=== PATIENT | male | born 1940 | race African-American/Black ===

== ENCOUNTER 2019-02-04 12:29 | Inpatient (IN) | payer MEDICARE, BC ==
[~2019-02-04] VITALS: Ht 175.3 cm; Wt 62.2 kg
[~2019-02-04 12:29] MED LIST: ACET500T68 PO; ATORVASTATIN CA80 MG PO; GABA300C18 PO; METF500T16 PO; OMEP20TA8 PO; SENN-80 PO; TAMS0.4C2 PO
[2019-02-04] MEDS ORDERED: ONDANSETRON PF 4 MG/2 ML VIAL. IV ONE (12:45)
[2019-02-04] MEDS ORDERED: MORPHINE SULFATE 4 MG/ML VIAL. IV ONE (12:45)
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
[2019-02-04 13:47] LABS: BILIRUBIN,URINE NEGATIVE (NEG); CLARITY,URINE CLEAR; COLOR,URINE YELLOW; NITRITE,URINE NEGATIVE (NEG); PH,URINE 6.5; PROTEIN,URINE 100 mg/dL (NEG-TRACE)
[2019-02-04 13:57] LABS: BACTERIA,URINE 0 /HPF (0-FEW); RBC,URINE TNTC /HPF (0-2); WBC,URINE 0 /HPF (0-4)
[2019-02-04 13:57] LABS: BASO % 1 % (0-3); EOS % 0 % (0-3); HEMOGLOBIN 13.9 g/dL (13.0-17.5); LYMPH # 0.3 x10^3/uL (1.0-4.8); LYMPH % 3 % (24-48); MEAN CORPUSCULAR HEMOGLOBIN 32 pg (25-35); MEAN CORPUSCULAR HGB CONC 34 g/dL (31-37); MEAN CORPUSCULAR VOLUME 93 fL (79-100); MONO # 0.8 x10^3/uL (0.0-1.1); MONO % 9 % (0-9); NEUT # 8.1 x10^3/uL (1.8-7.7); NEUT % 88 % (31-73); PLATELET COUNT 214 x10^3/uL (140-400); RED BLOOD COUNT 4.39 x10^6/uL (4.30-5.70); RED CELL DISTRIBUTION WIDTH 14.1 % (11.5-14.5); WHITE BLOOD COUNT 9.2 x10^3/uL (4.0-11.0)
[2019-02-04 14:06] LABS: CALCIUM 9.3 mg/dL (8.5-10.1); CREATININE 1.1 mg/dL (0.7-1.3); GFR 78.5; POTASSIUM 4.7 mmol/L (3.5-5.1)
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
[2019-02-04 14:14] LABS: ALBUMIN 3.5 g/dL (3.4-5.0); ALBUMIN/GLOBULIN RATIO 1.1 (1.0-1.7); TOTAL BILIRUBIN 0.8 mg/dL (0.2-1.0); TOTAL PROTEIN 6.7 g/dL (6.4-8.2)
[2019-02-04] MEDS ORDERED: ONDANSETRON PF 4 MG/2 ML VIAL. IV PRN (14:15)
[2019-02-04] MEDS ORDERED: MORPHINE SULFATE 4 MG/ML VIAL. IV PRN ×2 (14:15→15:45)
[2019-02-04] MEDS ORDERED: MULT-690 PO (14:54)
[2019-02-04 14:57] LABS: % BANDS 3 % (0-9); % BASOS 1 % (0-3); % LYMPHS 3 % (24-48); % MONOS 6 % (0-10); % SEGS 87 % (35-66); PLT ESTIMATE ADEQUATE (ADEQUATE)
[2019-02-04 14:58] LABS: ACANTHOCYTES FEW; SCHISTOCYTES OCC
[2019-02-04 15:00] VITALS: BP 139/59
[2019-02-04 16:17] LABS: PROTHROMBIN TIME PATIENT 13.1 SEC (11.7-14.0)
--- NOTE | 2019-02-04 16:19 | EKG ---
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
--- NOTE | 2019-02-04 17:02 | PDOC ---
Provider Note Provider Note history and physical dictated # [id number] RAVINDER BUSTAMANTE MD Feb 04, 2019 17:02
[2019-02-04 19:00] VITALS: BP 128/61
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
--- NOTE | 2019-02-04 19:50 | HP ---
ADMIT DATE: 02/04/2019 LOCATION: He is in room #406. HISTORY OF PRESENT ILLNESS: The patient is a 78-year-old -Romanian male with history of diabetes mellitus and hyperlipidemia, who apparently got up this morning around 3:00 in the morning, his right leg gave way and he fell to the floor. He hurt his right hip and was eventually transported to the [facility] Emergency Room today 02/04 where x-rays revealed a right subcapital femoral neck fracture. The patient was seen by the orthopedist and it is anticipated that he would need surgery tomorrow. He denied any chest pain, shortness of breath or syncope. He had some urine retention and a Causey catheter had to be placed in the Emergency Room. He is alert now and comfortable. Denies any recent chest pain or shortness of breath. ALLERGIES AND INTOLERANCES: PENICILLIN. MEDICATIONS: Include gabapentin 300 mg t.i.d., omeprazole 20 mg 2 tablets every day, atorvastatin 80 mg every day, tamsulosin 0.4 mg every day, metformin 500 mg every day, but apparently has been taking 1 b.i.d. at home, but I will be decreasing that to once a day in the hospital. PAST MEDICAL HISTORY: Significant for diabetes mellitus type 2, hyperlipidemia, and erectile dysfunction, gastroesophageal reflux disease, idiopathic peripheral neuropathy. He has a history of benign prostatic hypertrophy. His last colonoscopy was in 2013, I believe, and he had internal hemorrhoids at that time. I believe he had a lumbar laminectomy in 2006. He has had multinodular goiter, a 3.1 cm abdominal aortic aneurysm noted in 10/2017. He has a history of diabetic peripheral neuropathy, also diverticulosis. He had a gastric ulcer and gastritis in the past. SOCIAL HISTORY: He does not drink alcohol nor does he smoke cigarettes. I believe he does use a cane to get around. FAMILY HISTORY: Brother had asthma. Father had diabetes mellitus. Mother and sister had asthma. REVIEW OF SYSTEMS: GENERAL: He denies any fever, chills or sweats in the last 3 days. CARDIOVASCULAR: No chest pain. PULMONARY: No cough or shortness of breath. GASTROINTESTINAL: No constipation. GENITOURINARY: He had some urine retention in the Emergency Room. MUSCULOSKELETAL: Right hip pain. The rest of systems reviewed are negative except as stated in history of present illness. PHYSICAL EXAMINATION: VITAL SIGNS: Temperature is 98.1 degrees, apical pulse regular 71, respiratory rate 21, blood pressure 139/59, and oxygen saturation 98% on room air. HEENT: Eyes: Gaze is conjugate. Mouth: Tongue is midline. NECK: There is no cervical lymphadenopathy or thyroid enlargement. HEART: Reveals an S1, S2. There is no S3 or murmur. LUNGS: Clear. ABDOMEN: Soft, nontender. GENITOURINARY: He has got a Causey catheter. EXTREMITIES: Lower extremities, no edema. Both feet are warm. The right leg is shorter than the left. He is lying slightly tilted to the right side. NEUROLOGIC: He is able to move his feet up and down. 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 No facial asymmetry. He is coherent. LABORATORY DATA: White count 9.2, hemoglobin 13.9 with a platelet count of 214,000 with 88 polys and 3 lymphocytes. His INR was 1.0. Sodium 142, potassium 4.7, chloride 105, total CO2 of 26, BUN 22, creatinine 1.1, blood sugar is 155. Liver function tests were normal except for an SGOT of 42 and he had an INR as mentioned of 1.0. Urinalysis showed too numerous to count red cells and 0 white blood cells. He had an x-ray of his right hip, which showed a subcapital right femoral neck fracture. He had an electrocardiogram done, which was reviewed, and in sinus rhythm. I do not see a chest x-ray done. ASSESSMENT: 1. Subcapital right femoral neck fracture. 2. Diabetes mellitus type 2. 3. Hyperlipidemia. 4. Urinary retention requiring a Causey catheter. 5. Benign prostatic hypertrophy. PLAN: At this time is to consult Dr. Sims. We will repeat the CBC and BMP tomorrow. Analgesics have been ordered. He has IV morphine ordered p.r.n. as well as hydrocodone ordered p.r.n. Continue the tamsulosin and the Causey catheter. Continue with his home medications, metformin 500 mg once a day. Ordered some Senokot-S for him. We will also check a 25-hydroxy vitamin D level tomorrow. Obtain a Cardiology consult for cardiology clearance. I did order an echocardiogram. We will get a chest x-ray on him also. RAVINDER BUSTAMANTE MD DR: Jarret JOB#: [id number] / [id number]
[2019-02-04] MEDS: ATORVASTATIN CALCIUM 40 MG TABLET. PO SCH (20:40)
[2019-02-04] MEDS: GABAPENTIN 300 MG CAPSULE. PO SCH (20:41)
--- NOTE | 2019-02-04 21:31 | RAD ---
Single view chest dated 02/04/2019. Comparison made to 11/10/2017. CLINICAL INDICATION: Preop for hip operation. FINDINGS: Single upright portable exam performed. Heart and mediastinal contours are stable. Lungs are hyperinflated but otherwise clear. No consolidation or pleural effusion. No pneumothorax. IMPRESSION: No acute radiographic abnormality. Electronically signed by: Allan Zendejas MD (02/04/2019 9:29 PM) [facility]
[2019-02-04 23:08] VITALS: BP 121/49
[2019-02-05] VITALS (13 sets, daily range): BP systolic 91–118; BP diastolic 43–60
[2019-02-05] MEDS: MORPHINE SULFATE 2 MG/ML VIAL. IV PRN ×3 (06:35→20:30)
[2019-02-05 06:47] LABS: BASO # 0.1 x10^3/uL (0.0-0.2); BASO % 1 % (0-3); EOS # 0.3 x10^3/uL (0.0-0.7); EOS % 4 % (0-3); HEMATOCRIT 34.9 % (39.0-53.0); HEMOGLOBIN 11.9 g/dL (13.0-17.5); LYMPH # 0.9 x10^3/uL (1.0-4.8); LYMPH % 13 % (24-48); MEAN CORPUSCULAR HEMOGLOBIN 32 pg (25-35); MEAN CORPUSCULAR HGB CONC 34 g/dL (31-37); MEAN CORPUSCULAR VOLUME 93 fL (79-100); MONO # 0.8 x10^3/uL (0.0-1.1); MONO % 11 % (0-9); NEUT # 4.9 x10^3/uL (1.8-7.7); NEUT % 72 % (31-73); PLATELET COUNT 207 x10^3/uL (140-400); RED BLOOD COUNT 3.76 x10^6/uL (4.30-5.70); RED CELL DISTRIBUTION WIDTH 14.2 % (11.5-14.5); WHITE BLOOD COUNT 6.8 x10^3/uL (4.0-11.0)
[2019-02-05] MEDS: PANTOPRAZOLE 40 MG TABLET.DR. PO SCH (06:49)
[2019-02-05] MEDS: TAMSULOSIN 0.4 MG CAP.ER.24H. PO SCH ×2 (06:50→12:18)
[2019-02-05] MEDS: metFORMIN 500 MG TABLET PO SCH ×2 (06:50→12:18)
[2019-02-05] MEDS: SENNOSIDES/DOCUSATE 8.6/50MG TABLET. PO SCH (06:50)
[2019-02-05] MEDS: GABAPENTIN 300 MG CAPSULE. PO SCH ×3 (06:50→20:27)
[2019-02-05] MEDS: MULTIVITAMIN with MINERAL TABLET. PO SCH (06:50)
[2019-02-05 07:00] LABS: CALCIUM 8.7 mg/dL (8.5-10.1); CREATININE 1.1 mg/dL (0.7-1.3); GFR 78.5; POTASSIUM 3.9 mmol/L (3.5-5.1)
[2019-02-05] MEDS ORDERED: fentaNYL PF VIAL 100 MCG/2 ML VIAL IV PRN ×2 (07:00)
[2019-02-05] MEDS ORDERED: HYDROmorphone 2 MG/ML VIAL IV PRN (07:00)
[2019-02-05] MEDS ORDERED: ONDANSETRON PF 4 MG/2 ML VIAL. IV PRN (07:00)
[2019-02-05] MEDS ORDERED: PROCHLORPERAZINE 10 MG/2 ML VIAL. IV PRN (07:00)
[2019-02-05] MEDS ORDERED: LIDOCAINE 1% PF 2 ML VIAL. ID PRN (07:00)
[2019-02-05] MEDS ORDERED: MORPHINE SULFATE 2 MG/ML VIAL. IV PRN (07:00)
[2019-02-05] MEDS ORDERED: IV RINGERS,LACTATED 1000ML 1,000 ML IV SCH (07:00)
[2019-02-05] MEDS ORDERED: MORPHINE SULFATE 5 MG, KETOROLAC 30MG VIAL 30 MG, ROPIVacaine 0.5% PF 60 ML, EPINEPHrin... INT ART ONE ×5 (08:00)
--- NOTE | 2019-02-05 08:34 | CARD ---
MR#: [id number] Date of Study: 02/04/2019 Ordering Physician: RAVINDER BUSTAMANTE, Referring Physician: RAVINDER BUSTAMANTE, Tech: Flora Zamora RDCS APPROVED REPORT EXAM: Two-dimensional and M-mode echocardiogram with Doppler and color Doppler. Other Information Quality : Technically LimitedHR: 65bpm Rhythm : NSRTechnically limited study due to body habitus and smoking. INDICATION Pre op 2D DIMENSIONS RVDd2.4 (2.9-3.5cm)Left Atrium(2D)4.5 (1.6-4.0cm) IVSd1.3 (0.7-1.1cm)Aortic Root(2D)3.2 (2.0-3.7cm) LVDd4.4 (3.9-5.9cm)LVOT Diameter2.3 (1.8-2.4cm) PWd1.0 (0.7-1.1cm)LVDs3.1 (2.5-4.0cm) FS (%) 30.1 %SV49.6 ml LVEF(%)57.6 (>50%) Aortic Valve AoV Peak Alexander.83.2cm/sAoV VTI15.4cm AO Peak GR.2.8mmHgLVOT VTI 11.28cm AO Mean GR.1mmHgAVA (VTI)2.60cm2 Mitral Valve MV E Dzovdcee46.5cm/sMV DECEL [id number] MV A Umxqdirf69.5cm/sE/A Ratio0.9 MV A [id number] LEFT VENTRICLE The left ventricle is normal size. There is borderline to mild concentric left ventricular hypertroph y. The left ventricular systolic function is normal and the ejection fraction is within normal range. The Ejection Fraction is 55-60%. There is normal LV segmental wall motion. Transmitral Doppler flow pattern is abnormal. RIGHT VENTRICLE The right ventricle is normal size. There is normal right ventricular wall thickness. The right ventr icular systolic function is normal. ATRIA The left atrium is mildly dilated. The right atrium size is normal. The interatrial septum is intact with no evidence for an atrial septal defect or patent foramen ovale as noted on 2-D or Doppler imagi ng. AORTIC VALVE The aortic valve is calcified but opens well. The aortic valve is trileaflet. Doppler and Color Flow revealed no significant aortic regurgitation. There is no significant aortic valvular stenosis. MITRAL VALVE The mitral valve is normal in structure and function. There is no evidence of mitral valve prolapse. There is no mitral valve stenosis. Doppler and Color-flow revealed trace mitral regurgitation. TRICUSPID VALVE The tricuspid valve is normal in structure and function. Doppler and Color Flow revealed trace tricus pid regurgitation. There is no tricuspid valve prolapse or vegetation. There is no tricuspid valve st enosis. PULMONIC VALVE The pulmonic valve is not well visualized. GREAT VESSELS The aortic root is normal in size. The ascending aorta is normal in size. The IVC is normal in size a nd collapses >50% with inspiration. PERICARDIAL EFFUSION There is no evidence of significant pericardial effusion. Critical Notification Critical Value: No <Conclusion> The left ventricle is normal size. The left ventricular systolic function is normal and the ejection fraction is within normal range. The Ejection Fraction is 55-60%. There is borderline to mild concentric left ventricular hypertrophy. There is no significant aortic valvular stenosis. Doppler and Color Flow revealed no significant aortic regurgitation. Doppler and Color-flow revealed trace mitral regurgitation. Doppler and Color Flow revealed trace tricuspid regurgitation. Signed by : Rahul Min MD Electronically Approved : 02/05/2019 08:33:56
[2019-02-05] MEDS ORDERED: SENNOSIDES 8.6 MG TABLET PO SCH (09:00)
[2019-02-05] MEDS ORDERED: fentaNYL PF VIAL 100 MCG/2 ML VIAL ONE ×2 (09:28→11:22)
[2019-02-05] MEDS ORDERED: NEOSTIGMINE METHYLSULFATE 5 MG/5 ML SYRINGE. ONE (09:28)
[2019-02-05] MEDS ORDERED: SEVOFLURANE 61 TO 120 MINUTES. IH ONE (09:28)
[2019-02-05] MEDS ORDERED: ROCURONIUM 50 MG/5 ML VIAL. ONE (09:28)
[2019-02-05] MEDS ORDERED: GLYCOPYRROLATE 1 MG/5 ML VIAL. ONE (09:28)
[2019-02-05] MEDS ORDERED: ONDANSETRON PF 4 MG/2 ML VIAL. ONE (09:29)
[2019-02-05] MEDS ORDERED: DEXAMETHASONE SOD PHOS 4 MG/ML VIAL ONE (09:29)
[2019-02-05] MEDS ORDERED: PHENYLEPHRINE in 0.9% NACL PF 1 MG/10 ML SYRINGE. IV ONE (09:29)
[2019-02-05] MEDS ORDERED: LIDOCAINE 2% PF 5 ML VIAL. ONE (09:29)
[2019-02-05] MEDS ORDERED: PROPOFOL 20 ML IV ONE (09:29)
[2019-02-05] MEDS ORDERED: ePHEDrine PF IN SALINE 50 MG/10 ML SYRINGE. IV ONE (11:01)
--- NOTE | 2019-02-05 11:45 | PDOC4 ---
Operative Note Operative Note Date of surgery: 02/05/2019 Preoperative diagnosis: Displaced right femoral neck fracture Postoperative diagnosis: Same Operative procedure: Right hip hemiarthroplasty Surgeon: Bethany Payton Anesthesia: Gen. Estimated blood loss: 100 mL Complications: None Drains: None Operative indications please see my orthopedic consultation for detailed operative indications and note that had discussed with the patient and his son possible operative complications of infection nerve or blood vessel damage instability premature wear or loosening medical or other anesthetic competitions among others. All her questions were answered and patient wishes to proceed with surgical evaluation and treatment having given informed consent Operative text: Patient was identified procedure verified patient placed in the supine position. On the operating table. After adequate amounts of general anesthesia were administered he was placed in the decubitus position right side up using the Stulberg hip positioner and the right hip was prepped and draped in standard sterile fashion. After timeout was performed patient procedure identified and verified a curvilinear incision was made centered over the greater trochanter iliotibial band and gluteal fascia were divided in line with their fibers Charnley retractor was placed external rotators were divided from their insertion and hip capsule was split in a T fashion. A femoral neck cut was made using the cutting guide the femoral head was retrieved and sized at a size 52 acetabulum was well preserved femur was reamed and broached and trial fit wi th a 15 mm standard offset broach and a 52 mm outer diameter trial which restored leg length offset and good range of motion with stability. Trial components were removed and a Synergy porous-coated 15 size standard offset stem was impacted in place and bipolar implant with a +0 52 mm outer diameter head was assembled on the table and impacted into place to engage the Kumar taper. Thorough irrigation was carried out normal saline solution and the hip was reduced hip capsule was repaired with #5 Ethibond suture external rotators were reattached transosseously with #5 Ethibond. The local anesthetic mixture was injected throughout the joint capsule no drain or pain catheter was placed fascial closure accomplished with #5 Ethibond and #1 PDS strata fix suture aguiar bcutaneous closure with 2-0 Vicryl skin closure with 3-0 strata fix Monocryl nilsa dressing was applied and patient was returned recovery room in stable condition having tolerated procedure well. Catie cole was present for the procedure assisted in the positioning prepping draping retraction and skin closure ABHI DOMINIQUE MD Feb 05, 2019 11:45
--- NOTE | 2019-02-05 12:07 | PDOC ---
PROGRESS NOTES Subjective Subjective seen in surgical holding area. alert and comfortable. vitals are stable. lab and echo report reviewed. Objective Objective Vital Signs Date Time Temp Pulse Resp B/P (MAP) Pulse Ox O2 Delivery O2 Flow Rate FiO2 02/05/19 11:31 20 97 Room Air 02/05/19 11:30 97.4 75 143/59 97.4 02/05/19 11:15 8 Intake and Output 02/05/19 06:59 Intake Total 240 ml Output Total 1850 ml Balance -1610 ml Intake Oral 240 ml Output Urine Total 1850 ml Physical Exam Abdomen: Soft Heart: Regular rate, Normal S1, Normal S2 Extremities: No edema, Other (dry dressing right hip) General: Alert HEENT: Atraumatic Lungs: Clear to auscultation Neuro: Normal speech Psych/Mental Status: Mental status NL Skin: No rashes Assessment Assessment Problems1. Subcapital right femoral neck fracture.treated with a right hip hemiarthroplasty 2. Diabetes mellitus type 2. 3. Hyperlipidemia. 4. Urinary retention requiring a Causey catheter. 5. Benign prostatic hypertrophy. Medical Problems: (1) Acute urinary retention Status: Acute (2) Fall from standing Status: Acute (3) Fracture of right hip Status: Acute Plan Plan of Care continue analgesics PT and OT DVT prophylaxis per dr. Sims continue metformin and atorvastatin and tamsulosin Comment Review of Relevant I have reviewed the following items dimitrios (where applicable) has been applied. Labs Laboratory Tests Test 02/04/19 13:00 02/04/19 13:42 02/04/19 16:34 02/04/19 20:29 Urine Collection Type Unknown Urine Color Yellow Urine Clarity Clear Urine pH 6.5 Urine Specific [place] 1.015 Urine Protein 100 mg/dL (NEG-TRACE) Urine Glucose (UA) 100 mg/dL (NEG) Urine Ketones (Stick) Trace mg/dL (NEG) Urine Blood Large (NEG) Urine Nitrite Negative (NEG) Urine Bilirubin Negative (NEG) Urine Urobilinogen Dipstick 1.0 mg/dL (0.2 mg/dL) Urine Leukocyte Esterase Negative (NEG) Urine RBC Tntc /HPF (0-2) Urine WBC 0 /HPF (0-4) Urine Bacteria 0 /HPF (0-FEW) Urine Mucus Slight /LPF White Blood Count 9.2 x10^3/uL (4.0-11.0) Red Blood Count 4.39 x10^6/uL (4.30-5.70) Hemoglobin 13.9 g/dL (13.0-17.5) Hematocrit 41.0 % (39.0-53.0) Mean Corpuscular Volume 93 fL (79-100) Mean Corpuscular Hemoglobin 32 pg (25-35) Mean Corpuscular Hemoglobin Concent 34 g/dL (31-37) Red Cell Distribution Width 14.1 % (11.5-14.5) Platelet Count 214 x10^3/uL (140-400) Neutrophils (%) (Auto) 88 % (31-73) Lymphocytes (%) (Auto) 3 % (24-48) Monocytes (%) (Auto) 9 % (0-9) Eosinophils (%) (Auto) 0 % (0-3) Basophils (%) (Auto) 1 % (0-3) Neutrophils # (Auto) 8.1 x10^3/uL (1.8-7.7) Lymphocytes # (Auto) 0.3 x10^3/uL (1.0-4.8) Monocytes # (Auto) 0.8 x10^3/uL (0.0-1.1) Eosinophils # (Auto) 0.0 x10^3/uL (0.0-0.7) Basophils # (Auto) 0.0 x10^3/uL (0.0-0.2) Segmented Neutrophils % 87 % (35-66) Band Neutrophils % 3 % (0-9) Lymphocytes % 3 % (24-48) Monocytes % 6 % (0-10) Basophils % 1 % (0-3) Platelet Estimate Adequate (ADEQUATE) Acanthocytes Few Schistocytes Occ Prothrombin Time 13.1 SEC (11.7-14.0) Prothromb Time International Ratio 1.0 (0.8-1.1) Sodium Level 142 mmol/L (136-145) Potassium Level 4.7 mmol/L (3.5-5.1) Chloride Level 105 mmol/L (98-107) Carbon Dioxide Level 26 mmol/L (21-32) Anion Gap 11 (6-14) Blood Urea Nitrogen 22 mg/dL (8-26) Creatinine 1.1 mg/dL (0.7-1.3) Estimated GFR (Cockcroft-Gault) 78.5 BUN/Creatinine Ratio 20 (6-20) Glucose Level 155 mg/dL (70-99) Calcium Level 9.3 mg/dL (8.5-10.1) Total Bilirubin 0.8 mg/dL (0.2-1.0) Aspartate Amino Transf (AST/SGOT) 42 U/L (15-37) Alanine Aminotransferase (ALT/SGPT) 45 U/L (16-63) Alkaline Phosphatase 83 U/L (46-116) Total Protein 6.7 g/dL (6.4-8.2) Albumin 3.5 g/dL (3.4-5.0) Albumin/Globulin Ratio 1.1 (1.0-1.7) Glucose (Fingerstick) 119 mg/dL (70-99) 103 mg/dL (70-99) Test 02/05/19 04:55 02/05/19 07:09 White Blood Count 6.8 x10^3/uL (4.0-11.0) Red Blood Count 3.76 x10^6/uL (4.30-5.70) Hemoglobin 11.9 g/dL (13.0-17.5) Hematocrit 34.9 % (39.0-53.0) Mean Corpuscular Volume 93 fL (79-100) Mean Corpuscular Hemoglobin 32 pg (25-35) Mean Corpuscular Hemoglobin Concent 34 g/dL (31-37) Red Cell Distribution Width 14.2 % (11.5-14.5) Platelet Count 207 x10^3/uL (140-400) Neutrophils (%) (Auto) 72 % (31-73) Lymphocytes (%) (Auto) 13 % (24-48) Monocytes (%) (Auto) 11 % (0-9) Eosinophils (%) (Auto) 4 % (0-3) Basophils (%) (Auto) 1 % (0-3) Neutrophils # (Auto) 4.9 x10^3/uL (1.8-7.7) Lymphocytes # (Auto) 0.9 x10^3/uL (1.0-4.8) Monocytes # (Auto) 0.8 x10^3/uL (0.0-1.1) Eosinophils # (Auto) 0.3 x10^3/uL (0.0-0.7) Basophils # (Auto) 0.1 x10^3/uL (0.0-0.2) Sodium Level 142 mmol/L (136-145) Potassium Level 3.9 mmol/L (3.5-5.1) Chloride Level 105 mmol/L (98-107) Carbon Dioxide Level 28 mmol/L (21-32) Anion Gap 9 (6-14) Blood Urea Nitrogen 23 mg/dL (8-26) Creatinine 1.1 mg/dL (0.7-1.3) Estimated GFR (Cockcroft-Gault) 78.5 Glucose Level 88 mg/dL (70-99) Calcium Level 8.7 mg/dL (8.5-10.1) Glucose (Fingerstick) 92 mg/dL (70-99) Laboratory Tests Test 02/04/19 13:00 02/04/19 13:42 02/04/19 16:34 02/04/19 20:29 Urine Collection Type Unknown Urine Color Yellow Urine Clarity Clear Urine pH 6.5 Urine Specific [place] 1.015 Urine Protein 100 mg/dL (NEG-TRACE) Urine Glucose (UA) 100 mg/dL (NEG) Urine Ketones (Stick) Trace mg/dL (NEG) Urine Blood Large (NEG) Urine Nitrite Negative (NEG) Urine Bilirubin Negative (NEG) Urine Urobilinogen Dipstick 1.0 mg/dL (0.2 mg/dL) Urine Leukocyte Esterase Negative (NEG) Urine RBC Tntc /HPF (0-2) Urine WBC 0 /HPF (0-4) Urine Bacteria 0 /HPF (0-FEW) Urine Mucus Slight /LPF White Blood Count 9.2 x10^3/uL (4.0-11.0) Red Blood Count 4.39 x10^6/uL (4.30-5.70) Hemoglobin 13.9 g/dL (13.0-17.5) Hematocrit 41.0 % (39.0-53.0) Mean Corpuscular Volume 93 fL (79-100) Mean Corpuscular Hemoglobin 32 pg (25-35) Mean Corpuscular Hemoglobin Concent 34 g/dL (31-37) Red Cell Distribution Width 14.1 % (11.5-14.5) Platelet Count 214 x10^3/uL (140-400) Neutrophils (%) (Auto) 88 % (31-73) Lymphocytes (%) (Auto) 3 % (24-48) Monocytes (%) (Auto) 9 % (0-9) Eosinophils (%) (Auto) 0 % (0-3) Basophils (%) (Auto) 1 % (0-3) Neutrophils # (Auto) 8.1 x10^3/uL (1.8-7.7) Lymphocytes # (Auto) 0.3 x10^3/uL (1.0-4.8) Monocytes # (Auto) 0.8 x10^3/uL (0.0-1.1) Eosinophils # (Auto) 0.0 x10^3/uL (0.0-0.7) Basophils # (Auto) 0.0 x10^3/uL (0.0-0.2) Segmented Neutrophils % 87 % (35-66) Band Neutrophils % 3 % (0-9) Lymphocytes % 3 % (24-48) Monocytes % 6 % (0-10) Basophils % 1 % (0-3) Platelet Estimate Adequate (ADEQUATE) Acanthocytes Few Schistocytes Occ Prothrombin Time 13.1 SEC (11.7-14.0) Prothromb Time International Ratio 1.0 (0.8-1.1) Sodium Level 142 mmol/L (136-145) Potassium Level 4.7 mmol/L (3.5-5.1) Chloride Level 105 mmol/L (98-107) Carbon Dioxide Level 26 mmol/L (21-32) Anion Gap 11 (6-14) Blood Urea Nitrogen 22 mg/dL (8-26) Creatinine 1.1 mg/dL (0.7-1.3) Estimated GFR (Cockcroft-Gault) 78.5 BUN/Creatinine Ratio 20 (6-20) Glucose Level 155 mg/dL (70-99) Calcium Level 9.3 mg/dL (8.5-10.1) Total Bilirubin 0.8 mg/dL (0.2-1.0) Aspartate Amino Transf (AST/SGOT) 42 U/L (15-37) Alanine Aminotransferase (ALT/SGPT) 45 U/L (16-63) Alkaline Phosphatase 83 U/L (46-116) Total Protein 6.7 g/dL (6.4-8.2) Albumin 3.5 g/dL (3.4-5.0) Albumin/Globulin Ratio 1.1 (1.0-1.7) Glucose (Fingerstick) 119 mg/dL (70-99) 103 mg/dL (70-99) Test 02/05/19 04:55 02/05/19 07:09 White Blood Count 6.8 x10^3/uL (4.0-11.0) Red Blood Count 3.76 x10^6/uL (4.30-5.70) Hemoglobin 11.9 g/dL (13.0-17.5) Hematocrit 34.9 % (39.0-53.0) Mean Corpuscular Volume 93 fL (79-100) Mean Corpuscular Hemoglobin 32 pg (25-35) Mean Corpuscular Hemoglobin Concent 34 g/dL (31-37) Red Cell Distribution Width 14.2 % (11.5-14.5) Platelet Count 207 x10^3/uL (140-400) Neutrophils (%) (Auto) 72 % (31-73) Lymphocytes (%) (Auto) 13 % (24-48) Monocytes (%) (Auto) 11 % (0-9) Eosinophils (%) (Auto) 4 % (0-3) Basophils (%) (Auto) 1 % (0-3) Neutrophils # (Auto) 4.9 x10^3/uL (1.8-7.7) Lymphocytes # (Auto) 0.9 x10^3/uL (1.0-4.8) Monocytes # (Auto) 0.8 x10^3/uL (0.0-1.1) Eosinophils # (Auto) 0.3 x10^3/uL (0.0-0.7) Basophils # (Auto) 0.1 x10^3/uL (0.0-0.2) Sodium Level 142 mmol/L (136-145) Potassium Level 3.9 mmol/L (3.5-5.1) Chloride Level 105 mmol/L (98-107) Carbon Dioxide Level 28 mmol/L (21-32) Anion Gap 9 (6-14) Blood Urea Nitrogen 23 mg/dL (8-26) Creatinine 1.1 mg/dL (0.7-1.3) Estimated GFR (Cockcroft-Gault) 78.5 Glucose Level 88 mg/dL (70-99) Calcium Level 8.7 mg/dL (8.5-10.1) Glucose (Fingerstick) 92 mg/dL (70-99) Medications Current Medications Ondansetron HCl (Zofran) 4 mg 1X ONCE IV Last administered on 02/04/19at 13:32; Start 02/04/19 at 12:45; Stop 02/04/19 at 12:51; Status DC Morphine Sulfate (Morphine Sulfate) 4 mg 1X ONCE IV Last administered on 02/04/19at 13:34; Start 02/04/19 at 12:45; Stop 02/04/19 at 12:51; Status DC Ondansetron HCl (Zofran) 4 mg PRN Q8HRS PRN IV NAUSEA/VOMITING; Start 02/04/19 at 14:15; Stop 02/05/19 at 14:14 Morphine Sulfate (Morphine Sulfate) 4 mg PRN Q2HR PRN IV PAIN; Start 02/04/19 at 14:15; Stop 02/04/19 at 15:50; Status DC Morphine Sulfate (Morphine Sulfate) 4 mg PRN Q4HRS PRN IV PAIN Last administered on 02/04/19at 16:21; Start 02/04/19 at 15:45 Gabapentin (Neurontin) 300 mg TID PO Last administered on 02/04/19at 20:41; Start 02/04/19 at 21:00 Metformin HCl (Glucophage) 500 mg DAILY PO ; Start 02/05/19 at 09:00 Tamsulosin HCl (Flomax) 0.4 mg DAILY PO ; Start 02/05/19 at 09:00 Atorvastatin Calcium (Lipitor) 80 mg QHS PO Last administered on 02/04/19at 20:40; Start 02/04/19 at 21:00 Multivitamins (Thera M Plus) 1 tab DAILY PO ; Start 02/05/19 at 09:00 Pantoprazole Sodium (Protonix) 40 mg DAILYAC PO ; Start 02/05/19 at 07:30 Sennosides (Senna) 8.6 mg DAILY PO ; Start 02/05/19 at 09:00; Stop 02/04/19 at 16:55; Status DC Acetaminophen (Tylenol) 650 mg PRN Q6HRS PRN PO PAIN; Start 02/04/19 at 15:45 Acetaminophen/ Hydrocodone Bitart (Lortab 5/325) 1 tab PRN Q4HRS PRN PO PAIN; Start 02/04/19 at 15:45 Morphine Sulfate (Morphine Sulfate) 2 mg PRN Q4HRS PRN IV PAIN Last administered on 02/05/19at 06:35; Start 02/04/19 at 15:45 Ondansetron HCl (Zofran) 4 mg PRN Q6HRS PRN IV NAUSEA/VOMITING; Start 02/05/19 at 07:00; Stop 02/06/19 at 06:59 Fentanyl Citrate (Fentanyl 2ml Vial) 25 mcg PRN Q5MIN PRN IV MILD PAIN 1-3 Last administered on 02/05/19at 11:31; Start 02/05/19 at 07:00; Stop 02/06/19 at 06:59 Fentanyl Citrate (Fentanyl 2ml Vial) 50 mcg PRN Q5MIN PRN IV MODERATE TO SEVERE PAIN; Start 02/05/19 at 07:00; Stop 02/06/19 at 06:59 Morphine Sulfate (Morphine Sulfate) 1 mg PRN Q10MIN PRN IV SEVERE PAIN 7-10; Start 02/05/19 at 07:00; Stop 02/06/19 at 06:59 Ringer's Solution 1,000 ml @ 30 mls/hr Q24H IV Last administered on 02/05/19at 09:23; Start 02/05/19 at 07:00; Stop 02/05/19 at 18:59 Lidocaine HCl (Xylocaine-Mpf 1% 2ml Vial) 2 ml PRN 1X PRN ID PRIOR TO IV START; Start 02/05/19 at 07:00; Stop 02/06/19 at 06:59 Hydromorphone HCl (Dilaudid) 0.5 mg PRN Q10MIN PRN IV SEV PAIN, Second choice; Start 02/05/19 at 07:00; Stop 02/06/19 at 06:59 Prochlorperazine Edisylate (Compazine) 5 mg PACU PRN PRN IV NAUSEA, MRX1; Start 02/05/19 at 07:00; Stop 02/06/19 at 06:59 Senna/Docusate Sodium (Senna Plus) 2 tab DAILY PO ; Start 02/05/19 at 09:00 Morphine Sulfate 5 mg/Ketorolac Tromethamine 30 mg/Ropivacaine 60 ml/Epinephrine HCl 0.5 mg/Sodium Chloride 100 ml @ 100 mls/hr 1X ONCE INT ART Last administered on 02/05/19at 10:16; Start 02/05/19 at 08:00; Stop 02/05/19 at 08:59; Status DC Glycopyrrolate (Robinul) 1 mg STK-MED ONCE .ROUTE ; Start 02/05/19 at 09:28; Stop 02/05/19 at 09:28; Status DC Sevoflurane (Ultane) 60 ml STK-MED ONCE IH ; Start 02/05/19 at 09:28; Stop 02/05/19 at 09:28; Status DC Rocuronium [place] (Zemuron) 50 mg STK-MED ONCE .ROUTE ; Start 02/05/19 at 09:28; Stop 02/05/19 at 09:28; Status DC Fentanyl Citrate (Fentanyl 2ml Vial) 100 mcg STK-MED ONCE .ROUTE ; Start 02/05/19 at 09:28; Stop 02/05/19 at 09:28; Status DC Neostigmine Methylsulfate (Neostigmine Methylsulfate) 5 mg STK-MED ONCE .ROUTE ; Start 02/05/19 at 09:28; Stop 02/05/19 at 09:29; Status DC Propofol 20 ml @ As Directed STK-MED ONCE IV ; Start 02/05/19 at 09:29; Stop 02/05/19 at 09:29; Status DC Phenylephrine HCl (PHENYLEPHRINE in 0.9% NACL PF) 1 mg STK-MED ONCE IV ; Start 02/05/19 at 09:29; Stop 02/05/19 at 09:29; Status DC Lidocaine HCl (Lidocaine Pf 2% Vial) 5 ml STK-MED ONCE .ROUTE ; Start 02/05/19 at 09:29; Stop 02/05/19 at 09:29; Status DC Dexamethasone Sodium Phosphate (Decadron) 4 mg STK-MED ONCE .ROUTE ; Start 02/05/19 at 09:29; Stop 02/05/19 at 09:29; Status DC Ondansetron HCl (Zofran) 4 mg STK-MED ONCE .ROUTE ; Start 02/05/19 at 09:29; Stop 02/05/19 at 09:29; Status DC Cefazolin Sodium 50 ml @ As Directed STK-MED ONCE IV ; Start 02/05/19 at 09:35; Stop 02/05/19 at 09:35; Status DC Ephedrine Sulfate (ePHEDrine PF IN SALINE SYRINGE) 50 mg STK-MED ONCE IV ; Start 02/05/19 at 11:01; Stop 02/05/19 at 11:01; Status DC Fentanyl Citrate (Fentanyl 2ml Vial) 100 mcg STK-MED ONCE .ROUTE ; Start 02/05/19 at 11:22; Stop 02/05/19 at 11:23; Status DC Active Scripts Active Reported Centrum Silver Men Tablet (Multivit-Min/FA/Lycopen/Lutein) 1 Each Tablet 1 Each PO DAILY Omeprazole 20 Mg Tablet.dr 20 Mg PO DAILY Atorvastatin Calcium 80 Mg Tablet 80 Mg PO HS Metformin Hcl 500 Mg Tablet 500 Mg PO DAILY Gabapentin (Gabapentin) 300 Mg Capsule 300 Mg PO TID Tamsulosin Hcl 0.4 Mg Cap.er.24h 1 Cap PO DAILY Vitals/I & O Vital Sign - Last 24 Hours 02/04/19 02/04/19 02/04/19 02/04/19 12:36 13:34 13:36 14:35 Temp 98.9 98.9 Pulse 74 80 61 Resp 20 18 18 18 B/P (MAP) 199/82 (121) 140/53 (82) 143/61 (88) Pulse Ox 100 99 96 96 O2 Delivery Room Air Room Air Room Air Room Air 02/04/19 02/04/19 02/04/19 02/04/19 15:00 15:18 16:21 16:51 Temp 98.1 98.1 Pulse 71 Resp 21 B/P (MAP) 139/59 (85) Pulse Ox 98 98 98 O2 Delivery Room Air Room Air Room Air Room Air 02/04/19 02/04/19 02/04/19 02/05/19 19:00 19:47 23:08 02:47 Temp 98.5 98.1 98.4 98.5 98.1 98.4 Pulse 72 73 77 Resp 16 16 16 B/P (MAP) 128/61 (83) 121/49 (73) 109/52 (71) Pulse Ox 97 97 96 O2 Delivery Room Air Room Air Room Air Room Air 02/05/19 02/05/19 02/05/19 02/05/19 06:35 07:00 07:26 08:53 Temp 98.7 98.7 Pulse 77 Resp 16 B/P (MAP) 113/60 (77) Pulse Ox 98 98 O2 Delivery Room Air Room Air Room Air Room Air 02/05/19 02/05/19 02/05/19 02/05/19 09:05 11:15 11:30 11:30 Temp 97.4 97.4 97.4 97.4 97.4 97.4 Pulse 92 83 75 Resp 16 16 18 B/P (MAP) 147/76 147/54 143/59 Pulse Ox 98 100 97 O2 Delivery Room Air Simple Mask Room Air Room Air O2 Flow Rate 8 02/05/19 11:31 Resp 20 Pulse Ox 97 O2 Delivery Room Air Intake and Output 02/04/19 02/04/19 02/05/19 14:59 22:59 06:59 Intake Total 240 ml Output Total 850 ml 400 ml 600 ml Balance -850 ml -400 ml -360 ml RAVINDER BUSTAMANTE MD Feb 05, 2019 12:07
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
[2019-02-05] MEDS: HYDROcodone/APAP 5/325MG 1 TAB TABLET PO PRN (18:26)
[2019-02-05] MEDS: ATORVASTATIN CALCIUM 40 MG TABLET. PO SCH (20:27)
[2019-02-06 03:01] VITALS: BP 119/50
[2019-02-06] MEDS: HYDROcodone/APAP 5/325MG 1 TAB TABLET PO PRN ×4 (03:02→23:32)
[2019-02-06] MEDS: MORPHINE SULFATE 2 MG/ML VIAL. IV PRN (03:03)
[2019-02-06 07:00] VITALS: BP 123/58
[2019-02-06 07:32] LABS: BASO % 0 % (0-3); EOS # 0.1 x10^3/uL (0.0-0.7); EOS % 1 % (0-3); HEMATOCRIT 28.8 % (39.0-53.0); HEMOGLOBIN 9.9 g/dL (13.0-17.5); LYMPH # 0.9 x10^3/uL (1.0-4.8); LYMPH % 16 % (24-48); MEAN CORPUSCULAR HEMOGLOBIN 32 pg (25-35); MEAN CORPUSCULAR HGB CONC 34 g/dL (31-37); MEAN CORPUSCULAR VOLUME 93 fL (79-100); MONO # 0.8 x10^3/uL (0.0-1.1); MONO % 13 % (0-9); NEUT # 4.1 x10^3/uL (1.8-7.7); NEUT % 70 % (31-73); PLATELET COUNT 158 x10^3/uL (140-400); RED CELL DISTRIBUTION WIDTH 13.9 % (11.5-14.5); WHITE BLOOD COUNT 5.8 x10^3/uL (4.0-11.0)
[2019-02-06 07:35] LABS: CALCIUM 8.5 mg/dL (8.5-10.1); CREATININE 1.1 mg/dL (0.7-1.3); GFR 78.5
[2019-02-06] MEDS: GABAPENTIN 300 MG CAPSULE. PO SCH ×3 (08:15→21:08)
[2019-02-06] MEDS: TAMSULOSIN 0.4 MG CAP.ER.24H. PO SCH (08:15)
[2019-02-06] MEDS: PANTOPRAZOLE 40 MG TABLET.DR. PO SCH (08:15)
[2019-02-06] MEDS: metFORMIN 500 MG TABLET PO SCH (08:15)
[2019-02-06] MEDS: SENNOSIDES/DOCUSATE 8.6/50MG TABLET. PO SCH (08:16)
[2019-02-06] MEDS: MULTIVITAMIN with MINERAL TABLET. PO SCH (08:16)
--- NOTE | 2019-02-06 08:26 | PDOC ---
PROGRESS NOTES Subjective Subjective Problems overnight: Right hip feels much better after surgery, some thigh pain and certainly weakness and trying to lift the leg Objective Vital Signs Vital Signs Date Time Temp Pulse Resp B/P (MAP) Pulse Ox O2 Delivery O2 Flow Rate FiO2 02/06/19 08:15 96 Room Air 02/06/19 07:00 98.8 65 16 123/58 (79) 98.8 02/05/19 11:15 8 Physical Exam Leg lengths equal good range of motion stability distal neurovascular status intact nilsa dressing intact Labs Laboratory Tests Test 02/04/19 13:00 02/04/19 13:42 02/04/19 16:34 02/04/19 20:29 Urine Collection Type Unknown Urine Color Yellow Urine Clarity Clear Urine pH 6.5 Urine Specific [place] 1.015 Urine Protein 100 mg/dL (NEG-TRACE) Urine Glucose (UA) 100 mg/dL (NEG) Urine Ketones (Stick) Trace mg/dL (NEG) Urine Blood Large (NEG) Urine Nitrite Negative (NEG) Urine Bilirubin Negative (NEG) Urine Urobilinogen Dipstick 1.0 mg/dL (0.2 mg/dL) Urine Leukocyte Esterase Negative (NEG) Urine RBC Tntc /HPF (0-2) Urine WBC 0 /HPF (0-4) Urine Bacteria 0 /HPF (0-FEW) Urine Mucus Slight /LPF White Blood Count 9.2 x10^3/uL (4.0-11.0) Red Blood Count 4.39 x10^6/uL (4.30-5.70) Hemoglobin 13.9 g/dL (13.0-17.5) Hematocrit 41.0 % (39.0-53.0) Mean Corpuscular Volume 93 fL (79-100) Mean Corpuscular Hemoglobin 32 pg (25-35) Mean Corpuscular Hemoglobin Concent 34 g/dL (31-37) Red Cell Distribution Width 14.1 % (11.5-14.5) Platelet Count 214 x10^3/uL (140-400) Neutrophils (%) (Auto) 88 % (31-73) Lymphocytes (%) (Auto) 3 % (24-48) Monocytes (%) (Auto) 9 % (0-9) Eosinophils (%) (Auto) 0 % (0-3) Basophils (%) (Auto) 1 % (0-3) Neutrophils # (Auto) 8.1 x10^3/uL (1.8-7.7) Lymphocytes # (Auto) 0.3 x10^3/uL (1.0-4.8) Monocytes # (Auto) 0.8 x10^3/uL (0.0-1.1) Eosinophils # (Auto) 0.0 x10^3/uL (0.0-0.7) Basophils # (Auto) 0.0 x10^3/uL (0.0-0.2) Segmented Neutrophils % 87 % (35-66) Band Neutrophils % 3 % (0-9) Lymphocytes % 3 % (24-48) Monocytes % 6 % (0-10) Basophils % 1 % (0-3) Platelet Estimate Adequate (ADEQUATE) Acanthocytes Few Schistocytes Occ Prothrombin Time 13.1 SEC (11.7-14.0) Prothromb Time International Ratio 1.0 (0.8-1.1) Sodium Level 142 mmol/L (136-145) Potassium Level 4.7 mmol/L (3.5-5.1) Chloride Level 105 mmol/L (98-107) Carbon Dioxide Level 26 mmol/L (21-32) Anion Gap 11 (6-14) Blood Urea Nitrogen 22 mg/dL (8-26) Creatinine 1.1 mg/dL (0.7-1.3) Estimated GFR (Cockcroft-Gault) 78.5 BUN/Creatinine Ratio 20 (6-20) Glucose Level 155 mg/dL (70-99) Calcium Level 9.3 mg/dL (8.5-10.1) Total Bilirubin 0.8 mg/dL (0.2-1.0) Aspartate Amino Transf (AST/SGOT) 42 U/L (15-37) Alanine Aminotransferase (ALT/SGPT) 45 U/L (16-63) Alkaline Phosphatase 83 U/L (46-116) Total Protein 6.7 g/dL (6.4-8.2) Albumin 3.5 g/dL (3.4-5.0) Albumin/Globulin Ratio 1.1 (1.0-1.7) Glucose (Fingerstick) 119 mg/dL (70-99) 103 mg/dL (70-99) Test 02/05/19 04:55 02/05/19 07:09 02/05/19 12:26 02/05/19 16:46 White Blood Count 6.8 x10^3/uL (4.0-11.0) Red Blood Count 3.76 x10^6/uL (4.30-5.70) Hemoglobin 11.9 g/dL (13.0-17.5) Hematocrit 34.9 % (39.0-53.0) Mean Corpuscular Volume 93 fL (79-100) Mean Corpuscular Hemoglobin 32 pg (25-35) Mean Corpuscular Hemoglobin Concent 34 g/dL (31-37) Red Cell Distribution Width 14.2 % (11.5-14.5) Platelet Count 207 x10^3/uL (140-400) Neutrophils (%) (Auto) 72 % (31-73) Lymphocytes (%) (Auto) 13 % (24-48) Monocytes (%) (Auto) 11 % (0-9) Eosinophils (%) (Auto) 4 % (0-3) Basophils (%) (Auto) 1 % (0-3) Neutrophils # (Auto) 4.9 x10^3/uL (1.8-7.7) Lymphocytes # (Auto) 0.9 x10^3/uL (1.0-4.8) Monocytes # (Auto) 0.8 x10^3/uL (0.0-1.1) Eosinophils # (Auto) 0.3 x10^3/uL (0.0-0.7) Basophils # (Auto) 0.1 x10^3/uL (0.0-0.2) Sodium Level 142 mmol/L (136-145) Potassium Level 3.9 mmol/L (3.5-5.1) Chloride Level 105 mmol/L (98-107) Carbon Dioxide Level 28 mmol/L (21-32) Anion Gap 9 (6-14) Blood Urea Nitrogen 23 mg/dL (8-26) Creatinine 1.1 mg/dL (0.7-1.3) Estimated GFR (Cockcroft-Gault) 78.5 Glucose Level 88 mg/dL (70-99) Calcium Level 8.7 mg/dL (8.5-10.1) Glucose (Fingerstick) 92 mg/dL (70-99) 153 mg/dL (70-99) 169 mg/dL (70-99) Test 02/05/19 20:36 02/06/19 06:00 02/06/19 07:11 Glucose (Fingerstick) 162 mg/dL (70-99) 117 mg/dL (70-99) White Blood Count 5.8 x10^3/uL (4.0-11.0) Red Blood Count 3.10 x10^6/uL (4.30-5.70) Hemoglobin 9.9 g/dL (13.0-17.5) Hematocrit 28.8 % (39.0-53.0) Mean Corpuscular Volume 93 fL (79-100) Mean Corpuscular Hemoglobin 32 pg (25-35) Mean Corpuscular Hemoglobin Concent 34 g/dL (31-37) Red Cell Distribution Width 13.9 % (11.5-14.5) Platelet Count 158 x10^3/uL (140-400) Neutrophils (%) (Auto) 70 % (31-73) Lymphocytes (%) (Auto) 16 % (24-48) Monocytes (%) (Auto) 13 % (0-9) Eosinophils (%) (Auto) 1 % (0-3) Basophils (%) (Auto) 0 % (0-3) Neutrophils # (Auto) 4.1 x10^3/uL (1.8-7.7) Lymphocytes # (Auto) 0.9 x10^3/uL (1.0-4.8) Monocytes # (Auto) 0.8 x10^3/uL (0.0-1.1) Eosinophils # (Auto) 0.1 x10^3/uL (0.0-0.7) Basophils # (Auto) 0.0 x10^3/uL (0.0-0.2) Sodium Level 137 mmol/L (136-145) Potassium Level 4.0 mmol/L (3.5-5.1) Chloride Level 102 mmol/L (98-107) Carbon Dioxide Level 28 mmol/L (21-32) Anion Gap 7 (6-14) Blood Urea Nitrogen 34 mg/dL (8-26) Creatinine 1.1 mg/dL (0.7-1.3) Estimated GFR (Cockcroft-Gault) 78.5 Glucose Level 120 mg/dL (70-99) Calcium Level 8.5 mg/dL (8.5-10.1) Laboratory Tests Test 02/05/19 12:26 02/05/19 16:46 02/05/19 20:36 02/06/19 06:00 Glucose (Fingerstick) 153 mg/dL (70-99) 169 mg/dL (70-99) 162 mg/dL (70-99) White Blood Count 5.8 x10^3/uL (4.0-11.0) Red Blood Count 3.10 x10^6/uL (4.30-5.70) Hemoglobin 9.9 g/dL (13.0-17.5) Hematocrit 28.8 % (39.0-53.0) Mean Corpuscular Volume 93 fL (79-100) Mean Corpuscular Hemoglobin 32 pg (25-35) Mean Corpuscular Hemoglobin Concent 34 g/dL (31-37) Red Cell Distribution Width 13.9 % (11.5-14.5) Platelet Count 158 x10^3/uL (140-400) Neutrophils (%) (Auto) 70 % (31-73) Lymphocytes (%) (Auto) 16 % (24-48) Monocytes (%) (Auto) 13 % (0-9) Eosinophils (%) (Auto) 1 % (0-3) Basophils (%) (Auto) 0 % (0-3) Neutrophils # (Auto) 4.1 x10^3/uL (1.8-7.7) Lymphocytes # (Auto) 0.9 x10^3/uL (1.0-4.8) Monocytes # (Auto) 0.8 x10^3/uL (0.0-1.1) Eosinophils # (Auto) 0.1 x10^3/uL (0.0-0.7) Basophils # (Auto) 0.0 x10^3/uL (0.0-0.2) Sodium Level 137 mmol/L (136-145) Potassium Level 4.0 mmol/L (3.5-5.1) Chloride Level 102 mmol/L (98-107) Carbon Dioxide Level 28 mmol/L (21-32) Anion Gap 7 (6-14) Blood Urea Nitrogen 34 mg/dL (8-26) Creatinine 1.1 mg/dL (0.7-1.3) Estimated GFR (Cockcroft-Gault) 78.5 Glucose Level 120 mg/dL (70-99) Calcium Level 8.5 mg/dL (8.5-10.1) Test 02/06/19 07:11 Glucose (Fingerstick) 117 mg/dL (70-99) Assessment Assessment POD# 1 right hip hemiarthroplasty Plan Plan of Care Weightbearing as tolerated standard total hip precautions on right Coumadin anticoagulation, discontinue [place] Medical management and placement when stable ABHI DOMINIQUE MD Feb 06, 2019 08:26
--- NOTE | 2019-02-06 09:53 | PDOC ---
PROGRESS NOTES Subjective Subjective lab reviewed. bun higher 34 and will start iv normal saline. hgb 9.9 and will start oral iron feels better. pain controlled. has not had a BM. bp and blood sugars are okay. Objective Objective Vital Signs Date Time Temp Pulse Resp B/P (MAP) Pulse Ox O2 Delivery O2 Flow Rate FiO2 02/06/19 09:09 96 Room Air 02/06/19 07:00 98.8 65 16 123/58 (79) 98.8 02/05/19 11:15 8 Intake and Output 02/06/19 07:00 Intake Total 1500 ml Output Total 900 ml Balance 600 ml Intake Oral 300 ml IV Total 1200 ml Output Urine Total 800 ml Estimated Blood Loss 100 ml Physical Exam Abdomen: Soft Heart: Regular rate, Normal S1, Normal S2 Extremities: No edema, Other (dry dressing right thigh) General: Alert HEENT: Atraumatic Lungs: Clear to auscultation Neuro: Normal speech Psych/Mental Status: Mental status NL Skin: No rashes Assessment Assessment Problems1. Subcapital right femoral neck fracture.treated with a right hip hemiarthroplasty 2. Diabetes mellitus type 2. 3. Hyperlipidemia. 4. Urinary retention requiring a Miller catheter. 5. Benign prostatic hypertrophy. azotemia from decreased oral fluid intake acute blood loss anemia Medical Problems: (1) Acute urinary retention Status: Acute (2) Fall from standing Status: Acute (3) Fracture of right hip Status: Acute Plan Plan of Care start IV normal saline start oral iron PT continue prn analgesics d/c miller per dr. Sims lab tomorrow screen for MARH. both patient and PT concur Comment Review of Relevant I have reviewed the following items dimitrios (where applicable) has been applied. Labs Laboratory Tests Test 02/04/19 13:00 02/04/19 13:42 02/04/19 16:34 02/04/19 20:29 Urine Collection Type Unknown Urine Color Yellow Urine Clarity Clear Urine pH 6.5 Urine Specific [place] 1.015 Urine Protein 100 mg/dL (NEG-TRACE) Urine Glucose (UA) 100 mg/dL (NEG) Urine Ketones (Stick) Trace mg/dL (NEG) Urine Blood Large (NEG) Urine Nitrite Negative (NEG) Urine Bilirubin Negative (NEG) Urine Urobilinogen Dipstick 1.0 mg/dL (0.2 mg/dL) Urine Leukocyte Esterase Negative (NEG) Urine RBC Tntc /HPF (0-2) Urine WBC 0 /HPF (0-4) Urine Bacteria 0 /HPF (0-FEW) Urine Mucus Slight /LPF White Blood Count 9.2 x10^3/uL (4.0-11.0) Red Blood Count 4.39 x10^6/uL (4.30-5.70) Hemoglobin 13.9 g/dL (13.0-17.5) Hematocrit 41.0 % (39.0-53.0) Mean Corpuscular Volume 93 fL (79-100) Mean Corpuscular Hemoglobin 32 pg (25-35) Mean Corpuscular Hemoglobin Concent 34 g/dL (31-37) Red Cell Distribution Width 14.1 % (11.5-14.5) Platelet Count 214 x10^3/uL (140-400) Neutrophils (%) (Auto) 88 % (31-73) Lymphocytes (%) (Auto) 3 % (24-48) Monocytes (%) (Auto) 9 % (0-9) Eosinophils (%) (Auto) 0 % (0-3) Basophils (%) (Auto) 1 % (0-3) Neutrophils # (Auto) 8.1 x10^3/uL (1.8-7.7) Lymphocytes # (Auto) 0.3 x10^3/uL (1.0-4.8) Monocytes # (Auto) 0.8 x10^3/uL (0.0-1.1) Eosinophils # (Auto) 0.0 x10^3/uL (0.0-0.7) Basophils # (Auto) 0.0 x10^3/uL (0.0-0.2) Segmented Neutrophils % 87 % (35-66) Band Neutrophils % 3 % (0-9) Lymphocytes % 3 % (24-48) Monocytes % 6 % (0-10) Basophils % 1 % (0-3) Platelet Estimate Adequate (ADEQUATE) Acanthocytes Few Schistocytes Occ Prothrombin Time 13.1 SEC (11.7-14.0) Prothromb Time International Ratio 1.0 (0.8-1.1) Sodium Level 142 mmol/L (136-145) Potassium Level 4.7 mmol/L (3.5-5.1) Chloride Level 105 mmol/L (98-107) Carbon Dioxide Level 26 mmol/L (21-32) Anion Gap 11 (6-14) Blood Urea Nitrogen 22 mg/dL (8-26) Creatinine 1.1 mg/dL (0.7-1.3) Estimated GFR (Cockcroft-Gault) 78.5 BUN/Creatinine Ratio 20 (6-20) Glucose Level 155 mg/dL (70-99) Calcium Level 9.3 mg/dL (8.5-10.1) Total Bilirubin 0.8 mg/dL (0.2-1.0) Aspartate Amino Transf (AST/SGOT) 42 U/L (15-37) Alanine Aminotransferase (ALT/SGPT) 45 U/L (16-63) Alkaline Phosphatase 83 U/L (46-116) Total Protein 6.7 g/dL (6.4-8.2) Albumin 3.5 g/dL (3.4-5.0) Albumin/Globulin Ratio 1.1 (1.0-1.7) Glucose (Fingerstick) 119 mg/dL (70-99) 103 mg/dL (70-99) Test 02/05/19 04:55 02/05/19 07:09 02/05/19 12:26 02/05/19 16:46 White Blood Count 6.8 x10^3/uL (4.0-11.0) Red Blood Count 3.76 x10^6/uL (4.30-5.70) Hemoglobin 11.9 g/dL (13.0-17.5) Hematocrit 34.9 % (39.0-53.0) Mean Corpuscular Volume 93 fL (79-100) Mean Corpuscular Hemoglobin 32 pg (25-35) Mean Corpuscular Hemoglobin Concent 34 g/dL (31-37) Red Cell Distribution Width 14.2 % (11.5-14.5) Platelet Count 207 x10^3/uL (140-400) Neutrophils (%) (Auto) 72 % (31-73) Lymphocytes (%) (Auto) 13 % (24-48) Monocytes (%) (Auto) 11 % (0-9) Eosinophils (%) (Auto) 4 % (0-3) Basophils (%) (Auto) 1 % (0-3) Neutrophils # (Auto) 4.9 x10^3/uL (1.8-7.7) Lymphocytes # (Auto) 0.9 x10^3/uL (1.0-4.8) Monocytes # (Auto) 0.8 x10^3/uL (0.0-1.1) Eosinophils # (Auto) 0.3 x10^3/uL (0.0-0.7) Basophils # (Auto) 0.1 x10^3/uL (0.0-0.2) Sodium Level 142 mmol/L (136-145) Potassium Level 3.9 mmol/L (3.5-5.1) Chloride Level 105 mmol/L (98-107) Carbon Dioxide Level 28 mmol/L (21-32) Anion Gap 9 (6-14) Blood Urea Nitrogen 23 mg/dL (8-26) Creatinine 1.1 mg/dL (0.7-1.3) Estimated GFR (Cockcroft-Gault) 78.5 Glucose Level 88 mg/dL (70-99) Calcium Level 8.7 mg/dL (8.5-10.1) Glucose (Fingerstick) 92 mg/dL (70-99) 153 mg/dL (70-99) 169 mg/dL (70-99) Test 02/05/19 20:36 02/06/19 06:00 02/06/19 07:11 Glucose (Fingerstick) 162 mg/dL (70-99) 117 mg/dL (70-99) White Blood Count 5.8 x10^3/uL (4.0-11.0) Red Blood Count 3.10 x10^6/uL (4.30-5.70) Hemoglobin 9.9 g/dL (13.0-17.5) Hematocrit 28.8 % (39.0-53.0) Mean Corpuscular Volume 93 fL (79-100) Mean Corpuscular Hemoglobin 32 pg (25-35) Mean Corpuscular Hemoglobin Concent 34 g/dL (31-37) Red Cell Distribution Width 13.9 % (11.5-14.5) Platelet Count 158 x10^3/uL (140-400) Neutrophils (%) (Auto) 70 % (31-73) Lymphocytes (%) (Auto) 16 % (24-48) Monocytes (%) (Auto) 13 % (0-9) Eosinophils (%) (Auto) 1 % (0-3) Basophils (%) (Auto) 0 % (0-3) Neutrophils # (Auto) 4.1 x10^3/uL (1.8-7.7) Lymphocytes # (Auto) 0.9 x10^3/uL (1.0-4.8) Monocytes # (Auto) 0.8 x10^3/uL (0.0-1.1) Eosinophils # (Auto) 0.1 x10^3/uL (0.0-0.7) Basophils # (Auto) 0.0 x10^3/uL (0.0-0.2) Sodium Level 137 mmol/L (136-145) Potassium Level 4.0 mmol/L (3.5-5.1) Chloride Level 102 mmol/L (98-107) Carbon Dioxide Level 28 mmol/L (21-32) Anion Gap 7 (6-14) Blood Urea Nitrogen 34 mg/dL (8-26) Creatinine 1.1 mg/dL (0.7-1.3) Estimated GFR (Cockcroft-Gault) 78.5 Glucose Level 120 mg/dL (70-99) Calcium Level 8.5 mg/dL (8.5-10.1) Laboratory Tests Test 02/05/19 12:26 02/05/19 16:46 02/05/19 20:36 02/06/19 06:00 Glucose (Fingerstick) 153 mg/dL (70-99) 169 mg/dL (70-99) 162 mg/dL (70-99) White Blood Count 5.8 x10^3/uL (4.0-11.0) Red Blood Count 3.10 x10^6/uL (4.30-5.70) Hemoglobin 9.9 g/dL (13.0-17.5) Hematocrit 28.8 % (39.0-53.0) Mean Corpuscular Volume 93 fL (79-100) Mean Corpuscular Hemoglobin 32 pg (25-35) Mean Corpuscular Hemoglobin Concent 34 g/dL (31-37) Red Cell Distribution Width 13.9 % (11.5-14.5) Platelet Count 158 x10^3/uL (140-400) Neutrophils (%) (Auto) 70 % (31-73) Lymphocytes (%) (Auto) 16 % (24-48) Monocytes (%) (Auto) 13 % (0-9) Eosinophils (%) (Auto) 1 % (0-3) Basophils (%) (Auto) 0 % (0-3) Neutrophils # (Auto) 4.1 x10^3/uL (1.8-7.7) Lymphocytes # (Auto) 0.9 x10^3/uL (1.0-4.8) Monocytes # (Auto) 0.8 x10^3/uL (0.0-1.1) Eosinophils # (Auto) 0.1 x10^3/uL (0.0-0.7) Basophils # (Auto) 0.0 x10^3/uL (0.0-0.2) Sodium Level 137 mmol/L (136-145) Potassium Level 4.0 mmol/L (3.5-5.1) Chloride Level 102 mmol/L (98-107) Carbon Dioxide Level 28 mmol/L (21-32) Anion Gap 7 (6-14) Blood Urea Nitrogen 34 mg/dL (8-26) Creatinine 1.1 mg/dL (0.7-1.3) Estimated GFR (Cockcroft-Gault) 78.5 Glucose Level 120 mg/dL (70-99) Calcium Level 8.5 mg/dL (8.5-10.1) Test 02/06/19 07:11 Glucose (Fingerstick) 117 mg/dL (70-99) Medications Current Medications Ondansetron HCl (Zofran) 4 mg 1X ONCE IV Last administered on 02/04/19at 13:32; Start 02/04/19 at 12:45; Stop 02/04/19 at 12:51; Status DC Morphine Sulfate (Morphine Sulfate) 4 mg 1X ONCE IV Last administered on 02/04/19at 13:34; Start 02/04/19 at 12:45; Stop 02/04/19 at 12:51; Status DC Ondansetron HCl (Zofran) 4 mg PRN Q8HRS PRN IV NAUSEA/VOMITING; Start 02/04/19 at 14:15; Stop 02/05/19 at 14:14; Status DC Morphine Sulfate (Morphine Sulfate) 4 mg PRN Q2HR PRN IV PAIN; Start 02/04/19 at 14:15; Stop 02/04/19 at 15:50; Status DC Morphine Sulfate (Morphine Sulfate) 4 mg PRN Q4HRS PRN IV SEVERE PAIN Last administered on 02/04/19 16:21; Start 02/04/19 at 15:45 Gabapentin (Neurontin) 300 mg TID PO Last administered on 02/06/19 08:15; Start 02/04/19 at 21:00 Metformin HCl (Glucophage) 500 mg DAILY PO Last administered on 02/06/19 08:15; Start 02/05/19 at 09:00 Tamsulosin HCl (Flomax) 0.4 mg DAILY PO Last administered on 02/06/19 08:15; Start 02/05/19 at 09:00 Atorvastatin Calcium (Lipitor) 80 mg QHS PO Last administered on 02/05/19 20:27; Start 02/04/19 at 21:00 Multivitamins (Thera M Plus) 1 tab DAILY PO Last administered on 02/06/19 08:16; Start 02/05/19 at 09:00 Pantoprazole Sodium (Protonix) 40 mg DAILYAC PO Last administered on 02/06/19 08:15; Start 02/05/19 at 07:30 Sennosides (Senna) 8.6 mg DAILY PO ; Start 02/05/19 at 09:00; Stop 02/04/19 at 16:55; Status DC Acetaminophen (Tylenol) 650 mg PRN Q6HRS PRN PO MILD PAIN 1-3; Start 02/04/19 at 15:45 Acetaminophen/ Hydrocodone Bitart (Lortab 5/325) 1 tab PRN Q4HRS PRN PO MODERATE PAIN Last administered on 02/06/19 08:15; Start 02/04/19 at 15:45 Morphine Sulfate (Morphine Sulfate) 2 mg PRN Q4HRS PRN IV SEVERE PAIN Last administered on 02/06/19 03:03; Start 02/04/19 at 15:45 Ondansetron HCl (Zofran) 4 mg PRN Q6HRS PRN IV NAUSEA/VOMITING; Start 02/05/19 at 07:00; Stop 02/05/19 at 16:07; Status DC Fentanyl Citrate (Fentanyl 2ml Vial) 25 mcg PRN Q5MIN PRN IV MILD PAIN 1-3 Last administered on 02/05/19at 11:31; Start 02/05/19 at 07:00; Stop 02/05/19 at 16:07; Status DC Fentanyl Citrate (Fentanyl 2ml Vial) 50 mcg PRN Q5MIN PRN IV MODERATE TO SEVERE PAIN; Start 02/05/19 at 07:00; Stop 02/05/19 at 16:07; Status DC Morphine Sulfate (Morphine Sulfate) 1 mg PRN Q10MIN PRN IV SEVERE PAIN 7-10; Start 02/05/19 at 07:00; Stop 02/05/19 at 16:07; Status DC Ringer's Solution 1,000 ml @ 30 mls/hr Q24H IV Last administered on 02/05/19at 09:23; Start 02/05/19 at 07:00; Stop 02/05/19 at 16:07; Status DC Lidocaine HCl (Xylocaine-Mpf 1% 2ml Vial) 2 ml PRN 1X PRN ID PRIOR TO IV START; Start 02/05/19 at 07:00; Stop 02/05/19 at 16:07; Status DC Hydromorphone HCl (Dilaudid) 0.5 mg PRN Q10MIN PRN IV SEV PAIN, Second choice; Start 02/05/19 at 07:00; Stop 02/05/19 at 16:07; Status DC Prochlorperazine Edisylate (Compazine) 5 mg PACU PRN PRN IV NAUSEA, MRX1; Start 02/05/19 at 07:00; Stop 02/05/19 at 16:08; Status DC Senna/Docusate Sodium (Senna Plus) 2 tab DAILY PO Last administered on 02/06/19at 08:16; Start 02/05/19 at 09:00 Morphine Sulfate 5 mg/Ketorolac Tromethamine 30 mg/Ropivacaine 60 ml/Epinephrine HCl 0.5 mg/Sodium Chloride 100 ml @ 100 mls/hr 1X ONCE INT ART Last administered on 02/05/19at 10:16; Start 02/05/19 at 08:00; Stop 02/05/19 at 08:59; Status DC Glycopyrrolate (Robinul) 1 mg STK-MED ONCE .ROUTE ; Start 02/05/19 at 09:28; Stop 02/05/19 at 09:28; Status DC Sevoflurane (Ultane) 60 ml STK-MED ONCE IH ; Start 02/05/19 at 09:28; Stop 02/05/19 at 09:28; Status DC Rocuronium [place] (Zemuron) 50 mg STK-MED ONCE .ROUTE ; Start 02/05/19 at 09:28; Stop 02/05/19 at 09:28; Status DC Fentanyl Citrate (Fentanyl 2ml Vial) 100 mcg STK-MED ONCE .ROUTE ; Start 02/05/19 at 09:28; Stop 02/05/19 at 09:28; Status DC Neostigmine Methylsulfate (Neostigmine Methylsulfate) 5 mg STK-MED ONCE .ROUTE ; Start 02/05/19 at 09:28; Stop 02/05/19 at 09:29; Status DC Propofol 20 ml @ As Directed STK-MED ONCE IV ; Start 02/05/19 at 09:29; Stop 02/05/19 at 09:29; Status DC Phenylephrine HCl (PHENYLEPHRINE in 0.9% NACL PF) 1 mg STK-MED ONCE IV ; Start 02/05/19 at 09:29; Stop 02/05/19 at 09:29; Status DC Lidocaine HCl (Lidocaine Pf 2% Vial) 5 ml STK-MED ONCE .ROUTE ; Start 02/05/19 at 09:29; Stop 02/05/19 at 09:29; Status DC Dexamethasone Sodium Phosphate (Decadron) 4 mg STK-MED ONCE .ROUTE ; Start 02/05/19 at 09:29; Stop 02/05/19 at 09:29; Status DC Ondansetron HCl (Zofran) 4 mg STK-MED ONCE .ROUTE ; Start 02/05/19 at 09:29; Stop 02/05/19 at 09:29; Status DC Cefazolin Sodium 50 ml @ As Directed STK-MED ONCE IV ; Start 02/05/19 at 09:35; Stop 02/05/19 at 09:35; Status DC Ephedrine Sulfate (ePHEDrine PF IN SALINE SYRINGE) 50 mg STK-MED ONCE IV ; Start 02/05/19 at 11:01; Stop 02/05/19 at 11:01; Status DC Fentanyl Citrate (Fentanyl 2ml Vial) 100 mcg STK-MED ONCE .ROUTE ; Start 02/05/19 at 11:22; Stop 02/05/19 at 11:23; Status DC Active Scripts Active Reported Centrum Silver Men Tablet (Multivit-Min/FA/Lycopen/Lutein) 1 Each Tablet 1 Each PO DAILY Omeprazole 20 Mg Tablet.dr 20 Mg PO DAILY Atorvastatin Calcium 80 Mg Tablet 80 Mg PO HS Metformin Hcl 500 Mg Tablet 500 Mg PO DAILY Gabapentin (Gabapentin) 300 Mg Capsule 300 Mg PO TID Tamsulosin Hcl 0.4 Mg Cap.er.24h 1 Cap PO DAILY Vitals/I & O Vital Sign - Last 24 Hours 02/05/19 02/05/19 02/05/19 02/05/19 11:15 11:30 11:30 11:31 Temp 97.4 97.4 97.4 97.4 Pulse 83 75 Resp 16 18 20 B/P (MAP) 147/54 143/59 Pulse Ox 100 97 97 O2 Delivery Simple Mask Room Air Room Air Room Air O2 Flow Rate 8 02/05/19 02/05/19 02/05/19 02/05/19 11:45 12:00 12:19 12:19 Temp 97.4 98.1 97.9 97.4 98.1 97.9 Pulse 64 72 68 Resp 20 20 16 B/P (MAP) 118/54 127/55 118/51 (73) Pulse Ox 99 100 97 98 O2 Delivery Room Air Room Air Room Air Room Air 02/05/19 02/05/19 02/05/19 02/05/19 12:34 12:49 13:04 13:19 Pulse 56 54 54 63 B/P (MAP) 109/43 (65) 104/43 (63) 100/43 (62) 108/47 (67) Pulse Ox 96 96 96 97 O2 Delivery Room Air Room Air Room Air Room Air 02/05/19 02/05/19 02/05/19 02/05/19 13:49 14:19 14:20 14:43 Pulse 55 81 B/P (MAP) 112/47 (68) 99/60 (73) Pulse Ox 97 98 97 97 O2 Delivery Room Air Room Air Room Air Room Air 02/05/19 02/05/19 02/05/19 02/05/19 15:19 16:19 18:26 19:00 Temp 98.5 98.5 Pulse 86 77 67 Resp 20 B/P (MAP) 91/43 (59) 98/59 (72) 100/45 (63) Pulse Ox 96 97 97 95 O2 Delivery Room Air Room Air Room Air Room Air 02/05/19 02/05/19 02/05/19 02/05/19 19:26 20:00 20:30 21:00 O2 Delivery Room Air Room Air Room Air Room Air 02/05/19 02/06/19 02/06/19 02/06/19 23:01 03:01 03:02 03:03 Temp 99.0 98.5 99.0 98.5 Pulse 83 85 Resp 20 20 B/P (MAP) 109/52 (71) 119/50 (73) Pulse Ox 98 100 O2 Delivery Room Air Room Air Room Air Room Air 02/06/19 02/06/19 02/06/19 02/06/19 03:33 04:02 07:00 07:19 Temp 98.8 98.8 Pulse 65 Resp 16 B/P (MAP) 123/58 (79) Pulse Ox 96 O2 Delivery Room Air Room Air Room Air Room Air 02/06/19 02/06/19 08:15 09:09 Pulse Ox 96 96 O2 Delivery Room Air Room Air Intake and Output 02/05/19 02/05/19 02/06/19 15:00 23:00 07:00 Intake Total 1320 ml 180 ml Output Total 100 ml 550 ml 250 ml Balance 1220 ml -370 ml -250 ml RAVINDER BUSTAMANTE MD Feb 06, 2019 09:53
[2019-02-06] MEDS: IV NORMAL SALINE 1000ML BAG 1,000 ML IV SCH (10:32)
[2019-02-06] MEDS: FERROUS SULFATE 325 MG TABLET. PO SCH ×2 (10:33→21:08)
[2019-02-06 11:00] VITALS: BP 126/51
--- NOTE | 2019-02-06 12:13 | NUR ---
Spoke to Bethany regarding coumadin therapy. Per Dr. Sims, patient is to start coumadin 5 mg today, then continue coumadin for 6 weeks and pharmacy to manage. Notified Luci in pharmacy.
[2019-02-06 15:00] VITALS: BP 92/45
[2019-02-06] MEDS ORDERED: WARFARIN 5 MG TABLET. PO ONE (16:00)
[2019-02-06 19:00] VITALS: BP 105/49
[2019-02-06] MEDS: ATORVASTATIN CALCIUM 40 MG TABLET. PO SCH (21:08)
[2019-02-06 23:03] VITALS: BP 139/55
[2019-02-06] MEDS: ACETAMINOPHEN 325 MG TABLET. PO PRN (23:32)
[2019-02-07] MEDS: IV NORMAL SALINE 1000ML BAG 1,000 ML IV SCH ×2 (00:44→15:38)
[2019-02-07 03:08] VITALS: BP 132/52
[2019-02-07 04:28] LABS: BASO % 1 % (0-3); EOS # 0.2 x10^3/uL (0.0-0.7); EOS % 4 % (0-3); HEMATOCRIT 26.7 % (39.0-53.0); HEMOGLOBIN 9.1 g/dL (13.0-17.5); LYMPH # 1.1 x10^3/uL (1.0-4.8); LYMPH % 20 % (24-48); MEAN CORPUSCULAR HEMOGLOBIN 32 pg (25-35); MEAN CORPUSCULAR HGB CONC 34 g/dL (31-37); MEAN CORPUSCULAR VOLUME 93 fL (79-100); MONO # 0.7 x10^3/uL (0.0-1.1); MONO % 12 % (0-9); NEUT # 3.6 x10^3/uL (1.8-7.7); NEUT % 64 % (31-73); PLATELET COUNT 149 x10^3/uL (140-400); RED BLOOD COUNT 2.86 x10^6/uL (4.30-5.70); RED CELL DISTRIBUTION WIDTH 13.6 % (11.5-14.5); WHITE BLOOD COUNT 5.6 x10^3/uL (4.0-11.0)
[2019-02-07 04:51] LABS: PROTHROMBIN TIME PATIENT 13.8 SEC (11.7-14.0)
[2019-02-07 05:00] LABS: CALCIUM 8.2 mg/dL (8.5-10.1); CREATININE 0.9 mg/dL (0.7-1.3)
[2019-02-07 07:00] VITALS: BP 141/62
[2019-02-07] MEDS: HYDROcodone/APAP 5/325MG 1 TAB TABLET PO PRN (09:15)
[2019-02-07] MEDS: PANTOPRAZOLE 40 MG TABLET.DR. PO SCH (09:15)
[2019-02-07] MEDS: MULTIVITAMIN with MINERAL TABLET. PO SCH (09:15)
[2019-02-07] MEDS: FERROUS SULFATE 325 MG TABLET. PO SCH ×2 (09:16→21:10)
[2019-02-07] MEDS: TAMSULOSIN 0.4 MG CAP.ER.24H. PO SCH (09:16)
[2019-02-07] MEDS: metFORMIN 500 MG TABLET PO SCH (09:16)
[2019-02-07] MEDS: GABAPENTIN 300 MG CAPSULE. PO SCH ×3 (09:16→21:10)
[2019-02-07] MEDS: SENNOSIDES/DOCUSATE 8.6/50MG TABLET. PO SCH (09:16)
--- NOTE | 2019-02-07 09:50 | NUR ---
Wound care: Patient seen per wound care consult. See wound assessment. Patient has abrasions to right lateral leg and right medial leg. Patient states these are from a recent fall. The wounds are cleansed and assessed. Recommendations for Xeroform gauze and foam dressings. The left lower leg is closed. Dressings applied. No other wounds noted at this time. Patient turned to left side. Bed lowered and call light in reach. Dressing change instructions left in room. Will follow patient regarding wound care.
--- NOTE | 2019-02-07 09:52 | PDOC ---
PROGRESS NOTES Subjective Subjective miller replaced last night due to urine retention. temp 101 last night and I was not notified. denies cough. good urine output and urine is dark and clear. denies cough . no BM . has right hip pain. right hip wound is clean and dry. Objective Objective Vital Signs Date Time Temp Pulse Resp B/P (MAP) Pulse Ox O2 Delivery O2 Flow Rate FiO2 02/07/19 09:15 99 Room Air 8.0 02/07/19 07:00 99.2 74 18 141/62 (88) 99.2 Intake and Output 02/07/19 07:00 Intake Total 1400 ml Output Total 1800 ml Balance -400 ml Intake Oral 400 ml IV Total 1000 ml Output Urine Total 1800 ml Physical Exam Abdomen: Soft Heart: Regular rate, Normal S1, Normal S2 Extremities: No edema General: Alert HEENT: Atraumatic Lungs: Clear to auscultation Neuro: Normal speech Psych/Mental Status: Mental status NL Skin: No rashes Assessment Assessment Problems. Subcapital right femoral neck fracture.treated with a right hip hemiarthroplasty 2. Diabetes mellitus type 2. 3. Hyperlipidemia. 4. Urinary retention requiring a Miller catheter. 5. Benign prostatic hypertrophy. azotemia from decreased oral fluid intake acute blood loss anemia fever mobility and self care deficits due to hip fracture Medical Problems: (1) Acute urinary retention Status: Acute (2) Fall from standing Status: Acute (3) Fracture of right hip Status: Acute Plan Plan of Care cxr urinalysis and urine culture lab tomorrow monitor temperature continue miller PT [facility] screen and anticipate transfer tomorrow if no fever spikes Comment Review of Relevant I have reviewed the following items dimitrios (where applicable) has been applied. Labs Laboratory Tests Test 02/05/19 12:26 02/05/19 16:46 02/05/19 20:36 02/06/19 06:00 Glucose (Fingerstick) 153 mg/dL (70-99) 169 mg/dL (70-99) 162 mg/dL (70-99) White Blood Count 5.8 x10^3/uL (4.0-11.0) Red Blood Count 3.10 x10^6/uL (4.30-5.70) Hemoglobin 9.9 g/dL (13.0-17.5) Hematocrit 28.8 % (39.0-53.0) Mean Corpuscular Volume 93 fL (79-100) Mean Corpuscular Hemoglobin 32 pg (25-35) Mean Corpuscular Hemoglobin Concent 34 g/dL (31-37) Red Cell Distribution Width 13.9 % (11.5-14.5) Platelet Count 158 x10^3/uL (140-400) Neutrophils (%) (Auto) 70 % (31-73) Lymphocytes (%) (Auto) 16 % (24-48) Monocytes (%) (Auto) 13 % (0-9) Eosinophils (%) (Auto) 1 % (0-3) Basophils (%) (Auto) 0 % (0-3) Neutrophils # (Auto) 4.1 x10^3/uL (1.8-7.7) Lymphocytes # (Auto) 0.9 x10^3/uL (1.0-4.8) Monocytes # (Auto) 0.8 x10^3/uL (0.0-1.1) Eosinophils # (Auto) 0.1 x10^3/uL (0.0-0.7) Basophils # (Auto) 0.0 x10^3/uL (0.0-0.2) Sodium Level 137 mmol/L (136-145) Potassium Level 4.0 mmol/L (3.5-5.1) Chloride Level 102 mmol/L (98-107) Carbon Dioxide Level 28 mmol/L (21-32) Anion Gap 7 (6-14) Blood Urea Nitrogen 34 mg/dL (8-26) Creatinine 1.1 mg/dL (0.7-1.3) Estimated GFR (Cockcroft-Gault) 78.5 Glucose Level 120 mg/dL (70-99) Calcium Level 8.5 mg/dL (8.5-10.1) Test 02/06/19 07:11 02/06/19 11:30 02/06/19 16:44 02/06/19 20:43 Glucose (Fingerstick) 117 mg/dL (70-99) 151 mg/dL (70-99) 150 mg/dL (70-99) 237 mg/dL (70-99) Test 02/07/19 03:25 02/07/19 07:31 White Blood Count 5.6 x10^3/uL (4.0-11.0) Red Blood Count 2.86 x10^6/uL (4.30-5.70) Hemoglobin 9.1 g/dL (13.0-17.5) Hematocrit 26.7 % (39.0-53.0) Mean Corpuscular Volume 93 fL (79-100) Mean Corpuscular Hemoglobin 32 pg (25-35) Mean Corpuscular Hemoglobin Concent 34 g/dL (31-37) Red Cell Distribution Width 13.6 % (11.5-14.5) Platelet Count 149 x10^3/uL (140-400) Neutrophils (%) (Auto) 64 % (31-73) Lymphocytes (%) (Auto) 20 % (24-48) Monocytes (%) (Auto) 12 % (0-9) Eosinophils (%) (Auto) 4 % (0-3) Basophils (%) (Auto) 1 % (0-3) Neutrophils # (Auto) 3.6 x10^3/uL (1.8-7.7) Lymphocytes # (Auto) 1.1 x10^3/uL (1.0-4.8) Monocytes # (Auto) 0.7 x10^3/uL (0.0-1.1) Eosinophils # (Auto) 0.2 x10^3/uL (0.0-0.7) Basophils # (Auto) 0.0 x10^3/uL (0.0-0.2) Prothrombin Time 13.8 SEC (11.7-14.0) Prothromb Time International Ratio 1.1 (0.8-1.1) Sodium Level 138 mmol/L (136-145) Potassium Level 4.0 mmol/L (3.5-5.1) Chloride Level 104 mmol/L (98-107) Carbon Dioxide Level 28 mmol/L (21-32) Anion Gap 6 (6-14) Blood Urea Nitrogen 24 mg/dL (8-26) Creatinine 0.9 mg/dL (0.7-1.3) Estimated GFR (Cockcroft-Gault) 99.0 Glucose Level 144 mg/dL (70-99) Calcium Level 8.2 mg/dL (8.5-10.1) Glucose (Fingerstick) 131 mg/dL (70-99) Laboratory Tests Test 02/06/19 11:30 02/06/19 16:44 02/06/19 20:43 02/07/19 03:25 Glucose (Fingerstick) 151 mg/dL (70-99) 150 mg/dL (70-99) 237 mg/dL (70-99) White Blood Count 5.6 x10^3/uL (4.0-11.0) Red Blood Count 2.86 x10^6/uL (4.30-5.70) Hemoglobin 9.1 g/dL (13.0-17.5) Hematocrit 26.7 % (39.0-53.0) Mean Corpuscular Volume 93 fL (79-100) Mean Corpuscular Hemoglobin 32 pg (25-35) Mean Corpuscular Hemoglobin Concent 34 g/dL (31-37) Red Cell Distribution Width 13.6 % (11.5-14.5) Platelet Count 149 x10^3/uL (140-400) Neutrophils (%) (Auto) 64 % (31-73) Lymphocytes (%) (Auto) 20 % (24-48) Monocytes (%) (Auto) 12 % (0-9) Eosinophils (%) (Auto) 4 % (0-3) Basophils (%) (Auto) 1 % (0-3) Neutrophils # (Auto) 3.6 x10^3/uL (1.8-7.7) Lymphocytes # (Auto) 1.1 x10^3/uL (1.0-4.8) Monocytes # (Auto) 0.7 x10^3/uL (0.0-1.1) Eosinophils # (Auto) 0.2 x10^3/uL (0.0-0.7) Basophils # (Auto) 0.0 x10^3/uL (0.0-0.2) Prothrombin Time 13.8 SEC (11.7-14.0) Prothromb Time International Ratio 1.1 (0.8-1.1) Sodium Level 138 mmol/L (136-145) Potassium Level 4.0 mmol/L (3.5-5.1) Chloride Level 104 mmol/L (98-107) Carbon Dioxide Level 28 mmol/L (21-32) Anion Gap 6 (6-14) Blood Urea Nitrogen 24 mg/dL (8-26) Creatinine 0.9 mg/dL (0.7-1.3) Estimated GFR (Cockcroft-Gault) 99.0 Glucose Level 144 mg/dL (70-99) Calcium Level 8.2 mg/dL (8.5-10.1) Test 02/07/19 07:31 Glucose (Fingerstick) 131 mg/dL (70-99) Medications Current Medications Ondansetron HCl (Zofran) 4 mg 1X ONCE IV Last administered on 02/04/19 13:32; Start 02/04/19 at 12:45; Stop 02/04/19 at 12:51; Status DC Morphine Sulfate (Morphine Sulfate) 4 mg 1X ONCE IV Last administered on 02/04/19 13:34; Start 02/04/19 at 12:45; Stop 02/04/19 at 12:51; Status DC Ondansetron HCl (Zofran) 4 mg PRN Q8HRS PRN IV NAUSEA/VOMITING; Start 02/04/19 at 14:15; Stop 02/05/19 at 14:14; Status DC Morphine Sulfate (Morphine Sulfate) 4 mg PRN Q2HR PRN IV PAIN; Start 02/04/19 at 14:15; Stop 02/04/19 at 15:50; Status DC Morphine Sulfate (Morphine Sulfate) 4 mg PRN Q4HRS PRN IV SEVERE PAIN Last administered on 02/04/19 16:21; Start 02/04/19 at 15:45 Gabapentin (Neurontin) 300 mg TID PO Last administered on 02/07/19 09:16; Start 02/04/19 at 21:00 Metformin HCl (Glucophage) 500 mg DAILY PO Last administered on 02/07/19 09:16; Start 02/05/19 at 09:00 Tamsulosin HCl (Flomax) 0.4 mg DAILY PO Last administered on 02/07/19 09:16; Start 02/05/19 at 09:00 Atorvastatin Calcium (Lipitor) 80 mg QHS PO Last administered on 02/06/19 21:08; Start 02/04/19 at 21:00 Multivitamins (Thera M Plus) 1 tab DAILY PO Last administered on 02/07/19 09:15; Start 02/05/19 at 09:00 Pantoprazole Sodium (Protonix) 40 mg DAILYAC PO Last administered on 11/11/19at 09:15; Start 02/05/19 at 07:30 Sennosides (Senna) 8.6 mg DAILY PO ; Start 02/05/19 at 09:00; Stop 02/04/19 at 16:55; Status DC Acetaminophen (Tylenol) 650 mg PRN Q6HRS PRN PO MILD PAIN 1-3 Last administered on 02/06/19at 23:32; Start 02/04/19 at 15:45 Acetaminophen/ Hydrocodone Bitart (Lortab 5/325) 1 tab PRN Q4HRS PRN PO MODERATE PAIN Last administered on 02/07/19at 09:15; Start 02/04/19 at 15:45 Morphine Sulfate (Morphine Sulfate) 2 mg PRN Q4HRS PRN IV SEVERE PAIN Last administered on 02/06/19at 03:03; Start 02/04/19 at 15:45 Ondansetron HCl (Zofran) 4 mg PRN Q6HRS PRN IV NAUSEA/VOMITING; Start 02/05/19 at 07:00; Stop 02/05/19 at 16:07; Status DC Fentanyl Citrate (Fentanyl 2ml Vial) 25 mcg PRN Q5MIN PRN IV MILD PAIN 1-3 Last administered on 02/05/19at 11:31; Start 02/05/19 at 07:00; Stop 02/05/19 at 16:07; Status DC Fentanyl Citrate (Fentanyl 2ml Vial) 50 mcg PRN Q5MIN PRN IV MODERATE TO SEVERE PAIN; Start 02/05/19 at 07:00; Stop 02/05/19 at 16:07; Status DC Morphine Sulfate (Morphine Sulfate) 1 mg PRN Q10MIN PRN IV SEVERE PAIN 7-10; Start 02/05/19 at 07:00; Stop 02/05/19 at 16:07; Status DC Ringer's Solution 1,000 ml @ 30 mls/hr Q24H IV Last administered on 02/05/19at 09:23; Start 02/05/19 at 07:00; Stop 02/05/19 at 16:07; Status DC Lidocaine HCl (Xylocaine-Mpf 1% 2ml Vial) 2 ml PRN 1X PRN ID PRIOR TO IV START; Start 02/05/19 at 07:00; Stop 02/05/19 at 16:07; Status DC Hydromorphone HCl (Dilaudid) 0.5 mg PRN Q10MIN PRN IV SEV PAIN, Second choice; Start 02/05/19 at 07:00; Stop 02/05/19 at 16:07; Status DC Prochlorperazine Edisylate (Compazine) 5 mg PACU PRN PRN IV NAUSEA, MRX1; Start 02/05/19 at 07:00; Stop 02/05/19 at 16:08; Status DC Senna/Docusate Sodium (Senna Plus) 2 tab DAILY PO Last administered on 02/07/19at 09:16; Start 02/05/19 at 09:00 Morphine Sulfate 5 mg/Ketorolac Tromethamine 30 mg/Ropivacaine 60 ml/Epinephrine HCl 0.5 mg/Sodium Chloride 100 ml @ 100 mls/hr 1X ONCE INT ART Last administered on 02/05/19at 10:16; Start 02/05/19 at 08:00; Stop 02/05/19 at 08:59; Status DC Glycopyrrolate (Robinul) 1 mg STK-MED ONCE .ROUTE ; Start 02/05/19 at 09:28; Stop 02/05/19 at 09:28; Status DC Sevoflurane (Ultane) 60 ml STK-MED ONCE IH ; Start 02/05/19 at 09:28; Stop 02/05/19 at 09:28; Status DC Rocuronium [place] (Zemuron) 50 mg STK-MED ONCE .ROUTE ; Start 02/05/19 at 09:28; Stop 02/05/19 at 09:28; Status DC Fentanyl Citrate (Fentanyl 2ml Vial) 100 mcg STK-MED ONCE .ROUTE ; Start 02/05/19 at 09:28; Stop 02/05/19 at 09:28; Status DC Neostigmine Methylsulfate (Neostigmine Methylsulfate) 5 mg STK-MED ONCE .ROUTE ; Start 02/05/19 at 09:28; Stop 02/05/19 at 09:29; Status DC Propofol 20 ml @ As Directed STK-MED ONCE IV ; Start 02/05/19 at 09:29; Stop 02/05/19 at 09:29; Status DC Phenylephrine HCl (PHENYLEPHRINE in 0.9% NACL PF) 1 mg STK-MED ONCE IV ; Start 02/05/19 at 09:29; Stop 02/05/19 at 09:29; Status DC Lidocaine HCl (Lidocaine Pf 2% Vial) 5 ml STK-MED ONCE .ROUTE ; Start 02/05/19 at 09:29; Stop 02/05/19 at 09:29; Status DC Dexamethasone Sodium Phosphate (Decadron) 4 mg STK-MED ONCE .ROUTE ; Start 02/05/19 at 09:29; Stop 02/05/19 at 09:29; Status DC Ondansetron HCl (Zofran) 4 mg STK-MED ONCE .ROUTE ; Start 02/05/19 at 09:29; Stop 02/05/19 at 09:29; Status DC Cefazolin Sodium 50 ml @ As Directed STK-MED ONCE IV ; Start 02/05/19 at 09:35; Stop 02/05/19 at 09:35; Status DC Ephedrine Sulfate (ePHEDrine PF IN SALINE SYRINGE) 50 mg STK-MED ONCE IV ; Start 02/05/19 at 11:01; Stop 02/05/19 at 11:01; Status DC Fentanyl Citrate (Fentanyl 2ml Vial) 100 mcg STK-MED ONCE .ROUTE ; Start 02/05/19 at 11:22; Stop 02/05/19 at 11:23; Status DC Sodium Chloride 1,000 ml @ 60 mls/hr [id number] IV Last administered on 02/07/19at 00:44; Start 02/06/19 at 10:30 Ferrous Sulfate (Feosol) 325 mg BID PO Last administered on 02/07/19at 09:16; Start 02/06/19 at 10:30 Warfarin Sodium (Coumadin) 5 mg 1X WARF ONCE PO Last administered on 02/06/19at 16:41; Start 02/06/19 at 16:00; Stop 02/06/19 at 16:01; Status DC Warfarin Sodium (Coumadin Per Pharmacy) 1 each PRN DAILY PRN MC SEE COMMENTS Last administered on 02/06/19at 15:09; Start 02/06/19 at 15:15 Active Scripts Active Reported Centrum Silver Men Tablet (Multivit-Min/FA/Lycopen/Lutein) 1 Each Tablet 1 Each PO DAILY Omeprazole 20 Mg Tablet.dr 20 Mg PO DAILY Atorvastatin Calcium 80 Mg Tablet 80 Mg PO HS Metformin Hcl 500 Mg Tablet 500 Mg PO DAILY Gabapentin (Gabapentin) 300 Mg Capsule 300 Mg PO TID Tamsulosin Hcl 0.4 Mg Cap.er.24h 1 Cap PO DAILY Vitals/I & O Vital Sign - Last 24 Hours 02/06/19 02/06/19 02/06/19 02/06/19 11:00 15:00 17:45 18:37 Temp 98.8 97.9 98.8 97.9 Pulse 63 67 Resp 16 16 B/P (MAP) 126/51 (76) 92/45 (61) Pulse Ox 99 98 98 98 O2 Delivery Room Air Room Air Room Air Room Air 02/06/19 02/06/19 02/06/19 02/06/19 19:00 19:42 23:03 23:32 Temp 98.5 101.0 98.5 101.0 Pulse 79 88 Resp 20 20 B/P (MAP) 105/49 (67) 139/55 (83) Pulse Ox 97 100 O2 Delivery Room Air Room Air Room Air Room Air 02/07/19 02/07/19 02/07/19 02/07/19 00:32 03:08 07:00 09:15 Temp 98.5 99.2 98.5 99.2 Pulse 85 74 Resp 20 18 B/P (MAP) 132/52 (78) 141/62 (88) Pulse Ox 98 99 99 O2 Delivery Room Air Room Air Room Air Room Air O2 Flow Rate 8.0 Intake and Output 02/06/19 02/06/19 02/07/19 15:00 23:00 07:00 Intake Total 280 ml 120 ml 1000 ml Output Total 1100 ml 700 ml Balance 280 ml -980 ml 300 ml RAVINDER BUSTAMANTE MD Feb 07, 2019 09:52
--- NOTE | 2019-02-07 10:32 | NUR ---
Pharmacy Warfarin Dosing Note S:Pharmacy consulted to assist with anticoagulation therapy started 02/06/19 with target INR: 1.6 - 2.5 O:SILVIA CONNER is a 78 year old M with [facility]: Last INR: 1.1 Last HGB: 9.1 Last HCT: 26.7 Last PLT: 149 Last dose of 5 mg given on 02/06/19 at 1641 Previous Regimen: Vitamin K given: N Drug Interaction Changes: Ongoing Drug Interactions: A:INR of 1.1 is below desired range. Target range for this patient is: 1.6 - 2.5 P: Warfarin dose: 5 mg Today at 1600. Bridge Therapy: None Next INR due tomorrow. Pharmacy anticoagulation service will continue to follow. Henri Rose [facility], 02/07/19 [id number]
[2019-02-07 11:00] VITALS: BP 149/62
--- NOTE | 2019-02-07 11:45 | NUR ---
KYUNG following for discharge planning. Chart reviewed, discussed with RN. KYUNG met with pt, pt is from home alone, does not use a walker at home, had to crawl on the floor to get to his phone when he fell. Pt normally can cook and clean fine, has a basement/ garage. Pt agreeable to [facility] per Dr. Benz's KYUNG referral. KYUNG faxed referral to [facility] (ph: [phone], fax: [phone]). Awaiting acceptance decision, possible discharge tomorrow. RN notified. [facility]UNG will continue to follow.
[2019-02-07 13:20] LABS: BILIRUBIN,URINE NEGATIVE (NEG); CLARITY,URINE CLEAR; COLOR,URINE YELLOW; NITRITE,URINE NEGATIVE (NEG); PROTEIN,URINE NEGATIVE (NEG-TRACE)
--- NOTE | 2019-02-07 13:22 | RAD ---
CHEST AP ONLY Clinical Indication: Fever Comparison: 02/04/2018 AP view of the chest. Findings: Portable upright frontal view of the spine was obtained. Spinal rods are partially seen. Postoperative cervical spine fusion partially seen. The cardiomediastinal silhouette is normal. Lungs are clear. There is no pneumothorax. No pleural effusion is appreciated. No acute bone abnormality. IMPRESSION: No acute cardiopulmonary process. Electronically signed by: Jalen Hutchinson MD (02/07/2019 1:20 PM) [facility]
[2019-02-07 13:28] LABS: BACTERIA,URINE FEW /HPF (0-FEW); SQUAMOUS EPITHELIAL CELL,UR FEW /LPF
[2019-02-07 15:00] VITALS: BP 124/52
[2019-02-07] MEDS ORDERED: WARFARIN 5 MG TABLET. PO ONE (16:00)
[2019-02-07 19:00] VITALS: BP 133/67
[2019-02-07] MEDS: ACETAMINOPHEN 325 MG TABLET. PO PRN (21:10)
[2019-02-07] MEDS: ATORVASTATIN CALCIUM 40 MG TABLET. PO SCH (21:10)
[2019-02-07 23:00] VITALS: BP 143/55
[2019-02-08 03:00] VITALS: BP 155/61
[2019-02-08 05:01] LABS: BASO % 1 % (0-3); EOS # 0.3 x10^3/uL (0.0-0.7); EOS % 4 % (0-3); HEMATOCRIT 27.6 % (39.0-53.0); HEMOGLOBIN 9.5 g/dL (13.0-17.5); LYMPH # 1.2 x10^3/uL (1.0-4.8); LYMPH % 20 % (24-48); MEAN CORPUSCULAR HEMOGLOBIN 32 pg (25-35); MEAN CORPUSCULAR HGB CONC 34 g/dL (31-37); MEAN CORPUSCULAR VOLUME 92 fL (79-100); MONO # 0.8 x10^3/uL (0.0-1.1); MONO % 13 % (0-9); NEUT # 3.8 x10^3/uL (1.8-7.7); NEUT % 62 % (31-73); PLATELET COUNT 179 x10^3/uL (140-400); RED BLOOD COUNT 2.99 x10^6/uL (4.30-5.70); RED CELL DISTRIBUTION WIDTH 13.7 % (11.5-14.5); WHITE BLOOD COUNT 6.1 x10^3/uL (4.0-11.0)
[2019-02-08 05:06] LABS: PROTHROMBIN TIME PATIENT 14.2 SEC (11.7-14.0)
[2019-02-08 05:31] LABS: CALCIUM 8.2 mg/dL (8.5-10.1); CREATININE 0.8 mg/dL (0.7-1.3); GFR 113.4; POTASSIUM 4.1 mmol/L (3.5-5.1)
[2019-02-08 07:00] VITALS: BP 156/64
--- NOTE | 2019-02-08 08:40 | NUR ---
KYUNG following. Discussed with RN, pt accepted at [facility], KYUNG to fax 02/07 PT/OT notes. SW awaiting confirmation of discharge date. Addendum: 02/08/19 at 1204 by DOMINIK TRACEY KYUNG following. Pt will be discharging to [facility] today at 1430. Discharge paperwork faxed. Pt signed choice and rights letter, placed on chart. RN notified.
[2019-02-08] MEDS: metFORMIN 500 MG TABLET PO SCH (09:20)
[2019-02-08] MEDS: MULTIVITAMIN with MINERAL TABLET. PO SCH (09:21)
[2019-02-08] MEDS: TAMSULOSIN 0.4 MG CAP.ER.24H. PO SCH (09:21)
[2019-02-08] MEDS: PANTOPRAZOLE 40 MG TABLET.DR. PO SCH (09:21)
[2019-02-08] MEDS: HYDROcodone/APAP 5/325MG 1 TAB TABLET PO PRN (09:21)
[2019-02-08] MEDS: GABAPENTIN 300 MG CAPSULE. PO SCH ×2 (09:21→14:00)
[2019-02-08] MEDS: FERROUS SULFATE 325 MG TABLET. PO SCH (09:21)
[2019-02-08] MEDS: SENNOSIDES/DOCUSATE 8.6/50MG TABLET. PO SCH (09:21)
--- NOTE | 2019-02-08 09:31 | PDOC ---
PROGRESS NOTES Subjective Subjective pain controlled. has not had a BM. temp 100.4 last night and afebrile today. WBC normal. lab reviewed. cxr negative. urinalysis 5-10 WBC and started levaquin. Objective Objective Vital Signs Date Time Temp Pulse Resp B/P (MAP) Pulse Ox O2 Delivery O2 Flow Rate FiO2 02/08/19 09:21 100 Room Air 8.0 02/08/19 07:00 98.6 79 16 156/64 (94) 98.6 Intake and Output 02/08/19 07:00 Intake Total 1040 ml Output Total 2550 ml Balance -1510 ml Intake Oral 1040 ml Output Urine Total 2550 ml Physical Exam Abdomen: Soft Heart: Regular rate, Normal S1, Normal S2 General: Alert HEENT: Atraumatic Lungs: Clear to auscultation Neuro: Normal speech Psych/Mental Status: Mental status NL Skin: No rashes, Other (dry dressing right hip) Assessment Assessment Problems Subcapital right femoral neck fracture.treated with a right hip hemiarthroplasty 2. Diabetes mellitus type 2. 3. Hyperlipidemia. 4. Urinary retention requiring a Causey catheter. 5. Benign prostatic hypertrophy. azotemia from decreased oral fluid intake acute blood loss anemia fever low grade last night mobility and self care deficits due to hip fracture pyuria constipation Medical Problems: (1) Acute urinary retention Status: Acute (2) Fall from standing Status: Acute (3) Fracture of right hip Status: Acute Plan Plan of Care levaquin started PT and OT laxatives dismiss today to [facility] Comment Review of Relevant I have reviewed the following items dimitrios (where applicable) has been applied. Labs Laboratory Tests Test 02/06/19 11:30 02/06/19 16:44 02/06/19 20:43 02/07/19 03:25 Glucose (Fingerstick) 151 mg/dL (70-99) 150 mg/dL (70-99) 237 mg/dL (70-99) White Blood Count 5.6 x10^3/uL (4.0-11.0) Red Blood Count 2.86 x10^6/uL (4.30-5.70) Hemoglobin 9.1 g/dL (13.0-17.5) Hematocrit 26.7 % (39.0-53.0) Mean Corpuscular Volume 93 fL (79-100) Mean Corpuscular Hemoglobin 32 pg (25-35) Mean Corpuscular Hemoglobin Concent 34 g/dL (31-37) Red Cell Distribution Width 13.6 % (11.5-14.5) Platelet Count 149 x10^3/uL (140-400) Neutrophils (%) (Auto) 64 % (31-73) Lymphocytes (%) (Auto) 20 % (24-48) Monocytes (%) (Auto) 12 % (0-9) Eosinophils (%) (Auto) 4 % (0-3) Basophils (%) (Auto) 1 % (0-3) Neutrophils # (Auto) 3.6 x10^3/uL (1.8-7.7) Lymphocytes # (Auto) 1.1 x10^3/uL (1.0-4.8) Monocytes # (Auto) 0.7 x10^3/uL (0.0-1.1) Eosinophils # (Auto) 0.2 x10^3/uL (0.0-0.7) Basophils # (Auto) 0.0 x10^3/uL (0.0-0.2) Prothrombin Time 13.8 SEC (11.7-14.0) Prothromb Time International Ratio 1.1 (0.8-1.1) Sodium Level 138 mmol/L (136-145) Potassium Level 4.0 mmol/L (3.5-5.1) Chloride Level 104 mmol/L (98-107) Carbon Dioxide Level 28 mmol/L (21-32) Anion Gap 6 (6-14) Blood Urea Nitrogen 24 mg/dL (8-26) Creatinine 0.9 mg/dL (0.7-1.3) Estimated GFR (Cockcroft-Gault) 99.0 Glucose Level 144 mg/dL (70-99) Calcium Level 8.2 mg/dL (8.5-10.1) Test 02/07/19 07:31 02/07/19 11:36 02/07/19 13:10 02/07/19 17:05 Glucose (Fingerstick) 131 mg/dL (70-99) 148 mg/dL (70-99) 167 mg/dL (70-99) Urine Collection Type Clean catch Urine Color Yellow Urine Clarity Clear Urine pH 7.0 Urine Specific Rogers 1.015 Urine Protein Negative mg/dL (NEG-TRACE) Urine Glucose (UA) Negative mg/dL (NEG) Urine Ketones (Stick) Negative mg/dL (NEG) Urine Blood Negative (NEG) Urine Nitrite Negative (NEG) Urine Bilirubin Negative (NEG) Urine Urobilinogen Dipstick 2.0 mg/dL (0.2 mg/dL) Urine Leukocyte Esterase Negative (NEG) Urine RBC 1-2 /HPF (0-2) Urine WBC 5-10 /HPF (0-4) Urine Squamous Epithelial Cells Few /LPF Urine Bacteria Few /HPF (0-FEW) Urine Mucus Slight /LPF Test 02/07/19 20:15 02/08/19 04:05 02/08/19 07:19 Glucose (Fingerstick) 164 mg/dL (70-99) 120 mg/dL (70-99) White Blood Count 6.1 x10^3/uL (4.0-11.0) Red Blood Count 2.99 x10^6/uL (4.30-5.70) Hemoglobin 9.5 g/dL (13.0-17.5) Hematocrit 27.6 % (39.0-53.0) Mean Corpuscular Volume 92 fL (79-100) Mean Corpuscular Hemoglobin 32 pg (25-35) Mean Corpuscular Hemoglobin Concent 34 g/dL (31-37) Red Cell Distribution Width 13.7 % (11.5-14.5) Platelet Count 179 x10^3/uL (140-400) Neutrophils (%) (Auto) 62 % (31-73) Lymphocytes (%) (Auto) 20 % (24-48) Monocytes (%) (Auto) 13 % (0-9) Eosinophils (%) (Auto) 4 % (0-3) Basophils (%) (Auto) 1 % (0-3) Neutrophils # (Auto) 3.8 x10^3/uL (1.8-7.7) Lymphocytes # (Auto) 1.2 x10^3/uL (1.0-4.8) Monocytes # (Auto) 0.8 x10^3/uL (0.0-1.1) Eosinophils # (Auto) 0.3 x10^3/uL (0.0-0.7) Basophils # (Auto) 0.0 x10^3/uL (0.0-0.2) Prothrombin Time 14.2 SEC (11.7-14.0) Prothromb Time International Ratio 1.1 (0.8-1.1) Sodium Level 139 mmol/L (136-145) Potassium Level 4.1 mmol/L (3.5-5.1) Chloride Level 106 mmol/L (98-107) Carbon Dioxide Level 28 mmol/L (21-32) Anion Gap 5 (6-14) Blood Urea Nitrogen 16 mg/dL (8-26) Creatinine 0.8 mg/dL (0.7-1.3) Estimated GFR (Cockcroft-Gault) 113.4 Glucose Level 129 mg/dL (70-99) Calcium Level 8.2 mg/dL (8.5-10.1) Laboratory Tests Test 02/07/19 11:36 02/07/19 13:10 02/07/19 17:05 02/07/19 20:15 Glucose (Fingerstick) 148 mg/dL (70-99) 167 mg/dL (70-99) 164 mg/dL (70-99) Urine Collection Type Clean catch Urine Color Yellow Urine Clarity Clear Urine pH 7.0 Urine Specific Rogers 1.015 Urine Protein Negative mg/dL (NEG-TRACE) Urine Glucose (UA) Negative mg/dL (NEG) Urine Ketones (Stick) Negative mg/dL (NEG) Urine Blood Negative (NEG) Urine Nitrite Negative (NEG) Urine Bilirubin Negative (NEG) Urine Urobilinogen Dipstick 2.0 mg/dL (0.2 mg/dL) Urine Leukocyte Esterase Negative (NEG) Urine RBC 1-2 /HPF (0-2) Urine WBC 5-10 /HPF (0-4) Urine Squamous Epithelial Cells Few /LPF Urine Bacteria Few /HPF (0-FEW) Urine Mucus Slight /LPF Test 02/08/19 04:05 02/08/19 07:19 White Blood Count 6.1 x10^3/uL (4.0-11.0) Red Blood Count 2.99 x10^6/uL (4.30-5.70) Hemoglobin 9.5 g/dL (13.0-17.5) Hematocrit 27.6 % (39.0-53.0) Mean Corpuscular Volume 92 fL (79-100) Mean Corpuscular Hemoglobin 32 pg (25-35) Mean Corpuscular Hemoglobin Concent 34 g/dL (31-37) Red Cell Distribution Width 13.7 % (11.5-14.5) Platelet Count 179 x10^3/uL (140-400) Neutrophils (%) (Auto) 62 % (31-73) Lymphocytes (%) (Auto) 20 % (24-48) Monocytes (%) (Auto) 13 % (0-9) Eosinophils (%) (Auto) 4 % (0-3) Basophils (%) (Auto) 1 % (0-3) Neutrophils # (Auto) 3.8 x10^3/uL (1.8-7.7) Lymphocytes # (Auto) 1.2 x10^3/uL (1.0-4.8) Monocytes # (Auto) 0.8 x10^3/uL (0.0-1.1) Eosinophils # (Auto) 0.3 x10^3/uL (0.0-0.7) Basophils # (Auto) 0.0 x10^3/uL (0.0-0.2) Prothrombin Time 14.2 SEC (11.7-14.0) Prothromb Time International Ratio 1.1 (0.8-1.1) Sodium Level 139 mmol/L (136-145) Potassium Level 4.1 mmol/L (3.5-5.1) Chloride Level 106 mmol/L (98-107) Carbon Dioxide Level 28 mmol/L (21-32) Anion Gap 5 (6-14) Blood Urea Nitrogen 16 mg/dL (8-26) Creatinine 0.8 mg/dL (0.7-1.3) Estimated GFR (Cockcroft-Gault) 113.4 Glucose Level 129 mg/dL (70-99) Calcium Level 8.2 mg/dL (8.5-10.1) Glucose (Fingerstick) 120 mg/dL (70-99) Medications Current Medications Ondansetron HCl (Zofran) 4 mg 1X ONCE IV Last administered on 02/04/19at 13:32; Start 02/04/19 at 12:45; Stop 02/04/19 at 12:51; Status DC Morphine Sulfate (Morphine Sulfate) 4 mg 1X ONCE IV Last administered on 02/04/19at 13:34; Start 02/04/19 at 12:45; Stop 02/04/19 at 12:51; Status DC Ondansetron HCl (Zofran) 4 mg PRN Q8HRS PRN IV NAUSEA/VOMITING; Start 02/04/19 at 14:15; Stop 02/05/19 at 14:14; Status DC Morphine Sulfate (Morphine Sulfate) 4 mg PRN Q2HR PRN IV PAIN; Start 02/04/19 at 14:15; Stop 02/04/19 at 15:50; Status DC Morphine Sulfate (Morphine Sulfate) 4 mg PRN Q4HRS PRN IV SEVERE PAIN Last administered on 02/04/19 16:21; Start 02/04/19 at 15:45 Gabapentin (Neurontin) 300 mg TID PO Last administered on 02/08/19 09:21; Start 02/04/19 at 21:00 Metformin HCl (Glucophage) 500 mg DAILY PO Last administered on 02/08/19 09:20; Start 02/05/19 at 09:00 Tamsulosin HCl (Flomax) 0.4 mg DAILY PO Last administered on 02/08/19 09:21; Start 02/05/19 at 09:00 Atorvastatin Calcium (Lipitor) 80 mg QHS PO Last administered on 02/07/19 21:10; Start 02/04/19 at 21:00 Multivitamins (Thera M Plus) 1 tab DAILY PO Last administered on 02/08/19 09:21; Start 02/05/19 at 09:00 Pantoprazole Sodium (Protonix) 40 mg DAILYAC PO Last administered on 02/08/19 09:21; Start 02/05/19 at 07:30 Sennosides (Senna) 8.6 mg DAILY PO ; Start 02/05/19 at 09:00; Stop 02/04/19 at 16:55; Status DC Acetaminophen (Tylenol) 650 mg PRN Q6HRS PRN PO MILD PAIN 1-3 Last administered on 02/07/19 21:10; Start 02/04/19 at 15:45 Acetaminophen/ Hydrocodone Bitart (Lortab 5/325) 1 tab PRN Q4HRS PRN PO MODERATE PAIN Last administered on 02/08/19 09:21; Start 02/04/19 at 15:45 Morphine Sulfate (Morphine Sulfate) 2 mg PRN Q4HRS PRN IV MODERATE PAIN Last administered on 02/06/19at 03:03; Start 02/04/19 at 15:45 Ondansetron HCl (Zofran) 4 mg PRN Q6HRS PRN IV NAUSEA/VOMITING; Start 02/05/19 at 07:00; Stop 02/05/19 at 16:07; Status DC Fentanyl Citrate (Fentanyl 2ml Vial) 25 mcg PRN Q5MIN PRN IV MILD PAIN 1-3 Last administered on 02/05/19at 11:31; Start 02/05/19 at 07:00; Stop 02/05/19 at 16:07; Status DC Fentanyl Citrate (Fentanyl 2ml Vial) 50 mcg PRN Q5MIN PRN IV MODERATE TO SEVERE PAIN; Start 02/05/19 at 07:00; Stop 02/05/19 at 16:07; Status DC Morphine Sulfate (Morphine Sulfate) 1 mg PRN Q10MIN PRN IV SEVERE PAIN 7-10; Start 02/05/19 at 07:00; Stop 02/05/19 at 16:07; Status DC Ringer's Solution 1,000 ml @ 30 mls/hr Q24H IV Last administered on 02/05/19at 09:23; Start 02/05/19 at 07:00; Stop 02/05/19 at 16:07; Status DC Lidocaine HCl (Xylocaine-Mpf 1% 2ml Vial) 2 ml PRN 1X PRN ID PRIOR TO IV START; Start 02/05/19 at 07:00; Stop 02/05/19 at 16:07; Status DC Hydromorphone HCl (Dilaudid) 0.5 mg PRN Q10MIN PRN IV SEV PAIN, Second choice; Start 02/05/19 at 07:00; Stop 02/05/19 at 16:07; Status DC Prochlorperazine Edisylate (Compazine) 5 mg PACU PRN PRN IV NAUSEA, MRX1; St art 02/05/19 at 07:00; Stop 02/05/19 at 16:08; Status DC Senna/Docusate Sodium (Senna Plus) 2 tab DAILY PO Last administered on 02/08/19at 09:21; Start 02/05/19 at 09:00 Morphine Sulfate 5 mg/Ketorolac Tromethamine 30 mg/Ropivacaine 60 ml/Epinephrine HCl 0.5 mg/Sodium Chloride 100 ml @ 100 mls/hr 1X ONCE INT ART Last administered on 02/05/19at 10:16; Start 02/05/19 at 08:00; Stop 02/05/19 at 08:59; Status DC Glycopyrrolate (Robinul) 1 mg STK-MED ONCE .ROUTE ; Start 02/05/19 at 09:28; Stop 02/05/19 at 09:28; Status DC Sevoflurane (Ultane) 60 ml STK-MED ONCE IH ; Start 02/05/19 at 09:28; Stop 02/05/19 at 09:28; Status DC Rocuronium [place] (Zemuron) 50 mg STK-MED ONCE .ROUTE ; Start 02/05/19 at 09:28; Stop 02/05/19 at 09:28; Status DC Fentanyl Citrate (Fentanyl 2ml Vial) 100 mcg STK-MED ONCE .ROUTE ; Start 02/05/19 at 09:28; Stop 02/05/19 at 09:28; Status DC Neostigmine Methylsulfate (Neostigmine Methylsulfate) 5 mg STK-MED ONCE .ROUTE ; Start 02/05/19 at 09:28; Stop 02/05/19 at 09:29; Status DC Propofol 20 ml @ As Directed STK-MED ONCE IV ; Start 02/05/19 at 09:29; Stop 02/05/19 at 09:29; Status DC Phenylephrine HCl (PHENYLEPHRINE in 0.9% NACL PF) 1 mg STK-MED ONCE IV ; Start 02/05/19 at 09:29; Stop 02/05/19 at 09:29; Status DC Lidocaine HCl (Lidocaine Pf 2% Vial) 5 ml STK-MED ONCE .ROUTE ; Start 02/05/19 at 09:29; Stop 02/05/19 at 09:29; Status DC Dexamethasone Sodium Phosphate (Decadron) 4 mg STK-MED ONCE .ROUTE ; Start 02/05/19 at 09:29; Stop 02/05/19 at 09:29; Status DC Ondansetron HCl (Zofran) 4 mg STK-MED ONCE .ROUTE ; Start 02/05/19 at 09:29; Stop 02/05/19 at 09:29; Status DC Cefazolin Sodium 50 ml @ As Directed STK-MED ONCE IV ; Start 02/05/19 at 09:35; Stop 02/05/19 at 09:35; Status DC Ephedrine Sulfate (ePHEDrine PF IN SALINE SYRINGE) 50 mg STK-MED ONCE IV ; Start 02/05/19 at 11:01; Stop 02/05/19 at 11:01; Status DC Fentanyl Citrate (Fentanyl 2ml Vial) 100 mcg STK-MED ONCE .ROUTE ; Start 02/05/19 at 11:22; Stop 02/05/19 at 11:23; Status DC Sodium Chloride 1,000 ml @ 60 mls/hr [id number] IV Last administered on 02/07/19at 15:38; Start 02/06/19 at 10:30 Ferrous Sulfate (Feosol) 325 mg BID PO Last administered on 02/08/19at 09:21; Start 02/06/19 at 10:30 Warfarin Sodium (Coumadin) 5 mg 1X WARF ONCE PO Last administered on 02/06/19at 16:41; Start 02/06/19 at 16:00; Stop 02/06/19 at 16:01; Status DC Warfarin Sodium (Coumadin Per Pharmacy) 1 each PRN DAILY PRN MC SEE COMMENTS Last administered on 02/07/19at 10:27; Start 02/06/19 at 15:15 Warfarin Sodium (Coumadin) 5 mg 1X WARF ONCE PO Last administered on 02/07/19at 15:37; Start 02/07/19 at 16:00; Stop 02/07/19 at 16:01; Status DC Levofloxacin (Levaquin) 500 mg DAILY06 PO Last administered on 02/08/19at 06:33; Start 02/08/19 at 06:00 Active Scripts Active Reported Centrum Silver Men Tablet (Multivit-Min/FA/Lycopen/Lutein) 1 Each Tablet 1 Each PO DAILY Omeprazole 20 Mg Tablet.dr 20 Mg PO DAILY Atorvastatin Calcium 80 Mg Tablet 80 Mg PO HS Metformin Hcl 500 Mg Tablet 500 Mg PO DAILY Gabapentin (Gabapentin) 300 Mg Capsule 300 Mg PO TID Tamsulosin Hcl 0.4 Mg Cap.er.24h 1 Cap PO DAILY Vitals/I & O Vital Sign - Last 24 Hours 02/07/19 02/07/19 02/07/19 02/07/19 11:00 11:38 15:00 19:00 Temp 99.1 99.2 99.8 99.1 99.2 99.8 Pulse 76 71 78 Resp 18 18 16 B/P (MAP) 149/62 (91) 124/52 (76) 133/67 (89) Pulse Ox 99 99 99 O2 Delivery Room Air Room Air Room Air Room Air O2 Flow Rate 8.0 02/07/19 02/07/19 02/08/19 02/08/19 20:00 23:00 03:00 07:00 Temp 100.4 98.6 98.6 100.4 98.6 98.6 Pulse 84 71 79 Resp 16 16 16 B/P (MAP) 143/55 (84) 155/61 (92) 156/64 (94) Pulse Ox 100 O2 Delivery Room Air Room Air Room Air Room Air 02/08/19 09:21 Pulse Ox 100 O2 Delivery Room Air O2 Flow Rate 8.0 Intake and Output 02/07/19 02/07/19 02/08/19 15:00 23:00 07:00 Intake Total 200 ml 840 ml Output Total 1000 ml 350 ml 1200 ml Balance -1000 ml -150 ml -360 ml RAVINDER BUSTAMANTE MD Feb 08, 2019 09:31
[2019-02-08] MEDS ORDERED: FERR325T72 PO (09:40)
[2019-02-08] MEDS ORDERED: SENN-22 PO (09:40)
[2019-02-08] MEDS ORDERED: PANT40TA77 PO (09:40)
[2019-02-08] MEDS ORDERED: HYDR-2761 PO (09:40)
[2019-02-08] MEDS ORDERED: WARF-78 PO (09:40)
[2019-02-08] MEDS ORDERED: ACET325T9 PO (09:40)
[2019-02-08] MEDS ORDERED: LEVO500T59 PO (09:40)
[2019-02-08] MEDS ORDERED: POLY17PO29 PO (09:40)
--- NOTE | 2019-02-08 09:42 | SNU/HH DC ---
DISCHARGE ORDERS DISCHARGE INFORMATION: DISCHARGE DATE: Feb 08, 2019 FINAL DIAGNOSIS Problems Medical Problems: (1) Acute urinary retention Status: Acute (2) Fall from standing Status: Acute (3) Fracture of right hip Status: Acute CONDITION ON DISCHARGE: Stable CODE STATUS: Code Status: Full POST DISCHARGE ORDERS: ACTIVITY ORDERS: Activity as tolerated WEIGHT BEARING STATUS: As tolerated DIET AFTER DISCHARGE: ADA FOLLOW-UP: PHYSICIAN FOLLOW-UP: dr. bustamante LAB ORDERS FOR FOLLOW-UP: cbc bmp PT/INR albumin 02/09 Additional Instructions: target inr 1.6 to 2.5 TREATMENT/EQUIPMENT ORDERS: ADAPTIVE EQUIPMENT NEEDED: Walker Physical Therapy For: Evalulation/Treatment Occupational Therapy For: Evaluation/Treatment DISCHARGE MEDICATIONS: Home Meds Active Scripts Polyethylene Glycol 3350 (MIRALAX) 17 Gm Powd.pack, 1 PACKET PO DAILY for constipation, #30 PACKET 0 Refills dissolve in water Prov:RAVINDER BUSTAMANTE MD 02/08/19 Warfarin Sodium (COUMADIN) 5 Mg Tablet, 5 MG PO DAILY for dvt prophylaxis, #30 TAB Prov:RAVINDER BUSTAMANTE MD 02/08/19 Pantoprazole Sodium (PANTOPRAZOLE SODIUM ) 40 Mg Tablet.dr, 40 MG PO DAILYAC for gerd, #30 TAB.SR Prov:RAVINDER BUSTAMANTE MD 02/08/19 Sennosides/Docusate Sodium (SENNA-TIME S TABLET) 1 Each Tablet, 2 TAB PO DAILY for constipation, #60 TAB Prov:RAVINDER BUSTAMANTE MD 02/08/19 Acetaminophen (TYLENOL) 325 Mg Tablet, 650 MG PO PRN Q6HRS PRN for MILD PAIN 1- 3, #30 TAB Prov:RAVINDER BUSTAMANTE MD 02/08/19 Hydrocodone Bit/Acetaminophen (HYDROCODONE-APAP 5-325 ) 1 Tab Tablet, 1 TAB PO PRN Q4HRS PRN for MODERATE PAIN, #30 TAB Prov:RAVINDER BUSTAMANTE MD 02/08/19 Ferrous Sulfate (FEOSOL) 325 Mg Tablet, 325 MG PO BID for acute blood loss anemia, #60 TAB Prov:RAVINDER BUSTAMANTE MD 02/08/19 Levofloxacin (LEVAQUIN) 500 Mg Tablet, 500 MG PO DAILY06 for pyuria for 9 Days, #9 TAB Prov:RAVINDER BUSTAMANTE MD 02/08/19 Reported Medications Multivit-Min/FA/Lycopen/Lutein (Centrum Silver Men Tablet) 1 Each Tablet, 1 EACH PO DAILY for supplement, TAB 02/04/19 Atorvastatin Calcium (ATORVASTATIN CALCIUM) 80 Mg Tablet, 80 MG PO HS for FOR CHOLESTEROL, #30 TAB 0 Refills 11/09/17 Metformin Hcl (METFORMIN HCL) 500 Mg Tablet, 500 MG PO DAILY for ANTI-DIABETIC, TAB 0 Refills 11/09/17 Gabapentin (GABAPENTIN ) 300 Mg Capsule, 300 MG PO TID, CAP 11/09/17 Tamsulosin Hcl (TAMSULOSIN HCL) 0.4 Mg Cap.er.24h, 1 CAP PO DAILY, #30 CAP 5 Refills 11/09/17 Discontinued Reported Medications Omeprazole (OMEPRAZOLE) 20 Mg Tablet.dr, 20 MG PO DAILY, TAB 11/09/17 Acetaminophen (ACETAMINOPHEN) 500 Mg Tablet, 325 MG PO Q4HRS, TAB 11/09/17 RAVINDER BUSTAMANTE MD Feb 08, 2019 09:42
--- NOTE | 2019-02-08 09:46 | PDOC ---
Provider Note Provider Note discharge summary dictated # [id number] RAVINDER BUSTAMANTE MD Feb 08, 2019 09:46
--- NOTE | 2019-02-08 10:03 | DS ---
DATE OF DISCHARGE: 02/08/2019 CONSULTANTS: Brannon Sims MD, and Rahul Snachez MD PROCEDURE: Right hip hemiarthroplasty. FINAL DIAGNOSES: 1. Displaced right femoral neck fracture secondary to a mechanical fall. 2. Acute blood loss anemia. 3. Diabetes mellitus type 2. 4. Hyperlipidemia. 5. Urine retention requiring a Causey catheter. 6. Benign prostatic hypertrophy. 7. Fever, possibly secondary to urinary tract infection. 8. Pyuria. 9. Mobility and self-care deficits secondary to hip fracture. 10. Constipation. HOSPITAL COURSE: The patient is a 78-year-old -[place] male with a history of diabetes mellitus type 2 and hyperlipidemia, apparently got up around 3:00 in the morning and his right leg gave way and he fell to the floor. He had right hip pain and was transported to the [facility] Emergency Room where x-rays revealed a right subcapital femoral neck fracture with some displacement, seen by Dr. Sims and after cardiac clearance by Dr. Sanchez as he has had an echocardiogram, which showed a normal left ventricular ejection fraction and he underwent a right hip hemiarthroplasty. Postoperatively, his Causey was removed. He had urine retention. A Causey catheter had to be replaced and he is still on tamsulosin. He also had acute blood loss anemia and was started on ferrous sulfate, received hydrocodone p.r.n. for pain. He did have some constipation and was started on MiraLax and Senokot-S. He also participated in physical and occupational therapy. His blood sugars were under good control with metformin. It is anticipated he will be dismissed to [facility] today and he will be dismissed on atorvastatin 80 mg at bedtime, gabapentin 300 mg t.i.d., metformin 500 mg every day, multiple vitamin once a day, tamsulosin 0.4 mg every day, Tylenol 650 mg every 6 hours p.r.n., ferrous sulfate 325 mg b.i.d., [place] 5/325 one every 4 hours p.r.n., Levaquin 500 mg every day for another 9 days, Protonix 40 mg every day, MiraLax 17 grams 8-ounce fluid every day, Senokot-S 2 tablets daily, and Coumadin 5 mg every day with a target INR of 1.6-2.5 for deep vein thrombosis prophylaxis. It should be noted that he had a low-grade fever last night and the night before. Chest x-ray was clear and his urinalysis showed 5-10 white cells and he was started on Levaquin yesterday 500 mg p.o. daily. He is afebrile today. His white count on his CBC was also normal. RAVINDER BUSTAMANTE MD DR: JOANIE/vicente JOB#: [id number] / [id number]
[2019-02-08 11:00] VITALS: BP 156/76
[2019-02-08] MEDS: IV NORMAL SALINE 1000ML BAG 1,000 ML IV SCH (12:30)
--- NOTE | 2019-02-08 14:40 | NUR ---
Discharge Note: SIL[facility] CONNER [address] [place] [address] Discharge instructions and discharge home medications reviewed with Other facility and a copy given. All questions have been answered and understanding verbalized. The following instructions and handouts were given: Diet, activity, medication list and follow up instructions provided to [facility]. Report called to LAURO Brown. Discontinued lines and drains: Peripheral IV discontinued and catheter intact. Patient discharged to Rehab Facility with Self via Wheelchair
[2019-02-08] MEDS ORDERED: WARFARIN 3 MG TABLET. PO ONE (16:00)
--- NOTE | 2019-02-09 15:07 | PATHOLOGY ---
[facility] Accession Number: [id number] . 01 Material submitted: . hip - RIGHT HIP BONES. Modifiers: right . 01 Clinical history: . Rt femoral neck fx . 02 Diagnosis: Femoral head and separate segments of bone, right hip hemiarthroplasty: - Focal fragmentation of bony trabeculae with recent intertrabecular hemorrhage consistent with fracture. (JPM:yinka; 02/09/2019) QMS 02/09/2019 0822 Local . 02 Comment: There is no evidence of malignancy. . 02 Electronically signed: . Bennett Wren MD, Pathologist NPI- [id number] . 01 Gross description: . Received in formalin labeled "Bennett Zhang, right hip bones," is a femoral head measuring 5.2 x 5.1 x 4.7 cm in greatest dimensions admixed with multiple femoral neck fragments measuring 4.0 x 3.9 x 2.4 cm in aggregate dimensions. The femoral head articular surface is smooth to granular and pale mandel to light brown in appearance, displaying no gross evidence of eburnation. The femoral head bone margin is jagged and hemorrhagic in appearance, grossly consistent with a fracture site. Serial sectioning reveals pale yellow-mandel to pink-mandel and slightly hemorrhagic cut surfaces, with extensive dark brown hemorrhage noted at the bone margin. No cysts or nodules are noted grossly. Sectioning through the femoral neck fragments reveals pale mandel to extensively hemorrhagic cut surfaces. Side Piece Coverer sections of the femoral head bone margin are submitted in cassette A1, following decalcification. Side Piece Coverer sections of the femoral neck fragments are submitted in cassette A2, following decalcification. (DAC; 02/08/2019) XDC/XDC 02/08/2019 0753 Local . 02 Pathologist provided ICD-10: S72.092A . 02 CPT . 716674, [id number] Specimen Comment: A courtesy copy of this report has been sent to [phone], [phone] Specimen Comment: [id number] Specimen Comment: Report sent to / DR BUSTAMANTE Performed at: 01 [facility] [address] [facility] [address], [place] [id number] MD Tonio Teague MD Phone: [phone] Performed at: 02 [facility] [address] [place], [place] [id number] MD Bennett Wren MD Phone: [phone]
== END 2019-02-08 14:50 | DRG 470 ==
LOC: ER 12:29 → 4 NORTH 13:45
PROVIDERS: ADMIT Internal Medicine; ATTEND Internal Medicine
PROC: 0SRR0JZ Replacement of Right Hip Joint, Femoral Surface with Synthetic Substitute, Open Approach (ICD-10-PCS; principal; 2019-02-05 08:00)
DX: S72.011A Unspecified intracapsular fracture of right femur, initial encounter for closed fracture (principal); D62 Acute posthemorrhagic anemia; N39.0 Urinary tract infection, site not specified; E11.42 Type 2 diabetes mellitus with diabetic polyneuropathy; E78.5 Hyperlipidemia, unspecified; K59.00 Constipation, unspecified; N40.1 Benign prostatic hyperplasia with lower urinary tract symptoms; R33.8 Other retention of urine; I08.1 Rheumatic disorders of both mitral and tricuspid valves; K57.90 Diverticulosis of intestine, part unspecified, without perforation or abscess without bleeding; K21.9 Gastro-esophageal reflux disease without esophagitis; W18.39XA Other fall on same level, initial encounter; Y93.89 Activity, other specified; Y92.89 Other specified places as the place of occurrence of the external cause; Y99.8 Other external cause status; Z88.0 Allergy status to penicillin; Z79.899 Other long term (current) drug therapy; Z82.5 Family history of asthma and other chronic lower respiratory diseases; Z83.3 Family history of diabetes mellitus; Z87.11 Personal history of peptic ulcer disease; Z87.891 Personal history of nicotine dependence
CPT/HCPCS: 36415; 51702; 71045; 73502; 80048; 80053; 81001; 82962; 85007; 85025; 85610; 87086; 88305; 88311; 93005; 93306; 96374; 96375; A7015; C1713; J0171; J0690; J1100; J2001; J2270; J2370; J2405; J2704; J2710; J3010; J3490; J7030; J7120; 97110; 97116; 97530; 99285-25; G0378

== ENCOUNTER 2019-04-01 22:23 | Inpatient (IN) | payer MEDICARE, BC ==
[~2019-04-01] VITALS: Ht 177.8 cm; Wt 54.4 kg
[~2019-04-01 22:23] MED LIST changes: +ACET325T9 PO; +FERR325T72 PO; +HYDR-2761 PO; +LEVO500T59 PO; +MULT-690 PO; +PANT40TA77 PO; +POLY17PO29 PO; +SENN-22 PO; +WARF-78 PO
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
[2019-04-02] VITALS (7 sets, daily range): BP systolic 106–148; BP diastolic 49–79
[2019-04-02] MEDS ORDERED: HYDROcodone/APAP 5/325MG 1 TAB TABLET PO ONE
[2019-04-02] MEDS ORDERED: VANCOMYCIN 1.5 GM in IV NORMAL SALINE 500ML BAG 500 ML IV ONE (00:30)
[2019-04-02 00:49] LABS: BASO # 0.1 x10^3/uL (0.0-0.2); BASO % 0 % (0-3); EOS # 0.2 x10^3/uL (0.0-0.7); EOS % 2 % (0-3); HEMATOCRIT 33.6 % (39.0-53.0); HEMOGLOBIN 11.1 g/dL (13.0-17.5); LYMPH # 1.1 x10^3/uL (1.0-4.8); LYMPH % 8 % (24-48); MEAN CORPUSCULAR HEMOGLOBIN 29 pg (25-35); MEAN CORPUSCULAR HGB CONC 33 g/dL (31-37); MEAN CORPUSCULAR VOLUME 87 fL (79-100); MONO # 1.1 x10^3/uL (0.0-1.1); MONO % 8 % (0-9); NEUT # 11.5 x10^3/uL (1.8-7.7); NEUT % 82 % (31-73); PLATELET COUNT 376 x10^3/uL (140-400); RED BLOOD COUNT 3.86 x10^6/uL (4.30-5.70); RED CELL DISTRIBUTION WIDTH 14.8 % (11.5-14.5)
[2019-04-02 01:06] LABS: CALCIUM 9.2 mg/dL (8.5-10.1); CREATININE 0.8 mg/dL (0.7-1.3); GFR 113.1
[2019-04-02 01:11] LABS: ALBUMIN 2.2 g/dL (3.4-5.0); ALBUMIN/GLOBULIN RATIO 0.6 (1.0-1.7); TOTAL BILIRUBIN 0.3 mg/dL (0.2-1.0)
[2019-04-02] MEDS ORDERED: IV NORMAL SALINE 1000ML BAG 1,000 ML IV ONE ×2 (01:30)
[2019-04-02] MEDS: MEROPENEM 1 GM in IV NORMAL SALINE 100ML 100 ML IV SCH ×3 (01:41→23:48)
[2019-04-02] MEDS ORDERED: fentaNYL PF VIAL 100 MCG/2 ML VIAL IV PRN (01:45)
[2019-04-02] MEDS ORDERED: ONDANSETRON PF 4 MG/2 ML VIAL. IV PRN (01:45)
[2019-04-02] MEDS ORDERED: ACETAMINOPHEN 325 MG TABLET. PO PRN ×2 (01:45→13:45)
[2019-04-02] MEDS: VANCOMYCIN PER PHARMACY MC PRN (02:49)
--- NOTE | 2019-04-02 02:50 | NUR ---
Pharmacy Vancomycin Dosing Note S:Consulted to monitor and dose vancomycin started 04/02/19. O:SILVIA CONNER is a 79 year old M with Sepsis DECUBITIS ULCER . Height: 5 feet, 8 inches Weight: 61.091980 kg [place] Body Weight: 68.40 Adjusted Body Weight: 65.44 Dosing Weight: Actual Other Antibiotics: MERREM 1 GM Q8H LABS: Last BUN: 18 Last Creatinine: 0.8 Creatinine Clearance: 53 mL/min Last WBC: 14 Last Procalcitonin: Tmax (past 24 hours): Microbiology: I/O: Drug Levels: Last level: on at Last dose given 04/02/19 at 0100 Vancomycin Dosing: Loading Dose: 1500 mg x1 Dosing Weight: Actual Target Trough: 15-20 A: Based on: WT AND CRCL P: 1. Begin Vancomycin 1000 mg IV q18h 2. Follow up Trough level on 04/03/19 at 1230 3. Pharmacy will continue to monitor, follow and adjust therapy as needed. CHRIS LIANG RPH, 04/02/19250 Signed: 04/02/19 at 0251 by CHRIS LIANG RPH PHA
[2019-04-02] MEDS ORDERED: OMEP20CA16 PO (04:08)
[2019-04-02] MEDS ORDERED: CYCL5TAB PO (04:08)
--- NOTE | 2019-04-02 07:24 | NUR ---
0330 pt arrived to unit ,admission care done, sacral wound oicture taken, pt denies discomfort. will continue to monitor.
[2019-04-02] MEDS ORDERED: SENNOSIDES/DOCUSATE 8.6/50MG TABLET. PO PRN (13:45)
[2019-04-02] MEDS ORDERED: VANCOMYCIN PER PHARMACY MC PRN (14:00)
--- NOTE | 2019-04-02 14:01 | PDOC ---
Provider Note Provider Note history and physical dictated # [id number] RAVINDER BUSTAMANTE MD Apr 02, 2019 14:01
[2019-04-02] MEDS: DICLOFENAC SODIUM 1% TOPICAL GEL 100GM TUBE. TP SCH ×2 (14:59→21:36)
[2019-04-02] MEDS: GABAPENTIN 300 MG CAPSULE. PO SCH ×2 (14:59→20:07)
--- NOTE | 2019-04-02 15:01 | RAD ---
EXAM: Bilateral knees, 2 views. HISTORY: Pain. COMPARISON: None. FINDINGS: 2 views of both knees are obtained. There is no fracture, dislocation or subluxation. There is left medial compartment spurring. There are small bilateral knee effusions. There are vascular calcifications. There is a suspected small osteochondroma along the proximal medial right tibial metaphysis. IMPRESSION: 1. Mild medial compartment osteoarthritis of the left knee. 2. Small bilateral knee effusions. 3. Suspected small osteochondroma along the proximal medial right tibial metaphysis. Electronically signed by: Eliane Dominguez MD (04/02/2019 2:58 PM) [facility] [place]
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
--- NOTE | 2019-04-02 15:04 | PDOC ---
Infectious Disease Note Vital Sign Vital Signs Vital Signs Date Time Temp Pulse Resp B/P (MAP) Pulse Ox O2 Delivery O2 Flow Rate FiO2 04/02/19 11:00 97.8 97 18 148/79 (102) 99 Room Air 97.8 Labs Lab Laboratory Tests Test 04/02/19 00:30 04/02/19 03:23 04/02/19 07:45 04/02/19 11:04 White Blood Count 14.0 x10^3/uL (4.0-11.0) Red Blood Count 3.86 x10^6/uL (4.30-5.70) Hemoglobin 11.1 g/dL (13.0-17.5) Hematocrit 33.6 % (39.0-53.0) Mean Corpuscular Volume 87 fL (79-100) Mean Corpuscular Hemoglobin 29 pg (25-35) Mean Corpuscular Hemoglobin Concent 33 g/dL (31-37) Red Cell Distribution Width 14.8 % (11.5-14.5) Platelet Count 376 x10^3/uL (140-400) Neutrophils (%) (Auto) 82 % (31-73) Lymphocytes (%) (Auto) 8 % (24-48) Monocytes (%) (Auto) 8 % (0-9) Eosinophils (%) (Auto) 2 % (0-3) Basophils (%) (Auto) 0 % (0-3) Neutrophils # (Auto) 11.5 x10^3/uL (1.8-7.7) Lymphocytes # (Auto) 1.1 x10^3/uL (1.0-4.8) Monocytes # (Auto) 1.1 x10^3/uL (0.0-1.1) Eosinophils # (Auto) 0.2 x10^3/uL (0.0-0.7) Basophils # (Auto) 0.1 x10^3/uL (0.0-0.2) Sodium Level 138 mmol/L (136-145) Potassium Level 4.0 mmol/L (3.5-5.1) Chloride Level 102 mmol/L (98-107) Carbon Dioxide Level 29 mmol/L (21-32) Anion Gap 7 (6-14) Blood Urea Nitrogen 18 mg/dL (8-26) Creatinine 0.8 mg/dL (0.7-1.3) Estimated GFR (Cockcroft-Gault) 113.1 BUN/Creatinine Ratio 23 (6-20) Glucose Level 268 mg/dL (70-99) Lactic Acid Level 2.2 mmol/L (0.4-2.0) 1.5 mmol/L (0.4-2.0) Calcium Level 9.2 mg/dL (8.5-10.1) Total Bilirubin 0.3 mg/dL (0.2-1.0) Aspartate Amino Transf (AST/SGOT) 48 U/L (15-37) Alanine Aminotransferase (ALT/SGPT) 72 U/L (16-63) Alkaline Phosphatase 89 U/L (46-116) Total Protein 6.0 g/dL (6.4-8.2) Albumin 2.2 g/dL (3.4-5.0) Albumin/Globulin Ratio 0.6 (1.0-1.7) Procalcitonin < 0.10 ng/mL (0.00-0.10) Glucose (Fingerstick) 162 mg/dL (70-99) 152 mg/dL (70-99) Objective Assessment Sacrococcygeal pressure ulcer, deep Leukocytosis PCN allergy - reaction unknown Right heel ulcer, eshar Transaminitis Urinary retention s/p Causey s/p right hip arthroplasty, 02/05/19 Diabetes PVD Plan Plan of Care vanc and Merrem Monitor renal function closely Labs incl sed rate in am f/u cultures D/w nursing Thank you [id number] Attending Co-Sign The patient was seen and interviewed as well as examined at the bedside. The chart was reviewed. The case was discussed. Agree with the plan of care. BLAYNE ALBERTO APRN Apr 02, 2019 15:03 ZEINA LARA MD Apr 02, 2019 15:17
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
[2019-04-02] MEDS: INSULIN LISPRO 300 UNITS/3 ML VIAL. SQ SCH (17:00)
--- NOTE | 2019-04-02 18:25 | EKG ---
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
[2019-04-02] MEDS: TAMSULOSIN 0.4 MG CAP.ER.24H. PO SCH (20:07)
[2019-04-02] MEDS: LACTOBACILLUS RHAMNOSUS GG 1 CAPSULE. PO SCH (20:07)
[2019-04-02] MEDS: ATORVASTATIN CALCIUM 40 MG TABLET. PO SCH (20:07)
[2019-04-02] MEDS: CYCLOBENZAPRINE 10 MG TABLET. PO PRN (20:07)
[2019-04-02] MEDS: VANCOMYCIN 1 GM in IV NORMAL SALINE 250ML 250 ML IV SCH (21:35)
[2019-04-03 03:38] VITALS: BP 140/71
[2019-04-03 05:47] LABS: BASO # 0.1 x10^3/uL (0.0-0.2); BASO % 1 % (0-3); EOS # 0.4 x10^3/uL (0.0-0.7); EOS % 4 % (0-3); HEMATOCRIT 30.1 % (39.0-53.0); HEMOGLOBIN 10.3 g/dL (13.0-17.5); LYMPH # 1.6 x10^3/uL (1.0-4.8); LYMPH % 15 % (24-48); MEAN CORPUSCULAR HEMOGLOBIN 30 pg (25-35); MEAN CORPUSCULAR HGB CONC 34 g/dL (31-37); MEAN CORPUSCULAR VOLUME 86 fL (79-100); MONO # 0.9 x10^3/uL (0.0-1.1); MONO % 8 % (0-9); NEUT # 7.9 x10^3/uL (1.8-7.7); NEUT % 73 % (31-73); PLATELET COUNT 355 x10^3/uL (140-400); RED BLOOD COUNT 3.49 x10^6/uL (4.30-5.70); RED CELL DISTRIBUTION WIDTH 14.6 % (11.5-14.5); WHITE BLOOD COUNT 10.8 x10^3/uL (4.0-11.0)
[2019-04-03 06:00] LABS: C-REACTIVE PROTEIN 65.6 mg/L (0-3.3); CALCIUM 8.4 mg/dL (8.5-10.1); CREATININE 0.7 mg/dL (0.7-1.3); POTASSIUM 3.9 mmol/L (3.5-5.1)
[2019-04-03] MEDS: MEROPENEM 1 GM in IV NORMAL SALINE 100ML 100 ML IV SCH ×3 (06:00→20:32)
[2019-04-03 07:00] VITALS: BP 164/76
[2019-04-03] MEDS: INSULIN LISPRO 300 UNITS/3 ML VIAL. SQ SCH ×3 (08:00→16:52)
[2019-04-03] MEDS: GABAPENTIN 300 MG CAPSULE. PO SCH ×3 (08:53→20:31)
[2019-04-03] MEDS: LACTOBACILLUS RHAMNOSUS GG 1 CAPSULE. PO SCH ×2 (08:54→20:31)
[2019-04-03] MEDS: metFORMIN 500 MG TABLET PO SCH (08:54)
[2019-04-03] MEDS: MULTIVITAMIN with MINERAL TABLET. PO SCH (08:54)
[2019-04-03] MEDS: PANTOPRAZOLE 40 MG TABLET.DR. PO SCH (08:54)
[2019-04-03] MEDS: POLYETHYLENE GLYCOL 3350 17 GM PACKET. PO SCH (08:55)
[2019-04-03] MEDS: DICLOFENAC SODIUM 1% TOPICAL GEL 100GM TUBE. TP SCH ×3 (09:00→20:31)
[2019-04-03 11:00] VITALS: BP 126/59
--- NOTE | 2019-04-03 12:53 | PDOC ---
PROGRESS NOTES Subjective Subjective feels okay. discussed deep sacral wound comfortable. lab reviewed. CRP 65. x ray of sacrum and coccyx okay Objective Objective Vital Signs Date Time Temp Pulse Resp B/P (MAP) Pulse Ox O2 Delivery O2 Flow Rate FiO2 04/03/19 11:00 98.3 102 16 126/59 (81) 100 Room Air 98.3 Intake and Output 04/03/19 07:00 Intake Total 400 ml Output Total 1450 ml Balance -1050 ml Intake Oral 400 ml Output Urine Total 1450 ml # Bowel Movements 1 Physical Exam Abdomen: Soft Heart: Regular rate, Normal S1, Normal S2 Extremities: No edema General: Alert HEENT: Atraumatic Lungs: Clear to auscultation Neuro: Normal speech Psych/Mental Status: Mental status NL Skin: No rashes Assessment Assessment Problems1. Infected pressure sacral decubitus, concerned for underlying osteomyelitis. 2. Leukocytosis. 3. Anemia of chronic disease. 4. Osteoarthritis of the knees. 5. Debility. 6. Diabetes mellitus type 2. 7. Hyperlipidemia. 8. Chronic urinary retention with benign prostatic hypertrophy with Causey Medical Problems: (1) Decubital ulcer Status: Acute (2) SIRS (systemic inflammatory response syndrome) Status: Acute Plan Plan of Care continue iv zyvox and meropenem await wound culture consult wound care. needs would debridement off load wound PT and OT MRI of sacrum and coccyx Comment Review of Relevant I have reviewed the following items dimitrios (where applicable) has been applied. Labs Laboratory Tests Test 04/02/19 00:30 04/02/19 03:23 04/02/19 07:45 04/02/19 11:04 White Blood Count 14.0 x10^3/uL (4.0-11.0) Red Blood Count 3.86 x10^6/uL (4.30-5.70) Hemoglobin 11.1 g/dL (13.0-17.5) Hematocrit 33.6 % (39.0-53.0) Mean Corpuscular Volume 87 fL (79-100) Mean Corpuscular Hemoglobin 29 pg (25-35) Mean Corpuscular Hemoglobin Concent 33 g/dL (31-37) Red Cell Distribution Width 14.8 % (11.5-14.5) Platelet Count 376 x10^3/uL (140-400) Neutrophils (%) (Auto) 82 % (31-73) Lymphocytes (%) (Auto) 8 % (24-48) Monocytes (%) (Auto) 8 % (0-9) Eosinophils (%) (Auto) 2 % (0-3) Basophils (%) (Auto) 0 % (0-3) Neutrophils # (Auto) 11.5 x10^3/uL (1.8-7.7) Lymphocytes # (Auto) 1.1 x10^3/uL (1.0-4.8) Monocytes # (Auto) 1.1 x10^3/uL (0.0-1.1) Eosinophils # (Auto) 0.2 x10^3/uL (0.0-0.7) Basophils # (Auto) 0.1 x10^3/uL (0.0-0.2) Sodium Level 138 mmol/L (136-145) Potassium Level 4.0 mmol/L (3.5-5.1) Chloride Level 102 mmol/L (98-107) Carbon Dioxide Level 29 mmol/L (21-32) Anion Gap 7 (6-14) Blood Urea Nitrogen 18 mg/dL (8-26) Creatinine 0.8 mg/dL (0.7-1.3) Estimated GFR (Cockcroft-Gault) 113.1 BUN/Creatinine Ratio 23 (6-20) Glucose Level 268 mg/dL (70-99) Lactic Acid Level 2.2 mmol/L (0.4-2.0) 1.5 mmol/L (0.4-2.0) Calcium Level 9.2 mg/dL (8.5-10.1) Total Bilirubin 0.3 mg/dL (0.2-1.0) Aspartate Amino Transf (AST/SGOT) 48 U/L (15-37) Alanine Aminotransferase (ALT/SGPT) 72 U/L (16-63) Alkaline Phosphatase 89 U/L (46-116) Total Protein 6.0 g/dL (6.4-8.2) Albumin 2.2 g/dL (3.4-5.0) Albumin/Globulin Ratio 0.6 (1.0-1.7) Procalcitonin < 0.10 ng/mL (0.00-0.10) Glucose (Fingerstick) 162 mg/dL (70-99) 152 mg/dL (70-99) Test 04/02/19 17:01 04/02/19 17:26 04/02/19 21:22 04/03/19 05:05 Glucose (Fingerstick) 211 mg/dL (70-99) 185 mg/dL (70-99) 140 mg/dL (70-99) White Blood Count 10.8 x10^3/uL (4.0-11.0) Red Blood Count 3.49 x10^6/uL (4.30-5.70) Hemoglobin 10.3 g/dL (13.0-17.5) Hematocrit 30.1 % (39.0-53.0) Mean Corpuscular Volume 86 fL (79-100) Mean Corpuscular Hemoglobin 30 pg (25-35) Mean Corpuscular Hemoglobin Concent 34 g/dL (31-37) Red Cell Distribution Width 14.6 % (11.5-14.5) Platelet Count 355 x10^3/uL (140-400) Neutrophils (%) (Auto) 73 % (31-73) Lymphocytes (%) (Auto) 15 % (24-48) Monocytes (%) (Auto) 8 % (0-9) Eosinophils (%) (Auto) 4 % (0-3) Basophils (%) (Auto) 1 % (0-3) Neutrophils # (Auto) 7.9 x10^3/uL (1.8-7.7) Lymphocytes # (Auto) 1.6 x10^3/uL (1.0-4.8) Monocytes # (Auto) 0.9 x10^3/uL (0.0-1.1) Eosinophils # (Auto) 0.4 x10^3/uL (0.0-0.7) Basophils # (Auto) 0.1 x10^3/uL (0.0-0.2) Erythrocyte Sedimentation Rate 36 (0-15) Sodium Level 136 mmol/L (136-145) Potassium Level 3.9 mmol/L (3.5-5.1) Chloride Level 100 mmol/L (98-107) Carbon Dioxide Level 30 mmol/L (21-32) Anion Gap 6 (6-14) Blood Urea Nitrogen 13 mg/dL (8-26) Creatinine 0.7 mg/dL (0.7-1.3) Estimated GFR (Cockcroft-Gault) 132.0 Glucose Level 136 mg/dL (70-99) Calcium Level 8.4 mg/dL (8.5-10.1) C-Reactive Protein, Quantitative 65.6 mg/L (0-3.3) Test 04/03/19 07:25 04/03/19 11:27 Glucose (Fingerstick) 133 mg/dL (70-99) 257 mg/dL (70-99) Laboratory Tests Test 04/02/19 17:01 04/02/19 17:26 04/02/19 21:22 04/03/19 05:05 Glucose (Fingerstick) 211 mg/dL (70-99) 185 mg/dL (70-99) 140 mg/dL (70-99) White Blood Count 10.8 x10^3/uL (4.0-11.0) Red Blood Count 3.49 x10^6/uL (4.30-5.70) Hemoglobin 10.3 g/dL (13.0-17.5) Hematocrit 30.1 % (39.0-53.0) Mean Corpuscular Volume 86 fL (79-100) Mean Corpuscular Hemoglobin 30 pg (25-35) Mean Corpuscular Hemoglobin Concent 34 g/dL (31-37) Red Cell Distribution Width 14.6 % (11.5-14.5) Platelet Count 355 x10^3/uL (140-400) Neutrophils (%) (Auto) 73 % (31-73) Lymphocytes (%) (Auto) 15 % (24-48) Monocytes (%) (Auto) 8 % (0-9) Eosinophils (%) (Auto) 4 % (0-3) Basophils (%) (Auto) 1 % (0-3) Neutrophils # (Auto) 7.9 x10^3/uL (1.8-7.7) Lymphocytes # (Auto) 1.6 x10^3/uL (1.0-4.8) Monocytes # (Auto) 0.9 x10^3/uL (0.0-1.1) Eosinophils # (Auto) 0.4 x10^3/uL (0.0-0.7) Basophils # (Auto) 0.1 x10^3/uL (0.0-0.2) Erythrocyte Sedimentation Rate 36 (0-15) Sodium Level 136 mmol/L (136-145) Potassium Level 3.9 mmol/L (3.5-5.1) Chloride Level 100 mmol/L (98-107) Carbon Dioxide Level 30 mmol/L (21-32) Anion Gap 6 (6-14) Blood Urea Nitrogen 13 mg/dL (8-26) Creatinine 0.7 mg/dL (0.7-1.3) Estimated GFR (Cockcroft-Gault) 132.0 Glucose Level 136 mg/dL (70-99) Calcium Level 8.4 mg/dL (8.5-10.1) C-Reactive Protein, Quantitative 65.6 mg/L (0-3.3) Test 04/03/19 07:25 04/03/19 11:27 Glucose (Fingerstick) 133 mg/dL (70-99) 257 mg/dL (70-99) Microbiology 04/02/19 Blood Culture - Preliminary, Resulted NO GROWTH AFTER 1 DAY Medications Current Medications Acetaminophen/ Hydrocodone Bitart (Lortab 5/325) 1 tab 1X ONCE PO Last administered on 04/02/19at 00:23; Start 04/02/19 at 00:00; Stop 04/02/19 at 00:01; Status DC Vancomycin HCl (Vanco Per Pharmacy) 1 each PRN DAILY PRN MC SEE COMMENTS Last administered on 04/02/19at 02:49; Start 04/01/19 at 23:45 Vancomycin HCl 1.5 gm/Sodium Chloride 500 ml @ 250 mls/hr 1X ONCE IV Last administered on 04/02/19at 00:42; Start 04/02/19 at 00:30; Stop 04/02/19 at 02:29; Status DC Sodium Chloride 1,000 ml @ 1,000 mls/hr 1X ONCE IV Last administered on 04/02/19at 01:42; Start 04/02/19 at 01:30; Stop 04/02/19 at 02:29; Status DC Sodium Chloride 1,000 ml @ 1,000 mls/hr 1X ONCE IV Last administered on at 01:42; Start 04/02/19 at 01:30; Stop 04/02/19 at 02:29; Status DC Meropenem 1 gm/ Sodium Chloride 100 ml @ 200 mls/hr Q8HRS IV Last administered on 04/03/19at 06:00; Start 04/02/19 at 02:00 Ondansetron HCl (Zofran) 4 mg PRN Q8HRS PRN IV NAUSEA/VOMITING 1ST CHOICE; Start 04/02/19 at 01:45; Stop 04/03/19 at 01:44; Status DC Fentanyl Citrate (Fentanyl 2ml Vial) 50 mcg PRN Q1HR PRN IV SEVERE PAIN 7-10; Start 04/02/19 at 01:45; Stop 04/03/19 at 01:44; Status DC Acetaminophen (Tylenol) 650 mg PRN Q4HRS PRN PO FEVER; Start 04/02/19 at 01:45; Stop 04/02/19 at 13:50; Status DC Vancomycin HCl 1 gm/Sodium Chloride 250 ml @ 250 mls/hr Q18H IV Last administered on 04/02/19at 21:35; Start 04/02/19 at 19:00 Vancomycin HCl (Vancomycin Trough Level) 1 each 1X ONCE MC Last administered on 04/03/19at 12:30; Start 04/03/19 at 12:30; Stop 04/03/19 at 12:31; Status DC Atorvastatin Calcium (Lipitor) 80 mg QHS PO Last administered on 04/02/19at 20:07; Start 04/02/19 at 21:00 Gabapentin (Neurontin) 300 mg TID PO Last administered on 04/03/19at 08:53; Start 04/02/19 at 14:00 Acetaminophen (Tylenol) 650 mg PRN Q6HRS PRN PO MILD PAIN / TEMP; Start 04/02/19 at 13:45 Acetaminophen/ Hydrocodone Bitart (Lortab 5/325) 1 tab PRN Q4HRS PRN PO MODERATE PAIN; Start 04/02/19 at 13:45 Metformin HCl (Glucophage) 500 mg DAILY PO Last administered on 04/03/19at 08:54; Start 04/03/19 at 09:00 Multivitamins (Thera M Plus) 1 tab DAILY PO Last administered on 04/03/19at 08:54; Start 04/03/19 at 09:00 Tamsulosin HCl (Flomax) 0.4 mg QHS PO Last administered on 04/02/19at 20:07; Start 04/02/19 at 21:00 Pantoprazole Sodium (Protonix) 40 mg DAILYAC PO Last administered on 04/03/19at 08:54; Start 04/03/19 at 07:30 Polyethylene Glycol (miraLAX PACKET) 17 gm DAILY PO ; Start 04/03/19 at 09:00 Senna/Docusate Sodium (Senna Plus) 1 tab PRN BID PRN PO CONSTIPATION; Start 04/02/19 at 13:45 Insulin Human Lispro (HumaLOG) 0-6 UNITS TIDWMEALS SQ Last administered on 04/03/19at 12:27; Start 04/02/19 at 17:00 Diclofenac Sodium (Voltaren) 1 thierry TID TP Last administered on 04/03/19at 09:00; Start 04/02/19 at 14:00 Lactobacillus Rhamnosus (Culturelle) 1 cap BID PO Last administered on 04/03/19at 08:54; Start 04/02/19 at 21:00 Vancomycin HCl (Vanco Per Pharmacy) 1 each PRN DAILY PRN MC SEE COMMENTS; Start 04/02/19 at 14:00; Status UNV Cyclobenzaprine HCl (Flexeril) 5 mg PRN Q8HRS PRN PO MUSCLE SPASMS Last administered on 04/02/19at 20:07; Start 04/02/19 at 19:45 Active Scripts Active Miralax (Polyethylene Glycol 3350) 17 Gm Powd.pack 1 Packet PO DAILY dissolve in water Coumadin (Warfarin Sodium) 5 Mg Tablet 5 Mg PO DAILY Pantoprazole Sodium (Pantoprazole Sodium) 40 Mg Tablet. 40 Mg PO DAILYAC Senna-Time S Tablet (Sennosides/Docusate Sodium) 1 Each Tablet 2 Tab PO DAILY Tylenol (Acetaminophen) 325 Mg Tablet 650 Mg PO PRN Q6HRS PRN Hydrocodone-Apap 5-325 (Hydrocodone Bit/Acetaminophen) 1 Tab Tablet 1 Tab PO PRN Q4HRS PRN Feosol (Ferrous Sulfate) 325 Mg Tablet 325 Mg PO BID Levaquin (Levofloxacin) 500 Mg Tablet 500 Mg PO DAILY06 9 Days Reported Omeprazole 20 Mg Capsule. 20 Mg PO BID Cyclobenzaprine Hcl 5 Mg Tablet 5 Mg PO TID Centrum Silver Men Tablet (Multivit-Min/FA/Lycopen/Lutein) 1 Each Tablet 1 Each PO DAILY Atorvastatin Calcium 80 Mg Tablet 80 Mg PO HS Metformin Hcl 500 Mg Tablet 500 Mg PO DAILY Gabapentin (Gabapentin) 300 Mg Capsule 300 Mg PO TID Tamsulosin Hcl 0.4 Mg Cap.er.24h 1 Cap PO DAILY Vitals/I & O Vital Sign - Last 24 Hours 04/02/19 04/02/19 04/02/19 04/02/19 15:00 17:45 19:05 20:00 Temp 97.7 98.0 98.4 97.7 98.0 98.4 Pulse 103 96 68 Resp 18 18 16 B/P (MAP) 143/69 (93) 122/70 (87) 128/72 (90) Pulse Ox 99 98 97 O2 Delivery Room Air Room Air Room Air Room Air 04/02/19 04/03/19 04/03/19 04/03/19 23:33 03:38 07:00 11:00 Temp 98.5 98.7 99.4 98.3 98.5 98.7 99.4 98.3 Pulse 101 99 86 102 Resp 16 16 16 16 B/P (MAP) 106/65 (79) 140/71 (94) 164/76 (105) 126/59 (81) Pulse Ox 98 98 99 100 O2 Delivery Room Air Room Air Room Air Room Air Intake and Output 04/02/19 04/02/19 04/03/19 15:00 23:00 07:00 Intake Total 100 ml 300 ml Output Total 1450 ml Balance -1350 ml 300 ml RAVINDER BUSTAMANTE MD Apr 03, 2019 12:53
[2019-04-03] MEDS ORDERED: 0.9 % SODIUM CHLORIDE 10 ML DISP.SYRIN. IV PRN ×2 (13:15→13:30)
[2019-04-03] MEDS ORDERED: ALTEPLASE 2 MG VIAL INT CAT ONE (13:15)
[2019-04-03] MEDS ORDERED: ALTEPLASE 1MG SYRINGE. INT CAT ONE (13:30)
[2019-04-03 13:46] LABS: VANC TR 8.1 mcg/mL (10.0-20.0)
--- NOTE | 2019-04-03 13:54 | PDOC ---
Infectious Disease Note Subjective Subjective c/o knee pain, bilaterally,sometime hard to get comfortable Denies F/C/N/V/SOA ROS ROS per HPI Vital Sign Vital Signs Vital Signs Date Time Temp Pulse Resp B/P (MAP) Pulse Ox O2 Delivery O2 Flow Rate FiO2 04/03/19 11:00 98.3 102 16 126/59 (81) 100 Room Air 98.3 Physical Exam PHYSICAL EXAM GENERAL: Lying down, alert relaxed appearance HEENT: Pupils equally round. Oropharynx pink, moist. dentures. NECK: Supple. LUNGS: Clear to auscultation. HEART: S1, S2. ABDOMEN: Soft, nontender with bowel sounds present. GENITOURINARY: Causey in place. EXTREMITIES: No gross edema or cyanosis. Both knees are tender without redness or swelling. SKIN: Warm to touch without signs of rash. Sacrococcygeal wound deep close to bone with malodor and necrotic tissue. Right heel eschar. NEUROLOGIC: Alert and oriented x 3. Labs Lab Laboratory Tests Test 04/02/19 17:01 04/02/19 17:26 04/02/19 21:22 04/03/19 05:05 Glucose (Fingerstick) 211 mg/dL (70-99) 185 mg/dL (70-99) 140 mg/dL (70-99) White Blood Count 10.8 x10^3/uL (4.0-11.0) Red Blood Count 3.49 x10^6/uL (4.30-5.70) Hemoglobin 10.3 g/dL (13.0-17.5) Hematocrit 30.1 % (39.0-53.0) Mean Corpuscular Volume 86 fL (79-100) Mean Corpuscular Hemoglobin 30 pg (25-35) Mean Corpuscular Hemoglobin Concent 34 g/dL (31-37) Red Cell Distribution Width 14.6 % (11.5-14.5) Platelet Count 355 x10^3/uL (140-400) Neutrophils (%) (Auto) 73 % (31-73) Lymphocytes (%) (Auto) 15 % (24-48) Monocytes (%) (Auto) 8 % (0-9) Eosinophils (%) (Auto) 4 % (0-3) Basophils (%) (Auto) 1 % (0-3) Neutrophils # (Auto) 7.9 x10^3/uL (1.8-7.7) Lymphocytes # (Auto) 1.6 x10^3/uL (1.0-4.8) Monocytes # (Auto) 0.9 x10^3/uL (0.0-1.1) Eosinophils # (Auto) 0.4 x10^3/uL (0.0-0.7) Basophils # (Auto) 0.1 x10^3/uL (0.0-0.2) Erythrocyte Sedimentation Rate 36 (0-15) Sodium Level 136 mmol/L (136-145) Potassium Level 3.9 mmol/L (3.5-5.1) Chloride Level 100 mmol/L (98-107) Carbon Dioxide Level 30 mmol/L (21-32) Anion Gap 6 (6-14) Blood Urea Nitrogen 13 mg/dL (8-26) Creatinine 0.7 mg/dL (0.7-1.3) Estimated GFR (Cockcroft-Gault) 132.0 Glucose Level 136 mg/dL (70-99) Calcium Level 8.4 mg/dL (8.5-10.1) C-Reactive Protein, Quantitative 65.6 mg/L (0-3.3) Test 04/03/19 07:25 04/03/19 11:27 04/03/19 13:20 Glucose (Fingerstick) 133 mg/dL (70-99) 257 mg/dL (70-99) Vancomycin Level Trough 8.1 mcg/mL (10.0-20.0) Vancomycin Last Dose Date 04/02/19 Vancomycin Last Dose Time 1900 Micro Microbiology 04/02/19 Blood Culture - Preliminary, Resulted NO GROWTH AFTER 1 DAY Objective Assessment Sacrococcygeal pressure ulcer, deep. ESR 36 Leukocytosis - improved PCN allergy - reaction unknown Right heel ulcer, eshar Transaminitis Urinary retention s/p Causey s/p right hip arthroplasty, 02/05/19 Diabetes PVD OA Plan Plan of Care vanc and Merrem Trough 8.1 Monitor renal function closely f/u cultures Probiotics Wound care team consulted Offloading D/w son at bedside D/w nursing Attending Co-Sign The patient was seen and interviewed as well as examined at the bedside. The chart was reviewed. The case was discussed. Agree with the plan of care. BLAYNE ALBERTO [employer]OTH [employer] EXAMINER Apr 03, 2019 13:54 ZEINA LARA MD Apr 03, 2019 14:17
[2019-04-03] MEDS: VANCOMYCIN 1 GM in IV NORMAL SALINE 250ML 250 ML IV SCH (14:25)
[2019-04-03] MEDS: VANCOMYCIN PER PHARMACY MC PRN (14:51)
--- NOTE | 2019-04-03 14:52 | NUR ---
Pharmacy Vancomycin Dosing Note S:Consulted to monitor and dose vancomycin started 04/02/19. O:SILVIA CONNER is a 79 year old M with Sepsis DECUBITIS ULCER . Height: 5 feet, 10 inches Weight: 63.913474 kg [place] Body Weight: 73.00 Adjusted Body Weight: 68.20 Dosing Weight: Actual Other Antibiotics: MERREM 1 GM Q8H LABS: Last BUN: 13 Last Creatinine: 0.7 Creatinine Clearance: 55 mL/min Last WBC: 10.8 Last Procalcitonin: Tmax (past 24 hours): 99.4 Microbiology: 04/02 BLD: NGTD I/O: 400/1450 Drug Levels: Last Trough level: 8.1 on 04/03/19 at 1320 Last dose given 04/02/19 at 2135 Vancomycin Dosing: Loading Dose: 1500 mg x1 Dosing Weight: Actual Target Trough: 10-20 A: Based on: Subtherapeutic trough P: 1. Increase dosing to Vancomycin 1000 mg IV q12h 2. Follow up Trough level as needed. 3. Pharmacy will continue to monitor, follow and adjust therapy as needed. VIVIEN BILL RPH, 04/03/19 [id number]
[2019-04-03 15:00] VITALS: BP 155/81
[2019-04-03 19:53] VITALS: BP 92/51
[2019-04-03] MEDS: TAMSULOSIN 0.4 MG CAP.ER.24H. PO SCH (20:31)
[2019-04-03] MEDS: ATORVASTATIN CALCIUM 40 MG TABLET. PO SCH (20:31)
[2019-04-03 23:47] VITALS: BP 84/43
[2019-04-04] MEDS: VANCOMYCIN 1 GM in IV NORMAL SALINE 250ML 250 ML IV SCH ×2 (01:53→16:39)
[2019-04-04 03:02] VITALS: BP 121/40
[2019-04-04] MEDS: MEROPENEM 1 GM in IV NORMAL SALINE 100ML 100 ML IV SCH ×3 (05:43→20:49)
[2019-04-04 07:00] VITALS: BP 98/65
[2019-04-04] MEDS: INSULIN LISPRO 300 UNITS/3 ML VIAL. SQ SCH ×3 (08:00→18:34)
[2019-04-04] MEDS: POLYETHYLENE GLYCOL 3350 17 GM PACKET. PO SCH (09:00)
[2019-04-04] MEDS ORDERED: methylPREDNISolone ACETATE 40 MG/ML VIAL. INJ ONE ×2 (09:30)
[2019-04-04] MEDS ORDERED: BUPIVACAINE MPF 0.25% 10 ML VIAL. ONE (09:30)
[2019-04-04] MEDS ORDERED: methylPREDNISolone ACETATE 40 MG/ML VIAL. ONE ×2 (09:30)
[2019-04-04] MEDS ORDERED: BUPIVACAINE MPF 0.25% 10 ML VIAL. IJ ONE (09:30)
[2019-04-04] MEDS: LACTOBACILLUS RHAMNOSUS GG 1 CAPSULE. PO SCH ×2 (09:52→20:48)
[2019-04-04] MEDS: PANTOPRAZOLE 40 MG TABLET.DR. PO SCH (09:52)
[2019-04-04] MEDS: GABAPENTIN 300 MG CAPSULE. PO SCH ×3 (09:52→20:48)
[2019-04-04] MEDS: metFORMIN 500 MG TABLET PO SCH (09:52)
[2019-04-04] MEDS: DICLOFENAC SODIUM 1% TOPICAL GEL 100GM TUBE. TP SCH ×3 (09:53→20:49)
[2019-04-04] MEDS: MULTIVITAMIN with MINERAL TABLET. PO SCH (09:53)
--- NOTE | 2019-04-04 10:02 | PDOC ---
PROGRESS NOTES Subjective Subjective feels okay. does not his knees injected as it did not help in past. Objective Objective Vital Signs Date Time Temp Pulse Resp B/P (MAP) Pulse Ox O2 Delivery O2 Flow Rate FiO2 04/04/19 07:00 98.2 89 16 98/65 (76) 99 Room Air 98.2 Intake and Output 04/04/19 07:00 Intake Total 100 ml Output Total 1500 ml Balance -1400 ml Intake Oral 100 ml Output Urine Total 1500 ml # Voids 4 Physical Exam Abdomen: Soft Heart: Regular rate, Normal S1, Normal S2 Extremities: No edema General: Alert HEENT: Atraumatic Lungs: Clear to auscultation Neuro: Normal speech Psych/Mental Status: Mental status NL Skin: No rashes Assessment Assessment Problems1. Infected pressure sacral decubitus, concerned for underlying osteomyelitis. 2. Leukocytosis. 3. Anemia of chronic disease. 4. Osteoarthritis of the knees. 5. Debility. 6. Diabetes mellitus type 2. 7. Hyperlipidemia. 8. Chronic urinary retention with benign prostatic hypertrophy with Causey Medical Problems: Medical Problems: (1) Decubital ulcer Status: Acute (2) SIRS (systemic inflammatory response syndrome) Status: Acute Plan Plan of Care MRI of pelvis continue iv vancomycin and meropenem consult wound care for wound debridement off load wound PT and OT lab tomorrow Comment Review of Relevant I have reviewed the following items dimitrios (where applicable) has been applied. Labs Laboratory Tests Test 04/02/19 11:04 04/02/19 17:01 04/02/19 17:26 04/02/19 21:22 Glucose (Fingerstick) 152 mg/dL (70-99) 211 mg/dL (70-99) 185 mg/dL (70-99) 140 mg/dL (70-99) Test 04/03/19 05:05 04/03/19 07:25 04/03/19 11:27 04/03/19 13:20 White Blood Count 10.8 x10^3/uL (4.0-11.0) Red Blood Count 3.49 x10^6/uL (4.30-5.70) Hemoglobin 10.3 g/dL (13.0-17.5) Hematocrit 30.1 % (39.0-53.0) Mean Corpuscular Volume 86 fL (79-100) Mean Corpuscular Hemoglobin 30 pg (25-35) Mean Corpuscular Hemoglobin Concent 34 g/dL (31-37) Red Cell Distribution Width 14.6 % (11.5-14.5) Platelet Count 355 x10^3/uL (140-400) Neutrophils (%) (Auto) 73 % (31-73) Lymphocytes (%) (Auto) 15 % (24-48) Monocytes (%) (Auto) 8 % (0-9) Eosinophils (%) (Auto) 4 % (0-3) Basophils (%) (Auto) 1 % (0-3) Neutrophils # (Auto) 7.9 x10^3/uL (1.8-7.7) Lymphocytes # (Auto) 1.6 x10^3/uL (1.0-4.8) Monocytes # (Auto) 0.9 x10^3/uL (0.0-1.1) Eosinophils # (Auto) 0.4 x10^3/uL (0.0-0.7) Basophils # (Auto) 0.1 x10^3/uL (0.0-0.2) Erythrocyte Sedimentation Rate 36 (0-15) Sodium Level 136 mmol/L (136-145) Potassium Level 3.9 mmol/L (3.5-5.1) Chloride Level 100 mmol/L (98-107) Carbon Dioxide Level 30 mmol/L (21-32) Anion Gap 6 (6-14) Blood Urea Nitrogen 13 mg/dL (8-26) Creatinine 0.7 mg/dL (0.7-1.3) Estimated GFR (Cockcroft-Gault) 132.0 Glucose Level 136 mg/dL (70-99) Calcium Level 8.4 mg/dL (8.5-10.1) C-Reactive Protein, Quantitative 65.6 mg/L (0-3.3) Glucose (Fingerstick) 133 mg/dL (70-99) 257 mg/dL (70-99) Vancomycin Level Trough 8.1 mcg/mL (10.0-20.0) Vancomycin Last Dose Date 04/02/19 Vancomycin Last Dose Time 1900 Test 04/03/19 16:36 04/03/19 20:36 Glucose (Fingerstick) 125 mg/dL (70-99) 176 mg/dL (70-99) Laboratory Tests Test 04/03/19 11:27 04/03/19 13:20 04/03/19 16:36 04/03/19 20:36 Glucose (Fingerstick) 257 mg/dL (70-99) 125 mg/dL (70-99) 176 mg/dL (70-99) Vancomycin Level Trough 8.1 mcg/mL (10.0-20.0) Vancomycin Last Dose Date 04/02/19 Vancomycin Last Dose Time 1900 Microbiology 04/02/19 Blood Culture - Preliminary, Resulted NO GROWTH AFTER 2 DAYS Medications Current Medications Acetaminophen/ Hydrocodone Bitart (Lortab 5/325) 1 tab 1X ONCE PO Last admini stered on 04/02/19at 00:23; Start 04/02/19 at 00:00; Stop 04/02/19 at 00:01; Status DC Vancomycin HCl (Vanco Per Pharmacy) 1 each PRN DAILY PRN MC SEE COMMENTS Last administered on 04/03/19at 14:51; Start 04/01/19 at 23:45 Vancomycin HCl 1.5 gm/Sodium Chloride 500 ml @ 250 mls/hr 1X ONCE IV Last administered on 04/02/19at 00:42; Start 04/02/19 at 00:30; Stop 04/02/19 at 02:29; Status DC Sodium Chloride 1,000 ml @ 1,000 mls/hr 1X ONCE IV Last administered on 04/02/19at 01:42; Start 04/02/19 at 01:30; Stop 04/02/19 at 02:29; Status DC Sodium Chloride 1,000 ml @ 1,000 mls/hr 1X ONCE IV Last administered on 04/02/19at 01:42; Start 04/02/19 at 01:30; Stop 04/02/19 at 02:29; Status DC Meropenem 1 gm/ Sodium Chloride 100 ml @ 200 mls/hr Q8HRS IV Last administered on 04/04/19at 05:43; Start 04/02/19 at 02:00 Ondansetron HCl (Zofran) 4 mg PRN Q8HRS PRN IV NAUSEA/VOMITING 1ST CHOICE; Start 04/02/19 at 01:45; Stop 04/03/19 at 01:44; Status DC Fentanyl Citrate (Fentanyl 2ml Vial) 50 mcg PRN Q1HR PRN IV SEVERE PAIN 7-10; Start 04/02/19 at 01:45; Stop 04/03/19 at 01:44; Status DC Acetaminophen (Tylenol) 650 mg PRN Q4HRS PRN PO FEVER; Start 04/02/19 at 01:45; Stop 04/02/19 at 13:50; Status DC Vancomycin HCl 1 gm/Sodium Chloride 250 ml @ 250 mls/hr Q18H IV Last administered on 04/03/19at 14:25; Start 04/02/19 at 19:00; Stop 04/03/19 at 15:30; Status DC Vancomycin HCl (Vancomycin Trough Level) 1 each 1X ONCE MC Last administered on 04/03/19at 12:30; Start 04/03/19 at 12:30; Stop 04/03/19 at 12:31; Status DC Atorvastatin Calcium (Lipitor) 80 mg QHS PO Last administered on 04/03/19at 20:31; Start 04/02/19 at 21:00 Gabapentin (Neurontin) 300 mg TID PO Last administered on 04/04/19at 09:52; Start 04/02/19 at 14:00 Acetaminophen (Tylenol) 650 mg PRN Q6HRS PRN PO MILD PAIN / TEMP; Start 04/02/19 at 13:45 Acetaminophen/ Hydrocodone Bitart (Lortab 5/325) 1 tab PRN Q4HRS PRN PO MODERATE PAIN; Start 04/02/19 at 13:45 Metformin HCl (Glucophage) 500 mg DAILY PO Last administered on 04/04/19at 09:52; Start 04/03/19 at 09:00 Multivitamins (Thera M Plus) 1 tab DAILY PO Last administered on 04/04/19at 09:53; Start 04/03/19 at 09:00 Tamsulosin HCl (Flomax) 0.4 mg QHS PO Last administered on 04/03/19at 20:31; Start 04/02/19 at 21:00 Pantoprazole Sodium (Protonix) 40 mg DAILYAC PO Last administered on 04/04/19at 09:52; Start 04/03/19 at 07:30 Polyethylene Glycol (miraLAX PACKET) 17 gm DAILY PO ; Start 04/03/19 at 09:00 Senna/Docusate Sodium (Senna Plus) 1 tab PRN BID PRN PO CONSTIPATION; Start 04/02/19 at 13:45 Insulin Human Lispro (HumaLOG) 0-6 UNITS TIDWMEALS SQ Last administered on 04/03/19at 12:27; Start 04/02/19 at 17:00 Diclofenac Sodium (Voltaren) 1 thierry TID TP Last administered on 04/04/19at 09:53; Start 04/02/19 at 14:00 Lactobacillus Rhamnosus (Culturelle) 1 cap BID PO Last administered on 04/04/19at 09:52; Start 04/02/19 at 21:00 Vancomycin HCl (Vanco Per Pharmacy) 1 each PRN DAILY PRN MC SEE COMMENTS; Start 04/02/19 at 14:00; Status UNV Cyclobenzaprine HCl (Flexeril) 5 mg PRN Q8HRS PRN PO MUSCLE SPASMS Last administered on 04/02/19at 20:07; Start 04/02/19 at 19:45 Alteplase, Recombinant (Cathflo) 2 mg 1X ONCE INT CAT ; Start 04/03/19 at 13:15; Stop 04/03/19 at 13:22; Status DC Sodium Chloride (Normal Saline Flush) 10 ml QSHIFT PRN IV SEE COMMENTS; Start 04/03/19 at 13:15; Stop 04/03/19 at 13:22; Status DC Alteplase, Recombinant (Cathflo For Central Catheter Clearance) 1 mg 1X ONCE INT CAT ; Start 04/03/19 at 13:30; Stop 04/03/19 at 13:31; Status DC Sodium Chloride (Normal Saline Flush) 10 ml QSHIFT PRN IV SEE COMMENTS; Start 04/03/19 at 13:30 Vancomycin HCl 1 gm/Sodium Chloride 250 ml @ 250 mls/hr Q12H IV Last administered on 04/04/19at 01:53; Start 04/04/19 at 02:00 Methylprednisolone Acetate (DEPO-Medrol 40MG VIAL) 40 mg 1X ONCE INJ ; Start 04/04/19 at 09:30; Stop 04/04/19 at 09:31; Status DC Methylprednisolone Acetate (DEPO-Medrol 40MG VIAL) 40 mg 1X ONCE INJ ; Start 04/04/19 at 09:30; Stop 04/04/19 at 09:31; Status DC Bupivacaine HCl (Sensorcaine-Mpf 0.25%) 10 ml 1X ONCE IJ ; Start 04/04/19 at 09:30; Stop 04/04/19 at 09:31; Status DC Active Scripts Active Miralax (Polyethylene Glycol 3350) 17 Gm Powd.pack 1 Packet PO DAILY dissolve in water Coumadin (Warfarin Sodium) 5 Mg Tablet 5 Mg PO DAILY Pantoprazole Sodium (Pantoprazole Sodium) 40 Mg Tablet. 40 Mg PO DAILYAC Senna-Time S Tablet (Sennosides/Docusate Sodium) 1 Each Tablet 2 Tab PO DAILY Tylenol (Acetaminophen) 325 Mg Tablet 650 Mg PO PRN Q6HRS PRN Hydrocodone-Apap 5-325 (Hydrocodone Bit/Acetaminophen) 1 Tab Tablet 1 Tab PO PRN Q4HRS PRN Feosol (Ferrous Sulfate) 325 Mg Tablet 325 Mg PO BID Levaquin (Levofloxacin) 500 Mg Tablet 500 Mg PO DAILY06 9 Days Reported Omeprazole 20 Mg Capsule. 20 Mg PO BID Cyclobenzaprine Hcl 5 Mg Tablet 5 Mg PO TID Centrum Silver Men Tablet (Multivit-Min/FA/Lycopen/Lutein) 1 Each Tablet 1 Each PO DAILY Atorvastatin Calcium 80 Mg Tablet 80 Mg PO HS Metformin Hcl 500 Mg Tablet 500 Mg PO DAILY Gabapentin (Gabapentin) 300 Mg Capsule 300 Mg PO TID Tamsulosin Hcl 0.4 Mg Cap.er.24h 1 Cap PO DAILY Vitals/I & O Vital Sign - Last 24 Hours 04/03/19 04/03/19 04/03/19 04/03/19 11:00 15:00 19:53 20:00 Temp 98.3 98.4 98.6 98.3 98.4 98.6 Pulse 102 98 94 Resp 16 16 16 B/P (MAP) 126/59 (81) 155/81 (105) 92/51 (65) Pulse Ox 100 98 90 O2 Delivery Room Air Room Air Room Air Room Air 04/03/19 04/04/19 04/04/19 23:47 03:02 07:00 Temp 98.9 98.1 98.2 98.9 98.1 98.2 Pulse 82 62 89 Resp 16 20 16 B/P (MAP) 84/43 (57) 121/40 (67) 98/65 (76) Pulse Ox 93 94 99 O2 Delivery Room Air Room Air Room Air Intake and Output 04/03/19 04/03/1920 15:00 23:00 07:00 Intake Total 100 ml Output Total 700 ml 800 ml Balance -600 ml -800 ml RAVINDER BUSTAMANTE MD Apr 04, 2019 10:02
[2019-04-04 11:00] VITALS: BP 113/67
[2019-04-04] MEDS ORDERED: GADOTERATE 7.5 MMOL/15ML VIAL. IVP ONE (12:30)
--- NOTE | 2019-04-04 13:22 | NUR ---
SS following for discharge planning. SS reviewed pt chart. Pt is from home and is currently on room air. PT recommended retirement unit. SS attempted to meet with pt to discuss retirement unit and discharge planning and pt was currently out of the room. SS will attempt to meet with pt when available.
--- NOTE | 2019-04-04 13:33 | RAD ---
Examination: PELVIS WO/W CONTRAST History: Soft tissue gas on x-ray exam of the sacrum and coccyx. Pain. Comparison/Correlation: X-ray examination sacrum and coccyx 04/02/2019 Findings: Multiplanar, multisequence images of the pelvis were obtained prior to and following IV contrast. Hematopoietic lytic marrow is present. There is a well-circumscribed lesion centrally involving S2 measuring 1.1 cm in diameter of high signal on long TR images, low signal on short TR images, and with enhancement noted on postcontrast imaging. This likely represents a hemangioma or other benign process. Low signal on short TR images, high signal long TR images, and enhancement are noted to involve the coccygeal bones 1 through 3. Enhancement and edema involving the region of the soft tissue ulcer defect superficial to these bones noted. No loculated collection. Ulcer defect is primarily the second coccygeal bone level. Causey catheter is present within urinary bladder. Impression: Enhancement of the coccygeal bones is noted compatible with acute or chronic osteomyelitis in the appropriate clinical setting. Soft tissue ulcer defect of the second coccygeal bone level is present. Enhancement and edema inferior to the ulcer defect in particular is seen. There is an S2 lesion also present but it is well-circumscribed and may represent a hemangioma or other benign process. Correlate clinically in determining the need for further assessment or follow-up. No suspicious corresponding finding on 11/10/2017 CT abdomen and pelvis with contrast. Electronically signed by: Jalen Hutchinson MD (04/04/2019 1:31 PM) [facility]
--- NOTE | 2019-04-04 13:39 | CONS ---
DATE OF CONSULTATION: 04/04/2019 ATTENDING PHYSICIAN: Allan Benz MD REASON FOR CONSULTATION: The patient was seen at the request of Dr. Benz for rehab evaluation. HISTORY OF PRESENT ILLNESS: This is a 79-year-old right-handed male with known diabetes mellitus type 2, hyperlipidemia, osteoarthritis, anemia of chronic disease, chronic urinary retention, benign prostatic hypertrophy, and chronic Causey catheter use, had right hip fracture after a fall in November. He says it is November, but apparently as per Dr. Benz's note, he had right hip hemiarthroplasty done in 01/2019 for displaced right femoral neck fracture secondary to mechanical fall. He had gone to rehabilitation unit and then home health. The rehabilitation unit noted him having more problems with his knees rather than the right hip and he states while the therapist trying to do range of motion exercise to his knees that cause increased pain. The patient is basically bedridden since his fall. He lives alone. His son lives close by. He had a couple of steps to get into the house. The patient was noted with foul smelling sacral and coccyx area decubitus ulcer. The patient was admitted for further evaluation and treatment on 04/02/2019. THE PATIENT HAS KNOWN ALLERGIC TO PENICILLIN. The patient had history of gastroesophageal reflux disease, erectile dysfunction, status post lumbar laminectomy in 2006, also surgery for multinodular goiter. He also was noted with 3.1 cm abdominal aortic aneurysm in 10/2017. He also had history of gastric ulcer, diverticulosis, and gastritis in the past. The patient had a family history of asthmatic bronchitis with his brother. Father had diabetes mellitus. Mother and sister had asthma. The patient admits pain everywhere, more so in his bottom. He admits numbness, tingling in his hands and feet. PHYSICAL EXAMINATION: On physical examination today revealed an elderly male. He is alert and oriented to time, place, person and circumstance and follows commands appropriately, moves all 4 extremities voluntarily where he had generalized muscle weakness, more so of ulnar hand intrinsic muscles, triceps right more than left side, and quadriceps muscles, especially on the right side. The patient had absent knee and ankle jerks. He had equal perception of touch and pinprick sensation bilaterally. He had crepitus on range of motion of both knee joints with knee joint effusion. He had painful range of motion of both hip joints and elbow joints. The patient had sacral and coccyx area of skin breakdown and he had dry eschar over right lateral malleolus. He is dependent for bed mobility. I have not tested his transfers or ambulation skills at this time. ASSESSMENT: An elderly male with diabetes mellitus with peripheral neuropathy, degenerative joints of both knees with generalized muscle weakness, also sacral and coccyx area decubitus ulcer. The patient is status post right hip hemiarthroplasty for fracture of neck right femur done in 01/2019, also with history of chronic urinary retention, for which he uses indwelling Causey catheter, benign prostatic hypertrophy, hyperlipidemia, status post lumbar laminectomy, abdominal aortic aneurysm, diverticulosis, gastric ulcer, gastritis, gastroesophageal reflux disease, and anemia. RECOMMENDATION: To proceed with injecting his painful knee joints. He probably needs bilateral knee braces. The patient right now mainly needs wound care. He might need debridement and flap skin graft and probably transfer to long-term acute care unit for continued wound care and IV antibiotics. Agree with the plans for physical therapy and occupational therapy. Dr. Benz, appreciate asking me to participate in the care of this interesting patient. I will be glad to follow him with you as needed for the rehabilitation. GENA VAZQUEZ MD DR: ROCKY/vicente JOB#: [id number] / [id number]
--- NOTE | 2019-04-04 13:48 | PDOC ---
Infectious Disease Note Subjective Subjective feeling good ROS ROS no n/v/d/sob Vital Sign Vital Signs Vital Signs Date Time Temp Pulse Resp B/P (MAP) Pulse Ox O2 Delivery O2 Flow Rate FiO2 04/04/19 11:00 97.9 99 18 113/67 (82) 100 Room Air 97.9 Physical Exam PHYSICAL EXAM GENERAL: Lying down, alert relaxed appearance HEENT: Pupils equally round. Oropharynx pink, moist. dentures. NECK: Supple. LUNGS: Clear to auscultation. HEART: S1, S2. ABDOMEN: Soft, nontender with bowel sounds present. GENITOURINARY: Causey in place. EXTREMITIES: No gross edema or cyanosis. Both knees are tender without redness or swelling. SKIN: Warm to touch without signs of rash. Sacrococcygeal wound deep close to bone with malodor and necrotic tissue. Right heel eschar. NEUROLOGIC: Alert and oriented x 3. Labs Lab Laboratory Tests Test 04/03/19 16:36 04/03/19 20:36 04/04/19 07:45 04/04/19 11:37 Glucose (Fingerstick) 125 mg/dL (70-99) 176 mg/dL (70-99) 123 mg/dL (70-99) 160 mg/dL (70-99) Micro Microbiology 04/02/19 Blood Culture - Preliminary, Resulted NO GROWTH AFTER 2 DAYS Objective Assessment Sacrococcygeal pressure ulcer, deep. ESR 36 Leukocytosis - improved PCN allergy - reaction unknown Right heel ulcer, eshar Transaminitis Urinary retention s/p Causey s/p right hip arthroplasty, 02/05/19 Diabetes PVD OA Plan Plan of Care vanc and Merrem Trough 8.1 Monitor renal function closely f/u cultures Probiotics Wound care team consulted Offloading MRI + with osteo pICC pending select screen D/w nursing ZEINA LARA MD Apr 04, 2019 13:47
[2019-04-04] MEDS: HYDROcodone/APAP 5/325MG 1 TAB TABLET PO PRN (14:55)
[2019-04-04 15:00] VITALS: BP 105/50
[2019-04-04] MEDS: VANCOMYCIN PER PHARMACY MC PRN (15:31)
--- NOTE | 2019-04-04 16:01 | NUR ---
Wound care Wound care consult for coccyx and right heel wound. Pt has unstageable pressure ulcer to right heel that is dry eschar, Betadine and foam applied. Pt also has unstageable PU to coccyx, cleansed wound and packed with Aquacel Ag and Medihoney and covered with foam dressing. WC will follow up tomorrow with Dr Barone for bedside debridement and vac placement. P500 bed ordered. Pt left on left side with heels floated.
[2019-04-04 19:51] VITALS: BP 89/44
[2019-04-04] MEDS: TAMSULOSIN 0.4 MG CAP.ER.24H. PO SCH (20:48)
[2019-04-04] MEDS: ATORVASTATIN CALCIUM 40 MG TABLET. PO SCH (20:48)
[2019-04-04 23:18] VITALS: BP 118/60
[2019-04-05 01:07] LABS: HEMOGLOBIN A1C 6.8 % (4.8-5.6)
[2019-04-05] MEDS: VANCOMYCIN 1 GM in IV NORMAL SALINE 250ML 250 ML IV SCH ×2 (01:19→16:48)
[2019-04-05] MEDS: CYCLOBENZAPRINE 10 MG TABLET. PO PRN (01:48)
[2019-04-05 03:48] VITALS: BP 129/68
[2019-04-05] MEDS: MEROPENEM 1 GM in IV NORMAL SALINE 100ML 100 ML IV SCH ×3 (05:17→22:00)
[2019-04-05 06:07] LABS: BASO % 1 % (0-3); EOS # 0.4 x10^3/uL (0.0-0.7); EOS % 5 % (0-3); HEMATOCRIT 29.9 % (39.0-53.0); HEMOGLOBIN 10.3 g/dL (13.0-17.5); LYMPH # 1.2 x10^3/uL (1.0-4.8); LYMPH % 18 % (24-48); MEAN CORPUSCULAR HEMOGLOBIN 30 pg (25-35); MEAN CORPUSCULAR HGB CONC 35 g/dL (31-37); MEAN CORPUSCULAR VOLUME 86 fL (79-100); MONO # 0.5 x10^3/uL (0.0-1.1); MONO % 8 % (0-9); NEUT # 4.5 x10^3/uL (1.8-7.7); NEUT % 68 % (31-73); PLATELET COUNT 358 x10^3/uL (140-400); RED CELL DISTRIBUTION WIDTH 14.7 % (11.5-14.5); WHITE BLOOD COUNT 6.7 x10^3/uL (4.0-11.0)
[2019-04-05 06:28] LABS: CALCIUM 8.6 mg/dL (8.5-10.1); CREATININE 0.6 mg/dL (0.7-1.3); GFR 157.7; POTASSIUM 3.9 mmol/L (3.5-5.1)
[2019-04-05 07:00] VITALS: BP 122/65
[2019-04-05] MEDS: INSULIN LISPRO 300 UNITS/3 ML VIAL. SQ SCH ×3 (08:00→16:48)
[2019-04-05] MEDS: MULTIVITAMIN with MINERAL TABLET. PO SCH (08:56)
[2019-04-05] MEDS: PANTOPRAZOLE 40 MG TABLET.DR. PO SCH (08:57)
[2019-04-05] MEDS: metFORMIN 500 MG TABLET PO SCH (08:57)
[2019-04-05] MEDS: POLYETHYLENE GLYCOL 3350 17 GM PACKET. PO SCH (08:57)
[2019-04-05] MEDS: GABAPENTIN 300 MG CAPSULE. PO SCH ×3 (08:57→20:44)
[2019-04-05] MEDS: LACTOBACILLUS RHAMNOSUS GG 1 CAPSULE. PO SCH ×2 (08:57→20:44)
[2019-04-05] MEDS: DICLOFENAC SODIUM 1% TOPICAL GEL 100GM TUBE. TP SCH ×3 (08:58→20:51)
--- NOTE | 2019-04-05 09:54 | PDOC ---
PROGRESS NOTES Subjective Subjective No new complaints. Objective Objective Vital Signs Date Time Temp Pulse Resp B/P (MAP) Pulse Ox O2 Delivery O2 Flow Rate FiO2 04/05/19 07:00 98.4 91 16 122/65 (84) 98 Room Air 98.4 Intake and Output 04/05/19 07:00 Intake Total 200 ml Output Total 1500 ml Balance -1300 ml Intake Oral 200 ml Output Urine Total 1500 ml Physical Exam Physical Exam He is supine in bed and he continues with generalized muscle weakness and mobility and self care limitations. Wound vac in place to his sacral area. He continues with pain on ROM of his knees. Assessment Assessment Problems Medical Problems: (1) Decubital ulcer Status: Acute (2) SIRS (systemic inflammatory response syndrome) Status: Acute Plan Plan of Care He would like to wait for knee joint injections at present time. Comment Review of Relevant I have reviewed the following items dimitrios (where applicable) has been applied. Labs Laboratory Tests Test 04/03/19 11:27 04/03/19 13:20 04/03/19 16:36 04/03/19 20:36 Glucose (Fingerstick) 257 mg/dL (70-99) 125 mg/dL (70-99) 176 mg/dL (70-99) Vancomycin Level Trough 8.1 mcg/mL (10.0-20.0) Vancomycin Last Dose Date 04/02/19 Vancomycin Last Dose Time 1900 Test 04/04/19 07:45 04/04/19 11:37 04/04/19 16:45 04/04/19 20:46 Glucose (Fingerstick) 123 mg/dL (70-99) 160 mg/dL (70-99) 162 mg/dL (70-99) 135 mg/dL (70-99) Test 04/05/19 05:25 04/05/19 07:11 White Blood Count 6.7 x10^3/uL (4.0-11.0) Red Blood Count 3.50 x10^6/uL (4.30-5.70) Hemoglobin 10.3 g/dL (13.0-17.5) Hematocrit 29.9 % (39.0-53.0) Mean Corpuscular Volume 86 fL (79-100) Mean Corpuscular Hemoglobin 30 pg (25-35) Mean Corpuscular Hemoglobin Concent 35 g/dL (31-37) Red Cell Distribution Width 14.7 % (11.5-14.5) Platelet Count 358 x10^3/uL (140-400) Neutrophils (%) (Auto) 68 % (31-73) Lymphocytes (%) (Auto) 18 % (24-48) Monocytes (%) (Auto) 8 % (0-9) Eosinophils (%) (Auto) 5 % (0-3) Basophils (%) (Auto) 1 % (0-3) Neutrophils # (Auto) 4.5 x10^3/uL (1.8-7.7) Lymphocytes # (Auto) 1.2 x10^3/uL (1.0-4.8) Monocytes # (Auto) 0.5 x10^3/uL (0.0-1.1) Eosinophils # (Auto) 0.4 x10^3/uL (0.0-0.7) Basophils # (Auto) 0.0 x10^3/uL (0.0-0.2) Sodium Level 137 mmol/L (136-145) Potassium Level 3.9 mmol/L (3.5-5.1) Chloride Level 102 mmol/L (98-107) Carbon Dioxide Level 32 mmol/L (21-32) Anion Gap 3 (6-14) Blood Urea Nitrogen 16 mg/dL (8-26) Creatinine 0.6 mg/dL (0.7-1.3) Estimated GFR (Cockcroft-Gault) 157.7 Glucose Level 184 mg/dL (70-99) Calcium Level 8.6 mg/dL (8.5-10.1) Glucose (Fingerstick) 146 mg/dL (70-99) Laboratory Tests Test 04/04/19 11:37 04/04/19 16:45 04/04/19 20:46 04/05/19 05:25 Glucose (Fingerstick) 160 mg/dL (70-99) 162 mg/dL (70-99) 135 mg/dL (70-99) White Blood Count 6.7 x10^3/uL (4.0-11.0) Red Blood Count 3.50 x10^6/uL (4.30-5.70) Hemoglobin 10.3 g/dL (13.0-17.5) Hematocrit 29.9 % (39.0-53.0) Mean Corpuscular Volume 86 fL (79-100) Mean Corpuscular Hemoglobin 30 pg (25-35) Mean Corpuscular Hemoglobin Concent 35 g/dL (31-37) Red Cell Distribution Width 14.7 % (11.5-14.5) Platelet Count 358 x10^3/uL (140-400) Neutrophils (%) (Auto) 68 % (31-73) Lymphocytes (%) (Auto) 18 % (24-48) Monocytes (%) (Auto) 8 % (0-9) Eosinophils (%) (Auto) 5 % (0-3) Basophils (%) (Auto) 1 % (0-3) Neutrophils # (Auto) 4.5 x10^3/uL (1.8-7.7) Lymphocytes # (Auto) 1.2 x10^3/uL (1.0-4.8) Monocytes # (Auto) 0.5 x10^3/uL (0.0-1.1) Eosinophils # (Auto) 0.4 x10^3/uL (0.0-0.7) Basophils # (Auto) 0.0 x10^3/uL (0.0-0.2) Sodium Level 137 mmol/L (136-145) Potassium Level 3.9 mmol/L (3.5-5.1) Chloride Level 102 mmol/L (98-107) Carbon Dioxide Level 32 mmol/L (21-32) Anion Gap 3 (6-14) Blood Urea Nitrogen 16 mg/dL (8-26) Creatinine 0.6 mg/dL (0.7-1.3) Estimated GFR (Cockcroft-Gault) 157.7 Glucose Level 184 mg/dL (70-99) Calcium Level 8.6 mg/dL (8.5-10.1) Test 04/05/19 07:11 Glucose (Fingerstick) 146 mg/dL (70-99) Microbiology 04/02/19 Blood Culture - Preliminary, Resulted NO GROWTH AFTER 3 DAYS Medications Current Medications Acetaminophen/ Hydrocodone Bitart (Lortab 5/325) 1 tab 1X ONCE PO Last administered on 04/02/19at 00:23; Start 04/02/19 at 00:00; Stop 04/02/19 at 00:01; Status DC Vancomycin HCl (Vanco Per Pharmacy) 1 each PRN DAILY PRN MC SEE COMMENTS Last administered on 04/04/19at 15:31; Start 04/01/19 at 23:45 Vancomycin HCl 1.5 gm/Sodium Chloride 500 ml @ 250 mls/hr 1X ONCE IV Last administered on 04/02/19at 00:42; Start 04/02/19 at 00:30; Stop 04/02/19 at 02:29; Status DC Sodium Chloride 1,000 ml @ 1,000 mls/hr 1X ONCE IV Last administered on 04/02/19at 01:42; Start 04/02/19 at 01:30; Stop 04/02/19 at 02:29; Status DC Sodium Chloride 1,000 ml @ 1,000 mls/hr 1X ONCE IV Last administered on 04/02/19at 01:42; Start 04/02/19 at 01:30; Stop 04/02/19 at 02:29; Status DC Meropenem 1 gm/ Sodium Chloride 100 ml @ 200 mls/hr Q8HRS IV Last administered on 04/05/19at 05:17; Start 04/02/19 at 02:00 Ondansetron HCl (Zofran) 4 mg PRN Q8HRS PRN IV NAUSEA/VOMITING 1ST CHOICE; Start 04/02/19 at 01:45; Stop 04/03/19 at 01:44; Status DC Fentanyl Citrate (Fentanyl 2ml Vial) 50 mcg PRN Q1HR PRN IV SEVERE PAIN 7-10; Start 04/02/19 at 01:45; Stop 04/03/19 at 01:44; Status DC Acetaminophen (Tylenol) 650 mg PRN Q4HRS PRN PO FEVER; Start 04/02/19 at 01:45; Stop 04/02/19 at 13:50; Status DC Vancomycin HCl 1 gm/Sodium Chloride 250 ml @ 250 mls/hr Q18H IV Last a dministered on 04/03/19at 14:25; Start 04/02/19 at 19:00; Stop 04/03/19 at 15:30; Status DC Vancomycin HCl (Vancomycin Trough Level) 1 each 1X ONCE MC Last administered on 04/03/19at 12:30; Start 04/03/19 at 12:30; Stop 04/03/19 at 12:31; Status DC Atorvastatin Calcium (Lipitor) 80 mg QHS PO Last administered on 04/04/19 20:48; Start 04/02/19 at 21:00 Gabapentin (Neurontin) 300 mg TID PO Last administered on 04/05/19 08:57; Start 04/02/19 at 14:00 Acetaminophen (Tylenol) 650 mg PRN Q6HRS PRN PO MILD PAIN / TEMP; Start 04/02/19 at 13:45 Acetaminophen/ Hydrocodone Bitart (Lortab 5/325) 1 tab PRN Q4HRS PRN PO MODERATE PAIN Last administered on 04/04/19 14:55; Start 04/02/19 at 13:45 Metformin HCl (Glucophage) 500 mg DAILY PO Last administered on 04/05/19 08:57; Start 04/03/19 at 09:00 Multivitamins (Thera M Plus) 1 tab DAILY PO Last administered on 04/05/19 08:56; Start 04/03/19 at 09:00 Tamsulosin HCl (Flomax) 0.4 mg QHS PO Last administered on 04/04/19 20:48; Start 04/02/19 at 21:00 Pantoprazole Sodium (Protonix) 40 mg DAILYAC PO Last administered on 04/05/19 08:57; Start 04/03/19 at 07:30 Polyethylene Glycol (miraLAX PACKET) 17 gm DAILY PO ; Start 04/03/19 at 09:00 Senna/Docusate Sodium (Senna Plus) 1 tab PRN BID PRN PO CONSTIPATION; Start 04/02/19 at 13:45 Insulin Human Lispro (HumaLOG) 0-6 UNITS TIDWMEALS SQ Last administered on 04/04/19 18:34; Start 04/02/19 at 17:00 Diclofenac Sodium (Voltaren) 1 thierry TID TP Last administered on 04/05/19 08:58; Start 04/02/19 at 14:00 Lactobacillus Rhamnosus (Culturelle) 1 cap BID PO Last administered on 04/05/19 08:57; Start 04/02/19 at 21:00 Vancomycin HCl (Vanco Per Pharmacy) 1 each PRN DAILY PRN MC SEE COMMENTS; Start 04/02/19 at 14:00; Status UNV Cyclobenzaprine HCl (Flexeril) 5 mg PRN Q8HRS PRN PO MUSCLE SPASMS Last admini stered on 04/05/19at 01:48; Start 04/02/19 at 19:45 Alteplase, Recombinant (Cathflo) 2 mg 1X ONCE INT CAT ; Start 04/03/19 at 13:15; Stop 04/03/19 at 13:22; Status DC Sodium Chloride (Normal Saline Flush) 10 ml QSHIFT PRN IV SEE COMMENTS; Start 04/03/19 at 13:15; Stop 04/03/19 at 13:22; Status DC Alteplase, Recombinant (Cathflo For Central Catheter Clearance) 1 mg 1X ONCE INT CAT ; Start 04/03/19 at 13:30; Stop 04/03/19 at 13:31; Status DC Sodium Chloride (Normal Saline Flush) 10 ml QSHIFT PRN IV SEE COMMENTS; Start 04/03/19 at 13:30 Vancomycin HCl 1 gm/Sodium Chloride 250 ml @ 250 mls/hr Q12H IV Last administered on 04/05/19at 01:19; Start 04/04/19 at 02:00 Methylprednisolone Acetate (DEPO-Medrol 40MG VIAL) 40 mg 1X ONCE INJ ; Start 04/04/19 at 09:30; Stop 04/04/19 at 09:31; Status DC Methylprednisolone Acetate (DEPO-Medrol 40MG VIAL) 40 mg 1X ONCE INJ ; Start 04/04/19 at 09:30; Stop 04/04/19 at 09:31; Status DC Bupivacaine HCl (Sensorcaine-Mpf 0.25%) 10 ml 1X ONCE IJ ; Start 04/04/19 at 09:30; Stop 04/04/19 at 09:31; Status DC Gadoterate Meglumine (Dotarem) 12.8 ml 1X ONCE IVP Last administered on 04/04/19at 12:47; Start 04/04/19 at 12:30; Stop 04/04/19 at 12:39; Status DC Active Scripts Active Miralax (Polyethylene Glycol 3350) 17 Gm Powd.pack 1 Packet PO DAILY dissolve in water Coumadin (Warfarin Sodium) 5 Mg Tablet 5 Mg PO DAILY Pantoprazole Sodium (Pantoprazole Sodium) 40 Mg Tablet.dr 40 Mg PO DAILYAC Senna-Time S Tablet (Sennosides/Docusate Sodium) 1 Each Tablet 2 Tab PO DAILY Tylenol (Acetaminophen) 325 Mg Tablet 650 Mg PO PRN Q6HRS PRN Hydrocodone-Apap 5-325 (Hydrocodone Bit/Acetaminophen) 1 Tab Tablet 1 Tab PO PRN Q4HRS PRN Feosol (Ferrous Sulfate) 325 Mg Tablet 325 Mg PO BID Levaquin (Levofloxacin) 500 Mg Tablet 500 Mg PO DAILY06 9 Days Reported Omeprazole 20 Mg Capsule.dr 20 Mg PO BID Cyclobenzaprine Hcl 5 Mg Tablet 5 Mg PO TID Centrum Silver Men Tablet (Multivit-Min/FA/Lycopen/Lutein) 1 Each Tablet 1 Each PO DAILY Atorvastatin Calcium 80 Mg Tablet 80 Mg PO HS Metformin Hcl 500 Mg Tablet 500 Mg PO DAILY Gabapentin (Gabapentin) 300 Mg Capsule 300 Mg PO TID Tamsulosin Hcl 0.4 Mg Cap.er.24h 1 Cap PO DAILY Vitals/I & O Vital Sign - Last 24 Hours 04/04/19 04/04/19 04/04/19 04/04/19 11:00 15:00 19:51 20:00 Temp 97.9 97.7 97.7 97.9 97.7 97.7 Pulse 99 96 81 Resp 18 16 18 B/P (MAP) 113/67 (82) 105/50 (68) 89/44 (59) Pulse Ox 100 96 97 O2 Delivery Room Air Room Air Room Air Room Air 04/04/19 04/05/19 04/05/19 23:18 03:48 07:00 Temp 98.5 98.0 98.4 98.5 98.0 98.4 Pulse 81 93 91 Resp 18 18 16 B/P (MAP) 118/60 (79) 129/68 (88) 122/65 (84) Pulse Ox 97 98 98 O2 Delivery Room Air Room Air Room Air Intake and Output 04/04/19 04/04/19 04/05/19 15:00 23:00 07:00 Intake Total 200 ml Output Total 1500 ml Balance -1300 ml GENA VAZQUEZ MD Apr 05, 2019 09:54
--- NOTE | 2019-04-05 10:11 | PDOC ---
PROGRESS NOTES Subjective Subjective MRi positive for osteomyelitis of coccyx. feels better. Objective Objective Vital Signs Date Time Temp Pulse Resp B/P (MAP) Pulse Ox O2 Delivery O2 Flow Rate FiO2 04/05/19 07:00 98.4 91 16 122/65 (84) 98 Room Air 98.4 Intake and Output 04/05/19 07:00 Intake Total 200 ml Output Total 1500 ml Balance -1300 ml Intake Oral 200 ml Output Urine Total 1500 ml Physical Exam Abdomen: Soft Heart: Regular rate, Normal S1, Normal S2 Extremities: No edema General: Alert HEENT: Atraumatic Lungs: Clear to auscultation Neuro: Normal speech Psych/Mental Status: Mental status NL Skin: No rashes Assessment Assessment Problems. 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 Leukocytosis.resolved 3. Anemia of chronic disease. 4. Osteoarthritis of the knees. 5. Debility. 6. Diabetes mellitus type 2. 7. Hyperlipidemia. 8. Chronic urinary retention with benign prostatic hypertrophy with Causey Medical Problems: (1) Decubital ulcer Status: Acute (2) SIRS (systemic inflammatory response syndrome) Status: Acute Plan Plan of Care wound debridement iv vancomycin and meropenem picc line PT and OT Comment Review of Relevant I have reviewed the following items dimitrios (where applicable) has been applied. Labs Laboratory Tests Test 04/03/19 11:27 04/03/19 13:20 04/03/19 16:36 04/03/19 20:36 Glucose (Fingerstick) 257 mg/dL (70-99) 125 mg/dL (70-99) 176 mg/dL (70-99) Vancomycin Level Trough 8.1 mcg/mL (10.0-20.0) Vancomycin Last Dose Date 04/02/19 Vancomycin Last Dose Time 1900 Test 04/04/19 07:45 04/04/19 11:37 04/04/19 16:45 04/04/19 20:46 Glucose (Fingerstick) 123 mg/dL (70-99) 160 mg/dL (70-99) 162 mg/dL (70-99) 135 mg/dL (70-99) Test 04/05/19 05:25 04/05/19 07:11 White Blood Count 6.7 x10^3/uL (4.0-11.0) Red Blood Count 3.50 x10^6/uL (4.30-5.70) Hemoglobin 10.3 g/dL (13.0-17.5) Hematocrit 29.9 % (39.0-53.0) Mean Corpuscular Volume 86 fL (79-100) Mean Corpuscular Hemoglobin 30 pg (25-35) Mean Corpuscular Hemoglobin Concent 35 g/dL (31-37) Red Cell Distribution Width 14.7 % (11.5-14.5) Platelet Count 358 x10^3/uL (140-400) Neutrophils (%) (Auto) 68 % (31-73) Lymphocytes (%) (Auto) 18 % (24-48) Monocytes (%) (Auto) 8 % (0-9) Eosinophils (%) (Auto) 5 % (0-3) Basophils (%) (Auto) 1 % (0-3) Neutrophils # (Auto) 4.5 x10^3/uL (1.8-7.7) Lymphocytes # (Auto) 1.2 x10^3/uL (1.0-4.8) Monocytes # (Auto) 0.5 x10^3/uL (0.0-1.1) Eosinophils # (Auto) 0.4 x10^3/uL (0.0-0.7) Basophils # (Auto) 0.0 x10^3/uL (0.0-0.2) Sodium Level 137 mmol/L (136-145) Potassium Level 3.9 mmol/L (3.5-5.1) Chloride Level 102 mmol/L (98-107) Carbon Dioxide Level 32 mmol/L (21-32) Anion Gap 3 (6-14) Blood Urea Nitrogen 16 mg/dL (8-26) Creatinine 0.6 mg/dL (0.7-1.3) Estimated GFR (Cockcroft-Gault) 157.7 Glucose Level 184 mg/dL (70-99) Calcium Level 8.6 mg/dL (8.5-10.1) Glucose (Fingerstick) 146 mg/dL (70-99) Laboratory Tests Test 04/04/19 11:37 04/04/19 16:45 04/04/19 20:46 04/05/19 05:25 Glucose (Fingerstick) 160 mg/dL (70-99) 162 mg/dL (70-99) 135 mg/dL (70-99) White Blood Count 6.7 x10^3/uL (4.0-11.0) Red Blood Count 3.50 x10^6/uL (4.30-5.70) Hemoglobin 10.3 g/dL (13.0-17.5) Hematocrit 29.9 % (39.0-53.0) Mean Corpuscular Volume 86 fL (79-100) Mean Corpuscular Hemoglobin 30 pg (25-35) Mean Corpuscular Hemoglobin Concent 35 g/dL (31-37) Red Cell Distribution Width 14.7 % (11.5-14.5) Platelet Count 358 x10^3/uL (140-400) Neutrophils (%) (Auto) 68 % (31-73) Lymphocytes (%) (Auto) 18 % (24-48) Monocytes (%) (Auto) 8 % (0-9) Eosinophils (%) (Auto) 5 % (0-3) Basophils (%) (Auto) 1 % (0-3) Neutrophils # (Auto) 4.5 x10^3/uL (1.8-7.7) Lymphocytes # (Auto) 1.2 x10^3/uL (1.0-4.8) Monocytes # (Auto) 0.5 x10^3/uL (0.0-1.1) Eosinophils # (Auto) 0.4 x10^3/uL (0.0-0.7) Basophils # (Auto) 0.0 x10^3/uL (0.0-0.2) Sodium Level 137 mmol/L (136-145) Potassium Level 3.9 mmol/L (3.5-5.1) Chloride Level 102 mmol/L (98-107) Carbon Dioxide Level 32 mmol/L (21-32) Anion Gap 3 (6-14) Blood Urea Nitrogen 16 mg/dL (8-26) Creatinine 0.6 mg/dL (0.7-1.3) Estimated GFR (Cockcroft-Gault) 157.7 Glucose Level 184 mg/dL (70-99) Calcium Level 8.6 mg/dL (8.5-10.1) Test 04/05/19 07:11 Glucose (Fingerstick) 146 mg/dL (70-99) Microbiology 04/02/19 Blood Culture - Preliminary, Resulted NO GROWTH AFTER 3 DAYS Medications Current Medications Acetaminophen/ Hydrocodone Bitart (Lortab 5/325) 1 tab 1X ONCE PO Last administered on 04/02/19at 00:23; Start 04/02/19 at 00:00; Stop 04/02/19 at 00:01; Status DC Vancomycin HCl (Vanco Per Pharmacy) 1 each PRN DAILY PRN MC SEE COMMENTS Last administered on 04/04/19at 15:31; Start 04/01/19 at 23:45 Vancomycin HCl 1.5 gm/Sodium Chloride 500 ml @ 250 mls/hr 1X ONCE IV Last administered on 04/02/19at 00:42; Start 04/02/19 at 00:30; Stop 04/02/19 at 02:29; Status DC Sodium Chloride 1,000 ml @ 1,000 mls/hr 1X ONCE IV Last administered on 04/02/19at 01:42; Start 04/02/19 at 01:30; Stop 04/02/19 at 02:29; Status DC Sodium Chloride 1,000 ml @ 1,000 mls/hr 1X ONCE IV Last administered on 04/02/19at 01:42; Start 04/02/19 at 01:30; Stop 04/02/19 at 02:29; Status DC Meropenem 1 gm/ Sodium Chloride 100 ml @ 200 mls/hr Q8HRS IV Last administered on 04/05/19at 05:17; Start 04/02/19 at 02:00 Ondansetron HCl (Zofran) 4 mg PRN Q8HRS PRN IV NAUSEA/VOMITING 1ST CHOICE; Start 04/02/19 at 01:45; Stop 04/03/19 at 01:44; Status DC Fentanyl Citrate (Fentanyl 2ml Vial) 50 mcg PRN Q1HR PRN IV SEVERE PAIN 7-10; Start 04/02/19 at 01:45; Stop 04/03/19 at 01:44; Status DC Acetaminophen (Tylenol) 650 mg PRN Q4HRS PRN PO FEVER; Start 04/02/19 at 01:45; Stop 04/02/19 at 13:50; Status DC Vancomycin HCl 1 gm/Sodium Chloride 250 ml @ 250 mls/hr Q18H IV Last administered on 04/03/19at 14:25; Start 04/02/19 at 19:00; Stop 04/03/19 at 15:30; Status DC Vancomycin HCl (Vancomycin Trough Level) 1 each 1X ONCE MC Last administered on 04/03/19 12:30; Start 04/03/19 at 12:30; Stop 04/03/19 at 12:31; Status DC Atorvastatin Calcium (Lipitor) 80 mg QHS PO Last administered on 04/04/19at 20:48; Start 04/02/19 at 21:00 Gabapentin (Neurontin) 300 mg TID PO Last administered on 04/05/19 08:57; Start 04/02/19 at 14:00 Acetaminophen (Tylenol) 650 mg PRN Q6HRS PRN PO MILD PAIN / TEMP; Start 04/02/19 at 13:45 Acetaminophen/ Hydrocodone Bitart (Lortab 5/325) 1 tab PRN Q4HRS PRN PO MODERATE PAIN Last administered on 04/04/19 14:55; Start 04/02/19 at 13:45 Metformin HCl (Glucophage) 500 mg DAILY PO Last administered on 04/05/19 08:57; Start 04/03/19 at 09:00 Multivitamins (Thera M Plus) 1 tab DAILY PO Last administered on 04/05/19 08:56; Start 04/03/19 at 09:00 Tamsulosin HCl (Flomax) 0.4 mg QHS PO Last administered on 04/04/19 20:48; Start 04/02/19 at 21:00 Pantoprazole Sodium (Protonix) 40 mg DAILYAC PO Last administered on 04/05/19 08:57; Start 04/03/19 at 07:30 Polyethylene Glycol (miraLAX PACKET) 17 gm DAILY PO ; Start 04/03/19 at 09:00 Senna/Docusate Sodium (Senna Plus) 1 tab PRN BID PRN PO CONSTIPATION; Start 04/02/19 at 13:45 Insulin Human Lispro (HumaLOG) 0-6 UNITS TIDWMEALS SQ Last administered on 04/04/19 18:34; Start 04/02/19 at 17:00 Diclofenac Sodium (Voltaren) 1 thierry TID TP Last administered on 04/05/19 08:58; Start 04/02/19 at 14:00 Lactobacillus Rhamnosus (Culturelle) 1 cap BID PO Last administered on 04/05/19at 08:57; Start 04/02/19 at 21:00 Vancomycin HCl (Vanco Per Pharmacy) 1 each PRN DAILY PRN MC SEE COMMENTS; Start 04/02/19 at 14:00; Status UNV Cyclobenzaprine HCl (Flexeril) 5 mg PRN Q8HRS PRN PO MUSCLE SPASMS Last a dministered on 04/05/19at 01:48; Start 04/02/19 at 19:45 Alteplase, Recombinant (Cathflo) 2 mg 1X ONCE INT CAT ; Start 04/03/19 at 13:15; Stop 04/03/19 at 13:22; Status DC Sodium Chloride (Normal Saline Flush) 10 ml QSHIFT PRN IV SEE COMMENTS; Start 04/03/19 at 13:15; Stop 04/03/19 at 13:22; Status DC Alteplase, Recombinant (Cathflo For Central Catheter Clearance) 1 mg 1X ONCE INT CAT ; Start 04/03/19 at 13:30; Stop 04/03/19 at 13:31; Status DC Sodium Chloride (Normal Saline Flush) 10 ml QSHIFT PRN IV SEE COMMENTS; Start 04/03/19 at 13:30 Vancomycin HCl 1 gm/Sodium Chloride 250 ml @ 250 mls/hr Q12H IV Last administered on 04/05/19at 01:19; Start 04/04/19 at 02:00 Methylprednisolone Acetate (DEPO-Medrol 40MG VIAL) 40 mg 1X ONCE INJ ; Start 04/04/19 at 09:30; Stop 04/04/19 at 09:31; Status DC Methylprednisolone Acetate (DEPO-Medrol 40MG VIAL) 40 mg 1X ONCE INJ ; Start 04/04/19 at 09:30; Stop 04/04/19 at 09:31; Status DC Bupivacaine HCl (Sensorcaine-Mpf 0.25%) 10 ml 1X ONCE IJ ; Start 04/04/19 at 09:30; Stop 04/04/19 at 09:31; Status DC Gadoterate Meglumine (Dotarem) 12.8 ml 1X ONCE IVP Last administered on 04/04/19at 12:47; Start 04/04/19 at 12:30; Stop 04/04/19 at 12:39; Status DC Active Scripts Active Miralax (Polyethylene Glycol 3350) 17 Gm Powd.pack 1 Packet PO DAILY dissolve in water Coumadin (Warfarin Sodium) 5 Mg Tablet 5 Mg PO DAILY Pantoprazole Sodium (Pantoprazole Sodium) 40 Mg Tablet.dr 40 Mg PO DAILYAC Senna-Time S Tablet (Sennosides/Docusate Sodium) 1 Each Tablet 2 Tab PO DAILY Tylenol (Acetaminophen) 325 Mg Tablet 650 Mg PO PRN Q6HRS PRN Hydrocodone-Apap 5-325 (Hydrocodone Bit/Acetaminophen) 1 Tab Tablet 1 Tab PO PRN Q4HRS PRN Feosol (Ferrous Sulfate) 325 Mg Tablet 325 Mg PO BID Levaquin (Levofloxacin) 500 Mg Tablet 500 Mg PO DAILY06 9 Days Reported Omeprazole 20 Mg Capsule. 20 Mg PO BID Cyclobenzaprine Hcl 5 Mg Tablet 5 Mg PO TID Centrum Silver Men Tablet (Multivit-Min/FA/Lycopen/Lutein) 1 Each Tablet 1 Each PO DAILY Atorvastatin Calcium 80 Mg Tablet 80 Mg PO HS Metformin Hcl 500 Mg Tablet 500 Mg PO DAILY Gabapentin (Gabapentin) 300 Mg Capsule 300 Mg PO TID Tamsulosin Hcl 0.4 Mg Cap.er.24h 1 Cap PO DAILY Vitals/I & O Vital Sign - Last 24 Hours 04/04/19 04/04/19 04/04/19 04/04/19 11:00 15:00 19:51 20:00 Temp 97.9 97.7 97.7 97.9 97.7 97.7 Pulse 99 96 81 Resp 18 16 18 B/P (MAP) 113/67 (82) 105/50 (68) 89/44 (59) Pulse Ox 100 96 97 O2 Delivery Room Air Room Air Room Air Room Air 04/04/19 04/05/19 04/05/19 23:18 03:48 07:00 Temp 98.5 98.0 98.4 98.5 98.0 98.4 Pulse 81 93 91 Resp 18 18 16 B/P (MAP) 118/60 (79) 129/68 (88) 122/65 (84) Pulse Ox 97 98 98 O2 Delivery Room Air Room Air Room Air Intake and Output 04/04/19 04/04/19 04/05/19 15:00 23:00 07:00 Intake Total 200 ml Output Total 1500 ml Balance -1300 ml RAVINDER BUSATMANTE MD Apr 05, 2019 10:11
[2019-04-05] MEDS: VANCOMYCIN PER PHARMACY MC PRN (10:15)
[2019-04-05 11:00] VITALS: BP 95/50
--- NOTE | 2019-04-05 11:28 | PDOC ---
Infectious Disease Note Subjective Subjective feeling good ROS ROS no n/v/d/sob Vital Sign Vital Signs Vital Signs Date Time Temp Pulse Resp B/P (MAP) Pulse Ox O2 Delivery O2 Flow Rate FiO2 04/05/19 11:00 98.4 87 14 95/50 (65) 98 Room Air 98.4 Physical Exam PHYSICAL EXAM GENERAL: Lying down, alert relaxed appearance HEENT: Pupils equally round. Oropharynx pink, moist. dentures. NECK: Supple. LUNGS: Clear to auscultation. HEART: S1, S2. ABDOMEN: Soft, nontender with bowel sounds present. GENITOURINARY: Causey in place. EXTREMITIES: No gross edema or cyanosis. Both knees are tender without redness or swelling. SKIN: Warm to touch without signs of rash. Sacrococcygeal wound deep close to bone with malodor and necrotic tissue. Right heel eschar. NEUROLOGIC: Alert and oriented x 3. Labs Lab Laboratory Tests Test 04/04/19 11:37 04/04/19 16:45 04/04/19 20:46 04/05/19 05:25 Glucose (Fingerstick) 160 mg/dL (70-99) 162 mg/dL (70-99) 135 mg/dL (70-99) White Blood Count 6.7 x10^3/uL (4.0-11.0) Red Blood Count 3.50 x10^6/uL (4.30-5.70) Hemoglobin 10.3 g/dL (13.0-17.5) Hematocrit 29.9 % (39.0-53.0) Mean Corpuscular Volume 86 fL (79-100) Mean Corpuscular Hemoglobin 30 pg (25-35) Mean Corpuscular Hemoglobin Concent 35 g/dL (31-37) Red Cell Distribution Width 14.7 % (11.5-14.5) Platelet Count 358 x10^3/uL (140-400) Neutrophils (%) (Auto) 68 % (31-73) Lymphocytes (%) (Auto) 18 % (24-48) Monocytes (%) (Auto) 8 % (0-9) Eosinophils (%) (Auto) 5 % (0-3) Basophils (%) (Auto) 1 % (0-3) Neutrophils # (Auto) 4.5 x10^3/uL (1.8-7.7) Lymphocytes # (Auto) 1.2 x10^3/uL (1.0-4.8) Monocytes # (Auto) 0.5 x10^3/uL (0.0-1.1) Eosinophils # (Auto) 0.4 x10^3/uL (0.0-0.7) Basophils # (Auto) 0.0 x10^3/uL (0.0-0.2) Sodium Level 137 mmol/L (136-145) Potassium Level 3.9 mmol/L (3.5-5.1) Chloride Level 102 mmol/L (98-107) Carbon Dioxide Level 32 mmol/L (21-32) Anion Gap 3 (6-14) Blood Urea Nitrogen 16 mg/dL (8-26) Creatinine 0.6 mg/dL (0.7-1.3) Estimated GFR (Cockcroft-Gault) 157.7 Glucose Level 184 mg/dL (70-99) Calcium Level 8.6 mg/dL (8.5-10.1) Test 04/05/19 07:11 Glucose (Fingerstick) 146 mg/dL (70-99) Micro Microbiology 04/02/19 Blood Culture - Preliminary, Resulted NO GROWTH AFTER 2 DAYS Objective Assessment Sacrococcygeal pressure ulcer, deep. ESR 36 Leukocytosis - improved PCN allergy - reaction unknown Right heel ulcer, eshar Transaminitis Urinary retention s/p Causey s/p right hip arthroplasty, 02/05/19 Diabetes PVD OA Plan Plan of Care vanc and Merrem Trough 8.1 Monitor renal function closely f/u cultures Probiotics Wound care team consulted Offloading MRI + with osteo pICC pending D/w nursing ZEINA LARA MD Apr 05, 2019 11:28
--- NOTE | 2019-04-05 13:58 | NUR ---
SS following for discharge planning. SS discussed with Dr. Ralph. LTAC referral requested. SS phoned and faxed referral to [facility], ; fax [phone]. Pt accepted and has codes for [facility]. SS will continue to follow for discharge planning.
--- NOTE | 2019-04-05 14:30 | NUR ---
PICC Pre-Insertion Note- Allergies and reactions Penicillins INR n/a BUN 16 Cr 0.6 Platelets 358 Blood culture done yes blood culture results no growth x 3 days Order Verified yes Consent signed yes Previous PICC placement no Past Medical/Surgical history and current diagnosis reviewed yes Patient Medical /Surgical History Related to PICC line placement Diabetes Special considerations for PICC line placement None PICC placement indication rn long term care antibiotic usage, name of PICC Nurse Gudelia Zendejas RN Addendum: 04/05/19 at 1507 by TEREZA ZENDEJAS RN Amended: Links added.
--- NOTE | 2019-04-05 14:55 | NUR ---
PICC Insertion Note Procedure: Following complete explanation of the PICC procedure including the indications, risks, and potential complications, informed consent was obtained. The possibility for infection was discussed along with signs, symptoms, and prevention. All the questions were answered. Written and verbal patient education was provided. Hand hygiene performed. Standardized central line checklist was utilized. The patient was placed in the supine position, the arm was prepped with chlorhexidine and patient draped with maximum sterile barrier. 2 mL 1% lidocaine was infiltrated into the skin to provide local anesthesia. A thorough assessment of right upper extremity completed. Using real-time ultrasound guidance and standardized micro puncture set, the brachial vein was punctured and a peel away sheath was placed using the modified Seldinger technique. A tip location device was used to ensure adequate catheter placement. The catheter was secured using a securement device and an antimicrobial patch was applied directly on the insertion site followed by a transparent dressing. All ports withdraw blood and flush without resistance. Patient tolerated the procedure without apparent complication(s). Single Lumen Power PICC placement successful and uncomplicated. Placement verified by EKG tip confirmation system and/or chest x-ray. Tip located in the CAJ/SVC. Complications: none Catheter trimmed at 41cm with 1cm visible at insertion site.
[2019-04-05 15:00] VITALS: BP 122/64
--- NOTE | 2019-04-05 16:14 | NUR ---
wound care patient seen with Dr. Dawson for possible bedside debridement to the coccyx wound, the dressing was removed and wound was cleaned and Dr. Dawson assessed and did a bedside debridement, the wound was cleaned, measured and pictured and Dr. Dawson ordered for Veraflow wound vac to be applied to the coccyx wound. Veraflow applied at this time, 2 pieces of foam applied , the vac was tracked to the right upper thigh and a good seal was obtained. the veraflow settings were set to 20cc's soak for 5 mins every 4 hours. educated patient about pressure prevention, patient currently on a P500 bed and was turned to the right side. wound care will f/u Thursday for wound vac dressing change.
--- NOTE | 2019-04-05 16:30 | PDOC2 ---
Chief Complaint: Chief Complaint: Sacral pressure ulcer Problems: (1) Pressure ulcer of sacral region, stage 4 (2) TYPE 2 DIABETES MELLITUS WITH OTHER SKIN COMPLICATIONS Vital Signs: Vital Signs: Vital Signs Date Time Temp Pulse Resp B/P (MAP) Pulse Ox O2 Delivery O2 Flow Rate FiO2 04/04/19 07:00 98.2 89 16 98/65 (76) 99 Room Air 98.2 Vital Signs Date Time Temp Pulse Resp B/P (MAP) Pulse Ox O2 Delivery O2 Flow Rate FiO2 04/05/19 15:00 98.0 88 18 122/64 (83) 96 Room Air 98.0 Allergies: Allergies: Allergies Coded Allergies Type Severity Reaction Last Updated Verified Penicillins Allergy Intermediate 11/09/17 Yes Medications: Home Meds Active Scripts Polyethylene Glycol 3350 (MIRALAX) 17 Gm Powd.pack, 1 PACKET PO DAILY for constipation, #30 PACKET 0 Refills dissolve in water Prov:RAVINDER BENZ MD 02/08/19 Warfarin Sodium (COUMADIN) 5 Mg Tablet, 5 MG PO DAILY for dvt prophylaxis, #30 TAB Prov:RAVINDER BENZ MD 02/08/19 Pantoprazole Sodium (PANTOPRAZOLE SODIUM ) 40 Mg Tablet.dr, 40 MG PO DAILYAC for gerd, #30 TAB.SR Prov:RAVINDER BENZ MD 02/08/19 Sennosides/Docusate Sodium (SENNA-TIME S TABLET) 1 Each Tablet, 2 TAB PO DAILY for constipation, #60 TAB Prov:RAVINDER BENZ MD 02/08/19 Acetaminophen (TYLENOL) 325 Mg Tablet, 650 MG PO PRN Q6HRS PRN for MILD PAIN 1- 3, #30 TAB Prov:RAVINDER BENZ MD 02/08/19 Hydrocodone Bit/Acetaminophen (HYDROCODONE-APAP 5-325 ) 1 Tab Tablet, 1 TAB PO PRN Q4HRS PRN for MODERATE PAIN, #30 TAB Prov:RAVINDER BENZ MD 02/08/19 Ferrous Sulfate (FEOSOL) 325 Mg Tablet, 325 MG PO BID for acute blood loss anemia, #60 TAB Prov:RAVINDER BENZ MD 02/08/19 Levofloxacin (LEVAQUIN) 500 Mg Tablet, 500 MG PO DAILY06 for pyuria for 9 Days, #9 TAB Prov:RAVINDER BENZ MD 02/08/19 Reported Medications Omeprazole (OMEPRAZOLE) 20 Mg Capsule.dr, 20 MG PO BID for stomach, CAP 04/02/19 Cyclobenzaprine Hcl (CYCLOBENZAPRINE HCL) 5 Mg Tablet, 5 MG PO TID for Muscle Spasms, TAB 04/02/19 Multivit-Min/FA/Lycopen/Lutein (Centrum Silver Men Tablet) 1 Each Tablet, 1 EACH PO DAILY for supplement, TAB 02/04/19 Atorvastatin Calcium (ATORVASTATIN CALCIUM) 80 Mg Tablet, 80 MG PO HS for FOR CHOLESTEROL, #30 TAB 0 Refills 11/09/17 Metformin Hcl (METFORMIN HCL) 500 Mg Tablet, 500 MG PO DAILY for ANTI-DIABETIC, TAB 0 Refills 11/09/17 Gabapentin (GABAPENTIN ) 300 Mg Capsule, 300 MG PO TID, CAP 11/09/17 Tamsulosin Hcl (TAMSULOSIN HCL) 0.4 Mg Cap.er.24h, 1 CAP PO DAILY, #30 CAP 5 Refills 11/09/17 PCP: PCP: Ravinder Benz MD Pain: Scale (pain): 0 Pain Context: None Pain Timing: None (Pt reports no pain with this wound. ) Date of Onset Mr. Kitchen is a 79 yo diabetic male who was admitted 04/02/2019 with infected sacral pressure ulcer. Recent hx includes hip fxr with Right hip hemiar throplasty Feb 04 resulting in limited mobility, post op rehab care, discharge home and increasingly sedentary lifestyle. He noted defect in his sacral area with a foul odor and presented to the [facility] ED. We have been asked to see Mr. Kitchen to address the sacral pressure ulcer. His blood sugar has been under moderately good control since admission. His WBC was 14 on admission, now 6.7 on IV vancomycin and meropenem. ESR = 36. MRI on 04/04/19 is c/w acute or chronic osteomyelitis. Wound Status: Being Treated PMH Type II DM, hip fxr/repair Jan 2020, right knee arthritis PSH He quit smoking in his 40's after about 25 years of smoking. He started at age 18 in the [employer]. Physical Exam - Wound #1 Wound Exam Body Site: Sacrum Associated Signs/Symptoms: Drainage, Odor Drainage Amount: Minimal Odor: Mild Odor Surrounding Tissue Appearance: indurated Wound Description: muscle Stage: 4 Granulation % 40% Hypergranulation % 0 Fibrin % 60% Eschar % 20% Surgical Debridement #1 Start Time: 3:35 End Time: 3:55 Time Out Completed: Time Out Procedure: Wound Asssess. Performed Wound Location: sacrum Tissue Removed: Viable, Non-Viable, Slough, Necrotic Method of Debridement: Scapel Depth of Debridement: Muscle Bleeding: Moderate Hemostasis Achieved: AgNO3 Pain Level: Pain ___/10 0 A/P Deep sacral wound with underlying osteomyelitis per MRI. I sharply debrided eschar and non-viable tissue to facilitate NPWT with vera-flow. He is apparently insensate as I was able to accomplish the debridement without anesthetic and he reported to me he had no pain with the procedure. We will paint the stable eschar on his heels with betadine. Off-loading these wounds through appropriate positioning will be of utmost importance in healing these wounds. IV antibiotics as per ID per protocol for osteomyelitis. At discharge he will need referral to out-patient wound care. Problems: (1) Pressure ulcer of sacral region, stage 4 (2) TYPE 2 DIABETES MELLITUS WITH OTHER SKIN COMPLICATIONS ANA MCCARTY MD Apr 05, 2019 16:30
[2019-04-05 20:00] VITALS: BP 131/65
[2019-04-05] MEDS: TAMSULOSIN 0.4 MG CAP.ER.24H. PO SCH (20:43)
[2019-04-05] MEDS: ATORVASTATIN CALCIUM 40 MG TABLET. PO SCH (20:44)
[2019-04-05 23:17] VITALS: BP 114/70
[2019-04-06] MEDS: VANCOMYCIN 1 GM in IV NORMAL SALINE 250ML 250 ML IV SCH ×2 (03:30→14:57)
[2019-04-06 03:54] VITALS: BP 156/80
[2019-04-06] MEDS: MEROPENEM 1 GM in IV NORMAL SALINE 100ML 100 ML IV SCH ×3 (06:23→21:22)
[2019-04-06 07:00] VITALS: BP 117/69
[2019-04-06] MEDS: INSULIN LISPRO 300 UNITS/3 ML VIAL. SQ SCH ×3 (08:00→17:23)
[2019-04-06] MEDS: POLYETHYLENE GLYCOL 3350 17 GM PACKET. PO SCH (09:00)
--- NOTE | 2019-04-06 09:45 | PDOC ---
PROGRESS NOTES Subjective Subjective He c/o lower abdominal pain this AM. Objective Objective Vital Signs Date Time Temp Pulse Resp B/P (MAP) Pulse Ox O2 Delivery O2 Flow Rate FiO2 04/06/19 07:00 98.3 76 16 117/69 (85) 100 Room Air 98.3 Intake and Output 04/06/19 07:00 Intake Total 500 ml Output Total 3150 ml Balance -2650 ml Intake Oral 500 ml Output Urine Total 3150 ml Physical Exam Physical Exam He is alert,supine in bed and he continues with generalized muscle weakness,more so of quadriceps and triceps muscles bilaterally. Wound vac in place to sacral wound. Assessment Assessment Problems Medical Problems: (1) Decubital ulcer Status: Acute (2) SIRS (systemic inflammatory response syndrome) Status: Acute Plan Plan of Care To continue present care efforts as tolerated and to LTAC unit if he qualifies,otherwise to SNF when medically stable. Comment Review of Relevant I have reviewed the following items dimitrios (where applicable) has been applied. Labs Laboratory Tests Test 04/04/19 11:37 04/04/19 16:45 04/04/19 20:46 04/05/19 05:25 Glucose (Fingerstick) 160 mg/dL (70-99) 162 mg/dL (70-99) 135 mg/dL (70-99) White Blood Count 6.7 x10^3/uL (4.0-11.0) Red Blood Count 3.50 x10^6/uL (4.30-5.70) Hemoglobin 10.3 g/dL (13.0-17.5) Hematocrit 29.9 % (39.0-53.0) Mean Corpuscular Volume 86 fL (79-100) Mean Corpuscular Hemoglobin 30 pg (25-35) Mean Corpuscular Hemoglobin Concent 35 g/dL (31-37) Red Cell Distribution Width 14.7 % (11.5-14.5) Platelet Count 358 x10^3/uL (140-400) Neutrophils (%) (Auto) 68 % (31-73) Lymphocytes (%) (Auto) 18 % (24-48) Monocytes (%) (Auto) 8 % (0-9) Eosinophils (%) (Auto) 5 % (0-3) Basophils (%) (Auto) 1 % (0-3) Neutrophils # (Auto) 4.5 x10^3/uL (1.8-7.7) Lymphocytes # (Auto) 1.2 x10^3/uL (1.0-4.8) Monocytes # (Auto) 0.5 x10^3/uL (0.0-1.1) Eosinophils # (Auto) 0.4 x10^3/uL (0.0-0.7) Basophils # (Auto) 0.0 x10^3/uL (0.0-0.2) Sodium Level 137 mmol/L (136-145) Potassium Level 3.9 mmol/L (3.5-5.1) Chloride Level 102 mmol/L (98-107) Carbon Dioxide Level 32 mmol/L (21-32) Anion Gap 3 (6-14) Blood Urea Nitrogen 16 mg/dL (8-26) Creatinine 0.6 mg/dL (0.7-1.3) Estimated GFR (Cockcroft-Gault) 157.7 Glucose Level 184 mg/dL (70-99) Calcium Level 8.6 mg/dL (8.5-10.1) Test 04/05/19 07:11 04/05/19 11:40 04/05/19 16:41 04/05/19 21:16 Glucose (Fingerstick) 146 mg/dL (70-99) 145 mg/dL (70-99) 127 mg/dL (70-99) 142 mg/dL (70-99) Test 04/06/19 07:07 Glucose (Fingerstick) 126 mg/dL (70-99) Laboratory Tests Test 04/05/19 11:40 04/05/19 16:41 04/05/19 21:16 04/06/19 07:07 Glucose (Fingerstick) 145 mg/dL (70-99) 127 mg/dL (70-99) 142 mg/dL (70-99) 126 mg/dL (70-99) Microbiology 04/02/19 Blood Culture - Preliminary, Resulted NO GROWTH AFTER 4 DAYS Medications Current Medications Acetaminophen/ Hydrocodone Bitart (Lortab 5/325) 1 tab 1X ONCE PO Last administered on 04/02/19at 00:23; Start 04/02/19 at 00:00; Stop 04/02/19 at 00:01; Status DC Vancomycin HCl (Vanco Per Pharmacy) 1 each PRN DAILY PRN MC SEE COMMENTS Last administered on 04/05/19at 10:15; Start 04/01/19 at 23:45 Vancomycin HCl 1.5 gm/Sodium Chloride 500 ml @ 250 mls/hr 1X ONCE IV Last administered on 04/02/19at 00:42; Start 04/02/19 at 00:30; Stop 04/02/19 at 02:29; Status DC Sodium Chloride 1,000 ml @ 1,000 mls/hr 1X ONCE IV Last administered on 04/02/19at 01:42; Start 04/02/19 at 01:30; Stop 04/02/19 at 02:29; Status DC Sodium Chloride 1,000 ml @ 1,000 mls/hr 1X ONCE IV Last administered on 04/02/19at 01:42; Start 04/02/19 at 01:30; Stop 04/02/19 at 02:29; Status DC Meropenem 1 gm/ Sodium Chloride 100 ml @ 200 mls/hr Q8HRS IV Last administered on 04/06/19at 06:23; Start 04/02/19 at 02:00 Ondansetron HCl (Zofran) 4 mg PRN Q8HRS PRN IV NAUSEA/VOMITING 1ST CHOICE; Start 04/02/19 at 01:45; Stop 04/03/19 at 01:44; Status DC Fentanyl Citrate (Fentanyl 2ml Vial) 50 mcg PRN Q1HR PRN IV SEVERE PAIN 7-10; Start 04/02/19 at 01:45; Stop 04/03/19 at 01:44; Status DC Acetaminophen (Tylenol) 650 mg PRN Q4HRS PRN PO FEVER; Start 04/02/19 at 01:45; Stop 04/02/19 at 13:50; Status DC Vancomycin HCl 1 gm/Sodium Chloride 250 ml @ 250 mls/hr Q18H IV Last administered on 04/03/19at 14:25; Start 04/02/19 at 19:00; Stop 04/03/19 at 15:30; Status DC Vancomycin HCl (Vancomycin Trough Level) 1 each 1X ONCE MC Last administered on 04/03/19at 12:30; Start 04/03/19 at 12:30; Stop 04/03/19 at 12:31; Status DC Atorvastatin Calcium (Lipitor) 80 mg QHS PO Last administered on 1/7/20at 20:44; Start 04/02/19 at 21:00 Gabapentin (Neurontin) 300 mg TID PO Last administered on 04/05/19 20:44; Start 04/02/19 at 14:00 Acetaminophen (Tylenol) 650 mg PRN Q6HRS PRN PO MILD PAIN / TEMP; Start 04/02/19 at 13:45 Acetaminophen/ Hydrocodone Bitart (Lortab 5/325) 1 tab PRN Q4HRS PRN PO MODERATE PAIN Last administered on 04/04/19 14:55; Start 04/02/19 at 13:45 Metformin HCl (Glucophage) 500 mg DAILY PO Last administered on 04/05/19 08:57; Start 04/03/19 at 09:00 Multivitamins (Thera M Plus) 1 tab DAILY PO Last administered on 04/05/19 08:56; Start 04/03/19 at 09:00 Tamsulosin HCl (Flomax) 0.4 mg QHS PO Last administered on 04/05/19 20:43; Start 04/02/19 at 21:00 Pantoprazole Sodium (Protonix) 40 mg DAILYAC PO Last administered on 04/05/19 08:57; Start 04/03/19 at 07:30 Polyethylene Glycol (miraLAX PACKET) 17 gm DAILY PO ; Start 04/03/19 at 09:00 Senna/Docusate Sodium (Senna Plus) 1 tab PRN BID PRN PO CONSTIPATION; Start 04/02/19 at 13:45 Insulin Human Lispro (HumaLOG) 0-6 UNITS TIDWMEALS SQ Last administered on 18:34; Start 04/02/19 at 17:00 Diclofenac Sodium (Voltaren) 1 thierry TID TP Last administered on 04/05/19 20:51; Start 04/02/19 at 14:00 Lactobacillus Rhamnosus (Culturelle) 1 cap BID PO Last administered on 04/05/19 20:44; Start 04/02/19 at 21:00 Vancomycin HCl (Vanco Per Pharmacy) 1 each PRN DAILY PRN MC SEE COMMENTS; Start 04/02/19 at 14:00; Status UNV Cyclobenzaprine HCl (Flexeril) 5 mg PRN Q8HRS PRN PO MUSCLE SPASMS Last administered on 04/05/19at 01:48; Start 04/02/19 at 19:45 Alteplase, Recombinant (Cathflo) 2 mg 1X ONCE INT CAT ; Start 04/03/19 at 13:15; Stop 04/03/19 at 13:22; Status DC Sodium Chloride (Normal Saline Flush) 10 ml QSHIFT PRN IV SEE COMMENTS; Start 04/03/19 at 13:15; Stop 04/03/19 at 13:22; Status DC Alteplase, Recombinant (Cathflo For Central Catheter Clearance) 1 mg 1X ONCE INT CAT ; Start 04/03/19 at 13:30; Stop 04/03/19 at 13:31; Status DC Sodium Chloride (Normal Saline Flush) 10 ml QSHIFT PRN IV SEE COMMENTS; Start 04/03/19 at 13:30 Vancomycin HCl 1 gm/Sodium Chloride 250 ml @ 250 mls/hr Q12H IV Last administered on 04/06/19at 03:30; Start 04/04/19 at 02:00 Methylprednisolone Acetate (DEPO-Medrol 40MG VIAL) 40 mg 1X ONCE INJ ; Start 04/04/19 at 09:30; Stop 04/04/19 at 09:31; Status DC Methylprednisolone Acetate (DEPO-Medrol 40MG VIAL) 40 mg 1X ONCE INJ ; Start 04/04/19 at 09:30; Stop 04/04/19 at 09:31; Status DC Bupivacaine HCl (Sensorcaine-Mpf 0.25%) 10 ml 1X ONCE IJ ; Start 04/04/19 at 09:30; Stop 04/04/19 at 09:31; Status DC Gadoterate Meglumine (Dotarem) 12.8 ml 1X ONCE IVP Last administered on 04/04/19at 12:47; Start 04/04/19 at 12:30; Stop 04/04/19 at 12:39; Status DC Vancomycin HCl (Vancomycin Trough Level) 1 each 1X ONCE MC ; Start 04/06/19 at 13:30; Stop 04/06/19 at 13:31 Active Scripts Active Miralax (Polyethylene Glycol 3350) 17 Gm Powd.pack 1 Packet PO DAILY dissolve in water Coumadin (Warfarin Sodium) 5 Mg Tablet 5 Mg PO DAILY Pantoprazole Sodium (Pantoprazole Sodium) 40 Mg Tablet.dr 40 Mg PO DAILYAC Senna-Time S Tablet (Sennosides/Docusate Sodium) 1 Each Tablet 2 Tab PO DAILY Tylenol (Acetaminophen) 325 Mg Tablet 650 Mg PO PRN Q6HRS PRN Hydrocodone-Apap 5-325 (Hydrocodone Bit/Acetaminophen) 1 Tab Tablet 1 Tab PO PRN Q4HRS PRN Feosol (Ferrous Sulfate) 325 Mg Tablet 325 Mg PO BID Levaquin (Levofloxacin) 500 Mg Tablet 500 Mg PO DAILY06 9 Days Reported Omeprazole 20 Mg Capsule.dr 20 Mg PO BID Cyclobenzaprine Hcl 5 Mg Tablet 5 Mg PO TID Centrum Silver Men Tablet (Multivit-Min/FA/Lycopen/Lutein) 1 Each Tablet 1 Each PO DAILY Atorvastatin Calcium 80 Mg Tablet 80 Mg PO HS Metformin Hcl 500 Mg Tablet 500 Mg PO DAILY Gabapentin (Gabapentin) 300 Mg Capsule 300 Mg PO TID Tamsulosin Hcl 0.4 Mg Cap.er.24h 1 Cap PO DAILY Vitals/I & O Vital Sign - Last 24 Hours 04/05/19 04/05/19 04/05/19 04/05/19 11:00 15:00 20:00 20:00 Temp 98.4 98.0 98.2 98.4 98.0 98.2 Pulse 87 88 98 Resp 14 18 20 B/P (MAP) 95/50 (65) 122/64 (83) 131/65 (87) Pulse Ox 98 96 98 O2 Delivery Room Air Room Air Room Air Room Air 04/05/19 04/06/19 04/06/19 23:17 03:54 07:00 Temp 98.2 98.1 98.3 98.2 98.1 98.3 Pulse 95 87 76 Resp 20 20 16 B/P (MAP) 114/70 (85) 156/80 (105) 117/69 (85) Pulse Ox 100 100 100 O2 Delivery Room Air Room Air Room Air Intake and Output 04/05/19 04/05/19 04/06/19 15:00 23:00 07:00 Intake Total 300 ml 200 ml 0 ml Output Total 1850 ml 1300 ml Balance 300 ml -1650 ml -1300 ml GENA VAZQUEZ MD Apr 06, 2019 09:45
--- NOTE | 2019-04-06 10:09 | PDOC ---
PROGRESS NOTES Subjective Subjective feels better. wound debrided and has wound vac. no Bm in 2 days and declines lactulose. 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 s/p debridement and wound vac 2. Leukocytosis.resolved 3. Anemia of chronic disease. 4. Osteoarthritis of the knees. 5. Debility. 6. Diabetes mellitus type 2. 7. Hyperlipidemia. 8. Chronic urinary retention with benign prostatic hypertrophy with Causey Medical Problems: (1) Decubital ulcer Status: Acute (2) SIRS (systemic inflammatory response syndrome) Status: Acute Plan Plan of Care continue iv vancomycin and meropenem continue wound care and wound vac off load wound dismss to select specialty when bed available Comment Review of Relevant I have reviewed the following items dimitrios (where applicable) has been applied. Labs Laboratory Tests Test 04/04/19 11:37 04/04/19 16:45 04/04/19 20:46 04/05/19 05:25 Glucose (Fingerstick) 160 mg/dL (70-99) 162 mg/dL (70-99) 135 mg/dL (70-99) White Blood Count 6.7 x10^3/uL (4.0-11.0) Red Blood Count 3.50 x10^6/uL (4.30-5.70) Hemoglobin 10.3 g/dL (13.0-17.5) Hematocrit 29.9 % (39.0-53.0) Mean Corpuscular Volume 86 fL (79-100) Mean Corpuscular Hemoglobin 30 pg (25-35) Mean Corpuscular Hemoglobin Concent 35 g/dL (31-37) Red Cell Distribution Width 14.7 % (11.5-14.5) Platelet Count 358 x10^3/uL (140-400) Neutrophils (%) (Auto) 68 % (31-73) Lymphocytes (%) (Auto) 18 % (24-48) Monocytes (%) (Auto) 8 % (0-9) Eosinophils (%) (Auto) 5 % (0-3) Basophils (%) (Auto) 1 % (0-3) Neutrophils # (Auto) 4.5 x10^3/uL (1.8-7.7) Lymphocytes # (Auto) 1.2 x10^3/uL (1.0-4.8) Monocytes # (Auto) 0.5 x10^3/uL (0.0-1.1) Eosinophils # (Auto) 0.4 x10^3/uL (0.0-0.7) Basophils # (Auto) 0.0 x10^3/uL (0.0-0.2) Sodium Level 137 mmol/L (136-145) Potassium Level 3.9 mmol/L (3.5-5.1) Chloride Level 102 mmol/L (98-107) Carbon Dioxide Level 32 mmol/L (21-32) Anion Gap 3 (6-14) Blood Urea Nitrogen 16 mg/dL (8-26) Creatinine 0.6 mg/dL (0.7-1.3) Estimated GFR (Cockcroft-Gault) 157.7 Glucose Level 184 mg/dL (70-99) Calcium Level 8.6 mg/dL (8.5-10.1) Test 04/05/19 07:11 04/05/19 11:40 04/05/19 16:41 04/05/19 21:16 Glucose (Fingerstick) 146 mg/dL (70-99) 145 mg/dL (70-99) 127 mg/dL (70-99) 142 mg/dL (70-99) Test 04/06/19 07:07 Glucose (Fingerstick) 126 mg/dL (70-99) Laboratory Tests Test 04/05/19 11:40 04/05/19 16:41 04/05/19 21:16 04/06/19 07:07 Glucose (Fingerstick) 145 mg/dL (70-99) 127 mg/dL (70-99) 142 mg/dL (70-99) 126 mg/dL (70-99) Microbiology 04/02/19 Blood Culture - Preliminary, Resulted NO GROWTH AFTER 4 DAYS Medications Current Medications Acetaminophen/ Hydrocodone Bitart (Lortab 5/325) 1 tab 1X ONCE PO Last administered on 04/02/19at 00:23; Start 04/02/19 at 00:00; Stop 04/02/19 at 00:01; Status DC Vancomycin HCl (Vanco Per Pharmacy) 1 each PRN DAILY PRN MC SEE COMMENTS Last administered on 04/05/19at 10:15; Start 04/01/19 at 23:45 Vancomycin HCl 1.5 gm/Sodium Chloride 500 ml @ 250 mls/hr 1X ONCE IV Last administered on 04/02/19at 00:42; Start 04/02/19 at 00:30; Stop 04/02/19 at 02:29; Status DC Sodium Chloride 1,000 ml @ 1,000 mls/hr 1X ONCE IV Last administered on 04/02/19at 01:42; Start 04/02/19 at 01:30; Stop 04/02/19 at 02:29; Status DC Sodium Chloride 1,000 ml @ 1,000 mls/hr 1X ONCE IV Last administered on 04/02/19at 01:42; Start 04/02/19 at 01:30; Stop 04/02/19 at 02:29; Status DC Meropenem 1 gm/ Sodium Chloride 100 ml @ 200 mls/hr Q8HRS IV Last administered on 04/06/19at 06:23; Start 04/02/19 at 02:00 Ondansetron HCl (Zofran) 4 mg PRN Q8HRS PRN IV NAUSEA/VOMITING 1ST CHOICE; Start 04/02/19 at 01:45; Stop 04/03/19 at 01:44; Status DC Fentanyl Citrate (Fentanyl 2ml Vial) 50 mcg PRN Q1HR PRN IV SEVERE PAIN 7-10; Start 04/02/19 at 01:45; Stop 04/03/19 at 01:44; Status DC Acetaminophen (Tylenol) 650 mg PRN Q4HRS PRN PO FEVER; Start 04/02/19 at 01:45; Stop 04/02/19 at 13:50; Status DC Vancomycin HCl 1 gm/Sodium Chloride 250 ml @ 250 mls/hr Q18H IV Last administered on 04/03/19 14:25; Start 04/02/19 at 19:00; Stop 04/03/19 at 15:30; Status DC Vancomycin HCl (Vancomycin Trough Level) 1 each 1X ONCE MC Last administered on 04/03/19at 12:30; Start 04/03/19 at 12:30; Stop 04/03/19 at 12:31; Status DC Atorvastatin Calcium (Lipitor) 80 mg QHS PO Last administered on 04/05/19 20:44; Start 04/02/19 at 21:00 Gabapentin (Neurontin) 300 mg TID PO Last administered on 04/05/19 20:44; Start 04/02/19 at 14:00 Acetaminophen (Tylenol) 650 mg PRN Q6HRS PRN PO MILD PAIN / TEMP; Start 04/02/19 at 13:45 Acetaminophen/ Hydrocodone Bitart (Lortab 5/325) 1 tab PRN Q4HRS PRN PO MODERATE PAIN Last administered on 04/04/19 14:55; Start 04/02/19 at 13:45 Metformin HCl (Glucophage) 500 mg DAILY PO Last administered on 04/05/19 08:57; Start 04/03/19 at 09:00 Multivitamins (Thera M Plus) 1 tab DAILY PO Last administered on 04/05/19 08:56; Start 04/03/19 at 09:00 Tamsulosin HCl (Flomax) 0.4 mg QHS PO Last administered on 04/05/19 20:43; St art 04/02/19 at 21:00 Pantoprazole Sodium (Protonix) 40 mg DAILYAC PO Last administered on 04/05/19 08:57; Start 04/03/19 at 07:30 Polyethylene Glycol (miraLAX PACKET) 17 gm DAILY PO ; Start 04/03/19 at 09:00 Senna/Docusate Sodium (Senna Plus) 1 tab PRN BID PRN PO CONSTIPATION; Start 04/02/19 at 13:45 Insulin Human Lispro (HumaLOG) 0-6 UNITS TIDWMEALS SQ Last administered on 04/04/19at 18:34; Start 04/02/19 at 17:00 Diclofenac Sodium (Voltaren) 1 thierry TID TP Last administered on 1/7/20at 20:51; Start 04/02/19 at 14:00 Lactobacillus Rhamnosus (Culturelle) 1 cap BID PO Last administered on 04/05/19at 20:44; Start 04/02/19 at 21:00 Vancomycin HCl (Vanco Per Pharmacy) 1 each PRN DAILY PRN MC SEE COMMENTS; Start 04/02/19 at 14:00; Status UNV Cyclobenzaprine HCl (Flexeril) 5 mg PRN Q8HRS PRN PO MUSCLE SPASMS Last administered on 04/05/19at 01:48; Start 04/02/19 at 19:45 Alteplase, Recombinant (Cathflo) 2 mg 1X ONCE INT CAT ; Start 04/03/19 at 13:15; Stop 04/03/19 at 13:22; Status DC Sodium Chloride (Normal Saline Flush) 10 ml QSHIFT PRN IV SEE COMMENTS; Start 04/03/19 at 13:15; Stop 04/03/19 at 13:22; Status DC Alteplase, Recombinant (Cathflo For Central Catheter Clearance) 1 mg 1X ONCE INT CAT ; Start 04/03/19 at 13:30; Stop 04/03/19 at 13:31; Status DC Sodium Chloride (Normal Saline Flush) 10 ml QSHIFT PRN IV SEE COMMENTS; Start 04/03/19 at 13:30 Vancomycin HCl 1 gm/Sodium Chloride 250 ml @ 250 mls/hr Q12H IV Last administered on 04/06/19at 03:30; Start 04/04/19 at 02:00 Methylprednisolone Acetate (DEPO-Medrol 40MG VIAL) 40 mg 1X ONCE INJ ; Start 04/04/19 at 09:30; Stop 04/04/19 at 09:31; Status DC Methylprednisolone Acetate (DEPO-Medrol 40MG VIAL) 40 mg 1X ONCE INJ ; Start 04/04/19 at 09:30; Stop 04/04/19 at 09:31; Status DC Bupivacaine HCl (Sensorcaine-Mpf 0.25%) 10 ml 1X ONCE IJ ; Start 04/04/19 at 09:30; Stop 04/04/19 at 09:31; Status DC Gadoterate Meglumine (Dotarem) 12.8 ml 1X ONCE IVP Last administered on 04/04/19at 12:47; Start 04/04/19 at 12:30; Stop 04/04/19 at 12:39; Status DC Vancomycin HCl (Vancomycin Trough Level) 1 each 1X ONCE MC ; Start 04/06/19 at 13:30; Stop 04/06/19 at 13:31 Active Scripts Active Miralax (Polyethylene Glycol 3350) 17 Gm Powd.pack 1 Packet PO DAILY dissolve in water Coumadin (Warfarin Sodium) 5 Mg Tablet 5 Mg PO DAILY Pantoprazole Sodium (Pantoprazole Sodium) 40 Mg Tablet.dr 40 Mg PO DAILYAC Senna-Time S Tablet (Sennosides/Docusate Sodium) 1 Each Tablet 2 Tab PO DAILY Tylenol (Acetaminophen) 325 Mg Tablet 650 Mg PO PRN Q6HRS PRN Hydrocodone-Apap 5-325 (Hydrocodone Bit/Acetaminophen) 1 Tab Tablet 1 Tab PO PRN Q4HRS PRN Feosol (Ferrous Sulfate) 325 Mg Tablet 325 Mg PO BID Levaquin (Levofloxacin) 500 Mg Tablet 500 Mg PO DAILY06 9 Days Reported Omeprazole 20 Mg Capsule.dr 20 Mg PO BID Cyclobenzaprine Hcl 5 Mg Tablet 5 Mg PO TID Centrum Silver Men Tablet (Multivit-Min/FA/Lycopen/Lutein) 1 Each Tablet 1 Each PO DAILY Atorvastatin Calcium 80 Mg Tablet 80 Mg PO HS Metformin Hcl 500 Mg Tablet 500 Mg PO DAILY Gabapentin (Gabapentin) 300 Mg Capsule 300 Mg PO TID Tamsulosin Hcl 0.4 Mg Cap.er.24h 1 Cap PO DAILY Vitals/I & O Vital Sign - Last 24 Hours 04/05/19 04/05/19 04/05/19 04/05/19 11:00 15:00 20:00 20:00 Temp 98.4 98.0 98.2 98.4 98.0 98.2 Pulse 87 88 98 Resp 14 18 20 B/P (MAP) 95/50 (65) 122/64 (83) 131/65 (87) Pulse Ox 98 96 98 O2 Delivery Room Air Room Air Room Air Room Air 04/05/19 04/06/19 04/06/19 23:17 03:54 07:00 Temp 98.2 98.1 98.3 98.2 98.1 98.3 Pulse 95 87 76 Resp 20 20 16 B/P (MAP) 114/70 (85) 156/80 (105) 117/69 (85) Pulse Ox 100 100 100 O2 Delivery Room Air Room Air Room Air Intake and Output 04/05/19 04/05/19 04/06/19 15:00 23:00 07:00 Intake Total 300 ml 200 ml 0 ml Output Total 1850 ml 1300 ml Balance 300 ml -1650 ml -1300 ml RAVINDER BUSTAMANTE MD Apr 06, 2019 10:09
[2019-04-06] MEDS: PANTOPRAZOLE 40 MG TABLET.DR. PO SCH (10:55)
[2019-04-06] MEDS: MULTIVITAMIN with MINERAL TABLET. PO SCH (10:55)
[2019-04-06] MEDS: LACTOBACILLUS RHAMNOSUS GG 1 CAPSULE. PO SCH ×2 (10:55→21:21)
[2019-04-06] MEDS: SENNOSIDES/DOCUSATE 8.6/50MG TABLET. PO SCH ×2 (10:55→21:21)
[2019-04-06] MEDS: metFORMIN 500 MG TABLET PO SCH (10:56)
[2019-04-06] MEDS: DICLOFENAC SODIUM 1% TOPICAL GEL 100GM TUBE. TP SCH ×3 (10:56→21:21)
[2019-04-06] MEDS: GABAPENTIN 300 MG CAPSULE. PO SCH ×3 (10:56→21:20)
[2019-04-06 11:00] VITALS: BP 142/81
--- NOTE | 2019-04-06 11:36 | PDOC ---
Infectious Disease Note Subjective Subjective feeling good ROS ROS no n/v/d/sob Vital Sign Vital Signs Vital Signs Date Time Temp Pulse Resp B/P (MAP) Pulse Ox O2 Delivery O2 Flow Rate FiO2 04/06/19 11:00 98.1 111 24 142/81 (101) 100 Room Air 98.1 Physical Exam PHYSICAL EXAM GENERAL: Lying down, alert relaxed appearance HEENT: Pupils equally round. Oropharynx pink, moist. dentures. NECK: Supple. LUNGS: Clear to auscultation. HEART: S1, S2. ABDOMEN: Soft, nontender with bowel sounds present. GENITOURINARY: Causey in place. EXTREMITIES: No gross edema or cyanosis. Both knees are tender without redness or swelling. SKIN: Warm to touch without signs of rash. Sacrococcygeal wound deep close to bone with malodor and necrotic tissue. Right heel eschar. NEUROLOGIC: Alert and oriented x 3. Labs Lab Laboratory Tests Test 04/05/19 11:40 04/05/19 16:41 04/05/19 21:16 04/06/19 07:07 Glucose (Fingerstick) 145 mg/dL (70-99) 127 mg/dL (70-99) 142 mg/dL (70-99) 126 mg/dL (70-99) Micro Microbiology 04/02/19 Blood Culture - Preliminary, Resulted NO GROWTH AFTER 2 DAYS Objective Assessment Sacrococcygeal pressure ulcer, deep. ESR 36 Leukocytosis - improved PCN allergy - reaction unknown Right heel ulcer, eshar Transaminitis Urinary retention s/p Causey s/p right hip arthroplasty, 02/05/19 Diabetes PVD OA Plan Plan of Care vanc and Merrem Trough 8.1 Monitor renal function closely f/u cultures Probiotics Wound care team consulted Offloading MRI + with osteo pICC pending D/w nursing ZEINA LARA MD Apr 06, 2019 11:36
[2019-04-06 14:43] LABS: VANC TR 18.4 mcg/mL (10.0-20.0)
[2019-04-06 15:00] VITALS: BP 144/87
[2019-04-06] MEDS: VANCOMYCIN PER PHARMACY MC PRN (15:04)
--- NOTE | 2019-04-06 15:05 | NUR ---
Pharmacy Vancomycin Dosing Note S: Consulted to monitor and dose vancomycin started 04/02/19. O: SILVIA CONNER is a 79 year old M with Osteomyelitis, DECUBITIS ULCER . Other Antibiotics: MERREM 1 GM Q8H LABS: Last BUN: 13 Last Creatinine: 0.7 Creatinine Clearance: 54 mL/min Last WBC: 10.8 Last Procalcitonin: Tmax (past 24 hours): 98.3 Microbiology: 04/02 BLD: NGTD 04/05 ngtd Drug Levels: Last Trough level: 18.4 (true trough 17.1 mcg/mL) on 04/06/19 at 1358. Last dose given 04/06/19 at 0330. Vancomycin Dosing: Dosing Weight: Actual Target Trough: 15-20 A: VT at goal of 15-20 mcg/mL. Will continue vanco 1000 mg q12h. P: 1. Continue Vancomycin 1000 mg IV q12h 2. Follow up Trough level as needed. 3. Pharmacy will continue to monitor, follow and adjust therapy as needed. MERYL FERNANDEZ [facility], 04/06/19 2300
[2019-04-06 19:42] VITALS: BP 131/78
[2019-04-06] MEDS: TAMSULOSIN 0.4 MG CAP.ER.24H. PO SCH (21:21)
[2019-04-06] MEDS: ATORVASTATIN CALCIUM 40 MG TABLET. PO SCH (21:21)
[2019-04-06 23:46] VITALS: BP 95/61
[2019-04-07] MEDS: VANCOMYCIN 1 GM in IV NORMAL SALINE 250ML 250 ML IV SCH ×2 (02:29→14:00)
[2019-04-07 03:02] VITALS: BP 106/58
[2019-04-07] MEDS: MEROPENEM 1 GM in IV NORMAL SALINE 100ML 100 ML IV SCH ×3 (06:08→22:33)
[2019-04-07 06:34] LABS: CREATININE 0.6 mg/dL (0.7-1.3); GFR 157.7
[2019-04-07 07:00] VITALS: BP 113/65
[2019-04-07] MEDS: INSULIN LISPRO 300 UNITS/3 ML VIAL. SQ SCH ×3 (08:00→17:00)
[2019-04-07] MEDS: SENNOSIDES/DOCUSATE 8.6/50MG TABLET. PO SCH ×2 (09:00→22:31)
[2019-04-07] MEDS: GABAPENTIN 300 MG CAPSULE. PO SCH ×3 (09:26→22:30)
[2019-04-07] MEDS: PANTOPRAZOLE 40 MG TABLET.DR. PO SCH (09:26)
[2019-04-07] MEDS: metFORMIN 500 MG TABLET PO SCH (09:26)
[2019-04-07] MEDS: MULTIVITAMIN with MINERAL TABLET. PO SCH (09:26)
[2019-04-07] MEDS: LACTOBACILLUS RHAMNOSUS GG 1 CAPSULE. PO SCH ×2 (09:27→22:31)
[2019-04-07] MEDS: DICLOFENAC SODIUM 1% TOPICAL GEL 100GM TUBE. TP SCH ×3 (09:27→22:34)
--- NOTE | 2019-04-07 09:34 | PDOC ---
PROGRESS NOTES Subjective Subjective No new complaints. Objective Objective Vital Signs Date Time Temp Pulse Resp B/P (MAP) Pulse Ox O2 Delivery O2 Flow Rate FiO2 04/07/19 07:00 97.8 85 16 113/65 (81) 100 Room Air 97.8 Intake and Output 04/07/19 07:00 Intake Total 1100 ml Output Total 1500 ml Balance -400 ml Intake Oral 1100 ml Output Urine Total 1500 ml Physical Exam Physical Exam He is supine in bed and comfortable and no change noted with his neurological status and he i not interested in knee joint injections at this time.Physical and occupational therapy are working with him. Assessment Assessment Problems Medical Problems: (1) Decubital ulcer Status: Acute (2) SIRS (systemic inflammatory response syndrome) Status: Acute Plan Plan of Care To SNF when medically stable. Comment Review of Relevant I have reviewed the following items dimitrios (where applicable) has been applied. Labs Laboratory Tests Test 04/05/19 11:40 04/05/19 16:41 04/05/19 21:16 04/06/19 07:07 Glucose (Fingerstick) 145 mg/dL (70-99) 127 mg/dL (70-99) 142 mg/dL (70-99) 126 mg/dL (70-99) Test 04/06/19 11:35 04/06/19 13:58 04/06/19 16:18 04/06/19 20:42 Glucose (Fingerstick) 200 mg/dL (70-99) 125 mg/dL (70-99) 95 mg/dL (70-99) Vancomycin Level Trough 18.4 mcg/mL (10.0-20.0) Vancomycin Last Dose Date Unk Vancomycin Last Dose Time Unk Test 04/07/19 06:10 04/07/19 07:38 Creatinine 0.6 mg/dL (0.7-1.3) Estimated GFR (Cockcroft-Gault) 157.7 Glucose (Fingerstick) 113 mg/dL (70-99) Laboratory Tests Test 04/06/19 11:35 04/06/19 13:58 04/06/19 16:18 04/06/19 20:42 Glucose (Fingerstick) 200 mg/dL (70-99) 125 mg/dL (70-99) 95 mg/dL (70-99) Vancomycin Level Trough 18.4 mcg/mL (10.0-20.0) Vancomycin Last Dose Date Unk Vancomycin Last Dose Time Unk Test 04/07/19 06:10 04/07/19 07:38 Creatinine 0.6 mg/dL (0.7-1.3) Estimated GFR (Cockcroft-Gault) 157.7 Glucose (Fingerstick) 113 mg/dL (70-99) Microbiology 04/02/19 Blood Culture - Final, Complete NO GROWTH AFTER 5 DAYS Medications Current Medications Acetaminophen/ Hydrocodone Bitart (Lortab 5/325) 1 tab 1X ONCE PO Last administered on 04/02/19at 00:23; Start 04/02/19 at 00:00; Stop 04/02/19 at 00:01; Status DC Vancomycin HCl (Vanco Per Pharmacy) 1 each PRN DAILY PRN MC SEE COMMENTS Last administered on 04/06/19at 15:04; Start 04/01/19 at 23:45 Vancomycin HCl 1.5 gm/Sodium Chloride 500 ml @ 250 mls/hr 1X ONCE IV Last ad ministered on 04/02/19at 00:42; Start 04/02/19 at 00:30; Stop 04/02/19 at 02:29; Status DC Sodium Chloride 1,000 ml @ 1,000 mls/hr 1X ONCE IV Last administered on 04/02/19at 01:42; Start 04/02/19 at 01:30; Stop 04/02/19 at 02:29; Status DC Sodium Chloride 1,000 ml @ 1,000 mls/hr 1X ONCE IV Last administered on 04/02/19at 01:42; Start 04/02/19 at 01:30; Stop 04/02/19 at 02:29; Status DC Meropenem 1 gm/ Sodium Chloride 100 ml @ 200 mls/hr Q8HRS IV Last administered on 04/07/19at 06:08; Start 04/02/19 at 02:00 Ondansetron HCl (Zofran) 4 mg PRN Q8HRS PRN IV NAUSEA/VOMITING 1ST CHOICE; Start 04/02/19 at 01:45; Stop 04/03/19 at 01:44; Status DC Fentanyl Citrate (Fentanyl 2ml Vial) 50 mcg PRN Q1HR PRN IV SEVERE PAIN 7-10; Start 04/02/19 at 01:45; Stop 04/03/19 at 01:44; Status DC Acetaminophen (Tylenol) 650 mg PRN Q4HRS PRN PO FEVER; Start 04/02/19 at 01:45; Stop 04/02/19 at 13:50; Status DC Vancomycin HCl 1 gm/Sodium Chloride 250 ml @ 250 mls/hr Q18H IV Last administered on 04/03/19at 14:25; Start 04/02/19 at 19:00; Stop 04/03/19 at 15:30; Status DC Vancomycin HCl (Vancomycin Trough Level) 1 each 1X ONCE MC Last administered on 04/03/19at 12:30; Start 04/03/19 at 12:30; Stop 04/03/19 at 12:31; Status DC Atorvastatin Calcium (Lipitor) 80 mg QHS PO Last administered on 04/06/19at 21:21; Start 04/02/19 at 21:00 Gabapentin (Neurontin) 300 mg TID PO Last administered on 04/06/19at 21:20; Start 04/02/19 at 14:00 Acetaminophen (Tylenol) 650 mg PRN Q6HRS PRN PO MILD PAIN / TEMP; Start 04/02/19 at 13:45 Acetaminophen/ Hydrocodone Bitart (Lortab 5/325) 1 tab PRN Q4HRS PRN PO MODERATE PAIN Last administered on 04/04/19at 14:55; Start 04/02/19 at 13:45 Metformin HCl (Glucophage) 500 mg DAILY PO Last administered on 04/06/19at 10:56; Start 04/03/19 at 09:00 Multivitamins (Thera M Plus) 1 tab DAILY PO Last administered on 04/06/19at 10:55; Start 04/03/19 at 09:00 Tamsulosin HCl (Flomax) 0.4 mg QHS PO Last administered on 04/06/19 21:21; Start 04/02/19 at 21:00 Pantoprazole Sodium (Protonix) 40 mg DAILYAC PO Last administered on 04/06/19at 10:55; Start 04/03/19 at 07:30 Polyethylene Glycol (miraLAX PACKET) 17 gm DAILY PO ; Start 04/03/19 at 09:00; Stop 04/06/19 at 10:10; Status DC Senna/Docusate Sodium (Senna Plus) 1 tab PRN BID PRN PO CONSTIPATION; Start 04/02/19 at 13:45; Stop 04/06/19 at 10:10; Status DC Insulin Human Lispro (HumaLOG) 0-6 UNITS TIDWMEALS SQ Last administered on 04/06/19at 13:05; Start 04/02/19 at 17:00 Diclofenac Sodium (Voltaren) 1 thierry TID TP Last administered on 04/06/19at 21:21; Start 04/02/19 at 14:00 Lactobacillus Rhamnosus (Culturelle) 1 cap BID PO Last administered on 04/06/19at 21:21; Start 04/02/19 at 21:00 Vancomycin HCl (Vanco Per Pharmacy) 1 each PRN DAILY PRN MC SEE COMMENTS; Start 04/02/19 at 14:00; Status UNV Cyclobenzaprine HCl (Flexeril) 5 mg PRN Q8HRS PRN PO MUSCLE SPASMS Last administered on 04/05/19at 01:48; Start 04/02/19 at 19:45 Alteplase, Recombinant (Cathflo) 2 mg 1X ONCE INT CAT ; Start 04/03/19 at 13:15; Stop 04/03/19 at 13:22; Status DC Sodium Chloride (Normal Saline Flush) 10 ml QSHIFT PRN IV SEE COMMENTS; Start 04/03/19 at 13:15; Stop 04/03/19 at 13:22; Status DC Alteplase, Recombinant (Cathflo For Central Catheter Clearance) 1 mg 1X ONCE INT CAT ; Start 04/03/19 at 13:30; Stop 04/03/19 at 13:31; Status DC Sodium Chloride (Normal Saline Flush) 10 ml QSHIFT PRN IV SEE COMMENTS; Start 04/03/19 at 13:30 Vancomycin HCl 1 gm/Sodium Chloride 250 ml @ 250 mls/hr Q12H IV Last administered on 04/07/19at 02:29; Start 04/04/19 at 02:00 Methylprednisolone Acetate (DEPO-Medrol 40MG VIAL) 40 mg 1X ONCE INJ ; Start 04/04/19 at 09:30; Stop 04/04/19 at 09:31; Status DC Methylprednisolone Acetate (DEPO-Medrol 40MG VIAL) 40 mg 1X ONCE INJ ; Start 04/04/19 at 09:30; Stop 04/04/19 at 09:31; Status DC Bupivacaine HCl (Sensorcaine-Mpf 0.25%) 10 ml 1X ONCE IJ ; Start 04/04/19 at 09:30; Stop 04/04/19 at 09:31; Status DC Gadoterate Meglumine (Dotarem) 12.8 ml 1X ONCE IVP Last administered on 04/04/19at 12:47; Start 04/04/19 at 12:30; Stop 04/04/19 at 12:39; Status DC Vancomycin HCl (Vancomycin Trough Level) 1 each 1X ONCE MC ; Start 04/06/19 at 13:30; Stop 04/06/19 at 13:31; Status DC Senna/Docusate Sodium (Senna Plus) 1 tab BID PO Last administered on 04/06/19at 21:21; Start 04/06/19 at 10:15 Active Scripts Active Miralax (Polyethylene Glycol 3350) 17 Gm Powd.pack 1 Packet PO DAILY dissolve in water Coumadin (Warfarin Sodium) 5 Mg Tablet 5 Mg PO DAILY Pantoprazole Sodium (Pantoprazole Sodium) 40 Mg Tablet.dr 40 Mg PO DAILYAC Senna-Time S Tablet (Sennosides/Docusate Sodium) 1 Each Tablet 2 Tab PO DAILY Tylenol (Acetaminophen) 325 Mg Tablet 650 Mg PO PRN Q6HRS PRN Hydrocodone-Apap 5-325 (Hydrocodone Bit/Acetaminophen) 1 Tab Tablet 1 Tab PO PRN Q4HRS PRN Feosol (Ferrous Sulfate) 325 Mg Tablet 325 Mg PO BID Levaquin (Levofloxacin) 500 Mg Tablet 500 Mg PO DAILY06 9 Days Reported Omeprazole 20 Mg Capsule. 20 Mg PO BID Cyclobenzaprine Hcl 5 Mg Tablet 5 Mg PO TID Centrum Silver Men Tablet (Multivit-Min/FA/Lycopen/Lutein) 1 Each Tablet 1 Each PO DAILY Atorvastatin Calcium 80 Mg Tablet 80 Mg PO HS Metformin Hcl 500 Mg Tablet 500 Mg PO DAILY Gabapentin (Gabapentin) 300 Mg Capsule 300 Mg PO TID Tamsulosin Hcl 0.4 Mg Cap.er.24h 1 Cap PO DAILY Vitals/I & O Vital Sign - Last 24 Hours 04/06/19 04/06/19 04/06/19 04/06/19 10:30 11:00 15:00 19:42 Temp 98.1 97.5 99.4 98.1 97.5 99.4 Pulse 111 103 94 Resp 24 24 20 B/P (MAP) 142/81 (101) 144/87 (106) 131/78 (95) Pulse Ox 100 100 100 O2 Delivery Room Air Room Air Room Air Room Air 04/06/19 04/06/19 04/07/19 04/07/19 20:00 23:46 03:02 07:00 Temp 99.1 98.6 97.8 99.1 98.6 97.8 Pulse 93 88 85 Resp 20 20 16 B/P (MAP) 95/61 (72) 106/58 (74) 113/65 (81) Pulse Ox 99 99 100 O2 Delivery Room Air Room Air Room Air Room Air l Intake and Output 04/06/19 04/06/19 04/07/19 15:00 23:00 07:00 Intake Total 700 ml 400 ml Output Total 1000 ml 500 ml Balance 700 ml -600 ml -500 ml GENA VAZQUEZ MD Apr 07, 2019 09:34
--- NOTE | 2019-04-07 10:37 | PDOC ---
Infectious Disease Note Subjective Subjective feeling good ROS ROS no n/v/d/ Vital Sign Vital Signs Vital Signs Date Time Temp Pulse Resp B/P (MAP) Pulse Ox O2 Delivery O2 Flow Rate FiO2 04/07/19 08:00 Room Air 04/07/19 07:00 97.8 85 16 113/65 (81) 100 97.8 Physical Exam PHYSICAL EXAM GENERAL: Lying down, alert relaxed appearance HEENT: Pupils equally round. Oropharynx pink, moist. dentures. NECK: Supple. LUNGS: Clear to auscultation. HEART: S1, S2. ABDOMEN: Soft, nontender with bowel sounds present. GENITOURINARY: Causey in place. EXTREMITIES: No gross edema or cyanosis. Both knees are tender without redness or swelling. SKIN: Warm to touch without signs of rash. Sacrococcygeal wound deep close to bone with malodor and necrotic tissue. Right heel eschar. NEUROLOGIC: Alert and oriented x 3. Labs Lab Laboratory Tests Test 04/06/19 11:35 04/06/19 13:58 04/06/19 16:18 04/06/19 20:42 Glucose (Fingerstick) 200 mg/dL (70-99) 125 mg/dL (70-99) 95 mg/dL (70-99) Vancomycin Level Trough 18.4 mcg/mL (10.0-20.0) Vancomycin Last Dose Date Unk Vancomycin Last Dose Time Unk Test 04/07/19 06:10 04/07/19 07:38 Creatinine 0.6 mg/dL (0.7-1.3) Estimated GFR (Cockcroft-Gault) 157.7 Glucose (Fingerstick) 113 mg/dL (70-99) Micro Microbiology 04/02/19 Blood Culture - Preliminary, Resulted NO GROWTH AFTER 2 DAYS Objective Assessment Sacrococcygeal pressure ulcer, deep. ESR 36 Leukocytosis - improved PCN allergy - reaction unknown Right heel ulcer, eshar Transaminitis Urinary retention s/p Causey s/p right hip arthroplasty, 02/05/19 Diabetes PVD OA Plan Plan of Care vanc and Merrem Trough 8.1 Monitor renal function closely f/u cultures Probiotics Wound care team consulted Offloading MRI + with osteo pICC D/w nursing Select transfer ZEINA LARA MD Apr 07, 2019 10:37
--- NOTE | 2019-04-07 10:59 | PDOC ---
PROGRESS NOTES Subjective Subjective feels well. comfortable. has a muscle cramp in right calf. Objective Objective Vital Signs Date Time Temp Pulse Resp B/P (MAP) Pulse Ox O2 Delivery O2 Flow Rate FiO2 04/07/19 08:00 Room Air 04/07/19 07:00 97.8 85 16 113/65 (81) 100 97.8 Intake and Output 04/07/19 07:00 Intake Total 1100 ml Output Total 1500 ml Balance -400 ml Intake Oral 1100 ml Output Urine Total 1500 ml Physical Exam Abdomen: Soft Heart: Regular rate, Normal S1, Normal S2 Extremities: No edema General: Alert HEENT: Atraumatic Lungs: Clear to auscultation Neuro: Normal speech Psych/Mental Status: Mental status NL Skin: No rashes, Other (wound vac coccyx wound) Assessment Assessment 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 s/p debridement and wound vac 2. Leukocytosis.resolved 3. Anemia of chronic disease. 4. Osteoarthritis of the knees. 5. Debility. 6. Diabetes mellitus type 2. 7. Hyperlipidemia. 8. Chronic urinary retention with benign prostatic hypertrophy with Causey Medical Problems: (1) Decubital ulcer Status: Acute (2) SIRS (systemic inflammatory response syndrome) Status: Acute Plan Plan of Care iv vancomycin and meropenem wound care and wound vac PT lab [facility] Comment Review of Relevant I have reviewed the following items dimitrios (where applicable) has been applied. Labs Laboratory Tests Test 04/05/19 11:40 04/05/19 16:41 04/05/19 21:16 04/06/19 07:07 Glucose (Fingerstick) 145 mg/dL (70-99) 127 mg/dL (70-99) 142 mg/dL (70-99) 126 mg/dL (70-99) Test 04/06/19 11:35 04/06/19 13:58 04/06/19 16:18 04/06/19 20:42 Glucose (Fingerstick) 200 mg/dL (70-99) 125 mg/dL (70-99) 95 mg/dL (70-99) Vancomycin Level Trough 18.4 mcg/mL (10.0-20.0) Vancomycin Last Dose Date Unk Vancomycin Last Dose Time Unk Test 04/07/19 06:10 04/07/19 07:38 Creatinine 0.6 mg/dL (0.7-1.3) Estimated GFR (Cockcroft-Gault) 157.7 Glucose (Fingerstick) 113 mg/dL (70-99) Laboratory Tests Test 04/06/19 11:35 04/06/19 13:58 04/06/19 16:18 04/06/19 20:42 Glucose (Fingerstick) 200 mg/dL (70-99) 125 mg/dL (70-99) 95 mg/dL (70-99) Vancomycin Level Trough 18.4 mcg/mL (10.0-20.0) Vancomycin Last Dose Date Unk Vancomycin Last Dose Time Unk Test 04/07/19 06:10 04/07/19 07:38 Creatinine 0.6 mg/dL (0.7-1.3) Estimated GFR (Cockcroft-Gault) 157.7 Glucose (Fingerstick) 113 mg/dL (70-99) Microbiology 04/02/19 Blood Culture - Final, Complete NO GROWTH AFTER 5 DAYS Medications Current Medications Acetaminophen/ Hydrocodone Bitart (Lortab 5/325) 1 tab 1X ONCE PO Last administered on 04/02/19at 00:23; Start 04/02/19 at 00:00; Stop 04/02/19 at 00:01; Status DC Vancomycin HCl (Vanco Per Pharmacy) 1 each PRN DAILY PRN MC SEE COMMENTS Last administered on 04/06/19at 15:04; Start 04/01/19 at 23:45 Vancomycin HCl 1.5 gm/Sodium Chloride 500 ml @ 250 mls/hr 1X ONCE IV Last administered on 04/02/19at 00:42; Start 04/02/19 at 00:30; Stop 04/02/19 at 02:29; Status DC Sodium Chloride 1,000 ml @ 1,000 mls/hr 1X ONCE IV Last administered on 04/02/19at 01:42; Start 04/02/19 at 01:30; Stop 04/02/19 at 02:29; Status DC Sodium Chloride 1,000 ml @ 1,000 mls/hr 1X ONCE IV Last administered on 04/02/19at 01:42; Start 04/02/19 at 01:30; Stop 04/02/19 at 02:29; Status DC Meropenem 1 gm/ Sodium Chloride 100 ml @ 200 mls/hr Q8HRS IV Last administered on 04/07/19at 06:08; Start 04/02/19 at 02:00 Ondansetron HCl (Zofran) 4 mg PRN Q8HRS PRN IV NAUSEA/VOMITING 1ST CHOICE; Start 04/02/19 at 01:45; Stop 04/03/19 at 01:44; Status DC Fentanyl Citrate (Fentanyl 2ml Vial) 50 mcg PRN Q1HR PRN IV SEVERE PAIN 7-10; Start 04/02/19 at 01:45; Stop 04/03/19 at 01:44; Status DC Acetaminophen (Tylenol) 650 mg PRN Q4HRS PRN PO FEVER; Start 04/02/19 at 01:45; Stop 04/02/19 at 13:50; Status DC Vancomycin HCl 1 gm/Sodium Chloride 250 ml @ 250 mls/hr Q18H IV Last administered on 04/03/19at 14:25; Start 04/02/19 at 19:00; Stop 04/03/19 at 15:30; Status DC Vancomycin HCl (Vancomycin Trough Level) 1 each 1X ONCE MC Last administered on 04/03/19at 12:30; Start 04/03/19 at 12:30; Stop 04/03/19 at 12:31; Status DC Atorvastatin Calcium (Lipitor) 80 mg QHS PO Last administered on 04/06/19at 21:21; Start 04/02/19 at 21:00 Gabapentin (Neurontin) 300 mg TID PO Last administered on 04/07/19at 09:26; Start 04/02/19 at 14:00 Acetaminophen (Tylenol) 650 mg PRN Q6HRS PRN PO MILD PAIN / TEMP; Start 04/02/19 at 13:45 Acetaminophen/ Hydrocodone Bitart (Lortab 5/325) 1 tab PRN Q4HRS PRN PO MODERATE PAIN Last administered on 04/04/19at 14:55; Start 04/02/19 at 13:45 Metformin HCl (Glucophage) 500 mg DAILY PO Last administered on 04/07/19at 09:26; Start 04/03/19 at 09:00 Multivitamins (Thera M Plus) 1 tab DAILY PO Last administered on 04/07/19at 09:26; Start 04/03/19 at 09:00 Tamsulosin HCl (Flomax) 0.4 mg QHS PO Last administered on 04/06/19at 21:21; Start 04/02/19 at 21:00 Pantoprazole Sodium (Protonix) 40 mg DAILYAC PO Last administered on 04/07/19at 09:26; Start 04/03/19 at 07:30 Polyethylene Glycol (miraLAX PACKET) 17 gm DAILY PO ; Start 04/03/19 at 09:00; Stop 04/06/19 at 10:10; Status DC Senna/Docusate Sodium (Senna Plus) 1 tab PRN BID PRN PO CONSTIPATION; Start 04/02/19 at 13:45; Stop 04/06/19 at 10:10; Status DC Insulin Human Lispro (HumaLOG) 0-6 UNITS TIDWMEALS SQ Last administered on 04/06/19at 13:05; Start 04/02/19 at 17:00 Diclofenac Sodium (Voltaren) 1 thierry TID TP Last administered on 04/07/19at 09:27; Start 04/02/19 at 14:00 Lactobacillus Rhamnosus (Culturelle) 1 cap BID PO Last administered on 04/07/19at 09:27; Start 04/02/19 at 21:00 Vancomycin HCl (Vanco Per Pharmacy) 1 each PRN DAILY PRN MC SEE COMMENTS; Start 04/02/19 at 14:00; Status UNV Cyclobenzaprine HCl (Flexeril) 5 mg PRN Q8HRS PRN PO MUSCLE SPASMS Last administered on 04/05/19at 01:48; Start 04/02/19 at 19:45 Alteplase, Recombinant (Cathflo) 2 mg 1X ONCE INT CAT ; Start 04/03/19 at 13:15; Stop 04/03/19 at 13:22; Status DC Sodium Chloride (Normal Saline Flush) 10 ml QSHIFT PRN IV SEE COMMENTS; Start 04/03/19 at 13:15; Stop 04/03/19 at 13:22; Status DC Alteplase, Recombinant (Cathflo For Central Catheter Clearance) 1 mg 1X ONCE INT CAT ; Start 04/03/19 at 13:30; Stop 04/03/19 at 13:31; Status DC Sodium Chloride (Normal Saline Flush) 10 ml QSHIFT PRN IV SEE COMMENTS; Start 04/03/19 at 13:30 Vancomycin HCl 1 gm/Sodium Chloride 250 ml @ 250 mls/hr Q12H IV Last administered on 04/07/19at 02:29; Start 04/04/19 at 02:00 Methylprednisolone Acetate (DEPO-Medrol 40MG VIAL) 40 mg 1X ONCE INJ ; Start 04/04/19 at 09:30; Stop 04/04/19 at 09:31; Status DC Methylprednisolone Acetate (DEPO-Medrol 40MG VIAL) 40 mg 1X ONCE INJ ; Start 04/04/19 at 09:30; Stop 04/04/19 at 09:31; Status DC Bupivacaine HCl (Sensorcaine-Mpf 0.25%) 10 ml 1X ONCE IJ ; Start 04/04/19 at 09:30; Stop 04/04/19 at 09:31; Status DC Gadoterate Meglumine (Dotarem) 12.8 ml 1X ONCE IVP Last administered on 04/04/19at 12:47; Start 04/04/19 at 12:30; Stop 04/04/19 at 12:39; Status DC Vancomycin HCl (Vancomycin Trough Level) 1 each 1X ONCE MC ; Start 04/06/19 at 13:30; Stop 04/06/19 at 13:31; Status DC Senna/Docusate Sodium (Senna Plus) 1 tab BID PO Last administered on 04/06/19at 21:21; Start 04/06/19 at 10:15 Bupivacaine HCl (Sensorcaine-Mpf 0.25%) 10 ml STK-MED ONCE .ROUTE ; Start 04/04/19 at 09:30; Stop 04/07/19 at 10:48; Status DC Methylprednisolone Acetate (DEPO-Medrol 40MG VIAL) 40 mg STK-MED ONCE .ROUTE ; Start 04/04/19 at 09:30; Stop 04/07/19 at 10:48; Status DC Methylprednisolone Acetate (DEPO-Medrol 40MG VIAL) 40 mg STK-MED ONCE .ROUTE ; Start 04/04/19 at 09:30; Stop 04/07/19 at 10:48; Status DC Active Scripts Active Miralax (Polyethylene Glycol 3350) 17 Gm Powd.pack 1 Packet PO DAILY dissolve in water Coumadin (Warfarin Sodium) 5 Mg Tablet 5 Mg PO DAILY Pantoprazole Sodium (Pantoprazole Sodium) 40 Mg Tablet.dr 40 Mg PO DAILYAC Senna-Time S Tablet (Sennosides/Docusate Sodium) 1 Each Tablet 2 Tab PO DAILY Tylenol (Acetaminophen) 325 Mg Tablet 650 Mg PO PRN Q6HRS PRN Hydrocodone-Apap 5-325 (Hydrocodone Bit/Acetaminophen) 1 Tab Tablet 1 Tab PO PRN Q4HRS PRN Feosol (Ferrous Sulfate) 325 Mg Tablet 325 Mg PO BID Levaquin (Levofloxacin) 500 Mg Tablet 500 Mg PO DAILY06 9 Days Reported Omeprazole 20 Mg Capsule.dr 20 Mg PO BID Cyclobenzaprine Hcl 5 Mg Tablet 5 Mg PO TID Centrum Silver Men Tablet (Multivit-Min/FA/Lycopen/Lutein) 1 Each Tablet 1 Each PO DAILY Atorvastatin Calcium 80 Mg Tablet 80 Mg PO HS Metformin Hcl 500 Mg Tablet 500 Mg PO DAILY Gabapentin (Gabapentin) 300 Mg Capsule 300 Mg PO TID Tamsulosin Hcl 0.4 Mg Cap.er.24h 1 Cap PO DAILY Vitals/I & O Vital Sign - Last 24 Hours 04/06/19 04/06/19 04/06/19 04/06/19 11:00 15:00 19:42 20:00 Temp 98.1 97.5 99.4 98.1 97.5 99.4 Pulse 111 103 94 Resp 24 24 20 B/P (MAP) 142/81 (101) 144/87 (106) 131/78 (95) Pulse Ox 100 100 100 O2 Delivery Room Air Room Air Room Air Room Air 04/06/19 04/07/19 04/07/19 04/07/19 23:46 03:02 07:00 08:00 Temp 99.1 98.6 97.8 99.1 98.6 97.8 Pulse 93 88 85 Resp 20 20 16 B/P (MAP) 95/61 (72) 106/58 (74) 113/65 (81) Pulse Ox 99 99 100 O2 Delivery Room Air Room Air Room Air Room Air Intake and Output 04/06/19 04/06/19 04/07/19 15:00 23:00 07:00 Intake Total 700 ml 400 ml Output Total 1000 ml 500 ml Balance 700 ml -600 ml -500 ml RAVINDER BUSTAMANTE MD Apr 07, 2019 10:59
[2019-04-07 11:00] VITALS: BP 111/84
--- NOTE | 2019-04-07 11:12 | SNU/HH DC ---
DISCHARGE ORDERS DISCHARGE INFORMATION: DISCHARGE DATE: Apr 07, 2019 FINAL DIAGNOSIS Problemscoccyx osteromyelitis and stage 2 coccyx wound Medical Problems: (1) Decubital ulcer Status: Acute (2) SIRS (systemic inflammatory response syndrome) Status: Acute CONDITION ON DISCHARGE: Stable CODE STATUS: Code Status: Full LTAC: ADMIT TO LTAC: Yes POST DISCHARGE ORDERS: ACTIVITY ORDERS: Activity as tolerated WEIGHT BEARING STATUS: As tolerated DIET AFTER DISCHARGE: ADA FOLLOW-UP: LAB ORDERS FOR FOLLOW-UP: cbc bmp PT/INR albumin 02/09 TREATMENT/EQUIPMENT ORDERS: ADAPTIVE EQUIPMENT NEEDED: [facility] Physical Therapy For: Evalulation/Treatment Occupational Therapy For: Evaluation/Treatment DISCHARGE MEDICATIONS: Home Meds Active Scripts Polyethylene Glycol 3350 (MIRALAX) 17 Gm Powd.pack, 1 PACKET PO DAILY for constipation, #30 PACKET 0 Refills dissolve in water Prov:RAVINDER BUSTAMANTE MD 02/08/19 Warfarin Sodium (COUMADIN) 5 Mg Tablet, 5 MG PO DAILY for dvt prophylaxis, #30 TAB Prov:RAVINDER BUSTAMANTE MD 02/08/19 Pantoprazole Sodium (PANTOPRAZOLE SODIUM ) 40 Mg Tablet.dr, 40 MG PO DAILYAC for gerd, #30 TAB.SR Prov:RAVINDER BUSTAMANTE MD 02/08/19 Sennosides/Docusate Sodium (SENNA-TIME S TABLET) 1 Each Tablet, 2 TAB PO DAILY for constipation, #60 TAB Prov:RAVINDER BUSTAMANTE MD 02/08/19 Acetaminophen (TYLENOL) 325 Mg Tablet, 650 MG PO PRN Q6HRS PRN for MILD PAIN 1- 3, #30 TAB Prov:RAVINDER BUSTAMANTE MD 02/08/19 Hydrocodone Bit/Acetaminophen (HYDROCODONE-APAP 5-325 ) 1 Tab Tablet, 1 TAB PO PRN Q4HRS PRN for MODERATE PAIN, #30 TAB Prov:RAVINDER BUSTAMANTE MD 02/08/19 Ferrous Sulfate (FEOSOL) 325 Mg Tablet, 325 MG PO BID for acute blood loss anemia, #60 TAB Prov:RAVINDER BUSTAMANTE MD 02/08/19 Levofloxacin (LEVAQUIN) 500 Mg Tablet, 500 MG PO DAILY06 for pyuria for 9 Days, #9 TAB Prov:RAVINDER BUSTAMANTE MD 02/08/19 Reported Medications Omeprazole (OMEPRAZOLE) 20 Mg Capsule.dr, 20 MG PO BID for stomach, CAP 1/4/20 Cyclobenzaprine Hcl (CYCLOBENZAPRINE HCL) 5 Mg Tablet, 5 MG PO TID for Muscle Spasms, TAB 04/02/19 Multivit-Min/FA/Lycopen/Lutein (Centrum Silver Men Tablet) 1 Each Tablet, 1 EACH PO DAILY for supplement, TAB 02/04/19 Atorvastatin Calcium (ATORVASTATIN CALCIUM) 80 Mg Tablet, 80 MG PO HS for FOR CHOLESTEROL, #30 TAB 0 Refills 11/09/17 Metformin Hcl (METFORMIN HCL) 500 Mg Tablet, 500 MG PO DAILY for ANTI-DIABETIC, TAB 0 Refills 11/09/17 Gabapentin (GABAPENTIN ) 300 Mg Capsule, 300 MG PO TID, CAP 11/09/17 Tamsulosin Hcl (TAMSULOSIN HCL) 0.4 Mg Cap.er.24h, 1 CAP PO DAILY, #30 CAP 5 Refills 11/09/17 RAVINDER BUSTAMANTE MD Apr 07, 2019 11:12
[2019-04-07] MEDS ORDERED: INSU100I11 SQ (11:17)
[2019-04-07] MEDS ORDERED: DICL100G18 TP (11:17)
[2019-04-07] MEDS ORDERED: LACT1CAP19 PO (11:17)
[2019-04-07] MEDS ORDERED: VANC1PLA9 IV (11:17)
[2019-04-07] MEDS ORDERED: MERO1VIA15 IV (11:17)
[2019-04-07] MEDS ORDERED: PANT40TA77 PO (11:17)
[2019-04-07] MEDS ORDERED: CYCL10TA2 PO (11:17)
--- NOTE | 2019-04-07 11:22 | PDOC ---
Provider Note Provider Note discharge summary dictated # [id number] RAVINDER BUSTAMANTE MD Apr 07, 2019 11:22
--- NOTE | 2019-04-07 11:52 | DS ---
DATE OF DISCHARGE: 04/07/2019 CONSULTANTS: Dr. Joshua Ralph, Dr. Rodríguez, Dr. Dawson. PROCEDURE: Placement of a PICC line and wound debridement. FINAL DIAGNOSES: 1. Grade 4 coccyx wound with osteomyelitis. 2. Anemia of chronic disease. 3. Osteoarthritis of the knees. 4. Debility. 5. Diabetes mellitus type 2. 6. Hyperlipidemia. 7. Chronic urinary retention with benign prostatic hypertrophy with a Causey catheter in place. HOSPITAL COURSE: The patient is a 79-year-old -[place] male with history of diabetes mellitus type 2, hyperlipidemia, osteoarthritis, anemia of chronic disease, chronic urinary retention, benign prostatic hypertrophy with chronic Causey catheter in place and a recent right hip hemiarthroplasty in 01/2019 and that was for displaced right femoral neck fracture secondary to mechanical fall. He went to a physical therapy rehab facility and then went home and had home health. He had significant mobility deficits. He was noted to have a coccyx wound, which actually worsened. Foul odor was noted and the patient was sent to the [facility] Emergency Room where he was noted to have a deep wound, stage 4 in the coccyx-sacral area, started on IV vancomycin and meropenem and had a leukocytosis with a white count of 14.4. He had an MRI, which showed osteomyelitis of the coccyx. Seen in consultation by Dr. Joshua Ralph for Infectious Disease, Dr. Dawson who debrided the wound, and Dr. Rodríguez for physical rehabilitation consultation, received physical therapy while he was here. He had a wound VAC applied. It is anticipated that he will be dismissed today to [facility] and he will be dismissed on vancomycin 1 gram IV every 12 hours, meropenem 1 gram IV every 8 hours, Tylenol 650 mg every 6 hours p.r.n., atorvastatin 80 mg at bedtime, gabapentin 300 mg t.i.d., Hosford 5/325 one every 4 hours p.r.n., metformin 500 mg every day, multiple vitamin every day, Protonix 40 mg every day, MiraLax 17 grams every day, Senokot 2 tablets every day, tamsulosin 0.4 mg every day, lactobacilli 1 b.i.d. also, metformin 500 mg once a day, cyclobenzaprine 5 mg t.i.d. p.r.n. RAVINDER BUSTAMANTE MD DR: Jarret JOB#: [id number] / [id number]
--- NOTE | 2019-04-07 14:52 | NUR ---
SS following up with discharge planning. Discharge orders received for [facility], ; fax [phone]. SS phoned and faxed discharge orders to [facility]. [facility] notified SS that bed will be available on 04/08/2019 and pt can discharge tomorrow. SS will continue to follow for discharge planning.
[2019-04-07 15:00] VITALS: BP 146/70
[2019-04-07] MEDS: VANCOMYCIN PER PHARMACY MC PRN (16:05)
[2019-04-07 19:00] VITALS: BP 111/56
[2019-04-07] MEDS: TAMSULOSIN 0.4 MG CAP.ER.24H. PO SCH (22:30)
[2019-04-07] MEDS: ATORVASTATIN CALCIUM 40 MG TABLET. PO SCH (22:31)
[2019-04-07 23:00] VITALS: BP 122/67
[2019-04-08] MEDS: VANCOMYCIN 1 GM in IV NORMAL SALINE 250ML 250 ML IV SCH (02:29)
[2019-04-08 03:00] VITALS: BP 103/52
[2019-04-08] MEDS: MEROPENEM 1 GM in IV NORMAL SALINE 100ML 100 ML IV SCH (06:28)
[2019-04-08 06:51] LABS: BASO # 0.1 x10^3/uL (0.0-0.2); BASO % 1 % (0-3); EOS # 0.4 x10^3/uL (0.0-0.7); EOS % 6 % (0-3); HEMATOCRIT 29.1 % (39.0-53.0); HEMOGLOBIN 9.8 g/dL (13.0-17.5); LYMPH # 1.7 x10^3/uL (1.0-4.8); LYMPH % 27 % (24-48); MEAN CORPUSCULAR HEMOGLOBIN 29 pg (25-35); MEAN CORPUSCULAR HGB CONC 34 g/dL (31-37); MEAN CORPUSCULAR VOLUME 86 fL (79-100); MONO # 0.6 x10^3/uL (0.0-1.1); MONO % 9 % (0-9); NEUT # 3.4 x10^3/uL (1.8-7.7); NEUT % 56 % (31-73); PLATELET COUNT 357 x10^3/uL (140-400); RED CELL DISTRIBUTION WIDTH 14.9 % (11.5-14.5); WHITE BLOOD COUNT 6.1 x10^3/uL (4.0-11.0)
[2019-04-08 07:00] VITALS: BP 100/51
[2019-04-08 07:27] LABS: CALCIUM 8.6 mg/dL (8.5-10.1); CREATININE 0.6 mg/dL (0.7-1.3); GFR 157.7; POTASSIUM 3.7 mmol/L (3.5-5.1)
[2019-04-08] MEDS: INSULIN LISPRO 300 UNITS/3 ML VIAL. SQ SCH (08:00)
--- NOTE | 2019-04-08 08:43 | NUR ---
SS following up with discharge planning. Bed available at [facility]. Discharge orders phoned and faxed to [facility], ; fax [phone]. Pt will discharge today and go to [facility] at 1030 via [facility] ambulance. Pt and pt's RN notified.
[2019-04-08] MEDS: MULTIVITAMIN with MINERAL TABLET. PO SCH (09:08)
[2019-04-08] MEDS: GABAPENTIN 300 MG CAPSULE. PO SCH (09:08)
[2019-04-08] MEDS: LACTOBACILLUS RHAMNOSUS GG 1 CAPSULE. PO SCH (09:08)
[2019-04-08] MEDS: DICLOFENAC SODIUM 1% TOPICAL GEL 100GM TUBE. TP SCH (09:08)
[2019-04-08] MEDS: metFORMIN 500 MG TABLET PO SCH (09:08)
[2019-04-08] MEDS: PANTOPRAZOLE 40 MG TABLET.DR. PO SCH (09:08)
[2019-04-08] MEDS: HYDROcodone/APAP 5/325MG 1 TAB TABLET PO PRN (09:10)
[2019-04-08] MEDS: SENNOSIDES/DOCUSATE 8.6/50MG TABLET. PO SCH (09:14)
--- NOTE | 2019-04-08 09:31 | PDOC ---
Infectious Disease Note Subjective Subjective feeling good ROS ROS no n/v/d/sob Vital Sign Vital Signs Vital Signs Date Time Temp Pulse Resp B/P (MAP) Pulse Ox O2 Delivery O2 Flow Rate FiO2 04/08/19 09:10 100 Room Air 04/08/19 07:00 98.0 84 18 100/51 (67) 98.0 Physical Exam PHYSICAL EXAM GENERAL: Lying down, alert relaxed appearance HEENT: Pupils equally round. Oropharynx pink, moist. dentures. NECK: Supple. LUNGS: Clear to auscultation. HEART: S1, S2. ABDOMEN: Soft, nontender with bowel sounds present. GENITOURINARY: Causey in place. EXTREMITIES: No gross edema or cyanosis. Both knees are tender without redness or swelling. SKIN: Warm to touch without signs of rash. Sacrococcygeal wound deep close to bone with malodor and necrotic tissue. Right heel eschar. NEUROLOGIC: Alert and oriented x 3. Labs Lab Laboratory Tests Test 04/07/19 11:21 04/07/19 16:45 04/07/19 21:06 04/08/19 06:45 Glucose (Fingerstick) 136 mg/dL (70-99) 125 mg/dL (70-99) 152 mg/dL (70-99) White Blood Count 6.1 x10^3/uL (4.0-11.0) Red Blood Count 3.40 x10^6/uL (4.30-5.70) Hemoglobin 9.8 g/dL (13.0-17.5) Hematocrit 29.1 % (39.0-53.0) Mean Corpuscular Volume 86 fL (79-100) Mean Corpuscular Hemoglobin 29 pg (25-35) Mean Corpuscular Hemoglobin Concent 34 g/dL (31-37) Red Cell Distribution Width 14.9 % (11.5-14.5) Platelet Count 357 x10^3/uL (140-400) Neutrophils (%) (Auto) 56 % (31-73) Lymphocytes (%) (Auto) 27 % (24-48) Monocytes (%) (Auto) 9 % (0-9) Eosinophils (%) (Auto) 6 % (0-3) Basophils (%) (Auto) 1 % (0-3) Neutrophils # (Auto) 3.4 x10^3/uL (1.8-7.7) Lymphocytes # (Auto) 1.7 x10^3/uL (1.0-4.8) Monocytes # (Auto) 0.6 x10^3/uL (0.0-1.1) Eosinophils # (Auto) 0.4 x10^3/uL (0.0-0.7) Basophils # (Auto) 0.1 x10^3/uL (0.0-0.2) Sodium Level 137 mmol/L (136-145) Potassium Level 3.7 mmol/L (3.5-5.1) Chloride Level 102 mmol/L (98-107) Carbon Dioxide Level 34 mmol/L (21-32) Anion Gap 1 (6-14) Blood Urea Nitrogen 22 mg/dL (8-26) Creatinine 0.6 mg/dL (0.7-1.3) Estimated GFR (Cockcroft-Gault) 157.7 Glucose Level 151 mg/dL (70-99) Calcium Level 8.6 mg/dL (8.5-10.1) Test 04/08/19 08:08 Glucose (Fingerstick) 122 mg/dL (70-99) Micro Microbiology 04/02/19 Blood Culture - Preliminary, Resulted NO GROWTH AFTER 2 DAYS Objective Assessment Sacrococcygeal pressure ulcer, deep. ESR 36 Leukocytosis - improved PCN allergy - reaction unknown Right heel ulcer, eshar Transaminitis Urinary retention s/p Causey s/p right hip arthroplasty, 02/05/19 Diabetes PVD OA Plan Plan of Care vanc and Merrem Trough 8.1 Monitor renal function closely f/u cultures Probiotics Wound care team consulted Offloading MRI + with osteo pICC D/w nursing Select transfer ZEINA LARA MD Apr 08, 2019 09:31
--- NOTE | 2019-04-08 10:10 | PDOC ---
PROGRESS NOTES Subjective Subjective feels better. lab reviewed. 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 s/p debridement and wound vac 2. Leukocytosis.resolved 3. Anemia of chronic disease. 4. Osteoarthritis of the knees. 5. Debility. 6. Diabetes mellitus type 2. 7. Hyperlipidemia. 8. Chronic urinary retention with benign prostatic hypertrophy with Causey Medical Problems: (1) Decubital ulcer Status: Acute (2) SIRS (systemic inflammatory response syndrome) Status: Acute Plan Plan of Care dismiss today to LT[facility] Comment Review of Relevant I have reviewed the following items dimitrios (where applicable) has been applied. Labs Laboratory Tests Test 04/06/19 11:35 04/06/19 13:58 04/06/19 16:18 04/06/19 20:42 Glucose (Fingerstick) 200 mg/dL (70-99) 125 mg/dL (70-99) 95 mg/dL (70-99) Vancomycin Level Trough 18.4 mcg/mL (10.0-20.0) Vancomycin Last Dose Date Unk Vancomycin Last Dose Time Unk Test 04/07/19 06:10 04/07/19 07:38 04/07/19 11:21 04/07/19 16:45 Creatinine 0.6 mg/dL (0.7-1.3) Estimated GFR (Cockcroft-Gault) 157.7 Glucose (Fingerstick) 113 mg/dL (70-99) 136 mg/dL (70-99) 125 mg/dL (70-99) Test 04/07/19 21:06 04/08/19 06:45 04/08/19 08:08 Glucose (Fingerstick) 152 mg/dL (70-99) 122 mg/dL (70-99) White Blood Count 6.1 x10^3/uL (4.0-11.0) Red Blood Count 3.40 x10^6/uL (4.30-5.70) Hemoglobin 9.8 g/dL (13.0-17.5) Hematocrit 29.1 % (39.0-53.0) Mean Corpuscular Volume 86 fL (79-100) Mean Corpuscular Hemoglobin 29 pg (25-35) Mean Corpuscular Hemoglobin Concent 34 g/dL (31-37) Red Cell Distribution Width 14.9 % (11.5-14.5) Platelet Count 357 x10^3/uL (140-400) Neutrophils (%) (Auto) 56 % (31-73) Lymphocytes (%) (Auto) 27 % (24-48) Monocytes (%) (Auto) 9 % (0-9) Eosinophils (%) (Auto) 6 % (0-3) Basophils (%) (Auto) 1 % (0-3) Neutrophils # (Auto) 3.4 x10^3/uL (1.8-7.7) Lymphocytes # (Auto) 1.7 x10^3/uL (1.0-4.8) Monocytes # (Auto) 0.6 x10^3/uL (0.0-1.1) Eosinophils # (Auto) 0.4 x10^3/uL (0.0-0.7) Basophils # (Auto) 0.1 x10^3/uL (0.0-0.2) Sodium Level 137 mmol/L (136-145) Potassium Level 3.7 mmol/L (3.5-5.1) Chloride Level 102 mmol/L (98-107) Carbon Dioxide Level 34 mmol/L (21-32) Anion Gap 1 (6-14) Blood Urea Nitrogen 22 mg/dL (8-26) Creatinine 0.6 mg/dL (0.7-1.3) Estimated GFR (Cockcroft-Gault) 157.7 Glucose Level 151 mg/dL (70-99) Calcium Level 8.6 mg/dL (8.5-10.1) Laboratory Tests Test 1/9/20 11:21 04/07/19 16:45 04/07/19 21:06 04/08/19 06:45 Glucose (Fingerstick) 136 mg/dL (70-99) 125 mg/dL (70-99) 152 mg/dL (70-99) White Blood Count 6.1 x10^3/uL (4.0-11.0) Red Blood Count 3.40 x10^6/uL (4.30-5.70) Hemoglobin 9.8 g/dL (13.0-17.5) Hematocrit 29.1 % (39.0-53.0) Mean Corpuscular Volume 86 fL (79-100) Mean Corpuscular Hemoglobin 29 pg (25-35) Mean Corpuscular Hemoglobin Concent 34 g/dL (31-37) Red Cell Distribution Width 14.9 % (11.5-14.5) Platelet Count 357 x10^3/uL (140-400) Neutrophils (%) (Auto) 56 % (31-73) Lymphocytes (%) (Auto) 27 % (24-48) Monocytes (%) (Auto) 9 % (0-9) Eosinophils (%) (Auto) 6 % (0-3) Basophils (%) (Auto) 1 % (0-3) Neutrophils # (Auto) 3.4 x10^3/uL (1.8-7.7) Lymphocytes # (Auto) 1.7 x10^3/uL (1.0-4.8) Monocytes # (Auto) 0.6 x10^3/uL (0.0-1.1) Eosinophils # (Auto) 0.4 x10^3/uL (0.0-0.7) Basophils # (Auto) 0.1 x10^3/uL (0.0-0.2) Sodium Level 137 mmol/L (136-145) Potassium Level 3.7 mmol/L (3.5-5.1) Chloride Level 102 mmol/L (98-107) Carbon Dioxide Level 34 mmol/L (21-32) Anion Gap 1 (6-14) Blood Urea Nitrogen 22 mg/dL (8-26) Creatinine 0.6 mg/dL (0.7-1.3) Estimated GFR (Cockcroft-Gault) 157.7 Glucose Level 151 mg/dL (70-99) Calcium Level 8.6 mg/dL (8.5-10.1) Test 04/08/19 08:08 Glucose (Fingerstick) 122 mg/dL (70-99) Microbiology 04/02/19 Blood Culture - Final, Complete NO GROWTH AFTER 5 DAYS Medications Current Medications Acetaminophen/ Hydrocodone Bitart (Lortab 5/325) 1 tab 1X ONCE PO Last administered on 04/02/19at 00:23; Start 04/02/19 at 00:00; Stop 04/02/19 at 00:01; Status DC Vancomycin HCl (Vanco Per Pharmacy) 1 each PRN DAILY PRN MC SEE COMMENTS Last administered on 04/07/19at 16:05; Start 04/01/19 at 23:45 Vancomycin HCl 1.5 gm/Sodium Chloride 500 ml @ 250 mls/hr 1X ONCE IV Last administered on 04/02/19at 00:42; Start 04/02/19 at 00:30; Stop 04/02/19 at 02:29; Status DC Sodium Chloride 1,000 ml @ 1,000 mls/hr 1X ONCE IV Last administered on 04/02/19at 01:42; Start 04/02/19 at 01:30; Stop 04/02/19 at 02:29; Status DC Sodium Chloride 1,000 ml @ 1,000 mls/hr 1X ONCE IV Last administered on 04/02/19at 01:42; Start 04/02/19 at 01:30; Stop 04/02/19 at 02:29; Status DC Meropenem 1 gm/ Sodium Chloride 100 ml @ 200 mls/hr Q8HRS IV Last administered on 04/08/19at 06:28; Start 04/02/19 at 02:00 Ondansetron HCl (Zofran) 4 mg PRN Q8HRS PRN IV NAUSEA/VOMITING 1ST CHOICE; Start 04/02/19 at 01:45; Stop 04/03/19 at 01:44; Status DC Fentanyl Citrate (Fentanyl 2ml Vial) 50 mcg PRN Q1HR PRN IV SEVERE PAIN 7-10; Start 04/02/19 at 01:45; Stop 04/03/19 at 01:44; Status DC Acetaminophen (Tylenol) 650 mg PRN Q4HRS PRN PO FEVER; Start 04/02/19 at 01:45; Stop 04/02/19 at 13:50; Status DC Vancomycin HCl 1 gm/Sodium Chloride 250 ml @ 250 mls/hr Q18H IV Last administered on 04/03/19at 14:25; Start 04/02/19 at 19:00; Stop 04/03/19 at 15:30; Status DC Vancomycin HCl (Vancomycin Trough Level) 1 each 1X ONCE MC Last administered on 04/03/19at 12:30; Start 04/03/19 at 12:30; Stop 04/03/19 at 12:31; Status DC Atorvastatin Calcium (Lipitor) 80 mg QHS PO Last administered on 04/07/19at 22:31; Start 04/02/19 at 21:00 Gabapentin (Neurontin) 300 mg TID PO Last administered on 04/08/19at 09:08; Start 04/02/19 at 14:00 Acetaminophen (Tylenol) 650 mg PRN Q6HRS PRN PO MILD PAIN / TEMP; Start 04/02/19 at 13:45 Acetaminophen/ Hydrocodone Bitart (Lortab 5/325) 1 tab PRN Q4HRS PRN PO MODERATE PAIN Last administered on 04/08/19at 09:10; Start 04/02/19 at 13:45 Metformin HCl (Glucophage) 500 mg DAILY PO Last administered on 04/08/19at 09:08; Start 04/03/19 at 09:00 Multivitamins (Thera M Plus) 1 tab DAILY PO Last administered on 04/08/19at 09:08; Start 04/03/19 at 09:00 Tamsulosin HCl (Flomax) 0.4 mg QHS PO Last administered on 04/07/19at 22:30; Start 04/02/19 at 21:00 Pantoprazole Sodium (Protonix) 40 mg DAILYAC PO Last administered on 04/08/19at 09:08; Start 04/03/19 at 07:30 Polyethylene Glycol (miraLAX PACKET) 17 gm DAILY PO ; Start 04/03/19 at 09:00; Stop 04/06/19 at 10:10; Status DC Senna/Docusate Sodium (Senna Plus) 1 tab PRN BID PRN PO CONSTIPATION; Start 04/02/19 at 13:45; Stop 04/06/19 at 10:10; Status DC Insulin Human Lispro (HumaLOG) 0-6 UNITS TIDWMEALS SQ Last administered on 04/06/19at 13:05; Start 04/02/19 at 17:00 Diclofenac Sodium (Voltaren) 1 elizabeth TID TP Last administered on 04/08/19at 09:08; Start 04/02/19 at 14:00 Lactobacillus Rhamnosus (Culturelle) 1 cap BID PO Last administered on 04/08/19at 09:08; Start 04/02/19 at 21:00 Vancomycin HCl (Vanco Per Pharmacy) 1 each PRN DAILY PRN MC SEE COMMENTS; Start 04/02/19 at 14:00; Status UNV Cyclobenzaprine HCl (Flexeril) 5 mg PRN Q8HRS PRN PO MUSCLE SPASMS Last administered on 04/05/19at 01:48; Start 04/02/19 at 19:45 Alteplase, Recombinant (Cathflo) 2 mg 1X ONCE INT CAT ; Start 04/03/19 at 13:15; Stop 04/03/19 at 13:22; Status DC Sodium Chloride (Normal Saline Flush) 10 ml QSHIFT PRN IV SEE COMMENTS; Start 04/03/19 at 13:15; Stop 04/03/19 at 13:22; Status DC Alteplase, Recombinant (Cathflo For Central Catheter Clearance) 1 mg 1X ONCE INT CAT ; Start 04/03/19 at 13:30; Stop 04/03/19 at 13:31; Status DC Sodium Chloride (Normal Saline Flush) 10 ml QSHIFT PRN IV SEE COMMENTS; Start 04/03/19 at 13:30 Vancomycin HCl 1 gm/Sodium Chloride 250 ml @ 250 mls/hr Q12H IV Last administered on 04/08/19at 02:29; Start 04/04/19 at 02:00 Methylprednisolone Acetate (DEPO-Medrol 40MG VIAL) 40 mg 1X ONCE INJ ; Start 04/04/19 at 09:30; Stop 04/04/19 at 09:31; Status DC Methylprednisolone Acetate (DEPO-Medrol 40MG VIAL) 40 mg 1X ONCE INJ ; Start 04/04/19 at 09:30; Stop 04/04/19 at 09:31; Status DC Bupivacaine HCl (Sensorcaine-Mpf 0.25%) 10 ml 1X ONCE IJ ; Start 04/04/19 at 09:30; Stop 04/04/19 at 09:31; Status DC Gadoterate Meglumine (Dotarem) 12.8 ml 1X ONCE IVP Last administered on 04/04/19at 12:47; Start 04/04/19 at 12:30; Stop 04/04/19 at 12:39; Status DC Vancomycin HCl (Vancomycin Trough Level) 1 each 1X ONCE MC ; Start 04/06/19 at 13:30; Stop 04/06/19 at 13:31; Status DC Senna/Docusate Sodium (Senna Plus) 1 tab BID PO Last administered on 04/07/19at 22:31; Start 04/06/19 at 10:15 Bupivacaine HCl (Sensorcaine-Mpf 0.25%) 10 ml STK-MED ONCE .ROUTE ; Start 04/04/19 at 09:30; Stop 04/07/19 at 10:48; Status DC Methylprednisolone Acetate (DEPO-Medrol 40MG VIAL) 40 mg STK-MED ONCE .ROUTE ; Start 04/04/19 at 09:30; Stop 04/07/19 at 10:48; Status DC Methylprednisolone Acetate (DEPO-Medrol 40MG VIAL) 40 mg STK-MED ONCE .ROUTE ; Start 04/04/19 at 09:30; Stop 04/07/19 at 10:48; Status DC Active Scripts Active Vanco 1 Gram/250 ml-0.9% NaCl (Vancomycin/0.9 % Sod Chloride) 1 Gm/250 Ml Plast..bag 1 Gm IV Q12HR Meropenem 1 Gm Vial 1 Gm IV Q8HRS Humalog (Insulin Lispro) 100 Unit/1 Ml Insuln.pen 0 Units SQ TIDWMEALS Culturelle (Lactobacillus Rhamnosus Gg) 1 Each Cap.sprink 1 Cap PO BID Voltaren (Diclofenac Sodium) 100 Gm Gel..gram. 1 Elizabeth TP TID Cyclobenzaprine Hcl 10 Mg Tablet 5 Mg PO PRN Q8HRS PRN Pantoprazole Sodium (Pantoprazole Sodium) 40 Mg Tablet.dr 40 Mg PO DAILYAC Miralax (Polyethylene Glycol 3350) 17 Gm Powd.pack 1 Packet PO DAILY dissolve in water Senna-Time S Tablet (Sennosides/Docusate Sodium) 1 Each Tablet 2 Tab PO DAILY Tylenol (Acetaminophen) 325 Mg Tablet 650 Mg PO PRN Q6HRS PRN Hydrocodone-Apap 5-325 (Hydrocodone Bit/Acetaminophen) 1 Tab Tablet 1 Tab PO PRN Q4HRS PRN Reported Centrum Silver Men Tablet (Multivit-Min/FA/Lycopen/Lutein) 1 Each Tablet 1 Each PO DAILY Atorvastatin Calcium 80 Mg Tablet 80 Mg PO HS Metformin Hcl 500 Mg Tablet 500 Mg PO DAILY Gabapentin (Gabapentin) 300 Mg Capsule 300 Mg PO TID Tamsulosin Hcl 0.4 Mg Cap.er.24h 1 Cap PO DAILY Vitals/I & O Vital Sign - Last 24 Hours 04/07/19 04/07/19 04/07/19 04/07/19 11:00 15:00 19:00 20:00 Temp 98.7 98.0 99.0 98.7 98.0 99.0 Pulse 80 89 88 Resp 18 20 14 B/P (MAP) 111/84 (93) 146/70 (95) 111/56 (74) Pulse Ox 100 100 O2 Delivery Room Air Room Air Room Air Room Air 04/07/19 04/08/19 04/08/19 04/08/19 23:00 03:00 07:00 09:10 Temp 98.9 97.9 98.0 98.9 97.9 98.0 Pulse 85 89 84 Resp 16 18 B/P (MAP) 122/67 (85) 103/52 (69) 100/51 (67) Pulse Ox 99 100 100 100 O2 Delivery Room Air Room Air Room Air Room Air Intake and Output 04/07/19 04/07/19 04/08/19 15:00 23:00 07:00 Intake Total 350 ml 835 ml Output Total 1200 ml 750 ml 1050 ml Balance -1200 ml -400 ml -215 ml RAVINDER BUSTAMANTE MD Apr 08, 2019 10:10
--- NOTE | 2019-04-08 10:58 | NUR ---
Wound Care: Patient seen per wound care follow up regarding Stage IV pressure ulcer to coccyx and stage II pressure ulcer to right posterior heel. Patient scheduled to discharge to [facility] today. LAURO Mcmahon at bedside to assist with wound care for discharge. Dressings removed and wounds cleansed, assessed, measured, and pictured. Recommendations for Aquacel Ag packed to coccyx wound and cover with foam dressing. Orders to continue wound vac therapy to Coccyx at [facility]. Recommendations for xeroform gauze and Aquacel foam dressing to right posterior heel. Dressings applied and patient tolerated well. No other wounds noted upon complete head to toe assessment. patient repositioned and bilateral heels floated. Bed lowered and call light in reach. patient to follow up in the wound clinic after discharge from [facility].
--- NOTE | 2019-04-08 12:15 | NUR ---
Report was given at 1030 today to Rosalba RESTREPO at [facility]. PICC line in place and flushed on right upper arm. [facility] escorted via gurney to [facility]. Son was there at discharge. Telemonitor removed.
--- NOTE | 2019-04-08 12:34 | PDOC ---
PROGRESS NOTES Subjective Subjective When I saw him this AM,he denies any significant knee pain. Objective Objective Vital Signs Date Time Temp Pulse Resp B/P (MAP) Pulse Ox O2 Delivery O2 Flow Rate FiO2 04/08/19 10:30 100 Room Air 04/08/19 07:00 98.0 84 18 100/51 (67) 98.0 Intake and Output 04/08/19 07:00 Intake Total 1185 ml Output Total 3000 ml Balance -1815 ml Intake Oral 1185 ml Output Urine Total 3000 ml Physical Exam Physical Exam He is supine in bed and had wound vac in place to his sacral wound. He continues with significant weakness of his quadriceps and triceps muscles. He had crepitus on ROM of his knees with knee joint effusion and some edema od his feet. Assessment Assessment Problems Medical Problems: (1) Decubital ulcer Status: Acute (2) SIRS (systemic inflammatory response syndrome) Status: Acute Plan Plan of Care Agree with plans for SNF transfer when medically stable. Comment Review of Relevant I have reviewed the following items dimitrios (where applicable) has been applied. Labs Laboratory Tests Test 04/06/19 13:58 04/06/19 16:18 04/06/19 20:42 04/07/19 06:10 Vancomycin Level Trough 18.4 mcg/mL (10.0-20.0) Vancomycin Last Dose Date Unk Vancomycin Last Dose Time Unk Glucose (Fingerstick) 125 mg/dL (70-99) 95 mg/dL (70-99) Creatinine 0.6 mg/dL (0.7-1.3) Estimated GFR (Cockcroft-Gault) 157.7 Test 04/07/19 07:38 04/07/19 11:21 04/07/19 16:45 04/07/19 21:06 Glucose (Fingerstick) 113 mg/dL (70-99) 136 mg/dL (70-99) 125 mg/dL (70-99) 152 mg/dL (70-99) Test 04/08/19 06:45 04/08/19 08:08 White Blood Count 6.1 x10^3/uL (4.0-11.0) Red Blood Count 3.40 x10^6/uL (4.30-5.70) Hemoglobin 9.8 g/dL (13.0-17.5) Hematocrit 29.1 % (39.0-53.0) Mean Corpuscular Volume 86 fL (79-100) Mean Corpuscular Hemoglobin 29 pg (25-35) Mean Corpuscular Hemoglobin Concent 34 g/dL (31-37) Red Cell Distribution Width 14.9 % (11.5-14.5) Platelet Count 357 x10^3/uL (140-400) Neutrophils (%) (Auto) 56 % (31-73) Lymphocytes (%) (Auto) 27 % (24-48) Monocytes (%) (Auto) 9 % (0-9) Eosinophils (%) (Auto) 6 % (0-3) Basophils (%) (Auto) 1 % (0-3) Neutrophils # (Auto) 3.4 x10^3/uL (1.8-7.7) Lymphocytes # (Auto) 1.7 x10^3/uL (1.0-4.8) Monocytes # (Auto) 0.6 x10^3/uL (0.0-1.1) Eosinophils # (Auto) 0.4 x10^3/uL (0.0-0.7) Basophils # (Auto) 0.1 x10^3/uL (0.0-0.2) Sodium Level 137 mmol/L (136-145) Potassium Level 3.7 mmol/L (3.5-5.1) Chloride Level 102 mmol/L (98-107) Carbon Dioxide Level 34 mmol/L (21-32) Anion Gap 1 (6-14) Blood Urea Nitrogen 22 mg/dL (8-26) Creatinine 0.6 mg/dL (0.7-1.3) Estimated GFR (Cockcroft-Gault) 157.7 Glucose Level 151 mg/dL (70-99) Calcium Level 8.6 mg/dL (8.5-10.1) Glucose (Fingerstick) 122 mg/dL (70-99) Laboratory Tests Test 04/07/19 16:45 04/07/19 21:06 04/08/19 06:45 04/08/19 08:08 Glucose (Fingerstick) 125 mg/dL (70-99) 152 mg/dL (70-99) 122 mg/dL (70-99) White Blood Count 6.1 x10^3/uL (4.0-11.0) Red Blood Count 3.40 x10^6/uL (4.30-5.70) Hemoglobin 9.8 g/dL (13.0-17.5) Hematocrit 29.1 % (39.0-53.0) Mean Corpuscular Volume 86 fL (79-100) Mean Corpuscular Hemoglobin 29 pg (25-35) Mean Corpuscular Hemoglobin Concent 34 g/dL (31-37) Red Cell Distribution Width 14.9 % (11.5-14.5) Platelet Count 357 x10^3/uL (140-400) Neutrophils (%) (Auto) 56 % (31-73) Lymphocytes (%) (Auto) 27 % (24-48) Monocytes (%) (Auto) 9 % (0-9) Eosinophils (%) (Auto) 6 % (0-3) Basophils (%) (Auto) 1 % (0-3) Neutrophils # (Auto) 3.4 x10^3/uL (1.8-7.7) Lymphocytes # (Auto) 1.7 x10^3/uL (1.0-4.8) Monocytes # (Auto) 0.6 x10^3/uL (0.0-1.1) Eosinophils # (Auto) 0.4 x10^3/uL (0.0-0.7) Basophils # (Auto) 0.1 x10^3/uL (0.0-0.2) Sodium Level 137 mmol/L (136-145) Potassium Level 3.7 mmol/L (3.5-5.1) Chloride Level 102 mmol/L (98-107) Carbon Dioxide Level 34 mmol/L (21-32) Anion Gap 1 (6-14) Blood Urea Nitrogen 22 mg/dL (8-26) Creatinine 0.6 mg/dL (0.7-1.3) Estimated GFR (Cockcroft-Gault) 157.7 Glucose Level 151 mg/dL (70-99) Calcium Level 8.6 mg/dL (8.5-10.1) Microbiology 04/02/19 Blood Culture - Final, Complete NO GROWTH AFTER 5 DAYS Medications Current Medications Acetaminophen/ Hydrocodone Bitart (Lortab 5/325) 1 tab 1X ONCE PO Last administered on 04/02/19at 00:23; Start 04/02/19 at 00:00; Stop 04/02/19 at 00:01; Status DC Vancomycin HCl (Vanco Per Pharmacy) 1 each PRN DAILY PRN MC SEE COMMENTS Last administered on 04/07/19at 16:05; Start 04/01/19 at 23:45; Stop 04/08/19 at 12:18; Status DC Vancomycin HCl 1.5 gm/Sodium Chloride 500 ml @ 250 mls/hr 1X ONCE IV Last administered on 04/02/19at 00:42; Start 04/02/19 at 00:30; Stop 04/02/19 at 02:29; Status DC Sodium Chloride 1,000 ml @ 1,000 mls/hr 1X ONCE IV Last administered on 04/02/19at 01:42; Start 04/02/19 at 01:30; Stop 04/02/19 at 02:29; Status DC Sodium Chloride 1,000 ml @ 1,000 mls/hr 1X ONCE IV Last administered on 04/02/19at 01:42; Start 04/02/19 at 01:30; Stop 04/02/19 at 02:29; Status DC Meropenem 1 gm/ Sodium Chloride 100 ml @ 200 mls/hr Q8HRS IV Last administered on 04/08/19at 06:28; Start 04/02/19 at 02:00; Stop 04/08/19 at 12:18; Status DC Ondansetron HCl (Zofran) 4 mg PRN Q8HRS PRN IV NAUSEA/VOMITING 1ST CHOICE; Start 04/02/19 at 01:45; Stop 04/03/19 at 01:44; Status DC Fentanyl Citrate (Fentanyl 2ml Vial) 50 mcg PRN Q1HR PRN IV SEVERE PAIN 7-10; Start 04/02/19 at 01:45; Stop 04/03/19 at 01:44; Status DC Acetaminophen (Tylenol) 650 mg PRN Q4HRS PRN PO FEVER; Start 04/02/19 at 01:45; Stop 04/02/19 at 13:50; Status DC Vancomycin HCl 1 gm/Sodium Chloride 250 ml @ 250 mls/hr Q18H IV Last administered on 04/03/19at 14:25; Start 04/02/19 at 19:00; Stop 04/03/19 at 15:30; Status DC Vancomycin HCl (Vancomycin Trough Level) 1 each 1X ONCE MC Last administered on 04/03/19at 12:30; Start 04/03/19 at 12:30; Stop 04/03/19 at 12:31; Status DC Atorvastatin Calcium (Lipitor) 80 mg QHS PO Last administered on 04/07/19at 22:31; Start 04/02/19 at 21:00; Stop 04/08/19 at 12:18; Status DC Gabapentin (Neurontin) 300 mg TID PO Last administered on 04/08/19at 09:08; Start 04/02/19 at 14:00; Stop 04/08/19 at 12:18; Status DC Acetaminophen (Tylenol) 650 mg PRN Q6HRS PRN PO MILD PAIN / TEMP; Start 04/02/19 at 13:45; Stop 04/08/19 at 12:18; Status DC Acetaminophen/ Hydrocodone Bitart (Lortab 5/325) 1 tab PRN Q4HRS PRN PO MODERATE PAIN Last administered on 04/08/19at 09:10; Start 04/02/19 at 13:45; Stop 04/08/19 at 12:18; Status DC Metformin HCl (Glucophage) 500 mg DAILY PO Last administered on 04/08/19at 09:08; Start 04/03/19 at 09:00; Stop 04/08/19 at 12:18; Status DC Multivitamins (Thera M Plus) 1 tab DAILY PO Last administered on 04/08/19at 09:08; Start 04/03/19 at 09:00; Stop 04/08/19 at 12:18; Status DC Tamsulosin HCl (Flomax) 0.4 mg QHS PO Last administered on 04/07/19at 22:30; Start 04/02/19 at 21:00; Stop 04/08/19 at 12:18; Status DC Pantoprazole Sodium (Protonix) 40 mg DAILYAC PO Last administered on 04/08/19at 09:08; Start 04/03/19 at 07:30; Stop 04/08/19 at 12:18; Status DC Polyethylene Glycol (miraLAX PACKET) 17 gm DAILY PO ; Start 04/03/19 at 09:00; Stop 04/06/19 at 10:10; Status DC Senna/Docusate Sodium (Senna Plus) 1 tab PRN BID PRN PO CONSTIPATION; Start 04/02/19 at 13:45; Stop 04/06/19 at 10:10; Status DC Insulin Human Lispro (HumaLOG) 0-6 UNITS TIDWMEALS SQ Last administered on 04/06/19at 13:05; Start 04/02/19 at 17:00; Stop 04/08/19 at 12:18; Status DC Diclofenac Sodium (Voltaren) 1 elizabeth TID TP Last administered on 04/08/19at 09:08; Start 04/02/19 at 14:00; Stop 04/08/19 at 12:18; Status DC Lactobacillus Rhamnosus (Culturelle) 1 cap BID PO Last administered on 04/08/19at 09:08; Start 04/02/19 at 21:00; Stop 04/08/19 at 12:18; Status DC Vancomycin HCl (Vanco Per Pharmacy) 1 each PRN DAILY PRN MC SEE COMMENTS; Start 04/02/19 at 14:00; Status UNV Cyclobenzaprine HCl (Flexeril) 5 mg PRN Q8HRS PRN PO MUSCLE SPASMS Last administered on 04/05/19at 01:48; Start 04/02/19 at 19:45; Stop 04/08/19 at 12:18; Status DC Alteplase, Recombinant (Cathflo) 2 mg 1X ONCE INT CAT ; Start 04/03/19 at 13:15; Stop 04/03/19 at 13:22; Status DC Sodium Chloride (Normal Saline Flush) 10 ml QSHIFT PRN IV SEE COMMENTS; Start 04/03/19 at 13:15; Stop 04/03/19 at 13:22; Status DC Alteplase, Recombinant (Cathflo For Central Catheter Clearance) 1 mg 1X ONCE INT CAT ; Start 04/03/19 at 13:30; Stop 04/03/19 at 13:31; Status DC Sodium Chloride (Normal Saline Flush) 10 ml QSHIFT PRN IV SEE COMMENTS; Start 04/03/19 at 13:30; Stop 04/08/19 at 12:18; Status DC Vancomycin HCl 1 gm/Sodium Chloride 250 ml @ 250 mls/hr Q12H IV Last administered on 04/08/19at 02:29; Start 04/04/19 at 02:00; Stop 04/08/19 at 12:18; Status DC Methylprednisolone Acetate (DEPO-Medrol 40MG VIAL) 40 mg 1X ONCE INJ ; Start 04/04/19 at 09:30; Stop 04/04/19 at 09:31; Status DC Methylprednisolone Acetate (DEPO-Medrol 40MG VIAL) 40 mg 1X ONCE INJ ; Start 04/04/19 at 09:30; Stop 04/04/19 at 09:31; Status DC Bupivacaine HCl (Sensorcaine-Mpf 0.25%) 10 ml 1X ONCE IJ ; Start 04/04/19 at 09:30; Stop 04/04/19 at 09:31; Status DC Gadoterate Meglumine (Dotarem) 12.8 ml 1X ONCE IVP Last administered on 04/04/19at 12:47; Start 04/04/19 at 12:30; Stop 04/04/19 at 12:39; Status DC Vancomycin HCl (Vancomycin Trough Level) 1 each 1X ONCE MC ; Start 04/06/19 at 13:30; Stop 04/06/19 at 13:31; Status DC Senna/Docusate Sodium (Senna Plus) 1 tab BID PO Last administered on 04/07/19at 22:31; Start 04/06/19 at 10:15; Stop 04/08/19 at 12:18; Status DC Bupivacaine HCl (Sensorcaine-Mpf 0.25%) 10 ml STK-MED ONCE .ROUTE ; Start 04/04/19 at 09:30; Stop 04/07/19 at 10:48; Status DC Methylprednisolone Acetate (DEPO-Medrol 40MG VIAL) 40 mg STK-MED ONCE .ROUTE ; Start 04/04/19 at 09:30; Stop 04/07/19 at 10:48; Status DC Methylprednisolone Acetate (DEPO-Medrol 40MG VIAL) 40 mg STK-MED ONCE .ROUTE ; Start 04/04/19 at 09:30; Stop 04/07/19 at 10:48; Status DC Active Scripts Active Vanco 1 Gram/250 ml-0.9% NaCl (Vancomycin/0.9 % Sod Chloride) 1 Gm/250 Ml Plast..bag 1 Gm IV Q12HR Meropenem 1 Gm Vial 1 Gm IV Q8HRS Humalog (Insulin Lispro) 100 Unit/1 Ml Insuln.pen 0 Units SQ TIDWMEALS Culturelle (Lactobacillus Rhamnosus Gg) 1 Each Cap.sprink 1 Cap PO BID Voltaren (Diclofenac Sodium) 100 Gm Gel..gram. 1 Elizabeth TP TID Cyclobenzaprine Hcl 10 Mg Tablet 5 Mg PO PRN Q8HRS PRN Pantoprazole Sodium (Pantoprazole Sodium) 40 Mg Tablet.dr 40 Mg PO DAILYAC Miralax (Polyethylene Glycol 3350) 17 Gm Powd.pack 1 Packet PO DAILY dissolve in water Senna-Time S Tablet (Sennosides/Docusate Sodium) 1 Each Tablet 2 Tab PO DAILY Tylenol (Acetaminophen) 325 Mg Tablet 650 Mg PO PRN Q6HRS PRN Hydrocodone-Apap 5-325 (Hydrocodone Bit/Acetaminophen) 1 Tab Tablet 1 Tab PO PRN Q4HRS PRN Reported Centrum Silver Men Tablet (Multivit-Min/FA/Lycopen/Lutein) 1 Each Tablet 1 Each PO DAILY Atorvastatin Calcium 80 Mg Tablet 80 Mg PO HS Metformin Hcl 500 Mg Tablet 500 Mg PO DAILY Gabapentin (Gabapentin) 300 Mg Capsule 300 Mg PO TID Tamsulosin Hcl 0.4 Mg Cap.er.24h 1 Cap PO DAILY Vitals/I & O Vital Sign - Last 24 Hours 04/07/19 04/07/19 04/07/19 04/07/19 15:00 19:00 20:00 23:00 Temp 98.0 99.0 98.9 98.0 99.0 98.9 Pulse 89 88 85 Resp 20 14 16 B/P (MAP) 146/70 (95) 111/56 (74) 122/67 (85) Pulse Ox 100 99 O2 Delivery Room Air Room Air Room Air Room Air 04/08/19 04/08/19 04/08/19 04/08/19 03:00 07:00 08:00 09:10 Temp 97.9 98.0 97.9 98.0 Pulse 89 84 Resp 18 B/P (MAP) 103/52 (69) 100/51 (67) Pulse Ox 100 100 100 O2 Delivery Room Air Room Air Room Air Room Air 04/08/19 10:30 Pulse Ox 100 O2 Delivery Room Air Intake and Output 04/07/19 04/07/19 04/08/19 15:00 23:00 07:00 Intake Total 350 ml 835 ml Output Total 1200 ml 750 ml 1050 ml Balance -1200 ml -400 ml -215 ml TAYLOR,SIVAKOTI R MD Apr 08, 2019 12:34
== END 2019-04-08 12:17 | DRG 853 ==
LOC: ER 22:23 → 4 NORTH 04-02 02:19 → 6 SOUTH 04-02 17:23
PROVIDERS: ADMIT Internal Medicine; ATTEND Internal Medicine
PROC: 05HY33Z Insertion of Infusion Device into Upper Vein, Percutaneous Approach (ICD-10-PCS; principal; 2019-04-05)
PROC: 0KBP0ZZ Excision of Left Hip Muscle, Open Approach (ICD-10-PCS; 2019-04-05)
PROC: 0KBN0ZZ Excision of Right Hip Muscle, Open Approach (ICD-10-PCS; 2019-04-05)
DX: A41.9 Sepsis, unspecified organism (principal); L89.154 Pressure ulcer of sacral region, stage 4; E43 Unspecified severe protein-calorie malnutrition; Z68.1 Body mass index [BMI] 19.9 or less, adult; L97.419 Non-pressure chronic ulcer of right heel and midfoot with unspecified severity; M46.28 Osteomyelitis of vertebra, sacral and sacrococcygeal region; K21.9 Gastro-esophageal reflux disease without esophagitis; E78.5 Hyperlipidemia, unspecified; N40.1 Benign prostatic hyperplasia with lower urinary tract symptoms; E11.51 Type 2 diabetes mellitus with diabetic peripheral angiopathy without gangrene; E11.69 Type 2 diabetes mellitus with other specified complication; D63.8 Anemia in other chronic diseases classified elsewhere; M17.0 Bilateral primary osteoarthritis of knee; Z96.641 Presence of right artificial hip joint; E11.621 Type 2 diabetes mellitus with foot ulcer; R33.8 Other retention of urine; K59.00 Constipation, unspecified; E11.42 Type 2 diabetes mellitus with diabetic polyneuropathy; Z79.899 Other long term (current) drug therapy; Z91.81 History of falling; Z99.3 Dependence on wheelchair; Z74.01 Bed confinement status; Z87.11 Personal history of peptic ulcer disease; Z88.0 Allergy status to penicillin; Z83.3 Family history of diabetes mellitus; Z82.5 Family history of asthma and other chronic lower respiratory diseases
CPT/HCPCS: 36415; 36569; 72197; 72220; 73560; 80048; 80053; 80202; 82565; 82962; 83036; 83605; 84145; 85025; 85651; 86140; 87040; 93005; 96365; 96366; A9575; J1030; J1815; J2185; J3370; J3490; J7030; J7040; J7050; 97110; 97112; 97535; 99285-25; G0378

== ENCOUNTER → 2019-06-02 | Outpatient (CLI) | payer MEDICARE, BC ==
[~2019-06-02] MED LIST changes: +CYCL10TA2 PO; +CYCL5TAB PO; +DICL100G18 TP; +INSU100I11 SQ; +LACT1CAP19 PO; +MERO1VIA24 IV; +OMEP20CA16 PO; +VANC1PLA9 IV
--- NOTE | 2019-06-02 13:03 | RAD ---
MRI Lumbar Spine without contrast History: Lumbar radiculopathy, right leg weakness Technique: Multiplanar, multi sequential noncontrast MR imaging was performed of the lumbar spine. Comparison: 05/06/2019 CT lumbar spine exam, no previous MR imaging exam available Findings: Lumbar vertebral body stature is overall maintained. There is negligible anterior spondylolisthesis L3-4. There is severe narrowing of the L4-5 intervertebral disc space, to lesser degree L3-4 and L5-S1, and minimally at L2-3. Conus terminates at L1. There is mild increased T2 and STIR signal in the L4-5 intervertebral disc space anteriorly although no adjacent marrow edema no significant paraspinous soft tissue edema. Small focus of marrow signal change of the superior right L5 vertebral body near the endplate is most likely sequela of small Schmorl's node, some internal STIR hyperintense signal. There are annular tears most notably posteriorly at L2-3 through L5-S1 and anteriorly L3-4 and L4-5. There is somewhat diffuse narrowing of the lumbar spinal canal and neural foramina on a developmental basis. There is small hemangioma of the T11 vertebral body. There is some nonspecific edema of the posterior paraspinous soft tissues greatest near L4-5, no focal fluid collection. As seen on previous MRI pelvis April 04, 2019, there is a T1 hypointense and STIR hyperintense lesion of the S2 vertebral body about 1.1 cm CC. There is aneurysmal dilatation of the infrarenal abdominal aorta up to 3.4 cm axial dimension. L1-L2: This level was not included on the axial images. Spinal canal is adequate. Facet degenerative change contributes to mild additional neural foramina compromise bilaterally. L2-L3: There is mild prominence of posterior epidural fat centrally and moderate facet degenerative change. There is minimal disc osteophyte complex greater in the inferior neural foramina, mild additional narrowing of the left neural foramen and moderate narrowing on the right. There is contact of the exiting right L2 nerve root undersurface by disc osteophyte complex in the neural foramen and proximal extraforaminal region. There is minimal narrowing of the far right lateral recess. There is left laminotomy defect. L3-L4: There is again left lateral laminectomy defect. There is bilateral facet hypertrophic change. There is mild buckling of residual ligamentum flavum. There is mild prominence of posterior epidural fat centrally. There is minimal disc osteophyte complex and bulge. Spinal canal is overall adequate at the intervertebral disc space level, mild narrowing of the far lateral recesses bilaterally by the intervertebral disc space level by facets. There is severe narrowing of the left neural foramen by disc osteophyte complex and bulge/broad protrusion in combination with facet degenerative change, impingement of the exiting left L3 nerve root in the distal neural foramen and proximal extraforaminal region. There is severe narrowing of the right neural foramen by facet and disc osteophyte complex and also extrusion extending above the intervertebral disc space level estimated about 0.5 cm CC by 0.4 cm AP by about 1.3 cm transverse with extent to the proximal extraforaminal region. There is impingement of the exiting right L3 nerve root in the neural foramen and proximal extraforaminal region. L4-L5: There is broad posterior disc osteophyte complex. There are again laminectomy defects bilaterally. There is facet hypertrophic change bilaterally. There is [id number] narrowing of the far right lateral recess greater from posteriorly by ligamentum flavum and facet. There is moderate left and severe right neural foramina compromise by disc osteophyte complex and facet, also component of narrowing on the right by superimposed protrusion. There is severe impingement of the exiting right L4 nerve root greater in the distal neural foramen and proximal extraforaminal region. L5-S1: There is minimal disc osteophyte complex and bulge, near the descending S1 nerve roots without significant impingement. Spinal canal is not significantly narrowed. There is mild facet degenerative change greater on the left. There is severe narrowing of the left neural foramen primarily from disc osteophyte complex contacting the exiting left L5 nerve root, also moderate to severe narrowing on the right with disc osteophyte complex contacting the undersurface of the exiting right L5 nerve root. Impression: 1. There is severe neural foramina compromise as stated bilaterally at L3-4 and L5-S1 and on the right at L4-5, lesser degree of narrowing on the left at L4-5. There is degree of diffuse lumbar neural foramina compromise on a developmental basis. 2. There is multilevel degenerative disc disease greatest at L4-5. There is multilevel mild spondylosis. 3. There is [id number] right lateral recess stenosis at L4-5. There is degree of diffuse narrowing of the lumbar spinal canal on a developmental basis. 4. There is mild aneurysmal dilatation of the infrarenal abdominal aorta about 3.4 cm. 5. As seen on the previous pelvis MRI exam, there is focus of abnormal marrow signal of the S2 which could be atypical hemangioma, cannot exclude more aggressive marrow replacing lesion. 6. There is nonspecific edema of the posterior paraspinous soft tissues, could be due to degree of dependent edema unless there is suspicion for soft tissue infection, no focal fluid collection in this region. Electronically signed by: Raffi Haynes MD (06/02/2019 1:00 PM) [id number]
== END | disposition home or self-care (01) ==
LOC: MRI 12:37
PROVIDERS: ATTEND Neurological Surgery
DX: M47.26 Other spondylosis with radiculopathy, lumbar region (principal); M51.16 Intervertebral disc disorders with radiculopathy, lumbar region; M48.07 Spinal stenosis, lumbosacral region; I77.811 Abdominal aortic ectasia; M43.16 Spondylolisthesis, lumbar region; M25.78 Osteophyte, vertebrae; D18.09 Hemangioma of other sites
CPT/HCPCS: 72148

== ENCOUNTER 2019-08-25 13:50 | Emergency (ER) | payer MEDICARE, BC ==
[~2019-08-25] VITALS: Ht 177.8 cm; Wt 63.6 kg
[~2019-08-25 13:50] MED LIST changes: -DICL100G18 TP; +DICL100G54 TP; +SENN-182 PO; -SENN-80 PO
[2019-08-25 14:39] LABS: CLARITY,URINE TURBID; COLOR,URINE YELLOW
[2019-08-25 14:41] LABS: BILIRUBIN,URINE NEGATIVE (NEG)
[2019-08-25 14:42] LABS: BACTERIA,URINE MANY /HPF (0-FEW); NITRITE,URINE POSITIVE (NEG); PH,URINE >8.5 (<5.0-8.0); PROTEIN,URINE >=300 mg/dL (NEG-TRACE); UROBILINOGEN,URINE 0.2 mg/dL (0.2 mg/dL); WBC,URINE TNTC /HPF (0-4)
[2019-08-25 15:22] LABS: BASO # 0.1 x10^3/uL (0.0-0.2); BASO % 1 % (0-3); EOS # 0.5 x10^3/uL (0.0-0.7); EOS % 5 % (0-3); HEMATOCRIT 39.8 % (39.0-53.0); HEMOGLOBIN 13.1 g/dL (13.0-17.5); LYMPH # 1.2 x10^3/uL (1.0-4.8); LYMPH % 11 % (24-48); MEAN CORPUSCULAR HEMOGLOBIN 27 pg (25-35); MEAN CORPUSCULAR HGB CONC 33 g/dL (31-37); MEAN CORPUSCULAR VOLUME 83 fL (79-100); MONO # 0.9 x10^3/uL (0.0-1.1); MONO % 8 % (0-9); NEUT # 8.4 x10^3/uL (1.8-7.7); NEUT % 76 % (31-73); PLATELET COUNT 369 x10^3/uL (140-400); RED BLOOD COUNT 4.81 x10^6/uL (4.30-5.70); RED CELL DISTRIBUTION WIDTH 16.6 % (11.5-14.5); WHITE BLOOD COUNT 10.9 x10^3/uL (4.0-11.0)
[2019-08-25 15:24] LABS: CALCIUM 9.6 mg/dL (8.5-10.1); CREATININE 0.8 mg/dL (0.7-1.3); GFR 113.1
[2019-08-25 15:30] LABS: ALBUMIN 3.1 g/dL (3.4-5.0); ALBUMIN/GLOBULIN RATIO 0.8 (1.0-1.7); TOTAL BILIRUBIN 0.2 mg/dL (0.2-1.0); TOTAL PROTEIN 6.9 g/dL (6.4-8.2)
[2019-08-25] MEDS ORDERED: IV NORMAL SALINE 1000ML BAG 1,000 ML IV ONE (15:45)
[2019-08-25] MEDS ORDERED: cefTRIAXone IV Push 1 GM VIAL. IVP ONE (15:45)
[2019-08-25] MEDS ORDERED: CEFD300C PO (16:01)
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
[2019-08-25 17:00] VITALS: BP 140/63
--- NOTE | 2019-08-26 06:40 | EKG ---
[facility] [address] [place] [address] Test Date: 2019-08-25 Test Time: 13:56:29 Pat Name: SILVIA CONNER Department: Room: Gender: M [facility] Director: : 1940 Requested By: NIDA TUCKER Order Number: [id number] Reading MD: Measurements Intervals [place] Rate: 114 P: -20 HI: 144 QRS: 21 QRSD: 86 T: 118 QT: 330 QTc: 458 Interpretive Statements SINUS TACHYCARDIA LEFT ATRIAL ABNORMALITY T ABNORMALITY IN HIGH LATERAL LEADS ABNORMAL ECG RI6.02 No previous ECG available for comparison
== END 2019-08-25 17:27 | disposition home or self-care (01) ==
LOC: ER 13:50
DX: N39.0 Urinary tract infection, site not specified (principal); E11.9 Type 2 diabetes mellitus without complications; Z98.890 Other specified postprocedural states; Z87.891 Personal history of nicotine dependence; Z88.0 Allergy status to penicillin
CPT/HCPCS: 36415; 51702; 80053; 81001; 85025; 87086; 93005; 96374; 99284; J0696; J7030

== ENCOUNTER → 2019-10-14 | Outpatient (CLI) | payer MEDICARE, BC ==
[~2019-10-14] MED LIST changes: +ASCO500T4 PO; +CEFD300C PO; +GADOTERATE 7.5 MMOL/15ML VIAL. IVP ONE; -WARF-78 PO; +WARF5TAB2 PO; +ZINC50TA39 PO
[2019-10-14 08:55] LABS: BASO # 0.1 x10^3/uL (0.0-0.2); BASO % 1 % (0-3); EOS # 0.8 x10^3/uL (0.0-0.7); EOS % 10 % (0-3); HEMATOCRIT 36.3 % (39.0-53.0); HEMOGLOBIN 12.3 g/dL (13.0-17.5); LYMPH # 1.8 x10^3/uL (1.0-4.8); LYMPH % 23 % (24-48); MEAN CORPUSCULAR HEMOGLOBIN 28 pg (25-35); MEAN CORPUSCULAR HGB CONC 34 g/dL (31-37); MEAN CORPUSCULAR VOLUME 83 fL (79-100); MONO # 0.4 x10^3/uL (0.0-1.1); MONO % 6 % (0-9); NEUT # 4.7 x10^3/uL (1.8-7.7); NEUT % 61 % (31-73); PLATELET COUNT 304 x10^3/uL (140-400); RED BLOOD COUNT 4.39 x10^6/uL (4.30-5.70); RED CELL DISTRIBUTION WIDTH 18.1 % (11.5-14.5); WHITE BLOOD COUNT 7.8 x10^3/uL (4.0-11.0)
[2019-10-14 09:15] LABS: ALBUMIN 3.1 g/dL (3.4-5.0); ALBUMIN/GLOBULIN RATIO 0.8 (1.0-1.7); C-REACTIVE PROTEIN 28.1 mg/L (0-3.3); CALCIUM 9.2 mg/dL (8.5-10.1); CREATININE 0.8 mg/dL (0.7-1.3); GFR 113.1; POTASSIUM 3.9 mmol/L (3.5-5.1); TOTAL BILIRUBIN 0.5 mg/dL (0.2-1.0); TOTAL PROTEIN 6.9 g/dL (6.4-8.2)
--- NOTE | 2019-10-14 14:06 | RAD ---
Study: MRI right ankle without contrast INDICATION: Nonhealing wound at the heel. COMPARISON: Right foot radiographs 09/26/2019 TECHNIQUE: Multiplanar MR imaging of the right ankle performed without the use of intravenous or intra-articular contrast. FINDINGS: Deep heel ulceration extending into close proximity to the calcaneal cortex. Marrow edema with corresponding low T1 signal confined to the far posterior calcaneus subjacent to the ulceration typical of localized osteomyelitis especially given the depth of the ulcer. No signal changes of osteomyelitis elsewhere. Thin edema-like signal subjacent to the cortex of essentially all visualized bones typical of osteopenia. Mild Achilles tendinosis without a tear. Trace retrocalcaneal bursal fluid without bursitis. Scattered subcutaneous edema. No fluid collection is identified. Intact peroneal and flexor tendons. Intact extensors. Tendon sheath fluid distention at the knot of Deondre. No large joint effusion with scattered small volume joint fluid such as at the talonavicular joint. Diffuse muscular edema throughout the foot. Scattered muscular fatty infiltration with greatest involvement of the abductor digiti minimi, image 20 series 9. IMPRESSION: 1. Deep heel ulcer occurring plantar to the Achilles insertion and extending into close proximity with the adjacent calcaneal cortex. Correspondingly there is edema-like signal confined to the far posterior calcaneus with T1 signal loss in keeping with localized osteomyelitis. The extent of osteomyelitis is up to approximately 3 mm deep to the cortex. 2. Osteopenia. 3. Edematous foot musculature likely denervation related such as can be seen with long-standing diabetes. 4. Mild Achilles tendinosis. Electronically signed by: RJ GAN MD (10/14/2019 2:03 PM) [id number]
== END ==
LOC: MRI 08:35
PROVIDERS: ATTEND Emergency Medicine Undersea and Hyperbaric Medicine
DX: L97.418 Non-pressure chronic ulcer of right heel and midfoot with other specified severity (principal); M85.80 Other specified disorders of bone density and structure, unspecified site; E11.621 Type 2 diabetes mellitus with foot ulcer; M25.474 Effusion, right foot
CPT/HCPCS: 36415; 73718; 80053; 85025; 86140

== ENCOUNTER 2019-10-20 13:21 | Emergency (ER) | payer MEDICARE, BC ==
[~2019-10-20] VITALS: Ht 177.8 cm; Wt 59.0 kg
[~2019-10-20 13:21] MED LIST changes: -ASCO500T4 PO; -GADOTERATE 7.5 MMOL/15ML VIAL. IVP ONE; -ZINC50TA39 PO
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
[2019-10-20 14:05] LABS: BASO # 0.1 x10^3/uL (0.0-0.2); BASO % 1 % (0-3); EOS # 0.6 x10^3/uL (0.0-0.7); EOS % 7 % (0-3); HEMATOCRIT 34.9 % (39.0-53.0); LYMPH # 2.2 x10^3/uL (1.0-4.8); LYMPH % 26 % (24-48); MEAN CORPUSCULAR HEMOGLOBIN 29 pg (25-35); MEAN CORPUSCULAR HGB CONC 34 g/dL (31-37); MEAN CORPUSCULAR VOLUME 84 fL (79-100); MONO # 0.7 x10^3/uL (0.0-1.1); MONO % 8 % (0-9); NEUT % 59 % (31-73); PLATELET COUNT 285 x10^3/uL (140-400); RED BLOOD COUNT 4.18 x10^6/uL (4.30-5.70); RED CELL DISTRIBUTION WIDTH 18.4 % (11.5-14.5); WHITE BLOOD COUNT 8.6 x10^3/uL (4.0-11.0)
[2019-10-20 14:15] LABS: CALCIUM 9.1 mg/dL (8.5-10.1); CREATININE 0.8 mg/dL (0.7-1.3); GFR 113.1; POTASSIUM 4.3 mmol/L (3.5-5.1)
[2019-10-20 14:30] LABS: ALBUMIN 3.1 g/dL (3.4-5.0); TOTAL BILIRUBIN 0.2 mg/dL (0.2-1.0); TOTAL PROTEIN 6.3 g/dL (6.4-8.2)
[2019-10-20] MEDS: fentaNYL PF VIAL 100 MCG/2 ML VIAL IV PRN ×3 (15:06→17:22)
--- NOTE | 2019-10-20 15:22 | RAD ---
Right lower extremity arterial duplex study 10/20/2019 CLINICAL HISTORY: Nonhealing wound in the right foot. TECHNIQUE: Using a combination of real-time ultrasound imaging and color-flow and pulse Doppler imaging techniques, duplex evaluation of the major arterial structures of the right lower extremity was performed. Multiple images were obtained. FINDINGS: Moderate atheromatous/atherosclerotic plaque formation is seen involving the major arterial structures of the right lower extremity. The peak systolic velocities are monophasic throughout. The right posterior tibial artery is not visualized and may be occluded. The right peroneal artery is not visualized and may be occluded. Diminished monophasic arterial flow is seen involving the right anterior tibial and right dorsalis pedis arteries (peak systolic velocities 41 and 22 cm/s). No hemodynamically significant stenosis is seen. IMPRESSION: Moderate atheromatous/atherosclerotic plaque formation is seen involving the major arterial structures of the right lower extremity. No hemodynamically significant stenosis is seen. The right posterior tibial and peroneal arteries are not visualized and may be occluded. Electronically signed by: Dimitri Conley MD (10/20/2019 3:19 PM) [id number]
[2019-10-20 17:10] VITALS: BP 135/72
[2019-10-27] MEDS ORDERED: ASCO500T4 PO (12:14)
== END 2019-10-20 17:56 | disposition home or self-care (01) ==
LOC: ER 13:21
DX: L89.616 Pressure-induced deep tissue damage of right heel (principal); E11.69 Type 2 diabetes mellitus with other specified complication; M86.8X7 Other osteomyelitis, ankle and foot; I70.201 Unspecified atherosclerosis of native arteries of extremities, right leg; Z87.891 Personal history of nicotine dependence; Z88.0 Allergy status to penicillin
CPT/HCPCS: 36415; 80053; 83605; 85025; 87040; 93926; 96374; 96376; 99285; J3010

== ENCOUNTER 2019-10-24 12:33 | Inpatient (IN) | payer MEDICARE, BC ==
[~2019-10-24] VITALS: Ht 177.8 cm; Wt 96.8 kg
--- NOTE | 2019-10-24 11:30 | NUR ---
Wound Care Patient direct admitted from the wound clinic due to MRI positive for osteomyelitis of R foot. Wound Type/Assessment: Pt known to wound clinic, currently being treated for multiple wounds. Stage 4 pressure ulcer to coccyx previously dressed with NPWT, removed at today's clinic visit; R heel DFU with purulent drainage; Skin tear to R anterior thigh. No other open areas noted on head to toe assessment. Treatment Recommendations/Plan: Coccyx/R heel: Hydrofera Blue classic moistened with saline, cover with contact layer and foam dressing. Change every 2 days and as needed. Education provided: Turn often to prevent skin breakdown. Wear heel protector while in bed. Offloading surface/device: Recommend P500 bed and offloading heel protection boot, WC cushion Recommended Referrals/Tests: Consult infectious disease and auto detailer
[2019-10-24] MEDS ORDERED: DICL100G54 TP (13:51)
[2019-10-24] MEDS ORDERED: ZINC50TA39 PO (13:51)
[2019-10-24 14:00] VITALS: BP 109/60
[2019-10-24] MEDS ORDERED: ACETAMINOPHEN 325 MG TABLET. PO PRN (14:00)
[2019-10-24] MEDS ORDERED: DICLOFENAC SODIUM 1% TOPICAL GEL 100GM TUBE. TP SCH (14:00)
[2019-10-24] MEDS ORDERED: CYCLOBENZAPRINE 10 MG TABLET. PO PRN (14:00)
--- NOTE | 2019-10-24 14:54 | EKG ---
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
[2019-10-24 15:00] VITALS: BP 123/64
[2019-10-24] MEDS ORDERED: C.DIFF MED SCREEN BY RX. MC ONE (15:00)
[2019-10-24] MEDS ORDERED: DEXTROSE 50% 25 GM / 50ML DISP.SYRIN. IV PRN (15:15)
--- NOTE | 2019-10-24 15:38 | RAD ---
Plain film abdominal examination consisting of 1 view(s) of the abdomen. History: Generalized abdominal pain Comparison: None. There is no bowel dilation. Gas is seen in the rectum, and the bowel gas pattern is non-obstructive there is large amount of fecal material seen throughout the colon. There is degenerative change of the lumbar spine and left hip. Patient status post right hip arthroplasty. Electronically signed by: Todd Frias MD (10/24/2019 3:36 PM) [id number]
--- NOTE | 2019-10-24 16:01 | PDOC ---
Provider Note Provider Note history and physical dictated # [id number] Justicifation of Admission Dx: Justifications for Admission: Justification of Admission Dx: N/A RAVINDER BUSTAMANTE MD Oct 24, 2019 16:01
--- NOTE | 2019-10-24 16:21 | RAD ---
CHEST AP ONLY History: osteomyelitis of heel Comparison: February 07, 2019 Findings: No consolidation or pleural effusion. Normal heart size. No pneumothorax. Postop changes lower cervical spine. Impression: 1. No acute cardiopulmonary process. Electronically signed by: Ruben Elliott DO (10/24/2019 4:18 PM) [facility]IS[facility]
--- NOTE | 2019-10-24 16:22 | HP ---
ADMIT DATE: 10/24/2019 LOCATION: He is in room #408. HISTORY OF PRESENT ILLNESS: The patient is a 79-year-old -[place] male who has a history of diabetes mellitus type 2, osteoarthritis in the knees and lumbar spondylosis with chronic urinary retention with a chronic Causey catheter in place, who has had a right heel wound and a sacral wound and has been followed at the [facility] and had a debridement and then had an MRI done of his right heel, which was consistent with a calcaneus osteomyelitis, prompting admission to [facility] on 10/24/2019. I discussed the case with Dr. Barone, the wound physician, who has been treating the patient as an outpatient at the wound care center at [facility]. The patient is confined to a wheelchair at home and lives next door to his son. He does have a history of right leg weakness due to lumbar spinal stenosis, especially proximal right leg weakness. He has had this right heel wound for several months. He has not had any fever. ALLERGIES AND INTOLERANCES: INCLUDE PENICILLIN AND MORPHINE. MEDICATIONS: Include he is on cyclobenzaprine 5 mg every 8 hours p.r.n., Tylenol 650 mg every 6 hours p.r.n. He is on gabapentin 300 mg t.i.d., Hotchkiss 5/325 one every 4 hours p.r.n., low dose Humalog insulin sliding scale before meals t.i.d., lactobacilli 1 capsule b.i.d., metformin 500 mg every day, multiple vitamin once a day, Protonix 40 mg every day. He is on tamsulosin 0.4 mg every day. PAST MEDICAL HISTORY: Significant for right hip hemiarthroplasty in 01/2019 due to a mechanical fall and repair of the right femoral neck fracture. He has a history of diabetes mellitus type 2, hyperlipidemia, chronic urinary retention with chronic Causey catheter, which was replaced 3 weeks ago. He also has benign prostatic hypertrophy. He has a history of gastroesophageal reflux disease, erectile dysfunction, idiopathic peripheral neuropathy. He has a lumbar spinal stenosis, had a lumbar laminectomy in 2006, multinodular goiter. He has a 3.1 cm abdominal aortic aneurysm, diabetic peripheral neuropathy, diverticulosis. Gastric ulcer and gastritis in the past. He also had a right heel and coccyx wound and proximal right leg weakness, most likely secondary to lumbar spondylosis. SOCIAL HISTORY: Lives at home and his son lives next door to him. He is confined to a wheelchair, does not ambulate. He has been treated at the [facility]. FAMILY HISTORY: Brother had asthma. Father had diabetes mellitus. REVIEW OF SYSTEMS: GENERAL: There has been no fever, chills or sweats in the last 3 days. CARDIOVASCULAR: No chest pain. PULMONARY: No cough or shortness of breath. GASTROINTESTINAL: He is not having any diarrhea. ENDOCRINE: He has diabetes mellitus. SKIN: He has got a sacral wound and a right heel wound. The rest of systems reviewed are negative except as stated in history of present illness. PHYSICAL EXAMINATION: VITAL SIGNS: Temperature is 98.4 degrees, apical pulse 77, respiratory rate 18, blood pressure 123/64, oxygen saturation 93% on room air. HEENT: Eyes: Gaze is conjugate. Mouth: Tongue is midline without yeast. He is edentulous. NECK: No cervical lymphadenopathy or thyroid enlargement. HEART: Reveals an S1, S2. There is no S3 or murmur. LUNGS: Clear. ABDOMEN: Soft with no hepatosplenomegaly, masses or tenderness. GENITOURINARY: He has got a Causey catheter. EXTREMITIES: Lower extremities without edema. SKIN: No rashes. Examination of right heel shows he has got a right heel wound with pink base. Examination of the sacrum shows he has got a sacral wound, which actually is granulating well and healing well, but still has pink base and these pictures on the chart of the wounds. NEUROLOGIC: Coherent. 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 Able to dorsi and plantar flex the left foot, bend the left knee. He is lying on his left side, so neurologic examination is somewhat compromised. He is able to move his right foot a little bit up and down. I did not ask him to straighten his leg, but his right knee does not have any swelling, but he does have his knee in a flexed position on the right side lying on his side as mentioned. LABORATORY DATA: Laboratory tests are pending. He had a KUB done, which showed no bowel dilatation, large amount of stool was seen throughout the colon. He had a right hip arthroplasty noted. Labs are pending. ASSESSMENT: 1. 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 2. Diabetes mellitus type 2. 3. Urine retention with Causey catheter in place. 4. Lumbar spondylosis. 5. Osteoarthritis of the right knee. 6. Sacral wound. 7. Chronic right leg weakness, most likely secondary to lumbar spondylosis. PLAN: At this time is to consult Dr. Joshua Ralph for Infectious Disease. We will consult Dr. Barone and the wound care team. It should be noted he did have a wound VAC applied to his right heel, he says for the last 4 weeks prior to admission. We will get a CBC, CMP, EKG and a chest x-ray, sed rate and C-reactive protein. He will be evaluated for a wound VAC. We will continue wound care for sacral wound and heel wound. We will order some zinc and vitamin C orally. We will continue with his home medications and order Voltaren gel for his right knee. He appears to be constipated. Will start him on Senokot-S and MiraLax and given a couple of doses of lactulose today to clean him out. Continue with low-dose Humalog sliding scale and also metformin for his diabetes on a diabetic diet. We will get an arterial Doppler of the lower extremities also and defer IV antibiotics to the Infectious Disease doctor. RAVINDER BUSTAMANTE MD DR: JOANIE/vicente JOB#: [id number] / [id number]
[2019-10-24 16:33] LABS: BASO # 0.1 x10^3/uL (0.0-0.2); BASO % 1 % (0-3); EOS # 0.7 x10^3/uL (0.0-0.7); EOS % 7 % (0-3); HEMATOCRIT 35.6 % (39.0-53.0); HEMOGLOBIN 11.9 g/dL (13.0-17.5); LYMPH % 20 % (24-48); MEAN CORPUSCULAR HEMOGLOBIN 28 pg (25-35); MEAN CORPUSCULAR HGB CONC 34 g/dL (31-37); MEAN CORPUSCULAR VOLUME 84 fL (79-100); MONO # 0.7 x10^3/uL (0.0-1.1); MONO % 7 % (0-9); NEUT # 6.6 x10^3/uL (1.8-7.7); NEUT % 66 % (31-73); PLATELET COUNT 264 x10^3/uL (140-400); RED BLOOD COUNT 4.23 x10^6/uL (4.30-5.70); WHITE BLOOD COUNT 9.9 x10^3/uL (4.0-11.0)
[2019-10-24 16:42] LABS: PROTHROMBIN TIME PATIENT 12.6 SEC (11.7-14.0)
[2019-10-24] MEDS: DICLOFENAC SODIUM 1% TOPICAL GEL 100GM TUBE. TP SCH ×2 (16:48→21:20)
[2019-10-24] MEDS: INSULIN LISPRO 300 UNITS/3 ML VIAL. SQ SCH (16:49)
[2019-10-24 16:58] LABS: ALBUMIN/GLOBULIN RATIO 0.8 (1.0-1.7); CALCIUM 9.4 mg/dL (8.5-10.1); CREATININE 0.8 mg/dL (0.7-1.3); GFR 113.1; POTASSIUM 4.2 mmol/L (3.5-5.1); TOTAL BILIRUBIN 0.5 mg/dL (0.2-1.0); TOTAL PROTEIN 6.6 g/dL (6.4-8.2)
[2019-10-24] MEDS ORDERED: NON FORMULARY ITEM (Insulin Lispro (Humalog) 0 UNITS) SQ SCH (17:00)
[2019-10-24] MEDS: ZINC SULFATE 220 MG CAPSULE. PO SCH (17:25)
[2019-10-24] MEDS: ASCORBIC ACID 500 MG TABLET PO SCH (17:25)
[2019-10-24] MEDS: PANTOPRAZOLE 40 MG TABLET.DR. PO SCH (17:25)
[2019-10-24] MEDS: MULTIVITAMIN with MINERAL TABLET. PO SCH (17:25)
[2019-10-24] MEDS: GABAPENTIN 300 MG CAPSULE. PO SCH ×2 (17:25→21:20)
[2019-10-24] MEDS: LACTULOSE 20 GM/30 ML SOLUTION. PO SCH ×2 (17:26→18:21)
[2019-10-24 19:00] VITALS: BP 104/59
[2019-10-24] MEDS: MEROPENEM 1 GM in IV NORMAL SALINE 100ML 100 ML IV SCH (19:53)
[2019-10-24] MEDS ORDERED: VANCOMYCIN 1.25 GM in IV NORMAL SALINE 250ML 250 ML IV ONE (20:00)
[2019-10-24] MEDS: VANCOMYCIN PER PHARMACY MC PRN (20:27)
--- NOTE | 2019-10-24 20:34 | NUR ---
Pharmacy Vancomycin Dosing Note S:Consulted to monitor and dose vancomycin started 10/24/19. O:GINNY SALAZARSILVIA is a 79 year old M with wounds. Height: 5 feet, 10 inches Weight: 54.43 kg [place] Body Weight: 73.00 Adjusted Body Weight: 65.56 Dosing Weight: Actual Other Antibiotics: merrem LABS: Last BUN: 13 Last Creatinine: 0.8 Creatinine Clearance: 47 mL/min Last WBC: 9.9 Last Procalcitonin: Tmax (past 24 hours): 97.5 Vancomycin Dosing: Loading Dose: 1250 mg x1 Dosing Weight: Actual Target Trough: 15-20 A: Based on: dosing during prior admit and weight/renal function P: 1. Begin Vancomycin 750 mg IV q12h 2. Follow up Trough level on 10/25/19 at 2030 3. Pharmacy will continue to monitor, follow and adjust therapy as needed. Quita Mcghee RPH, 10/24/192033
[2019-10-24] MEDS: LACTOBACILLUS RHAMNOSUS GG 1 CAPSULE. PO SCH (21:20)
[2019-10-24] MEDS: SENNOSIDES/DOCUSATE 8.6/50MG TABLET. PO SCH (21:20)
[2019-10-24 23:00] VITALS: BP 138/75
[2019-10-25 03:00] VITALS: BP 115/55
[2019-10-25] MEDS: MEROPENEM 1 GM in IV NORMAL SALINE 100ML 100 ML IV SCH ×3 (06:14→21:42)
[2019-10-25 07:00] VITALS: BP 104/57
[2019-10-25] MEDS: INSULIN LISPRO 300 UNITS/3 ML VIAL. SQ SCH ×3 (08:00→17:00)
[2019-10-25] MEDS ORDERED: VANCOMYCIN 750 MG in IV NORMAL SALINE 250ML 250 ML IV SCH (09:00)
[2019-10-25] MEDS: LACTOBACILLUS RHAMNOSUS GG 1 CAPSULE. PO SCH ×2 (09:28→21:45)
[2019-10-25] MEDS: ASCORBIC ACID 500 MG TABLET PO SCH (09:28)
[2019-10-25] MEDS: GABAPENTIN 300 MG CAPSULE. PO SCH ×3 (09:29→21:46)
[2019-10-25] MEDS: POLYETHYLENE GLYCOL 3350 17 GM PACKET. PO SCH (09:29)
[2019-10-25] MEDS: MULTIVITAMIN with MINERAL TABLET. PO SCH (09:29)
[2019-10-25] MEDS: metFORMIN 500 MG TABLET PO SCH (09:29)
[2019-10-25] MEDS: PANTOPRAZOLE 40 MG TABLET.DR. PO SCH (09:29)
[2019-10-25] MEDS: TAMSULOSIN 0.4 MG CAP.ER.24H. PO SCH (09:29)
[2019-10-25] MEDS: DICLOFENAC SODIUM 1% TOPICAL GEL 100GM TUBE. TP SCH ×3 (09:29→21:49)
[2019-10-25] MEDS: ZINC SULFATE 220 MG CAPSULE. PO SCH (09:29)
--- NOTE | 2019-10-25 10:45 | PDOC ---
PROGRESS NOTES Subjective Subjective complains of chronic pain right knee and chronic right leg weakness. lab reviewed. Objective Objective Vital Signs Date Time Temp Pulse Resp B/P (MAP) Pulse Ox O2 Delivery O2 Flow Rate FiO2 10/25/19 07:00 99.4 81 18 104/57 (73) 99 Room Air 99.4 Intake and Output 10/25/19 07:00 Intake Total 100 ml Output Total 700 ml Balance -600 ml Intake Oral 100 ml Output Urine Total 700 ml # Voids 2 Physical Exam Abdomen: Soft Heart: Regular rate, Normal S1, Normal S2 Extremities: No edema General: Alert HEENT: Atraumatic Neuro: Normal speech, Other (right leg weak) Psych/Mental Status: Mental status NL Skin: No rashes Assessment Assessment ASSESSMENT: 1. 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 2. Diabetes mellitus type 2. 3. Urine retention with Causey catheter in place. 4. Lumbar spondylosis. 5. Osteoarthritis of the right knee. 6. Sacral wound. 7. Chronic right leg weakness, most likely secondary to lumbar spondylosis. Plan Plan of Care continue iv vancomycin and meropenem sed rate and CRP pending consult dr. finn wound care Comment Review of Relevant I have reviewed the following items dimitrios (where applicable) has been applied. Labs Laboratory Tests Test 10/24/19 16:18 10/24/19 16:29 10/24/19 20:17 10/25/19 07:25 White Blood Count 9.9 x10^3/uL (4.0-11.0) Red Blood Count 4.23 x10^6/uL (4.30-5.70) Hemoglobin 11.9 g/dL (13.0-17.5) Hematocrit 35.6 % (39.0-53.0) Mean Corpuscular Volume 84 fL (79-100) Mean Corpuscular Hemoglobin 28 pg (25-35) Mean Corpuscular Hemoglobin Concent 34 g/dL (31-37) Red Cell Distribution Width 19.0 % (11.5-14.5) Platelet Count 264 x10^3/uL (140-400) Neutrophils (%) (Auto) 66 % (31-73) Lymphocytes (%) (Auto) 20 % (24-48) Monocytes (%) (Auto) 7 % (0-9) Eosinophils (%) (Auto) 7 % (0-3) Basophils (%) (Auto) 1 % (0-3) Neutrophils # (Auto) 6.6 x10^3/uL (1.8-7.7) Lymphocytes # (Auto) 2.0 x10^3/uL (1.0-4.8) Monocytes # (Auto) 0.7 x10^3/uL (0.0-1.1) Eosinophils # (Auto) 0.7 x10^3/uL (0.0-0.7) Basophils # (Auto) 0.1 x10^3/uL (0.0-0.2) Prothrombin Time 12.6 SEC (11.7-14.0) Prothromb Time International Ratio 1.0 (0.8-1.1) Sodium Level 140 mmol/L (136-145) Potassium Level 4.2 mmol/L (3.5-5.1) Chloride Level 103 mmol/L (98-107) Carbon Dioxide Level 30 mmol/L (21-32) Anion Gap 7 (6-14) Blood Urea Nitrogen 13 mg/dL (8-26) Creatinine 0.8 mg/dL (0.7-1.3) Estimated GFR (Cockcroft-Gault) 113.1 BUN/Creatinine Ratio 16 (6-20) Glucose Level 114 mg/dL (70-99) Calcium Level 9.4 mg/dL (8.5-10.1) Total Bilirubin 0.5 mg/dL (0.2-1.0) Aspartate Amino Transf (AST/SGOT) 16 U/L (15-37) Alanine Aminotransferase (ALT/SGPT) 32 U/L (16-63) Alkaline Phosphatase 82 U/L (46-116) C-Reactive Protein, Quantitative 9.0 mg/L (0-3.3) Total Protein 6.6 g/dL (6.4-8.2) Albumin 3.0 g/dL (3.4-5.0) Albumin/Globulin Ratio 0.8 (1.0-1.7) Glucose (Fingerstick) 105 mg/dL (70-99) 160 mg/dL (70-99) 118 mg/dL (70-99) Laboratory Tests Test 10/24/19 16:18 10/24/19 16:29 10/24/19 20:17 10/25/19 07:25 White Blood Count 9.9 x10^3/uL (4.0-11.0) Red Blood Count 4.23 x10^6/uL (4.30-5.70) Hemoglobin 11.9 g/dL (13.0-17.5) Hematocrit 35.6 % (39.0-53.0) Mean Corpuscular Volume 84 fL (79-100) Mean Corpuscular Hemoglobin 28 pg (25-35) Mean Corpuscular Hemoglobin Concent 34 g/dL (31-37) Red Cell Distribution Width 19.0 % (11.5-14.5) Platelet Count 264 x10^3/uL (140-400) Neutrophils (%) (Auto) 66 % (31-73) Lymphocytes (%) (Auto) 20 % (24-48) Monocytes (%) (Auto) 7 % (0-9) Eosinophils (%) (Auto) 7 % (0-3) Basophils (%) (Auto) 1 % (0-3) Neutrophils # (Auto) 6.6 x10^3/uL (1.8-7.7) Lymphocytes # (Auto) 2.0 x10^3/uL (1.0-4.8) Monocytes # (Auto) 0.7 x10^3/uL (0.0-1.1) Eosinophils # (Auto) 0.7 x10^3/uL (0.0-0.7) Basophils # (Auto) 0.1 x10^3/uL (0.0-0.2) Prothrombin Time 12.6 SEC (11.7-14.0) Prothromb Time International Ratio 1.0 (0.8-1.1) Sodium Level 140 mmol/L (136-145) Potassium Level 4.2 mmol/L (3.5-5.1) Chloride Level 103 mmol/L (98-107) Carbon Dioxide Level 30 mmol/L (21-32) Anion Gap 7 (6-14) Blood Urea Nitrogen 13 mg/dL (8-26) Creatinine 0.8 mg/dL (0.7-1.3) Estimated GFR (Cockcroft-Gault) 113.1 BUN/Creatinine Ratio 16 (6-20) Glucose Level 114 mg/dL (70-99) Calcium Level 9.4 mg/dL (8.5-10.1) Total Bilirubin 0.5 mg/dL (0.2-1.0) Aspartate Amino Transf (AST/SGOT) 16 U/L (15-37) Alanine Aminotransferase (ALT/SGPT) 32 U/L (16-63) Alkaline Phosphatase 82 U/L (46-116) C-Reactive Protein, Quantitative 9.0 mg/L (0-3.3) Total Protein 6.6 g/dL (6.4-8.2) Albumin 3.0 g/dL (3.4-5.0) Albumin/Globulin Ratio 0.8 (1.0-1.7) Glucose (Fingerstick) 105 mg/dL (70-99) 160 mg/dL (70-99) 118 mg/dL (70-99) Medications Current Medications Cyclobenzaprine HCl (Flexeril) 5 mg PRN Q8HRS PRN PO MUSCLE SPASMS; Start 10/24/19 at 14:00 Diclofenac Sodium (Voltaren) 1 elizabeth TID TP ; Start 10/24/19 at 14:00; Status Cancel Gabapentin (Neurontin) 300 mg TID PO Last administered on 10/25/19at 09:29; Start 10/24/19 at 14:00 Acetaminophen/ Hydrocodone Bitart (Lortab 5/325) 1 tab PRN Q4HRS PRN PO MODERATE PAIN; Start 10/24/19 at 14:00 Lactobacillus Rhamnosus (Culturelle) 1 cap BID PO Last administered on 10/25/19at 09:28; Start 10/24/19 at 21:00 Metformin HCl (Glucophage) 500 mg DAILY PO Last administered on 10/25/19at 09:29; Start 10/25/19 at 09:00 Pantoprazole Sodium (Protonix) 40 mg DAILYAC PO Last administered on 10/25/19at 09:29; Start 10/24/19 at 16:30 Tamsulosin HCl (Flomax) 0.4 mg DAILY PO Last administered on 10/25/19at 09:29; Start 10/25/19 at 09:00 Non-Formulary Medication (Insulin Lispro (Humalog)) TIDWMEALS SQ ; Start 10/24/19 at 17:00; Status UNV Multivitamins (Thera M Plus) 1 tab DAILY PO Last administered on 10/25/19at 09:29; Start 10/24/19 at 15:00 Acetaminophen (Tylenol) 650 mg PRN Q6HRS PRN PO MILD PAIN 1-3; Start 10/24/19 at 14:00 Pharmacy Consult (C.diff Med Screen By Rx) 1 each 1X ONCE MC ; Start 10/24/19 at 15:00; Stop 10/24/19 at 15:01; Status Cancel Insulin Human Lispro (HumaLOG) 0-5 UNITS TIDWMEALS SQ ; Start 10/24/19 at 17:00 Dextrose (Dextrose 50%-Water Syringe) 12.5 gm PRN Q15MIN PRN IV SEE COMMENTS; Start 10/24/19 at 15:15 Senna/Docusate Sodium (Senna Plus) 2 tab QHS PO Last administered on 10/24/19at 21:20; Start 10/24/19 at 21:00 Polyethylene Glycol (miraLAX PACKET) 17 gm DAILY PO Last administered on 10/25/19at 09:29; Start 10/25/19 at 09:00 Lactulose (Lactulose) 20 gm Q2H PO Last administered on 10/24/19at 17:26; Start 10/24/19 at 17:00; Stop 10/24/19 at 19:01; Status DC Diclofenac Sodium (Voltaren) 1 elizabeth TID TP Last administered on 10/25/19at 09:29; Start 10/24/19 at 16:00 Zinc Sulfate (Orazinc) 220 mg DAILY PO Last administered on 10/25/19at 09:29; Start 10/24/19 at 17:00 Ascorbic Acid (Vitamin C) 500 mg DAILY PO Last administered on 10/25/19at 09:28; Start 10/24/19 at 17:00 Meropenem 1 gm/ Sodium Chloride 100 ml @ 200 mls/hr Q8HRS IV Last administered on 10/25/19at 06:14; Start 10/24/19 at 19:30 Vancomycin HCl (Vanco Per Pharmacy) 1 each PRN DAILY PRN MC SEE COMMENTS Last administered on 10/24/19at 20:27; Start 10/24/19 at 19:15 Vancomycin HCl 1.25 gm/Sodium Chloride 250 ml @ 166.667 mls/hr 1X ONCE IV Last administered on 10/24/19at 21:19; Start 10/24/19 at 20:00; Stop 10/24/19 at 21:29; Status DC Vancomycin HCl 750 mg/Sodium Chloride 250 ml @ 250 mls/hr Q12H IV Last administered on 10/25/19at 09:28; Start 10/25/19 at 09:00 Vancomycin HCl (Vancomycin Trough Level) 1 each 1X ONCE MC ; Start 10/25/19 at 20:30; Stop 10/25/19 at 20:31 Active Scripts Active Cefdinir 300 Mg Capsule 300 Mg PO BID Vanco 1 Gram/250 ml-0.9% NaCl (Vancomycin/0.9 % Sod Chloride) 1 Gm/250 Ml Plast..bag 1 Gm IV Q12HR Meropenem 1 Gm Vial 1 Gm IV Q8HRS Humalog (Insulin Lispro) 100 Unit/1 Ml Insuln.pen 0 Units SQ TIDWMEALS Culturelle (Lactobacillus Rhamnosus Gg) 1 Each Cap.sprink 1 Cap PO BID Voltaren (Diclofenac Sodium) 100 Gm Gel..gram. 1 Elizabeth TP TID Cyclobenzaprine Hcl 10 Mg Tablet 5 Mg PO PRN Q8HRS PRN Pantoprazole Sodium (Pantoprazole Sodium) 40 Mg Tablet.dr 40 Mg PO DAILYAC Miralax (Polyethylene Glycol 3350) 17 Gm Powd.pack 1 Packet PO DAILY dissolve in water Senna-Time S Tablet (Sennosides/Docusate Sodium) 1 Each Tablet 2 Tab PO DAILY Tylenol (Acetaminophen) 325 Mg Tablet 650 Mg PO PRN Q6HRS PRN Hydrocodone-Apap 5-325 (Hydrocodone Bit/Acetaminophen) 1 Tab Tablet 1 Tab PO PRN Q4HRS PRN Reported Voltaren (Diclofenac Sodium) 100 Gm Gel..gram. 1 Gm TP TID PRN PRN 30 Days apply to affected area(s) Zinc 50 Mg Tablet 1 Tab PO DAILY 30 Days Centrum Silver Men Tablet (Multivit-Min/FA/Lycopen/Lutein) 1 Each Tablet 1 Each PO DAILY Atorvastatin Calcium 80 Mg Tablet 80 Mg PO HS Metformin Hcl 500 Mg Tablet 500 Mg PO DAILY Gabapentin (Gabapentin) 300 Mg Capsule 300 Mg PO TID Tamsulosin Hcl 0.4 Mg Cap.er.24h 1 Cap PO DAILY Vitals/I & O Vital Sign - Last 24 Hours 10/24/19 10/24/19 10/24/19 10/24/19 14:00 15:00 19:00 23:00 Temp 97.5 98.4 98.7 99.2 97.5 98.4 98.7 99.2 Pulse 64 77 75 89 Resp 19 18 18 18 B/P (MAP) 109/60 (76) 123/64 (83) 104/59 (74) 138/75 (96) Pulse Ox 100 96 95 95 O2 Delivery Room Air Room Air Room Air Room Air 10/25/19 10/25/19 03:00 07:00 Temp 98.7 99.4 98.7 99.4 Pulse 81 81 Resp 18 18 B/P (MAP) 115/55 (75) 104/57 (73) Pulse Ox 94 99 O2 Delivery Room Air Room Air Intake and Output 10/24/19 10/24/19 10/25/19 15:00 23:00 07:00 Intake Total 100 ml Output Total 700 ml Balance 100 ml -700 ml Justicifation of Admission Dx: Justifications for Admission: Justification of Admission Dx: N/A RAVINDER BUSTAMANTE MD Oct 25, 2019 10:45
--- NOTE | 2019-10-25 10:52 | PDOC ---
Infectious Disease Note Vital Sign Vital Signs Vital Signs Date Time Temp Pulse Resp B/P (MAP) Pulse Ox O2 Delivery O2 Flow Rate FiO2 10/25/19 07:00 99.4 81 18 104/57 (73) 99 Room Air 99.4 Labs Lab Laboratory Tests Test 10/24/19 16:18 10/24/19 16:29 10/24/19 20:17 10/25/19 07:25 White Blood Count 9.9 x10^3/uL (4.0-11.0) Red Blood Count 4.23 x10^6/uL (4.30-5.70) Hemoglobin 11.9 g/dL (13.0-17.5) Hematocrit 35.6 % (39.0-53.0) Mean Corpuscular Volume 84 fL (79-100) Mean Corpuscular Hemoglobin 28 pg (25-35) Mean Corpuscular Hemoglobin Concent 34 g/dL (31-37) Red Cell Distribution Width 19.0 % (11.5-14.5) Platelet Count 264 x10^3/uL (140-400) Neutrophils (%) (Auto) 66 % (31-73) Lymphocytes (%) (Auto) 20 % (24-48) Monocytes (%) (Auto) 7 % (0-9) Eosinophils (%) (Auto) 7 % (0-3) Basophils (%) (Auto) 1 % (0-3) Neutrophils # (Auto) 6.6 x10^3/uL (1.8-7.7) Lymphocytes # (Auto) 2.0 x10^3/uL (1.0-4.8) Monocytes # (Auto) 0.7 x10^3/uL (0.0-1.1) Eosinophils # (Auto) 0.7 x10^3/uL (0.0-0.7) Basophils # (Auto) 0.1 x10^3/uL (0.0-0.2) Prothrombin Time 12.6 SEC (11.7-14.0) Prothromb Time International Ratio 1.0 (0.8-1.1) Sodium Level 140 mmol/L (136-145) Potassium Level 4.2 mmol/L (3.5-5.1) Chloride Level 103 mmol/L (98-107) Carbon Dioxide Level 30 mmol/L (21-32) Anion Gap 7 (6-14) Blood Urea Nitrogen 13 mg/dL (8-26) Creatinine 0.8 mg/dL (0.7-1.3) Estimated GFR (Cockcroft-Gault) 113.1 BUN/Creatinine Ratio 16 (6-20) Glucose Level 114 mg/dL (70-99) Calcium Level 9.4 mg/dL (8.5-10.1) Total Bilirubin 0.5 mg/dL (0.2-1.0) Aspartate Amino Transf (AST/SGOT) 16 U/L (15-37) Alanine Aminotransferase (ALT/SGPT) 32 U/L (16-63) Alkaline Phosphatase 82 U/L (46-116) C-Reactive Protein, Quantitative 9.0 mg/L (0-3.3) Total Protein 6.6 g/dL (6.4-8.2) Albumin 3.0 g/dL (3.4-5.0) Albumin/Globulin Ratio 0.8 (1.0-1.7) Glucose (Fingerstick) 105 mg/dL (70-99) 160 mg/dL (70-99) 118 mg/dL (70-99) Objective Assessment R Heel Osteo Sacral wound PCN allergy - ? reaction ? PAD Dm Lumbar stenosis Chronic miller Plan Plan of Care Started Vanc/meropenem 10/23 per pharmacy Consult Vascular F/u labs and cults Local wound care Thank you # [phone] ARASH RAY MD Oct 25, 2019 10:52
[2019-10-25 11:00] VITALS: BP 118/64
[2019-10-25] MEDS: VANCOMYCIN PER PHARMACY MC PRN ×2 (11:13→21:16)
--- NOTE | 2019-10-25 12:12 | CONS ---
DATE OF CONSULTATION: 10/25/2019 INFECTIOUS DISEASE CONSULTATION LOCATION: The patient's room is 408. REQUESTING PHYSICIAN: Dr. Benz. REASON FOR CONSULTATION: Heel osteomyelitis. HISTORY OF PRESENT ILLNESS: The patient is a pleasant 79-year-old gentleman with a history of sacral wound and is being followed at the [facility]. He states he was previously at the [facility] and end up developing a wound on his right heel secondary to the wheelchair. As a result in the Wound Care Center, he has a wound on his heel worsened and he underwent an MRI on 10/14/2019 that showed he had deep heel ulcer occurring plantar to the Achilles insertion extending into close proximity with the adjacent calcaneal cortex. There is edema-like signal confined to the far posterior calcaneus with T1 signal loss keeping with localized osteomyelitis. He may have had some denervation and mild Achilles tendinosis and some osteopenia. He also underwent a lower extremity arterial Doppler on the , the right posterior tibial and peroneal arteries were not visualized, may be occluded. He had moderate atheroscleromic atherosclerotic plaque formation involving the major arterial structures in the right lower extremity, but no hemodynamically significant stenosis was seen. He was seen in the [facility] on the and was directly admitted, concerned for the calcaneus osteomyelitis. He has a history of PENICILLIN ALLERGY, but he does not remember the results of what happens when he takes it. Last evening, I was consulted and instituted meropenem and vancomycin. Currently, the patient is lying in bed. He is a little frustrated because he is having difficulty bearing weight on his right leg, feels his knee may be involved. He has not been taking any antibiotics at home. He has not been having any fevers or chills or sweats. No shortness of air. No cough, chest pain or sore throat. No nausea, vomiting, diarrhea, dysuria or frequency. PAST MEDICAL HISTORY: Positive for right hip hemiarthroplasty in January secondary to right femoral neck fracture, diabetes, hyperlipidemia, chronic urinary retention with Causey catheter, BPH, gastroesophageal reflux disease, erectile dysfunction, idiopathic peripheral neuropathy, lumbar spinal stenosis with history of laminectomy, abdominal aortic aneurysm, gastric ulcer with gastritis, coccyx wound, right heel wound, and multinodular goiter. REVIEW OF SYSTEMS: Otherwise negative. ALLERGIES: LISTED PENICILLIN, unable to tell me what happens when he takes this, MORPHINE IS ALSO LISTED. SOCIAL HISTORY: Lives at home. Confined to a wheelchair. Denies any recent tobacco or alcohol. FAMILY HISTORY: Positive for asthma and diabetes. MEDICATIONS: Meropenem, vancomycin per pharmacy, Flexeril, vitamin C, Neurontin, insulin, lactobacillus, Glucophage, Protonix, Flomax, and zinc. PHYSICAL EXAMINATION: VITAL SIGNS: Temperature 99.1, pulse of 72, respirations 18, blood pressure 118/64, and satting 99% on room air. CONSTITUTIONAL: He is lying in bed. He is cooperative. He is in no acute distress. HEENT: He has normal conjunctivae. Oral cavity, pharynx was clear. NECK: Supple, no JVD. LUNGS: Clear to auscultation. HEART: S1, S2. ABDOMEN: Soft and nontender. No guarding. GENITOURINARY: Causey is in place. EXTREMITIES: Without clubbing or cyanosis. They are thin. SKIN: Without generalized signs of rash. Right heel has a wound with a pink base. The sacral has a wound that also is granulating, but does have some undermining. NEUROLOGIC: Answers all questions appropriately. He is unable to straighten his right knee. There is no warmth or redness and is slightly contracted. PSYCHIATRIC: Affect is pleasant. LABORATORY DATA: White count 9.9, hemoglobin 11.9, platelets 264, neutrophils 66, and lymphs are 20. Creatinine of 0.8. Normal liver function study tests. Glucose was 114. Chest x-ray without acute process. KUB, degenerative changes in the lumbar spine and hip. Blood cultures from the are negative. IMPRESSION: 1. Right heel osteomyelitis. 2. Sacral wound. 3. PENICILLIN ALLERGY, questionable reaction. 4. Questionable peripheral arterial disease with questionable occluded peroneal and posterior tibial arteries based on ultrasound. He has faint pulses in his feet, but could not palpate posterior fossa. 5. Diabetes. 6. Lumbar stenosis. 7. Chronic Causey. RECOMMENDATIONS: I started vancomycin and meropenem on the per pharmacy. Consult Vascular. Follow up labs and cultures. Continue local wound care. Thank you for allowing me to participate in the patient's care. If you have any questions, please do not hesitate to contact me. ARASH RAY MD DR: DARLENE/vicente JOB#: [id number] / [id number] MARLEY
--- NOTE | 2019-10-25 13:52 | NUR ---
SW following. Discussed with RN, pt from home, room air, ADA diet. PT/OT ordered. Pt started on IV vanc/meropenem, cultures pending. SW will continue to follow.
[2019-10-25 15:00] VITALS: BP 110/58
--- NOTE | 2019-10-25 15:23 | PDOC2 ---
CONSULT Date of Consult Date of Consult DATE: 10/25/19 TIME: 15:17 Reason for Consult Reason for Consult: PAD, right heel ulcer, osteomyelitis right calcaneus Referring Physician Referring Physician: Dr. James Identification/Chief Complaint Chief Complaint Right heel wound Source Source: Chart review, Patient History of Present Illness Reason for Visit: Very nice 79-year-old male who has been seen at the wound care center with a sacral wound and a right heel wound. He had an MRI recently which suggested osteomyelitis in the right calcaneus and he was sent to the hospital for evaluation. Currently has no complaints. He tells me he has not been ambulatory for some time due to weakness in the right leg and a contracture of his right knee. He mostly uses a wheelchair to get around. He tells me that he was unaware he has any infection in the bone in his foot. He felt that the wound was getting better. He denies any chills, Reiger's, fevers etc. Past Medical History Cardiovascular: Hyperlipidemia, Mitral valve stenosis CENTRAL NERVOUS SYSTEM: Periperal neuropathy GI: Diverticulosis, GERD, Hemorrhoids, Peptic Ulcer disease, Other Musculoskeletal: low back pain, Osteoarthritis Renal/: Benign prostatic enlarg., Other Endocrine: Diabetes Past Surgical History Past Surgical History: Other Family History Family History: Diabetes Social History ALCOHOL: none Drugs: None Lives: Alone Current Medications Current Medications Current Medications Cyclobenzaprine HCl (Flexeril) 5 mg PRN Q8HRS PRN PO MUSCLE SPASMS; Start 10/24/19 at 14:00 Diclofenac Sodium (Voltaren) 1 elizabeth TID TP ; Start 10/24/19 at 14:00; Status Cancel Gabapentin (Neurontin) 300 mg TID PO Last administered on 10/25/19at 14:23; Start 10/24/19 at 14:00 Acetaminophen/ Hydrocodone Bitart (Lortab 5/325) 1 tab PRN Q4HRS PRN PO MODERATE PAIN; Start 10/24/19 at 14:00 Lactobacillus Rhamnosus (Culturelle) 1 cap BID PO Last administered on 10/25/19at 09:28; Start 10/24/19 at 21:00 Metformin HCl (Glucophage) 500 mg DAILY PO Last administered on 10/25/19at 09:29; Start 10/25/19 at 09:00 Pantoprazole Sodium (Protonix) 40 mg DAILYAC PO Last administered on 10/25/19 09:29; Start 10/24/19 at 16:30 Tamsulosin HCl (Flomax) 0.4 mg DAILY PO Last administered on 10/25/19at 09:29; Start 10/25/19 at 09:00 Non-Formulary Medication (Insulin Lispro (Humalog)) TIDWMEALS SQ ; Start 10/24/19 at 17:00; Status UNV Multivitamins (Thera M Plus) 1 tab DAILY PO Last administered on 10/25/19at 09:29; Start 10/24/19 at 15:00 Acetaminophen (Tylenol) 650 mg PRN Q6HRS PRN PO MILD PAIN 1-3; Start 10/24/19 at 14:00 Pharmacy Consult (C.diff Med Screen By Rx) 1 each 1X ONCE MC ; Start 10/24/19 at 15:00; Stop 10/24/19 at 15:01; Status Cancel Insulin Human Lispro (HumaLOG) 0-5 UNITS TIDWMEALS SQ ; Start 10/24/19 at 17:00 Dextrose (Dextrose 50%-Water Syringe) 12.5 gm PRN Q15MIN PRN IV SEE COMMENTS; Start 10/24/19 at 15:15 Senna/Docusate Sodium (Senna Plus) 2 tab QHS PO Last administered on 10/24/19at 21:20; Start 10/24/19 at 21:00 Polyethylene Glycol (miraLAX PACKET) 17 gm DAILY PO Last administered on 10/25/19at 09:29; Start 10/25/19 at 09:00 Lactulose (Lactulose) 20 gm Q2H PO Last administered on 10/24/19at 17:26; Start 10/24/19 at 17:00; Stop 10/24/19 at 19:01; Status DC Diclofenac Sodium (Voltaren) 1 elizabeth TID TP Last administered on 10/25/19at 14:26; Start 10/24/19 at 16:00 Zinc Sulfate (Orazinc) 220 mg DAILY PO Last administered on 10/25/19at 09:29; Start 10/24/19 at 17:00 Ascorbic Acid (Vitamin C) 500 mg DAILY PO Last administered on 10/25/19at 09:28; Start 10/24/19 at 17:00 Meropenem 1 gm/ Sodium Chloride 100 ml @ 200 mls/hr Q8HRS IV Last administered on 10/25/19at 14:23; Start 10/24/19 at 19:30 Vancomycin HCl (Vanco Per Pharmacy) 1 each PRN DAILY PRN MC SEE COMMENTS Last administered on 10/25/19at 11:13; Start 10/24/19 at 19:15 Vancomycin HCl 1.25 gm/Sodium Chloride 250 ml @ 166.667 mls/hr 1X ONCE IV Last administered on 10/24/19at 21:19; Start 10/24/19 at 20:00; Stop 10/24/19 at 21:29; Status DC Vancomycin HCl 750 mg/Sodium Chloride 250 ml @ 250 mls/hr Q12H IV Last administered on 10/25/19at 09:28; Start 10/25/19 at 09:00 Vancomycin HCl (Vancomycin Trough Level) 1 each 1X ONCE MC ; Start 10/25/19 at 20:30; Stop 10/25/19 at 20:31 Active Scripts Active Cefdinir 300 Mg Capsule 300 Mg PO BID Vanco 1 Gram/250 ml-0.9% NaCl (Vancomycin/0.9 % Sod Chloride) 1 Gm/250 Ml Plast..bag 1 Gm IV Q12HR Meropenem 1 Gm Vial 1 Gm IV Q8HRS Humalog (Insulin Lispro) 100 Unit/1 Ml Insuln.pen 0 Units SQ TIDWMEALS Culturelle (Lactobacillus Rhamnosus Gg) 1 Each Cap.sprink 1 Cap PO BID Voltaren (Diclofenac Sodium) 100 Gm Gel..gram. 1 Elizabeth TP TID Cyclobenzaprine Hcl 10 Mg Tablet 5 Mg PO PRN Q8HRS PRN Pantoprazole Sodium (Pantoprazole Sodium) 40 Mg Tablet.dr 40 Mg PO DAILYAC Miralax (Polyethylene Glycol 3350) 17 Gm Powd.pack 1 Packet PO DAILY dissolve in water Senna-Time S Tablet (Sennosides/Docusate Sodium) 1 Each Tablet 2 Tab PO DAILY Tylenol (Acetaminophen) 325 Mg Tablet 650 Mg PO PRN Q6HRS PRN Hydrocodone-Apap 5-325 (Hydrocodone Bit/Acetaminophen) 1 Tab Tablet 1 Tab PO PRN Q4HRS PRN Reported Voltaren (Diclofenac Sodium) 100 Gm Gel..gram. 1 Gm TP TID PRN PRN 30 Days apply to affected area(s) Zinc 50 Mg Tablet 1 Tab PO DAILY 30 Days Centrum Silver Men Tablet (Multivit-Min/FA/Lycopen/Lutein) 1 Each Tablet 1 Each PO DAILY Atorvastatin Calcium 80 Mg Tablet 80 Mg PO HS Metformin Hcl 500 Mg Tablet 500 Mg PO DAILY Gabapentin (Gabapentin) 300 Mg Capsule 300 Mg PO TID Tamsulosin Hcl 0.4 Mg Cap.er.24h 1 Cap PO DAILY Allergies Allergies: Coded Allergies: Penicillins (Verified Allergy, Intermediate, Unknown, 08/01/19) morphine (Verified Allergy, Unknown, Itching, 10/20/19) Physical Exam Physical Exam Right knee contracture, patient is unable to straighten this completely Right heel ulcer that is small, no clear purulent drainage, no significant gangrene or other need for urgent debridement General: Alert, Oriented X3 HEENT: Atraumatic, PERRLA Lungs: Clear to auscultation Heart: Regular rate, No murmurs Abdomen: Normal bowel sounds, Soft Skin: No rashes, Other Neuro: Sensation intact MUSCULOSKELETAL: No joint tenderness Vitals VITALS Vital Signs Date Time Temp Pulse Resp B/P (MAP) Pulse Ox O2 Delivery O2 Flow Rate FiO2 10/25/19 11:00 99.1 72 18 118/64 (82) 99 Room Air 99.1 Labs Labs Laboratory Tests Test 10/24/19 16:18 10/24/19 16:29 10/24/19 20:17 10/25/19 07:25 White Blood Count 9.9 x10^3/uL (4.0-11.0) Red Blood Count 4.23 x10^6/uL (4.30-5.70) Hemoglobin 11.9 g/dL (13.0-17.5) Hematocrit 35.6 % (39.0-53.0) Mean Corpuscular Volume 84 fL (79-100) Mean Corpuscular Hemoglobin 28 pg (25-35) Mean Corpuscular Hemoglobin Concent 34 g/dL (31-37) Red Cell Distribution Width 19.0 % (11.5-14.5) Platelet Count 264 x10^3/uL (140-400) Neutrophils (%) (Auto) 66 % (31-73) Lymphocytes (%) (Auto) 20 % (24-48) Monocytes (%) (Auto) 7 % (0-9) Eosinophils (%) (Auto) 7 % (0-3) Basophils (%) (Auto) 1 % (0-3) Neutrophils # (Auto) 6.6 x10^3/uL (1.8-7.7) Lymphocytes # (Auto) 2.0 x10^3/uL (1.0-4.8) Monocytes # (Auto) 0.7 x10^3/uL (0.0-1.1) Eosinophils # (Auto) 0.7 x10^3/uL (0.0-0.7) Basophils # (Auto) 0.1 x10^3/uL (0.0-0.2) Prothrombin Time 12.6 SEC (11.7-14.0) Prothromb Time International Ratio 1.0 (0.8-1.1) Sodium Level 140 mmol/L (136-145) Potassium Level 4.2 mmol/L (3.5-5.1) Chloride Level 103 mmol/L (98-107) Carbon Dioxide Level 30 mmol/L (21-32) Anion Gap 7 (6-14) Blood Urea Nitrogen 13 mg/dL (8-26) Creatinine 0.8 mg/dL (0.7-1.3) Estimated GFR (Cockcroft-Gault) 113.1 BUN/Creatinine Ratio 16 (6-20) Glucose Level 114 mg/dL (70-99) Calcium Level 9.4 mg/dL (8.5-10.1) Total Bilirubin 0.5 mg/dL (0.2-1.0) Aspartate Amino Transf (AST/SGOT) 16 U/L (15-37) Alanine Aminotransferase (ALT/SGPT) 32 U/L (16-63) Alkaline Phosphatase 82 U/L (46-116) C-Reactive Protein, Quantitative 9.0 mg/L (0-3.3) Total Protein 6.6 g/dL (6.4-8.2) Albumin 3.0 g/dL (3.4-5.0) Albumin/Globulin Ratio 0.8 (1.0-1.7) Glucose (Fingerstick) 105 mg/dL (70-99) 160 mg/dL (70-99) 118 mg/dL (70-99) Test 10/25/19 12:31 Glucose (Fingerstick) 139 mg/dL (70-99) Laboratory Tests Test 10/24/19 16:18 10/24/19 16:29 10/24/19 20:17 10/25/19 07:25 White Blood Count 9.9 x10^3/uL (4.0-11.0) Red Blood Count 4.23 x10^6/uL (4.30-5.70) Hemoglobin 11.9 g/dL (13.0-17.5) Hematocrit 35.6 % (39.0-53.0) Mean Corpuscular Volume 84 fL (79-100) Mean Corpuscular Hemoglobin 28 pg (25-35) Mean Corpuscular Hemoglobin Concent 34 g/dL (31-37) Red Cell Distribution Width 19.0 % (11.5-14.5) Platelet Count 264 x10^3/uL (140-400) Neutrophils (%) (Auto) 66 % (31-73) Lymphocytes (%) (Auto) 20 % (24-48) Monocytes (%) (Auto) 7 % (0-9) Eosinophils (%) (Auto) 7 % (0-3) Basophils (%) (Auto) 1 % (0-3) Neutrophils # (Auto) 6.6 x10^3/uL (1.8-7.7) Lymphocytes # (Auto) 2.0 x10^3/uL (1.0-4.8) Monocytes # (Auto) 0.7 x10^3/uL (0.0-1.1) Eosinophils # (Auto) 0.7 x10^3/uL (0.0-0.7) Basophils # (Auto) 0.1 x10^3/uL (0.0-0.2) Prothrombin Time 12.6 SEC (11.7-14.0) Prothromb Time International Ratio 1.0 (0.8-1.1) Sodium Level 140 mmol/L (136-145) Potassium Level 4.2 mmol/L (3.5-5.1) Chloride Level 103 mmol/L (98-107) Carbon Dioxide Level 30 mmol/L (21-32) Anion Gap 7 (6-14) Blood Urea Nitrogen 13 mg/dL (8-26) Creatinine 0.8 mg/dL (0.7-1.3) Estimated GFR (Cockcroft-Gault) 113.1 BUN/Creatinine Ratio 16 (6-20) Glucose Level 114 mg/dL (70-99) Calcium Level 9.4 mg/dL (8.5-10.1) Total Bilirubin 0.5 mg/dL (0.2-1.0) Aspartate Amino Transf (AST/SGOT) 16 U/L (15-37) Alanine Aminotransferase (ALT/SGPT) 32 U/L (16-63) Alkaline Phosphatase 82 U/L (46-116) C-Reactive Protein, Quantitative 9.0 mg/L (0-3.3) Total Protein 6.6 g/dL (6.4-8.2) Albumin 3.0 g/dL (3.4-5.0) Albumin/Globulin Ratio 0.8 (1.0-1.7) Glucose (Fingerstick) 105 mg/dL (70-99) 160 mg/dL (70-99) 118 mg/dL (70-99) Test 10/25/19 12:31 Glucose (Fingerstick) 139 mg/dL (70-99) Images Images I did review the report for his right lower extremity MRI which does suggest osteomyelitis in the right calcaneus I independently reviewed the right lower extremity arterial duplex and this does suggest a significant tibial occlusive disease with no flow seen in the peroneal and posterior tibial arteries and the diminished flow velocities with abnormal waveforms in the anterior tibial artery. Assessment/Plan Assessment/Plan 79-year-old male who is chronically nonambulatory due to lower extremity weakness with spinal stenosis and a chronic contracture of the right knee who has a pressure ulcer at the right heel which has unfortunately developed into osteomyelitis at the right calcaneus. 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 As he is nonambulatory has a contracture in the knee and osteomyelitis in the calcaneus which is extremely difficult to clear I think really the best and most reasonable option for him is amputation of the right lower extremity above the knee. He was very surprised to hear this, and was not really quite ready to agree. We will follow-up in attempt to discuss this with him further over the next day or so. In general, osteomyelitis of the calcaneus is very difficult to clear, and given this, his PAD, and the fact that he is nonambulatory major efforts at revascularization and wound healing are really not reasonable. JIGNESH FLORES MD Oct 25, 2019 15:23
[2019-10-25 19:00] VITALS: BP 119/62
[2019-10-25 21:04] LABS: CREATININE 1.3 mg/dL (0.7-1.3); GFR 64.6
--- NOTE | 2019-10-25 21:05 | CONS ---
DATE OF CONSULTATION: 10/25/2019 ATTENDING PHYSICIAN: Allan Benz MD REASON FOR CONSULTATION: The patient was seen at the request of Dr. Benz for rehab evaluation. HISTORY OF PRESENT ILLNESS: This is a 79-year-old right-handed male known to me with diabetes mellitus type 2, hyperlipidemia, osteoarthritis, anemia of chronic disease, chronic urinary retention, benign prostatic hypertrophy, chronic Causey catheter use, right hip fracture after a fall in November. He had right hip hemiarthroplasty done on 01/2019, a displaced right femoral neck fracture secondary to mechanical fall, gone to rehabilitation and then home health. The patient was noted by rehabilitation unit, more problems with his knees rather than the hip and the therapist tried to do range of motion to his knees that caused increased pain. Basically had been bedridden since fall. He lives alone. His son comes and helps him. He had 2 steps to get into the house. The patient had CT scan and MRI scan of lumbar vertebrae, which revealed multilevel degenerative disk disease and degenerative joint disease and neural foraminal compromise. The patient admits some right knee pain and swelling and apparently he is getting up to the wheelchair. The patient was admitted with right heel ulcer, which showed evidence of osteomyelitis. The patient had history of ALLERGY TO PENICILLIN, known with gastroesophageal reflux disease, erectile dysfunction, status post lumbar laminectomy in 2006, also surgery for multinodular goiter. He was also noted with 3.1 cm abdominal aortic aneurysm, history of gastric ulcer, diverticulosis, gastritis and asthmatic bronchitis. Family history with his brother, father had diabetes mellitus. Mother and sister, had asthma. He admits some numbness and tingling mainly in his right hand and in his feet. PHYSICAL EXAMINATION: On physical examination today revealed an elderly male. He is alert, oriented to time, place and person, follows commands appropriately, moves all 4 extremities voluntarily where he had generalized muscle atrophy and weakness, more so of ulnar hand intrinsic muscles, right side more than left side and also triceps right more than left side and quadriceps muscles and also right foot dorsi flexors and plantar flexors more so on the right side. He had absent right knee and ankle jerk. He had 2+ left knee and left ankle jerk. The patient had equal perception of touch and pinprick sensation bilaterally, maybe slightly decreased sensory perception over palmar aspect of right hand when compared to left side more so over ulnar nerve distribution. He had negative Tinel sign over median nerve at the wrist and over ulnar, now at the wrist and elbow and over peroneal nerve at fibular neck area. The patient had flexion contracture of right knee with mild knee joint effusion. He also had some stiffness of right hip joint. He had tenderness to palpation over left sacroiliac joint area and straight leg raising test is negative bilaterally. He had relatively increased weakness of triceps muscles in both upper extremities and also relatively increased weakness of right wrist extension. The patient had dressing to his right heel. He requires help with bed mobility. I have not tested his transfers or ambulation skills at this time. ASSESSMENT: Elderly male with diabetes mellitus with peripheral neuropathy and degenerative disk disease of lumbar vertebrae with associated degenerative joint disease and neural foraminal compromise with generalized muscle weakness, more so of his right lower extremity, also to rule out associated cervical spinal stenosis. The patient is status post right hip hemiarthroplasty for fractured neck femur done in 01/2019 and healed sacral and coccyx area decubitus ulcer and at present time, he had right heel decubitus ulcer with questionable osteomyelitis of calcaneus, chronic urinary retention, benign prostatic hypertrophy, hyperlipidemia, status post previous lumbar laminectomy, abdominal aortic aneurysm, diverticulosis, gastric ulcer, gastritis, gastroesophageal reflux disease and anemia, and degenerative joint disease of his right knee with some pain and knee joint effusion. RECOMMENDATIONS: Right now, he is not interested in injection to his knees. Agree with the plans for physical therapy and occupational therapy. He needs right knee brace to avoid further flexion contracture. He might need followup MRI scan of his lumbar vertebrae and also cervical vertebrae and neurosurgical advice. Dr. Benz, appreciate asking me to participate in the care of this interesting patient. I will be glad to see him for followup with you on as needed basis. GENA VAZQUEZ MD DR: ROCKY/vicente JOB#: [id number] / [id number] MARLEY
[2019-10-25 21:11] LABS: VANC TR 10.6 mcg/mL (10.0-20.0)
--- NOTE | 2019-10-25 21:17 | NUR ---
Pharmacy Vancomycin Dosing Note S: Consulted to monitor and dose vancomycin started 10/24/19. O: GINNY SALAZARSILVIA is a 79 year old M with Osteomyelitis, RIGHT HEEL . Other Antibiotics: merrem LABS: Last BUN: 13 Last Creatinine: 1.3 Creatinine Clearance: 41.2 mL/min Last WBC: 9.9 Last Procalcitonin: Tmax (past 24 hours): 99.4 Microbiology: - I/O: 100/700 Drug Levels: Last Trough level: 10.6 on 10/25/19 at 2045 Last dose given 10/25/19 at 0928 Vancomycin Dosing: Dosing Weight: Actual Target Trough: 15-20 A: Based on: trough P: 1. Increase Vancomycin slightly to 1000 mg IV q12h 2. Follow up Trough level and renal function labs to be ordered 3. Pharmacy will continue to monitor, follow and adjust therapy as needed. Quita Mcghee RPH, 10/25/19 [id number]
[2019-10-25] MEDS: SENNOSIDES/DOCUSATE 8.6/50MG TABLET. PO SCH (21:46)
[2019-10-25 22:31] VITALS: BP 130/70
[2019-10-25] MEDS: VANCOMYCIN 1 GM in IV NORMAL SALINE 250ML 250 ML IV SCH (23:14)
[2019-10-25] MEDS: HYDROcodone/APAP 5/325MG 1 TAB TABLET PO PRN (23:19)
[2019-10-26 01:09] LABS: HEMOGLOBIN A1C 6.5 % (4.8-5.6)
[2019-10-26 03:00] VITALS: BP 118/61
[2019-10-26] MEDS: MEROPENEM 1 GM in IV NORMAL SALINE 100ML 100 ML IV SCH ×3 (05:56→22:30)
[2019-10-26 07:00] VITALS: BP 121/37
[2019-10-26 07:03] LABS: GFR 87.4
[2019-10-26] MEDS: INSULIN LISPRO 300 UNITS/3 ML VIAL. SQ SCH ×3 (08:00→16:41)
[2019-10-26] MEDS: POLYETHYLENE GLYCOL 3350 17 GM PACKET. PO SCH (09:00)
[2019-10-26] MEDS: ZINC SULFATE 220 MG CAPSULE. PO SCH (09:05)
[2019-10-26] MEDS: TAMSULOSIN 0.4 MG CAP.ER.24H. PO SCH (09:05)
[2019-10-26] MEDS: GABAPENTIN 300 MG CAPSULE. PO SCH ×3 (09:05→20:52)
[2019-10-26] MEDS: ASCORBIC ACID 500 MG TABLET PO SCH (09:05)
[2019-10-26] MEDS: MULTIVITAMIN with MINERAL TABLET. PO SCH (09:05)
[2019-10-26] MEDS: LACTOBACILLUS RHAMNOSUS GG 1 CAPSULE. PO SCH ×2 (09:05→20:51)
[2019-10-26] MEDS: metFORMIN 500 MG TABLET PO SCH (09:05)
[2019-10-26] MEDS: PANTOPRAZOLE 40 MG TABLET.DR. PO SCH (09:05)
[2019-10-26] MEDS: DICLOFENAC SODIUM 1% TOPICAL GEL 100GM TUBE. TP SCH ×3 (09:06→20:51)
[2019-10-26] MEDS: VANCOMYCIN 1 GM in IV NORMAL SALINE 250ML 250 ML IV SCH ×2 (09:12→20:53)
--- NOTE | 2019-10-26 09:12 | PDOC ---
Infectious Disease Note Subjective Subjective Doing ok. Pain controlled No F/C/S/N/V/D/SOA/rash ROS ROS o/w neg Vital Sign Vital Signs Vital Signs Date Time Temp Pulse Resp B/P (MAP) Pulse Ox O2 Delivery O2 Flow Rate FiO2 10/26/19 07:00 98.4 68 18 121/37 (65) 100 Room Air 98.4 Physical Exam PHYSICAL EXAM CONSTITUTIONAL: He is lying in bed. He is cooperative. He is in no acute distress. HEENT: He has normal conjunctivae. Oral cavity, pharynx was clear. NECK: Supple, no JVD. LUNGS: Clear to auscultation. HEART: S1, S2. ABDOMEN: Soft and nontender. No guarding. GENITOURINARY: Miller is in place. EXTREMITIES: Without clubbing or cyanosis. They are thin. SKIN: Without generalized signs of rash. Right heel has a wound with a pink base. The sacral has a wound that also is granulating, but does have some undermining. Heel wound is dressed (examined 10/24 had hydrophera blue - clean base) NEUROLOGIC: Answers all questions appropriately. He is unable to straighten his right knee. There is no warmth or redness and is slightly contracted. PSYCHIATRIC: Affect is pleasant. Labs Lab Laboratory Tests Test 10/25/19 12:31 10/25/19 16:24 10/25/19 19:30 10/25/19 20:45 Glucose (Fingerstick) 139 mg/dL (70-99) 123 mg/dL (70-99) 132 mg/dL (70-99) Creatinine 1.3 mg/dL (0.7-1.3) Estimated GFR (Cockcroft-Gault) 64.6 Vancomycin Level Trough 10.6 mcg/mL (10.0-20.0) Vancomycin Last Dose Date 10/25/19 Vancomycin Last Dose Time 0900 Test 10/26/19 05:03 10/26/19 07:52 Creatinine 1.0 mg/dL (0.7-1.3) Estimated GFR (Cockcroft-Gault) 87.4 Glucose (Fingerstick) 130 mg/dL (70-99) Objective Assessment R Heel Osteo Sacral wound PCN allergy - ? reaction PAD - Vascular note reviewed - appreciate input Dm Lumbar stenosis Chronic miller Plan Plan of Care Started Vanc/meropenem 10/23 per pharmacy Consult Vascular reviewed - amputation recommended F/u labs and cults Local wound care ARASH RAY MD Oct 26, 2019 09:12
--- NOTE | 2019-10-26 09:27 | PDOC ---
PROGRESS NOTES Subjective Subjective No new complaints. Objective Objective Vital Signs Date Time Temp Pulse Resp B/P (MAP) Pulse Ox O2 Delivery O2 Flow Rate FiO2 10/26/19 07:00 98.4 68 18 121/37 (65) 100 Room Air 98.4 Intake and Output 10/26/19 07:00 Intake Total 840 ml Output Total 1300 ml Balance -460 ml Intake Oral 840 ml Output Urine Total 1300 ml Physical Exam Physical Exam He is alert,supine in bed and he continues with generalized muscle weakness,more so of right lower extremity with flexion contracture of right knee joint and dressing in place to right heel. As he is not standing up and walking knee joint injection is not going to make much difference,unless right knee joint pain is interfering with his bed mobility and transfers. Is he a candidate for consideration of lumbar spine surgery,to see that might help with right lower extremity weakness,in the setting of generalized muscle weakness and atrophy from peripheral neuropathy? Plan Plan of Care To continue present wound care. Comment Review of Relevant I have reviewed the following items dimitrios (where applicable) has been applied. Labs Laboratory Tests Test 10/24/19 16:18 10/24/19 16:29 10/24/19 20:17 10/25/19 07:25 White Blood Count 9.9 x10^3/uL (4.0-11.0) Red Blood Count 4.23 x10^6/uL (4.30-5.70) Hemoglobin 11.9 g/dL (13.0-17.5) Hematocrit 35.6 % (39.0-53.0) Mean Corpuscular Volume 84 fL (79-100) Mean Corpuscular Hemoglobin 28 pg (25-35) Mean Corpuscular Hemoglobin Concent 34 g/dL (31-37) Red Cell Distribution Width 19.0 % (11.5-14.5) Platelet Count 264 x10^3/uL (140-400) Neutrophils (%) (Auto) 66 % (31-73) Lymphocytes (%) (Auto) 20 % (24-48) Monocytes (%) (Auto) 7 % (0-9) Eosinophils (%) (Auto) 7 % (0-3) Basophils (%) (Auto) 1 % (0-3) Neutrophils # (Auto) 6.6 x10^3/uL (1.8-7.7) Lymphocytes # (Auto) 2.0 x10^3/uL (1.0-4.8) Monocytes # (Auto) 0.7 x10^3/uL (0.0-1.1) Eosinophils # (Auto) 0.7 x10^3/uL (0.0-0.7) Basophils # (Auto) 0.1 x10^3/uL (0.0-0.2) Prothrombin Time 12.6 SEC (11.7-14.0) Prothromb Time International Ratio 1.0 (0.8-1.1) Sodium Level 140 mmol/L (136-145) Potassium Level 4.2 mmol/L (3.5-5.1) Chloride Level 103 mmol/L (98-107) Carbon Dioxide Level 30 mmol/L (21-32) Anion Gap 7 (6-14) Blood Urea Nitrogen 13 mg/dL (8-26) Creatinine 0.8 mg/dL (0.7-1.3) Estimated GFR (Cockcroft-Gault) 113.1 BUN/Creatinine Ratio 16 (6-20) Glucose Level 114 mg/dL (70-99) Hemoglobin A1c 6.5 % (4.8-5.6) Calcium Level 9.4 mg/dL (8.5-10.1) Total Bilirubin 0.5 mg/dL (0.2-1.0) Aspartate Amino Transf (AST/SGOT) 16 U/L (15-37) Alanine Aminotransferase (ALT/SGPT) 32 U/L (16-63) Alkaline Phosphatase 82 U/L (46-116) C-Reactive Protein, Quantitative 9.0 mg/L (0-3.3) Total Protein 6.6 g/dL (6.4-8.2) Albumin 3.0 g/dL (3.4-5.0) Albumin/Globulin Ratio 0.8 (1.0-1.7) Glucose (Fingerstick) 105 mg/dL (70-99) 160 mg/dL (70-99) 118 mg/dL (70-99) Test 10/25/19 12:31 10/25/19 16:24 10/25/19 19:30 10/25/19 20:45 Glucose (Fingerstick) 139 mg/dL (70-99) 123 mg/dL (70-99) 132 mg/dL (70-99) Creatinine 1.3 mg/dL (0.7-1.3) Estimated GFR (Cockcroft-Gault) 64.6 Vancomycin Level Trough 10.6 mcg/mL (10.0-20.0) Vancomycin Last Dose Date 10/25/19 Vancomycin Last Dose Time 0900 Test 10/26/19 05:03 10/26/19 07:52 Creatinine 1.0 mg/dL (0.7-1.3) Estimated GFR (Cockcroft-Gault) 87.4 Glucose (Fingerstick) 130 mg/dL (70-99) Laboratory Tests Test 10/25/19 12:31 10/25/19 16:24 10/25/19 19:30 10/25/19 20:45 Glucose (Fingerstick) 139 mg/dL (70-99) 123 mg/dL (70-99) 132 mg/dL (70-99) Creatinine 1.3 mg/dL (0.7-1.3) Estimated GFR (Cockcroft-Gault) 64.6 Vancomycin Level Trough 10.6 mcg/mL (10.0-20.0) Vancomycin Last Dose Date 10/25/19 Vancomycin Last Dose Time 09 Test 10/26/19 05:03 10/26/19 07:52 Creatinine 1.0 mg/dL (0.7-1.3) Estimated GFR (Cockcroft-Gault) 87.4 Glucose (Fingerstick) 130 mg/dL (70-99) Medications Current Medications Cyclobenzaprine HCl (Flexeril) 5 mg PRN Q8HRS PRN PO MUSCLE SPASMS; Start 10/24/19 at 14:00 Diclofenac Sodium (Voltaren) 1 elizabeth TID TP ; Start 10/24/19 at 14:00; Status Cancel Gabapentin (Neurontin) 300 mg TID PO Last administered on 10/26/19at 09:05; Start 10/24/19 at 14:00 Acetaminophen/ Hydrocodone Bitart (Lortab 5/325) 1 tab PRN Q4HRS PRN PO MO DERATE PAIN Last administered on 10/25/19at 23:19; Start 10/24/19 at 14:00 Lactobacillus Rhamnosus (Culturelle) 1 cap BID PO Last administered on 10/26/19at 09:05; Start 10/24/19 at 21:00 Metformin HCl (Glucophage) 500 mg DAILY PO Last administered on 10/26/19 09:05; Start 10/25/19 at 09:00 Pantoprazole Sodium (Protonix) 40 mg DAILYAC PO Last administered on 10/26/19at 09:05; Start 10/24/19 at 16:30 Tamsulosin HCl (Flomax) 0.4 mg DAILY PO Last administered on 10/26/19at 09:05; Start 10/25/19 at 09:00 Non-Formulary Medication (Insulin Lispro (Humalog)) TIDWMEALS SQ ; Start 10/24/19 at 17:00; Status UNV Multivitamins (Thera M Plus) 1 tab DAILY PO Last administered on 10/26/19at 09:05; Start 10/24/19 at 15:00 Acetaminophen (Tylenol) 650 mg PRN Q6HRS PRN PO MILD PAIN 1-3; Start 10/24/19 at 14:00 Pharmacy Consult (C.diff Med Screen By Rx) 1 each 1X ONCE MC ; Start 10/24/19 at 15:00; Stop 10/24/19 at 15:01; Status Cancel Insulin Human Lispro (HumaLOG) 0-5 UNITS TIDWMEALS SQ ; Start 10/24/19 at 17:00 Dextrose (Dextrose 50%-Water Syringe) 12.5 gm PRN Q15MIN PRN IV SEE COMMENTS; Start 10/24/19 at 15:15 Senna/Docusate Sodium (Senna Plus) 2 tab QHS PO Last administered on 10/25/19at 21:46; Start 10/24/19 at 21:00 Polyethylene Glycol (miraLAX PACKET) 17 gm DAILY PO Last administered on 10/25/19at 09:29; Start 10/25/19 at 09:00 Lactulose (Lactulose) 20 gm Q2H PO Last administered on 10/24/19at 17:26; Start 10/24/19 at 17:00; Stop 10/24/19 at 19:01; Status DC Diclofenac Sodium (Voltaren) 1 elizabeth TID TP Last administered on 10/26/19at 09:06; Start 10/24/19 at 16:00 Zinc Sulfate (Orazinc) 220 mg DAILY PO Last administered on 10/26/19 09:05; Start 10/24/19 at 17:00 Ascorbic Acid (Vitamin C) 500 mg DAILY PO Last administered on 10/26/19 09:05; Start 10/24/19 at 17:00 Meropenem 1 gm/ Sodium Chloride 100 ml @ 200 mls/hr Q8HRS IV Last administered on 10/26/19at 05:56; Start 10/24/19 at 19:30 Vancomycin HCl (Vanco Per Pharmacy) 1 each PRN DAILY PRN MC SEE COMMENTS Last administered on 10/25/19at 21:16; Start 10/24/19 at 19:15 Vancomycin HCl 1.25 gm/Sodium Chloride 250 ml @ 166.667 mls/hr 1X ONCE IV Last administered on 10/24/19at 21:19; Start 10/24/19 at 20:00; Stop 10/24/19 at 21:29; Status DC Vancomycin HCl 750 mg/Sodium Chloride 250 ml @ 250 mls/hr Q12H IV Last admin istered on 10/25/19at 09:28; Start 10/25/19 at 09:00; Stop 10/25/19 at 21:16; Status DC Vancomycin HCl (Vancomycin Trough Level) 1 each 1X ONCE MC Last administered on 10/25/19at 20:30; Start 10/25/19 at 20:30; Stop 10/25/19 at 20:31; Status DC Vancomycin HCl 1 gm/Sodium Chloride 250 ml @ 250 mls/hr Q12H IV Last administered on 10/26/19at 09:12; Start 10/25/19 at 21:30 Active Scripts Active Cefdinir 300 Mg Capsule 300 Mg PO BID Vanco 1 Gram/250 ml-0.9% NaCl (Vancomycin/0.9 % Sod Chloride) 1 Gm/250 Ml Plast..bag 1 Gm IV Q12HR Meropenem 1 Gm Vial 1 Gm IV Q8HRS Humalog (Insulin Lispro) 100 Unit/1 Ml Insuln.pen 0 Units SQ TIDWMEALS Culturelle (Lactobacillus Rhamnosus Gg) 1 Each Cap.sprink 1 Cap PO BID Voltaren (Diclofenac Sodium) 100 Gm Gel..gram. 1 Elizabeth TP TID Cyclobenzaprine Hcl 10 Mg Tablet 5 Mg PO PRN Q8HRS PRN Pantoprazole Sodium (Pantoprazole Sodium) 40 Mg Tablet.dr 40 Mg PO DAILYAC Miralax (Polyethylene Glycol 3350) 17 Gm Powd.pack 1 Packet PO DAILY dissolve in water Senna-Time S Tablet (Sennosides/Docusate Sodium) 1 Each Tablet 2 Tab PO DAILY Tylenol (Acetaminophen) 325 Mg Tablet 650 Mg PO PRN Q6HRS PRN Hydrocodone-Apap 5-325 (Hydrocodone Bit/Acetaminophen) 1 Tab Tablet 1 Tab PO PRN Q4HRS PRN Reported Voltaren (Diclofenac Sodium) 100 Gm Gel..gram. 1 Gm TP TID PRN PRN 30 Days apply to affected area(s) Zinc 50 Mg Tablet 1 Tab PO DAILY 30 Days Centrum Silver Men Tablet (Multivit-Min/FA/Lycopen/Lutein) 1 Each Tablet 1 Each PO DAILY Atorvastatin Calcium 80 Mg Tablet 80 Mg PO HS Metformin Hcl 500 Mg Tablet 500 Mg PO DAILY Gabapentin (Gabapentin) 300 Mg Capsule 300 Mg PO TID Tamsulosin Hcl 0.4 Mg Cap.er.24h 1 Cap PO DAILY Vitals/I & O Vital Sign - Last 24 Hours 10/25/19 10/25/19 10/25/19 10/25/19 11:00 15:00 19:00 19:35 Temp 99.1 98.9 98.1 99.1 98.9 98.1 Pulse 72 70 80 Resp 18 18 20 B/P (MAP) 118/64 (82) 110/58 (75) 119/62 (81) Pulse Ox 99 99 95 O2 Delivery Room Air Room Air Room Air Room Air 10/25/19 10/25/19 10/26/19 10/26/19 22:31 23:19 00:19 03:00 Temp 98.2 98.6 98.2 98.6 Pulse 82 81 Resp 20 20 20 18 B/P (MAP) 130/70 (90) 118/61 (80) Pulse Ox 99 96 O2 Delivery Room Air Room Air Room Air Room Air 10/26/19 07:00 Temp 98.4 98.4 Pulse 68 Resp 18 B/P (MAP) 121/37 (65) Pulse Ox 100 O2 Delivery Room Air Intake and Output 10/25/19 10/25/19 10/26/19 15:00 23:00 07:00 Intake Total 540 ml 300 ml Output Total 1100 ml 200 ml Balance 540 ml -800 ml -200 ml Justicifation of Admission Dx: Justifications for Admission: Justification of Admission Dx: N/A Nutrition Consultation Dietary Evaluation: Recommendations by RD: Dietary education by RD, Protein supplementation Comments: pt declines oral nutrition supplements. will add DBL meat portions for extra protein continue mvi and vit per wound protocal and ADA diet Expected Outcomes/Goals: to meet >75% est nutr needs Glycemic control Interpretation of weight loss: >5% in 1 month Malnutrition Findings: Food and Nutrition Intake (Sev: <50% est energy req 5days Body Fat Depletion (Non Severe: Mod to Severe Weight Status: Underweight GENA VAZQUEZ MD Oct 26, 2019 09:27
[2019-10-26] MEDS: VANCOMYCIN PER PHARMACY MC PRN (10:07)
--- NOTE | 2019-10-26 10:42 | PDOC ---
PROGRESS NOTES Subjective Subjective feels okay. arterial doppler showed occlusive disease below right knee and vascular surgery recommended a right AKA. discussed with him about the righit heel wound and osteomyelitis and that vascular surgeryfeels that he wont heel his osteomyelitis due to poor circulation. he will think about this. Objective Objective Vital Signs Date Time Temp Pulse Resp B/P (MAP) Pulse Ox O2 Delivery O2 Flow Rate FiO2 10/26/19 07:00 98.4 68 18 121/37 (65) 100 Room Air 98.4 Intake and Output 10/26/19 07:00 Intake Total 840 ml Output Total 1300 ml Balance -460 ml Intake Oral 840 ml Output Urine Total 1300 ml Physical Exam Abdomen: Soft Heart: Regular rate, Normal S1, Normal S2 Extremities: No edema General: Alert HEENT: Atraumatic Lungs: Clear to auscultation Neuro: Normal speech Psych/Mental Status: Mental status NL Skin: No rashes Assessment Assessment 1. 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 2. Diabetes mellitus type 2. 3. Urine retention with Causey catheter in place. 4. Lumbar spondylosis. 5. Osteoarthritis of the right knee. 6. Sacral wound. 7. Chronic right leg weakness, most likely secondary to lumbar spondylosis. peripheral artery disease with occlusive disease below right knee Plan Plan of Care continue iv vancomycin and meropenem wound care he will consider right AKA Comment Review of Relevant I have reviewed the following items dimitrios (where applicable) has been applied. Labs Laboratory Tests Test 10/24/19 16:18 10/24/19 16:29 10/24/19 20:17 10/25/19 07:25 White Blood Count 9.9 x10^3/uL (4.0-11.0) Red Blood Count 4.23 x10^6/uL (4.30-5.70) Hemoglobin 11.9 g/dL (13.0-17.5) Hematocrit 35.6 % (39.0-53.0) Mean Corpuscular Volume 84 fL (79-100) Mean Corpuscular Hemoglobin 28 pg (25-35) Mean Corpuscular Hemoglobin Concent 34 g/dL (31-37) Red Cell Distribution Width 19.0 % (11.5-14.5) Platelet Count 264 x10^3/uL (140-400) Neutrophils (%) (Auto) 66 % (31-73) Lymphocytes (%) (Auto) 20 % (24-48) Monocytes (%) (Auto) 7 % (0-9) Eosinophils (%) (Auto) 7 % (0-3) Basophils (%) (Auto) 1 % (0-3) Neutrophils # (Auto) 6.6 x10^3/uL (1.8-7.7) Lymphocytes # (Auto) 2.0 x10^3/uL (1.0-4.8) Monocytes # (Auto) 0.7 x10^3/uL (0.0-1.1) Eosinophils # (Auto) 0.7 x10^3/uL (0.0-0.7) Basophils # (Auto) 0.1 x10^3/uL (0.0-0.2) Prothrombin Time 12.6 SEC (11.7-14.0) Prothromb Time International Ratio 1.0 (0.8-1.1) Sodium Level 140 mmol/L (136-145) Potassium Level 4.2 mmol/L (3.5-5.1) Chloride Level 103 mmol/L (98-107) Carbon Dioxide Level 30 mmol/L (21-32) Anion Gap 7 (6-14) Blood Urea Nitrogen 13 mg/dL (8-26) Creatinine 0.8 mg/dL (0.7-1.3) Estimated GFR (Cockcroft-Gault) 113.1 BUN/Creatinine Ratio 16 (6-20) Glucose Level 114 mg/dL (70-99) Hemoglobin A1c 6.5 % (4.8-5.6) Calcium Level 9.4 mg/dL (8.5-10.1) Total Bilirubin 0.5 mg/dL (0.2-1.0) Aspartate Amino Transf (AST/SGOT) 16 U/L (15-37) Alanine Aminotransferase (ALT/SGPT) 32 U/L (16-63) Alkaline Phosphatase 82 U/L (46-116) C-Reactive Protein, Quantitative 9.0 mg/L (0-3.3) Total Protein 6.6 g/dL (6.4-8.2) Albumin 3.0 g/dL (3.4-5.0) Albumin/Globulin Ratio 0.8 (1.0-1.7) Glucose (Fingerstick) 105 mg/dL (70-99) 160 mg/dL (70-99) 118 mg/dL (70-99) Test 10/25/19 12:31 10/25/19 16:24 10/25/19 19:30 10/25/19 20:45 Glucose (Fingerstick) 139 mg/dL (70-99) 123 mg/dL (70-99) 132 mg/dL (70-99) Creatinine 1.3 mg/dL (0.7-1.3) Estimated GFR (Cockcroft-Gault) 64.6 Vancomycin Level Trough 10.6 mcg/mL (10.0-20.0) Vancomycin Last Dose Date 10/25/19 Vancomycin Last Dose Time 09 Test 10/26/19 05:03 10/26/19 07:52 Creatinine 1.0 mg/dL (0.7-1.3) Estimated GFR (Cockcroft-Gault) 87.4 C-Reactive Protein, Quantitative 27.0 mg/L (0-3.3) Glucose (Fingerstick) 130 mg/dL (70-99) Laboratory Tests Test 10/25/19 12:31 10/25/19 16:24 10/25/19 19:30 10/25/19 20:45 Glucose (Fingerstick) 139 mg/dL (70-99) 123 mg/dL (70-99) 132 mg/dL (70-99) Creatinine 1.3 mg/dL (0.7-1.3) Estimated GFR (Cockcroft-Gault) 64.6 Vancomycin Level Trough 10.6 mcg/mL (10.0-20.0) Vancomycin Last Dose Date 10/25/19 Vancomycin Last Dose Time 0900 Test 10/26/19 05:03 10/26/19 07:52 Creatinine 1.0 mg/dL (0.7-1.3) Estimated GFR (Cockcroft-Gault) 87.4 C-Reactive Protein, Quantitative 27.0 mg/L (0-3.3) Glucose (Fingerstick) 130 mg/dL (70-99) Medications Current Medications Cyclobenzaprine HCl (Flexeril) 5 mg PRN Q8HRS PRN PO MUSCLE SPASMS; Start 10/24/19 at 14:00 Diclofenac Sodium (Voltaren) 1 elizabeth TID TP ; Start 10/24/19 at 14:00; Status Cancel Gabapentin (Neurontin) 300 mg TID PO Last administered on 10/26/19at 09:05; Start 10/24/19 at 14:00 Acetaminophen/ Hydrocodone Bitart (Lortab 5/325) 1 tab PRN Q4HRS PRN PO MODERATE TO SEVERE PAIN Last administered on 10/25/19at 23:19; Start 10/24/19 at 14:00 Lactobacillus Rhamnosus (Culturelle) 1 cap BID PO Last administered on 10/26/19at 09:05; Start 10/24/19 at 21:00 Metformin HCl (Glucophage) 500 mg DAILY PO Last administered on 10/26/19at 09:05; Start 10/25/19 at 09:00 Pantoprazole Sodium (Protonix) 40 mg DAILYAC PO Last administered on 10/26/19at 09:05; Start 10/24/19 at 16:30 Tamsulosin HCl (Flomax) 0.4 mg DAILY PO Last administered on 10/26/19at 09:05; Start 10/25/19 at 09:00 Non-Formulary Medication (Insulin Lispro (Humalog)) TIDWMEALS SQ ; Start 10/24/19 at 17:00; Status UNV Multivitamins (Thera M Plus) 1 tab DAILY PO Last administered on 10/26/19at 09:05; Start 10/24/19 at 15:00 Acetaminophen (Tylenol) 650 mg PRN Q6HRS PRN PO MILD PAIN 1-3; Start 10/24/19 at 14:00 Pharmacy Consult (C.diff Med Screen By Rx) 1 each 1X ONCE MC ; Start 10/24/19 at 15:00; Stop 10/24/19 at 15:01; Status Cancel Insulin Human Lispro (HumaLOG) 0-5 UNITS TIDWMEALS SQ ; Start 10/24/19 at 17:00 Dextrose (Dextrose 50%-Water Syringe) 12.5 gm PRN Q15MIN PRN IV SEE COMMENTS; Start 10/24/19 at 15:15 Senna/Docusate Sodium (Senna Plus) 2 tab QHS PO Last administered on 10/25/19at 21:46; Start 7/27/20 at 21:00 Polyethylene Glycol (miraLAX PACKET) 17 gm DAILY PO Last administered on 10/25/19 09:29; Start 10/25/19 at 09:00 Lactulose (Lactulose) 20 gm Q2H PO Last administered on 10/24/19at 17:26; Start 10/24/19 at 17:00; Stop 10/24/19 at 19:01; Status DC Diclofenac Sodium (Voltaren) 1 elizabeth TID TP Last administered on 10/26/19at 09:06; Start 10/24/19 at 16:00 Zinc Sulfate (Orazinc) 220 mg DAILY PO Last administered on 10/26/19 09:05; Start 10/24/19 at 17:00 Ascorbic Acid (Vitamin C) 500 mg DAILY PO Last administered on 10/26/19at 09:05; Start 10/24/19 at 17:00 Meropenem 1 gm/ Sodium Chloride 100 ml @ 200 mls/hr Q8HRS IV Last administered on 10/26/19at 05:56; Start 10/24/19 at 19:30 Vancomycin HCl (Vanco Per Pharmacy) 1 each PRN DAILY PRN MC SEE COMMENTS Last administered on 10/26/19at 10:07; Start 10/24/19 at 19:15 Vancomycin HCl 1.25 gm/Sodium Chloride 250 ml @ 166.667 mls/hr 1X ONCE IV Last administered on 10/24/19at 21:19; Start 10/24/19 at 20:00; Stop 10/24/19 at 21:29; Status DC Vancomycin HCl 750 mg/Sodium Chloride 250 ml @ 250 mls/hr Q12H IV Last administered on 10/25/19at 09:28; Start 10/25/19 at 09:00; Stop 10/25/19 at 21:16; Status DC Vancomycin HCl (Vancomycin Trough Level) 1 each 1X ONCE MC Last administered on 10/25/19at 20:30; Start 10/25/19 at 20:30; Stop 10/25/19 at 20:31; Status DC Vancomycin HCl 1 gm/Sodium Chloride 250 ml @ 250 mls/hr Q12H IV Last administered on 10/26/19at 09:12; Start 10/25/19 at 21:30 Active Scripts Active Cefdinir 300 Mg Capsule 300 Mg PO BID Vanco 1 Gram/250 ml-0.9% NaCl (Vancomycin/0.9 % Sod Chloride) 1 Gm/250 Ml Plast..bag 1 Gm IV Q12HR Meropenem 1 Gm Vial 1 Gm IV Q8HRS Humalog (Insulin Lispro) 100 Unit/1 Ml Insuln.pen 0 Units SQ TIDWMEALS Culturelle (Lactobacillus Rhamnosus Gg) 1 Each Cap.sprink 1 Cap PO BID Voltaren (Diclofenac Sodium) 100 Gm Gel..gram. 1 Elizabeth TP TID Cyclobenzaprine Hcl 10 Mg Tablet 5 Mg PO PRN Q8HRS PRN Pantoprazole Sodium (Pantoprazole Sodium) 40 Mg Tablet.dr 40 Mg PO DAILYAC Miralax (Polyethylene Glycol 3350) 17 Gm Powd.pack 1 Packet PO DAILY dissolve in water Senna-Time S Tablet (Sennosides/Docusate Sodium) 1 Each Tablet 2 Tab PO DAILY Tylenol (Acetaminophen) 325 Mg Tablet 650 Mg PO PRN Q6HRS PRN Hydrocodone-Apap 5-325 (Hydrocodone Bit/Acetaminophen) 1 Tab Tablet 1 Tab PO PRN Q4HRS PRN Reported Voltaren (Diclofenac Sodium) 100 Gm Gel..gram. 1 Gm TP TID PRN PRN 30 Days apply to affected area(s) Zinc 50 Mg Tablet 1 Tab PO DAILY 30 Days Centrum Silver Men Tablet (Multivit-Min/FA/Lycopen/Lutein) 1 Each Tablet 1 Each PO DAILY Atorvastatin Calcium 80 Mg Tablet 80 Mg PO HS Metformin Hcl 500 Mg Tablet 500 Mg PO DAILY Gabapentin (Gabapentin) 300 Mg Capsule 300 Mg PO TID Tamsulosin Hcl 0.4 Mg Cap.er.24h 1 Cap PO DAILY Vitals/I & O Vital Sign - Last 24 Hours 10/25/19 10/25/19 10/25/19 10/25/19 11:00 15:00 19:00 19:35 Temp 99.1 98.9 98.1 99.1 98.9 98.1 Pulse 72 70 80 Resp 18 18 20 B/P (MAP) 118/64 (82) 110/58 (75) 119/62 (81) Pulse Ox 99 99 95 O2 Delivery Room Air Room Air Room Air Room Air 10/25/19 10/25/19 10/26/19 10/26/19 22:31 23:19 00:19 03:00 Temp 98.2 98.6 98.2 98.6 Pulse 82 81 Resp 20 20 20 18 B/P (MAP) 130/70 (90) 118/61 (80) Pulse Ox 99 96 O2 Delivery Room Air Room Air Room Air Room Air 10/26/19 07:00 Temp 98.4 98.4 Pulse 68 Resp 18 B/P (MAP) 121/37 (65) Pulse Ox 100 O2 Delivery Room Air Intake and Output 10/25/19 10/25/19 10/26/19 15:00 23:00 07:00 Intake Total 540 ml 300 ml Output Total 1100 ml 200 ml Balance 540 ml -800 ml -200 ml Justicifation of Admission Dx: Justifications for Admission: Justification of Admission Dx: N/A Nutrition Consultation Dietary Evaluation: Recommendations by RD: Dietary education by RD, Protein supplementation Comments: pt declines oral nutrition supplements. will add DBL meat portions for extra protein continue mvi and vit per wound protocal and ADA diet Expected Outcomes/Goals: to meet >75% est nutr needs Glycemic control Interpretation of weight loss: >5% in 1 month Malnutrition Findings: Food and Nutrition Intake (Sev: <50% est energy req 5days Body Fat Depletion (Non Severe: Mod to Severe Weight Status: Underweight RAVINDER BUSTAMANTE MD Oct 26, 2019 10:42
[2019-10-26 11:11] VITALS: BP 103/56
--- NOTE | 2019-10-26 12:23 | NUR ---
SW following. Discussed with RN, right JODI recommended - pt considering this. Currently on 2 IV abx, PT/OT recommending SNU. SW awaiting decision RE [facility], for rehab placement discussion. SW will continue to follow.
--- NOTE | 2019-10-26 14:37 | NUR ---
Wound/Ostomy Care Wound Type/Assessment: Coccyx PU, R Heel DFU, Right trochanter ST Treatment Recommendations/Plan: Coccyx: 1 piece of hairston foam to coccyx at 125mmHg continuous, bridged to right lower abdomen. R Heel DFU: moistened HFB, vaseline gauze, Aquacel foam Right trochanter Skin Tear: contact layer, telfa. Education provided: Patient educated on wound vac therapy, bilateral heel medix, turning Q2 Offloading surface/device: P-500, Heel medix Recommended Referrals/Tests: Discharge Recommendations for dressings: Bed lowered and call light in reach. Will follow up on Thursday for dressing changes.
[2019-10-26 15:00] VITALS: BP 110/58
[2019-10-26 19:00] VITALS: BP 100/53
[2019-10-26] MEDS: SENNOSIDES/DOCUSATE 8.6/50MG TABLET. PO SCH (20:52)
[2019-10-26 23:02] VITALS: BP 137/69
[2019-10-27] MEDS: HYDROcodone/APAP 5/325MG 1 TAB TABLET PO PRN (00:22)
[2019-10-27 03:02] VITALS: BP 158/75
[2019-10-27 05:51] LABS: BASO % 1 % (0-3); EOS # 0.6 x10^3/uL (0.0-0.7); EOS % 8 % (0-3); HEMATOCRIT 30.8 % (39.0-53.0); HEMOGLOBIN 10.5 g/dL (13.0-17.5); LYMPH # 1.8 x10^3/uL (1.0-4.8); LYMPH % 24 % (24-48); MEAN CORPUSCULAR HEMOGLOBIN 29 pg (25-35); MEAN CORPUSCULAR HGB CONC 34 g/dL (31-37); MEAN CORPUSCULAR VOLUME 84 fL (79-100); MONO # 0.6 x10^3/uL (0.0-1.1); MONO % 8 % (0-9); NEUT # 4.6 x10^3/uL (1.8-7.7); NEUT % 60 % (31-73); PLATELET COUNT 229 x10^3/uL (140-400); RED BLOOD COUNT 3.68 x10^6/uL (4.30-5.70); RED CELL DISTRIBUTION WIDTH 18.7 % (11.5-14.5); WHITE BLOOD COUNT 7.6 x10^3/uL (4.0-11.0)
[2019-10-27 06:13] LABS: CALCIUM 8.3 mg/dL (8.5-10.1); CREATININE 0.8 mg/dL (0.7-1.3); GFR 113.1; POTASSIUM 3.8 mmol/L (3.5-5.1)
[2019-10-27] MEDS: PANTOPRAZOLE 40 MG TABLET.DR. PO SCH (06:20)
[2019-10-27] MEDS: MEROPENEM 1 GM in IV NORMAL SALINE 100ML 100 ML IV SCH ×3 (06:21→22:48)
[2019-10-27 07:00] VITALS: BP 137/74
[2019-10-27] MEDS: INSULIN LISPRO 300 UNITS/3 ML VIAL. SQ SCH ×3 (08:00→17:00)
--- NOTE | 2019-10-27 08:50 | PDOC ---
Infectious Disease Note Subjective Subjective Doing ok. Feeling a little depressed. Pain controlled No F/C/S/N/V/D/SOA/rash ROS ROS o/w neg Vital Sign Vital Signs Vital Signs Date Time Temp Pulse Resp B/P (MAP) Pulse Ox O2 Delivery O2 Flow Rate FiO2 10/27/19 07:00 98.4 74 18 137/74 (95) 100 Room Air 98.4 Physical Exam PHYSICAL EXAM CONSTITUTIONAL: He is lying in bed. He is cooperative. He is in no acute distress. HEENT: He has normal conjunctivae. Oral cavity, pharynx was clear. NECK: Supple, no JVD. LUNGS: Clear to auscultation. HEART: S1, S2. ABDOMEN: Soft and nontender. No guarding. GENITOURINARY: Miller is in place. EXTREMITIES: Without clubbing or cyanosis. They are thin. SKIN: Without generalized signs of rash. Right heel has a wound with a pink base. The sacral has a wound that also is granulating, but does have some undermining. Heel wound vac NEUROLOGIC: Answers all questions appropriately. He is unable to straighten his right knee. There is no warmth or redness and is slightly contracted. PSYCHIATRIC: Affect is pleasant. RUE: IV ? Infiltrated Labs Lab Laboratory Tests Test 10/26/19 10:54 10/26/19 16:32 10/26/19 20:20 10/27/19 04:38 Glucose (Fingerstick) 174 mg/dL (70-99) 109 mg/dL (70-99) 117 mg/dL (70-99) White Blood Count 7.6 x10^3/uL (4.0-11.0) Red Blood Count 3.68 x10^6/uL (4.30-5.70) Hemoglobin 10.5 g/dL (13.0-17.5) Hematocrit 30.8 % (39.0-53.0) Mean Corpuscular Volume 84 fL (79-100) Mean Corpuscular Hemoglobin 29 pg (25-35) Mean Corpuscular Hemoglobin Concent 34 g/dL (31-37) Red Cell Distribution Width 18.7 % (11.5-14.5) Platelet Count 229 x10^3/uL (140-400) Neutrophils (%) (Auto) 60 % (31-73) Lymphocytes (%) (Auto) 24 % (24-48) Monocytes (%) (Auto) 8 % (0-9) Eosinophils (%) (Auto) 8 % (0-3) Basophils (%) (Auto) 1 % (0-3) Neutrophils # (Auto) 4.6 x10^3/uL (1.8-7.7) Lymphocytes # (Auto) 1.8 x10^3/uL (1.0-4.8) Monocytes # (Auto) 0.6 x10^3/uL (0.0-1.1) Eosinophils # (Auto) 0.6 x10^3/uL (0.0-0.7) Basophils # (Auto) 0.0 x10^3/uL (0.0-0.2) Sodium Level 140 mmol/L (136-145) Potassium Level 3.8 mmol/L (3.5-5.1) Chloride Level 106 mmol/L (98-107) Carbon Dioxide Level 30 mmol/L (21-32) Anion Gap 4 (6-14) Blood Urea Nitrogen 17 mg/dL (8-26) Creatinine 0.8 mg/dL (0.7-1.3) Estimated GFR (Cockcroft-Gault) 113.1 Glucose Level 121 mg/dL (70-99) Calcium Level 8.3 mg/dL (8.5-10.1) Test 10/27/19 07:47 Glucose (Fingerstick) 118 mg/dL (70-99) Objective Assessment R Heel Osteo Sacral wound PCN allergy - ? reaction PAD - Vascular note reviewed - appreciate input Dm Lumbar stenosis Chronic miller Plan Plan of Care Started Vanc/meropenem 10/23 per pharmacy Consult Vascular reviewed - amputation recommended he and his son want to try abx Will need PICC if ok with primary F/u labs and cults Local wound care D/w nursing re IV D/w son on phone 10/25 who does not want amputation and wants to try abx ARASH RAY MD Oct 27, 2019 08:50
[2019-10-27] MEDS: POLYETHYLENE GLYCOL 3350 17 GM PACKET. PO SCH (09:00)
[2019-10-27] MEDS: MULTIVITAMIN with MINERAL TABLET. PO SCH (09:03)
[2019-10-27] MEDS: TAMSULOSIN 0.4 MG CAP.ER.24H. PO SCH (09:03)
[2019-10-27] MEDS: GABAPENTIN 300 MG CAPSULE. PO SCH ×3 (09:03→21:22)
[2019-10-27] MEDS: ZINC SULFATE 220 MG CAPSULE. PO SCH (09:03)
[2019-10-27] MEDS: DICLOFENAC SODIUM 1% TOPICAL GEL 100GM TUBE. TP SCH ×3 (09:03→21:22)
[2019-10-27] MEDS: LACTOBACILLUS RHAMNOSUS GG 1 CAPSULE. PO SCH ×2 (09:03→21:21)
[2019-10-27] MEDS: ASCORBIC ACID 500 MG TABLET PO SCH (09:03)
[2019-10-27] MEDS: metFORMIN 500 MG TABLET PO SCH (09:03)
[2019-10-27] MEDS: VANCOMYCIN 1 GM in IV NORMAL SALINE 250ML 250 ML IV SCH ×2 (09:04→21:21)
--- NOTE | 2019-10-27 09:53 | PDOC ---
PROGRESS NOTES Subjective Subjective No new complaints. Objective Objective Vital Signs Date Time Temp Pulse Resp B/P (MAP) Pulse Ox O2 Delivery O2 Flow Rate FiO2 10/27/19 07:00 98.4 74 18 137/74 (95) 100 Room Air 98.4 Intake and Output 10/27/19 07:00 Intake Total 600 ml Output Total 1800 ml Balance -1200 ml Intake Oral 600 ml Output Urine Total 1800 ml Physical Exam Physical Exam He is supine in bed and receiving IV fluids and no change with his generalized muscle weakness. Plan Plan of Care I spoke to and agree with plans. Comment Review of Relevant I have reviewed the following items dimitrios (where applicable) has been applied. Labs Laboratory Tests Test 10/25/19 12:31 10/25/19 16:24 10/25/19 19:30 10/25/19 20:45 Glucose (Fingerstick) 139 mg/dL (70-99) 123 mg/dL (70-99) 132 mg/dL (70-99) Creatinine 1.3 mg/dL (0.7-1.3) Estimated GFR (Cockcroft-Gault) 64.6 Vancomycin Level Trough 10.6 mcg/mL (10.0-20.0) Vancomycin Last Dose Date 10/25/19 Vancomycin Last Dose Time 0900 Test 10/26/19 05:03 10/26/19 07:52 10/26/19 10:54 10/26/19 16:32 Creatinine 1.0 mg/dL (0.7-1.3) Estimated GFR (Cockcroft-Gault) 87.4 C-Reactive Protein, Quantitative 27.0 mg/L (0-3.3) Glucose (Fingerstick) 130 mg/dL (70-99) 174 mg/dL (70-99) 109 mg/dL (70-99) Test 10/26/19 20:20 10/27/19 04:38 10/27/19 07:47 Glucose (Fingerstick) 117 mg/dL (70-99) 118 mg/dL (70-99) White Blood Count 7.6 x10^3/uL (4.0-11.0) Red Blood Count 3.68 x10^6/uL (4.30-5.70) Hemoglobin 10.5 g/dL (13.0-17.5) Hematocrit 30.8 % (39.0-53.0) Mean Corpuscular Volume 84 fL (79-100) Mean Corpuscular Hemoglobin 29 pg (25-35) Mean Corpuscular Hemoglobin Concent 34 g/dL (31-37) Red Cell Distribution Width 18.7 % (11.5-14.5) Platelet Count 229 x10^3/uL (140-400) Neutrophils (%) (Auto) 60 % (31-73) Lymphocytes (%) (Auto) 24 % (24-48) Monocytes (%) (Auto) 8 % (0-9) Eosinophils (%) (Auto) 8 % (0-3) Basophils (%) (Auto) 1 % (0-3) Neutrophils # (Auto) 4.6 x10^3/uL (1.8-7.7) Lymphocytes # (Auto) 1.8 x10^3/uL (1.0-4.8) Monocytes # (Auto) 0.6 x10^3/uL (0.0-1.1) Eosinophils # (Auto) 0.6 x10^3/uL (0.0-0.7) Basophils # (Auto) 0.0 x10^3/uL (0.0-0.2) Sodium Level 140 mmol/L (136-145) Potassium Level 3.8 mmol/L (3.5-5.1) Chloride Level 106 mmol/L (98-107) Carbon Dioxide Level 30 mmol/L (21-32) Anion Gap 4 (6-14) Blood Urea Nitrogen 17 mg/dL (8-26) Creatinine 0.8 mg/dL (0.7-1.3) Estimated GFR (Cockcroft-Gault) 113.1 Glucose Level 121 mg/dL (70-99) Calcium Level 8.3 mg/dL (8.5-10.1) Laboratory Tests Test 10/26/19 10:54 10/26/19 16:32 10/26/19 20:20 10/27/19 04:38 Glucose (Fingerstick) 174 mg/dL (70-99) 109 mg/dL (70-99) 117 mg/dL (70-99) White Blood Count 7.6 x10^3/uL (4.0-11.0) Red Blood Count 3.68 x10^6/uL (4.30-5.70) Hemoglobin 10.5 g/dL (13.0-17.5) Hematocrit 30.8 % (39.0-53.0) Mean Corpuscular Volume 84 fL (79-100) Mean Corpuscular Hemoglobin 29 pg (25-35) Mean Corpuscular Hemoglobin Concent 34 g/dL (31-37) Red Cell Distribution Width 18.7 % (11.5-14.5) Platelet Count 229 x10^3/uL (140-400) Neutrophils (%) (Auto) 60 % (31-73) Lymphocytes (%) (Auto) 24 % (24-48) Monocytes (%) (Auto) 8 % (0-9) Eosinophils (%) (Auto) 8 % (0-3) Basophils (%) (Auto) 1 % (0-3) Neutrophils # (Auto) 4.6 x10^3/uL (1.8-7.7) Lymphocytes # (Auto) 1.8 x10^3/uL (1.0-4.8) Monocytes # (Auto) 0.6 x10^3/uL (0.0-1.1) Eosinophils # (Auto) 0.6 x10^3/uL (0.0-0.7) Basophils # (Auto) 0.0 x10^3/uL (0.0-0.2) Sodium Level 140 mmol/L (136-145) Potassium Level 3.8 mmol/L (3.5-5.1) Chloride Level 106 mmol/L (98-107) Carbon Dioxide Level 30 mmol/L (21-32) Anion Gap 4 (6-14) Blood Urea Nitrogen 17 mg/dL (8-26) Creatinine 0.8 mg/dL (0.7-1.3) Estimated GFR (Cockcroft-Gault) 113.1 Glucose Level 121 mg/dL (70-99) Calcium Level 8.3 mg/dL (8.5-10.1) Test 10/27/19 07:47 Glucose (Fingerstick) 118 mg/dL (70-99) Medications Current Medications Cyclobenzaprine HCl (Flexeril) 5 mg PRN Q8HRS PRN PO MUSCLE SPASMS Last administered on 10/27/19at 00:24; Start 10/24/19 at 14:00 Diclofenac Sodium (Voltaren) 1 elizabeth TID TP ; Start 10/24/19 at 14:00; Status Cancel Gabapentin (Neurontin) 300 mg TID PO Last administered on 10/27/19 09:03; Start 10/24/19 at 14:00 Acetaminophen/ Hydrocodone Bitart (Lortab 5/325) 1 tab PRN Q4HRS PRN PO MODERATE TO SEVERE PAIN Last administered on 10/27/19 00:22; Start 10/24/19 at 14:00 Lactobacillus Rhamnosus (Culturelle) 1 cap BID PO Last administered on 10/27/19 09:03; Start 10/24/19 at 21:00 Metformin HCl (Glucophage) 500 mg DAILY PO Last administered on 10/27/19 09:03; Start 10/25/19 at 09:00 Pantoprazole Sodium (Protonix) 40 mg DAILYAC PO Last administered on 10/27/19 06:20; Start 10/24/19 at 16:30 Tamsulosin HCl (Flomax) 0.4 mg DAILY PO Last administered on 10/27/19at 09:03; Start 10/25/19 at 09:00 Non-Formulary Medication (Insulin Lispro (Humalog)) TIDWMEALS SQ ; Start 10/24/19 at 17:00; Status UNV Multivitamins (Thera M Plus) 1 tab DAILY PO Last administered on 10/27/19at 09:03; Start 10/24/19 at 15:00 Acetaminophen (Tylenol) 650 mg PRN Q6HRS PRN PO MILD PAIN 1-3; Start 10/24/19 at 14:00 Pharmacy Consult (C.diff Med Screen By Rx) 1 each 1X ONCE MC ; Start 10/24/19 at 15:00; Stop 10/24/19 at 15:01; Status Cancel Insulin Human Lispro (HumaLOG) 0-5 UNITS TIDWMEALS SQ Last administered on 10/26/19at 12:10; Start 10/24/19 at 17:00 Dextrose (Dextrose 50%-Water Syringe) 12.5 gm PRN Q15MIN PRN IV SEE COMMENTS; Start 10/24/19 at 15:15 Senna/Docusate Sodium (Senna Plus) 2 tab QHS PO Last administered on 10/26/19at 20:52; Start 10/24/19 at 21:00 Polyethylene Glycol (miraLAX PACKET) 17 gm DAILY PO Last administered on 10/25/19 09:29; Start 10/25/19 at 09:00 Lactulose (Lactulose) 20 gm Q2H PO Last administered on 10/24/19 17:26; Start 10/24/19 at 17:00; Stop 10/24/19 at 19:01; Status DC Diclofenac Sodium (Voltaren) 1 elizabeth TID TP Last administered on 10/27/19 09:03; Start 10/24/19 at 16:00 Zinc Sulfate (Orazinc) 220 mg DAILY PO Last administered on 10/27/19 09:03; Start 10/24/19 at 17:00 Ascorbic Acid (Vitamin C) 500 mg DAILY PO Last administered on 10/27/19 09:03; Start 10/24/19 at 17:00 Meropenem 1 gm/ Sodium Chloride 100 ml @ 200 mls/hr Q8HRS IV Last administered on 10/27/19 06:21; Start 10/24/19 at 19:30 Vancomycin HCl (Vanco Per Pharmacy) 1 each PRN DAILY PRN MC SEE COMMENTS Last administered on 10/26/19at 10:07; Start 10/24/19 at 19:15 Vancomycin HCl 1.25 gm/Sodium Chloride 250 ml @ 166.667 mls/hr 1X ONCE IV Last administered on 10/24/19 21:19; Start 10/24/19 at 20:00; Stop 10/24/19 at 21:29; Status DC Vancomycin HCl 750 mg/Sodium Chloride 250 ml @ 250 mls/hr Q12H IV Last administered on 10/25/19 09:28; Start 10/25/19 at 09:00; Stop 10/25/19 at 21:16; Status DC Vancomycin HCl (Vancomycin Trough Level) 1 each 1X ONCE MC Last administered on 10/25/19 20:30; Start 10/25/19 at 20:30; Stop 10/25/19 at 20:31; Status DC Vancomycin HCl 1 gm/Sodium Chloride 250 ml @ 250 mls/hr Q12H IV Last administered on 10/27/19 09:04; Start 10/25/19 at 21:30 Active Scripts Active Cefdinir 300 Mg Capsule 300 Mg PO BID Vanco 1 Gram/250 ml-0.9% NaCl (Vancomycin/0.9 % Sod Chloride) 1 Gm/250 Ml Plast..bag 1 Gm IV Q12HR Meropenem 1 Gm Vial 1 Gm IV Q8HRS Humalog (Insulin Lispro) 100 Unit/1 Ml Insuln.pen 0 Units SQ TIDWMEALS Culturelle (Lactobacillus Rhamnosus Gg) 1 Each Cap.sprink 1 Cap PO BID Voltaren (Diclofenac Sodium) 100 Gm Gel..gram. 1 Elizabeth TP TID Cyclobenzaprine Hcl 10 Mg Tablet 5 Mg PO PRN Q8HRS PRN Pantoprazole Sodium (Pantoprazole Sodium) 40 Mg Tablet.dr 40 Mg PO DAILYAC Miralax (Polyethylene Glycol 3350) 17 Gm Powd.pack 1 Packet PO DAILY dissolve in water Senna-Time S Tablet (Sennosides/Docusate Sodium) 1 Each Tablet 2 Tab PO DAILY Tylenol (Acetaminophen) 325 Mg Tablet 650 Mg PO PRN Q6HRS PRN Hydrocodone-Apap 5-325 (Hydrocodone Bit/Acetaminophen) 1 Tab Tablet 1 Tab PO PRN Q4HRS PRN Reported Voltaren (Diclofenac Sodium) 100 Gm Gel..gram. 1 Gm TP TID PRN PRN 30 Days apply to affected area(s) Zinc 50 Mg Tablet 1 Tab PO DAILY 30 Days Centrum Silver Men Tablet (Multivit-Min/FA/Lycopen/Lutein) 1 Each Tablet 1 Each PO DAILY Atorvastatin Calcium 80 Mg Tablet 80 Mg PO HS Metformin Hcl 500 Mg Tablet 500 Mg PO DAILY Gabapentin (Gabapentin) 300 Mg Capsule 300 Mg PO TID Tamsulosin Hcl 0.4 Mg Cap.er.24h 1 Cap PO DAILY Vitals/I & O Vital Sign - Last 24 Hours 10/26/19 10/26/19 10/26/19 10/26/19 11:11 15:00 19:00 20:00 Temp 98.4 98.0 98.5 98.4 98.0 98.5 Pulse 67 69 68 Resp 18 18 20 B/P (MAP) 103/56 (72) 110/58 (75) 100/53 (69) Pulse Ox 100 100 99 O2 Delivery Room Air Room Air Room Air Room Air 10/26/19 10/27/19 10/27/19 10/27/19 23:02 00:22 01:22 03:02 Temp 98.8 98.5 98.8 98.5 Pulse 68 84 Resp 20 18 B/P (MAP) 137/69 (91) 158/75 (102) Pulse Ox 99 98 O2 Delivery Room Air Room Air Room Air Room Air 10/27/19 07:00 Temp 98.4 98.4 Pulse 74 Resp 18 B/P (MAP) 137/74 (95) Pulse Ox 100 O2 Delivery Room Air Intake and Output 10/26/19 10/26/19 10/27/19 15:00 23:00 07:00 Intake Total 600 ml Output Total 1800 ml Balance 600 ml -1800 ml Justicifation of Admission Dx: Justifications for Admission: Justification of Admission Dx: N/A Nutrition Consultation Dietary Evaluation: Recommendations by RD: Dietary education by RD, Protein supplementation Comments: pt declines oral nutrition supplements. will add DBL meat portions for extra protein continue mvi and vit per wound protocal and ADA diet Expected Outcomes/Goals: to meet >75% est nutr needs Glycemic control Interpretation of weight loss: >5% in 1 month Malnutrition Findings: Food and Nutrition Intake (Sev: <50% est energy req 5days Body Fat Depletion (Non Severe: Mod to Severe Weight Status: Underweight GENA VAZQUEZ MD Oct 27, 2019 09:53
[2019-10-27 11:00] VITALS: BP 130/67
--- NOTE | 2019-10-27 12:11 | PDOC ---
PROGRESS NOTES Subjective Subjective spoke with dr oBwser who spoke with son and son wants to treat with iv antibiotics first and declines an amputation . patient concurs with iv antibiotics. Objective Objective Vital Signs Date Time Temp Pulse Resp B/P (MAP) Pulse Ox O2 Delivery O2 Flow Rate FiO2 10/27/19 11:00 98.8 74 18 130/67 (88) 99 Room Air 98.8 Intake and Output 10/27/19 07:00 Intake Total 600 ml Output Total 1800 ml Balance -1200 ml Intake Oral 600 ml Output Urine Total 1800 ml Physical Exam Abdomen: Soft Heart: Regular rate, Normal S1, Normal S2 Extremities: No edema General: Alert HEENT: Atraumatic Lungs: Clear to auscultation Neuro: Normal speech Psych/Mental Status: Mental status NL Skin: No rashes, Other (sacral wound vac) Assessment Assessment 1. 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 2. Diabetes mellitus type 2. 3. Urine retention with Causey catheter in place. 4. Lumbar spondylosis. 5. Osteoarthritis of the right knee. 6. Sacral wound. 7. Chronic right leg weakness, most likely secondary to lumbar spondylosis. peripheral artery disease with occlusive disease below right knee Plan Plan of Care continue iv vancomycin and meropenem picc today wound care and [facility] today Comment Review of Relevant I have reviewed the following items dimitrios (where applicable) has been applied. Labs Laboratory Tests Test 10/25/19 12:31 10/25/19 16:24 10/25/19 19:30 10/25/19 20:45 Glucose (Fingerstick) 139 mg/dL (70-99) 123 mg/dL (70-99) 132 mg/dL (70-99) Creatinine 1.3 mg/dL (0.7-1.3) Estimated GFR (Cockcroft-Gault) 64.6 Vancomycin Level Trough 10.6 mcg/mL (10.0-20.0) Vancomycin Last Dose Date 10/25/19 Vancomycin Last Dose Time 0900 Test 10/26/19 05:03 10/26/19 07:52 10/26/19 10:54 10/26/19 16:32 Creatinine 1.0 mg/dL (0.7-1.3) Estimated GFR (Cockcroft-Gault) 87.4 C-Reactive Protein, Quantitative 27.0 mg/L (0-3.3) Glucose (Fingerstick) 130 mg/dL (70-99) 174 mg/dL (70-99) 109 mg/dL (70-99) Test 10/26/19 20:20 10/27/19 04:38 10/27/19 07:47 10/27/19 11:47 Glucose (Fingerstick) 117 mg/dL (70-99) 118 mg/dL (70-99) 161 mg/dL (70-99) White Blood Count 7.6 x10^3/uL (4.0-11.0) Red Blood Count 3.68 x10^6/uL (4.30-5.70) Hemoglobin 10.5 g/dL (13.0-17.5) Hematocrit 30.8 % (39.0-53.0) Mean Corpuscular Volume 84 fL (79-100) Mean Corpuscular Hemoglobin 29 pg (25-35) Mean Corpuscular Hemoglobin Concent 34 g/dL (31-37) Red Cell Distribution Width 18.7 % (11.5-14.5) Platelet Count 229 x10^3/uL (140-400) Neutrophils (%) (Auto) 60 % (31-73) Lymphocytes (%) (Auto) 24 % (24-48) Monocytes (%) (Auto) 8 % (0-9) Eosinophils (%) (Auto) 8 % (0-3) Basophils (%) (Auto) 1 % (0-3) Neutrophils # (Auto) 4.6 x10^3/uL (1.8-7.7) Lymphocytes # (Auto) 1.8 x10^3/uL (1.0-4.8) Monocytes # (Auto) 0.6 x10^3/uL (0.0-1.1) Eosinophils # (Auto) 0.6 x10^3/uL (0.0-0.7) Basophils # (Auto) 0.0 x10^3/uL (0.0-0.2) Sodium Level 140 mmol/L (136-145) Potassium Level 3.8 mmol/L (3.5-5.1) Chloride Level 106 mmol/L (98-107) Carbon Dioxide Level 30 mmol/L (21-32) Anion Gap 4 (6-14) Blood Urea Nitrogen 17 mg/dL (8-26) Creatinine 0.8 mg/dL (0.7-1.3) Estimated GFR (Cockcroft-Gault) 113.1 Glucose Level 121 mg/dL (70-99) Calcium Level 8.3 mg/dL (8.5-10.1) Laboratory Tests Test 10/26/19 16:32 10/26/19 20:20 10/27/19 04:38 10/27/19 07:47 Glucose (Fingerstick) 109 mg/dL (70-99) 117 mg/dL (70-99) 118 mg/dL (70-99) White Blood Count 7.6 x10^3/uL (4.0-11.0) Red Blood Count 3.68 x10^6/uL (4.30-5.70) Hemoglobin 10.5 g/dL (13.0-17.5) Hematocrit 30.8 % (39.0-53.0) Mean Corpuscular Volume 84 fL (79-100) Mean Corpuscular Hemoglobin 29 pg (25-35) Mean Corpuscular Hemoglobin Concent 34 g/dL (31-37) Red Cell Distribution Width 18.7 % (11.5-14.5) Platelet Count 229 x10^3/uL (140-400) Neutrophils (%) (Auto) 60 % (31-73) Lymphocytes (%) (Auto) 24 % (24-48) Monocytes (%) (Auto) 8 % (0-9) Eosinophils (%) (Auto) 8 % (0-3) Basophils (%) (Auto) 1 % (0-3) Neutrophils # (Auto) 4.6 x10^3/uL (1.8-7.7) Lymphocytes # (Auto) 1.8 x10^3/uL (1.0-4.8) Monocytes # (Auto) 0.6 x10^3/uL (0.0-1.1) Eosinophils # (Auto) 0.6 x10^3/uL (0.0-0.7) Basophils # (Auto) 0.0 x10^3/uL (0.0-0.2) Sodium Level 140 mmol/L (136-145) Potassium Level 3.8 mmol/L (3.5-5.1) Chloride Level 106 mmol/L (98-107) Carbon Dioxide Level 30 mmol/L (21-32) Anion Gap 4 (6-14) Blood Urea Nitrogen 17 mg/dL (8-26) Creatinine 0.8 mg/dL (0.7-1.3) Estimated GFR (Cockcroft-Gault) 113.1 Glucose Level 121 mg/dL (70-99) Calcium Level 8.3 mg/dL (8.5-10.1) Test 10/27/19 11:47 Glucose (Fingerstick) 161 mg/dL (70-99) Medications Current Medications Cyclobenzaprine HCl (Flexeril) 5 mg PRN Q8HRS PRN PO MUSCLE SPASMS Last administered on 10/27/19at 00:24; Start 10/24/19 at 14:00 Diclofenac Sodium (Voltaren) 1 elizabeth TID TP ; Start 10/24/19 at 14:00; Status Cancel Gabapentin (Neurontin) 300 mg TID PO Last administered on 10/27/19 09:03; Start 10/24/19 at 14:00 Acetaminophen/ Hydrocodone Bitart (Lortab 5/325) 1 tab PRN Q4HRS PRN PO MODERATE TO SEVERE PAIN Last administered on 10/27/19at 00:22; Start 10/24/19 at 14:00 Lactobacillus Rhamnosus (Culturelle) 1 cap BID PO Last administered on 10/27/19at 09:03; Start 10/24/19 at 21:00 Metformin HCl (Glucophage) 500 mg DAILY PO Last administered on 10/27/19at 09:03; Start 10/25/19 at 09:00 Pantoprazole Sodium (Protonix) 40 mg DAILYAC PO Last administered on 10/27/19 06:20; Start 10/24/19 at 16:30 Tamsulosin HCl (Flomax) 0.4 mg DAILY PO Last administered on 10/27/19 09:03; Start 10/25/19 at 09:00 Non-Formulary Medication (Insulin Lispro (Humalog)) TIDWMEALS SQ ; Start 10/24/19 at 17:00; Status UNV Multivitamins (Thera M Plus) 1 tab DAILY PO Last administered on 10/27/19at 09:03; Start 10/24/19 at 15:00 Acetaminophen (Tylenol) 650 mg PRN Q6HRS PRN PO MILD PAIN 1-3; Start 10/24/19 at 14:00 Pharmacy Consult (C.diff Med Screen By Rx) 1 each 1X ONCE MC ; Start 10/24/19 at 15:00; Stop 10/24/19 at 15:01; Status Cancel Insulin Human Lispro (HumaLOG) 0-5 UNITS TIDWMEALS SQ Last administered on 10/26/19at 12:10; Start 10/24/19 at 17:00 Dextrose (Dextrose 50%-Water Syringe) 12.5 gm PRN Q15MIN PRN IV SEE COMMENTS; Start 10/24/19 at 15:15 Senna/Docusate Sodium (Senna Plus) 2 tab QHS PO Last administered on 10/26/19at 20:52; Start 10/24/19 at 21:00 Polyethylene Glycol (miraLAX PACKET) 17 gm DAILY PO Last administered on 10/25/19at 09:29; Start 10/25/19 at 09:00 Lactulose (Lactulose) 20 gm Q2H PO Last administered on 10/24/19at 17:26; Start 10/24/19 at 17:00; Stop 10/24/19 at 19:01; Status DC Diclofenac Sodium (Voltaren) 1 elizabeth TID TP Last administered on 10/27/19at 09:03; Start 10/24/19 at 16:00 Zinc Sulfate (Orazinc) 220 mg DAILY PO Last administered on 10/27/19at 09:03; Start 10/24/19 at 17:00 Ascorbic Acid (Vitamin C) 500 mg DAILY PO Last administered on 10/27/19at 09:03; Start 10/24/19 at 17:00 Meropenem 1 gm/ Sodium Chloride 100 ml @ 200 mls/hr Q8HRS IV Last administered on 10/27/19at 06:21; Start 10/24/19 at 19:30 Vancomycin HCl (Vanco Per Pharmacy) 1 each PRN DAILY PRN MC SEE COMMENTS Last administered on 10/26/19at 10:07; Start 10/24/19 at 19:15 Vancomycin HCl 1.25 gm/Sodium Chloride 250 ml @ 166.667 mls/hr 1X ONCE IV Last administered on 10/24/19at 21:19; Start 10/24/19 at 20:00; Stop 10/24/19 at 21:29; Status DC Vancomycin HCl 750 mg/Sodium Chloride 250 ml @ 250 mls/hr Q12H IV Last administered on 10/25/19at 09:28; Start 10/25/19 at 09:00; Stop 10/25/19 at 21:16; Status DC Vancomycin HCl (Vancomycin Trough Level) 1 each 1X ONCE MC Last administered on 10/25/19at 20:30; Start 10/25/19 at 20:30; Stop 10/25/19 at 20:31; Status DC Vancomycin HCl 1 gm/Sodium Chloride 250 ml @ 250 mls/hr Q12H IV Last administered on 10/27/19at 09:04; Start 10/25/19 at 21:30 Active Scripts Active Cefdinir 300 Mg Capsule 300 Mg PO BID Vanco 1 Gram/250 ml-0.9% NaCl (Vancomycin/0.9 % Sod Chloride) 1 Gm/250 Ml Plast..bag 1 Gm IV Q12HR Meropenem 1 Gm Vial 1 Gm IV Q8HRS Humalog (Insulin Lispro) 100 Unit/1 Ml Insuln.pen 0 Units SQ TIDWMEALS Culturelle (Lactobacillus Rhamnosus Gg) 1 Each Cap.sprink 1 Cap PO BID Voltaren (Diclofenac Sodium) 100 Gm Gel..gram. 1 Elizabeth TP TID Cyclobenzaprine Hcl 10 Mg Tablet 5 Mg PO PRN Q8HRS PRN Pantoprazole Sodium (Pantoprazole Sodium) 40 Mg Tablet.dr 40 Mg PO DAILYAC Miralax (Polyethylene Glycol 3350) 17 Gm Powd.pack 1 Packet PO DAILY dissolve in water Senna-Time S Tablet (Sennosides/Docusate Sodium) 1 Each Tablet 2 Tab PO DAILY Tylenol (Acetaminophen) 325 Mg Tablet 650 Mg PO PRN Q6HRS PRN Hydrocodone-Apap 5-325 (Hydrocodone Bit/Acetaminophen) 1 Tab Tablet 1 Tab PO PRN Q4HRS PRN Reported Voltaren (Diclofenac Sodium) 100 Gm Gel..gram. 1 Gm TP TID PRN PRN 30 Days apply to affected area(s) Zinc 50 Mg Tablet 1 Tab PO DAILY 30 Days Centrum Silver Men Tablet (Multivit-Min/FA/Lycopen/Lutein) 1 Each Tablet 1 Each PO DAILY Atorvastatin Calcium 80 Mg Tablet 80 Mg PO HS Metformin Hcl 500 Mg Tablet 500 Mg PO DAILY Gabapentin (Gabapentin) 300 Mg Capsule 300 Mg PO TID Tamsulosin Hcl 0.4 Mg Cap.er.24h 1 Cap PO DAILY Vitals/I & O Vital Sign - Last 24 Hours 10/26/19 10/26/19 10/26/19 10/26/19 15:00 19:00 20:00 23:02 Temp 98.0 98.5 98.8 98.0 98.5 98.8 Pulse 69 68 68 Resp 18 20 20 B/P (MAP) 110/58 (75) 100/53 (69) 137/69 (91) Pulse Ox 100 99 99 O2 Delivery Room Air Room Air Room Air Room Air 10/27/19 10/27/19 10/27/19 10/27/19 00:22 01:22 03:02 07:00 Temp 98.5 98.4 98.5 98.4 Pulse 84 74 Resp 18 18 B/P (MAP) 158/75 (102) 137/74 (95) Pulse Ox 98 100 O2 Delivery Room Air Room Air Room Air Room Air 10/27/19 11:00 Temp 98.8 98.8 Pulse 74 Resp 18 B/P (MAP) 130/67 (88) Pulse Ox 99 O2 Delivery Room Air Intake and Output 10/26/19 10/26/19 10/27/19 15:00 23:00 07:00 Intake Total 600 ml Output Total 1800 ml Balance 600 ml -1800 ml Justicifation of Admission Dx: Justifications for Admission: Justification of Admission Dx: N/A Nutrition Consultation Dietary Evaluation: Recommendations by RD: Dietary education by RD, Protein supplementation Comments: pt declines oral nutrition supplements. will add DBL meat portions for extra protein continue mvi and vit per wound protocal and ADA diet Expected Outcomes/Goals: to meet >75% est nutr needs Glycemic control Interpretation of weight loss: >5% in 1 month Malnutrition Findings: Food and Nutrition Intake (Sev: <50% est energy req 5days Body Fat Depletion (Non Severe: Mod to Severe Weight Status: Underweight RAVINDER BUSTAMANTE MD Oct 27, 2019 12:10
[2019-10-27] MEDS ORDERED: ASCO500T4 PO (12:14)
--- NOTE | 2019-10-27 12:15 | SNU/HH DC ---
DISCHARGE ORDERS DISCHARGE INFORMATION: DISCHARGE DATE: Oct 27, 2019 FINAL DIAGNOSIS right heel wound with osteomyelitis . sacral wound . peripheral artery disease CONDITION ON DISCHARGE: Stable CODE STATUS: Code Status: Full LTAC: ADMIT TO LTAC: Yes POST DISCHARGE ORDERS: ACTIVITY ORDERS: Activity as tolerated WEIGHT BEARING STATUS: As tolerated DIET AFTER DISCHARGE: ADA CHECKS AFTER DISCHARGE: CHECKS AFTER DISCHARGE: Check blood sugar, ac/hs FOLLOW-UP: PHYSICIAN FOLLOW-UP: dr. bustamante TREATMENT/EQUIPMENT ORDERS: ADAPTIVE EQUIPMENT NEEDED: Walker Physical Therapy For: Evalulation/Treatment Occupational Therapy For: Evaluation/Treatment DISCHARGE MEDICATIONS: Home Meds Active Scripts Ascorbic Acid (VITAMIN C) 500 Mg Tablet, 500 MG PO DAILY for vitamin for wound healing, #30 TAB Prov:RAVINDER BUSTAMANTE MD 10/27/19 Vancomycin/0.9 % Sod Chloride (Vanco 1 Gram/250 ml-0.9% NaCl) 1 Gm/250 Ml Plast..bag, 1 GM IV Q12HR for osteomyelitis, #30 EACH Prov:RAVINDER BUSTAMANTE MD 04/07/19 Meropenem (MEROPENEM) 1 Gm Vial, 1 GM IV Q8HRS for osteomyelitis, #90 EACH Prov:RAVINDER BUSTAMANTE MD 04/07/19 Insulin Lispro (HUMALOG) 100 Unit/1 Ml Insuln.pen, 0 UNITS SQ TIDWMEALS for diabetes, #30 EACH Prov:RAVINDER BUSTAMANTE MD 04/07/19 Lactobacillus Rhamnosus Gg (CULTURELLE) 1 Each Cap.sprink, 1 CAP PO BID for probiotic, #60 CAP Prov:RAVINDER BUSTAMANTE MD 04/07/19 Diclofenac Sodium (VOLTAREN) 100 Gm Gel..gram., 1 TITA TP TID for knee osteoarthritis, #30 EACH Prov:RAVINDER BUSTAMANTE MD 04/07/19 Cyclobenzaprine Hcl (CYCLOBENZAPRINE HCL) 10 Mg Tablet, 5 MG PO PRN Q8HRS PRN for MUSCLE SPASMS, #30 TAB Prov:RAVINDER BUSTAMANTE MD 04/07/19 Pantoprazole Sodium (PANTOPRAZOLE SODIUM ) 40 Mg Tablet.dr, 40 MG PO DAILYAC for gerd, #30 TAB.SR Prov:RAVINDER BUSTAMANTE MD 04/07/19 Polyethylene Glycol 3350 (MIRALAX) 17 Gm Powd.pack, 1 PACKET PO DAILY for const ipation, #30 PACKET 0 Refills dissolve in water Prov:RAVINDER BUSTAMANTE MD 02/08/19 Sennosides/Docusate Sodium (SENNA-TIME S TABLET) 1 Each Tablet, 2 TAB PO DAILY for constipation, #60 TAB Prov:RAVINDER BUSTAMANTE MD 02/08/19 Acetaminophen (TYLENOL) 325 Mg Tablet, 650 MG PO PRN Q6HRS PRN for MILD PAIN 1- 3, #30 TAB Prov:RAVINDER BUSTAMANTE MD 02/08/19 Hydrocodone Bit/Acetaminophen (HYDROCODONE-APAP 5-325 ) 1 Tab Tablet, 1 TAB PO PRN Q4HRS PRN for MODERATE PAIN, #30 TAB Prov:RAVINDER BUSTAMANTE MD 02/08/19 Reported Medications Zinc (ZINC) 50 Mg Tablet, 1 TAB PO DAILY for wound healing for 30 Days, #30 TAB 0 Refills 10/24/19 Multivit-Min/FA/Lycopen/Lutein (Centrum Silver Men Tablet) 1 Each Tablet, 1 EACH PO DAILY for supplement, TAB 02/04/19 Metformin Hcl (METFORMIN HCL) 500 Mg Tablet, 500 MG PO DAILY for ANTI-DIABETIC, TAB 0 Refills 11/09/17 Gabapentin (GABAPENTIN ) 300 Mg Capsule, 300 MG PO TID, CAP 11/09/17 Tamsulosin Hcl (TAMSULOSIN HCL) 0.4 Mg Cap.er.24h, 1 CAP PO DAILY, #30 CAP 5 Refills 11/09/17 Discontinued Reported Medications Diclofenac Sodium (VOLTAREN) 100 Gm Gel..gram., 1 GM TP TID PRN PRN for PAIN for 30 Days, #1 EACH 0 Refills apply to affected area(s) 10/24/19 Atorvastatin Calcium (ATORVASTATIN CALCIUM) 80 Mg Tablet, 80 MG PO HS for FOR CHOLESTEROL, #30 TAB 0 Refills 11/09/17 Discontinued Scripts Cefdinir (CEFDINIR) 300 Mg Capsule, 300 MG PO BID, #14 CAP 0 Refills Prov:NIDA TUCKER DO 08/25/19 RAVINDER BUSTAMANTE MD Oct 27, 2019 12:15
--- NOTE | 2019-10-27 12:22 | PDOC ---
Provider Note Provider Note discharge summary dictated # [id number] Justicifation of Admission Dx: Justifications for Admission: Justification of Admission Dx: N/A RAVINDER BUSTAMANTE MD Oct 27, 2019 12:22
--- NOTE | 2019-10-27 12:41 | NUR ---
KYUGN following. Discussed with RN, PT/OT recommending SNU. Pt agreeable to go to SNU, has been to [facility] and [facility] Dr[facility] Benz wanting [facility], per RN, Dr. Benz had called over there and [facility] has beds. KYUNG not sure pt has REV codes for [facility]. KYUNG faxed facesheet to [facility] to determine if pt qualifies. KYUNG will continue to follow. Addendum: 10/27/19 at 1341 by DOMINIK TRACEY Pt does not have codes for LTAC. RN notified. Dr. Benz being notified, requesting a SNU discharge order. Pt accepted at [facility], pending COVID result.
[2019-10-27] MEDS ORDERED: LIDOCAINE WITH 8.4% SOD BICARB 3 ML DISP.SYRIN. ONE (14:25)
[2019-10-27] MEDS ORDERED: LIDOCAINE WITH 8.4% SOD BICARB 3 ML DISP.SYRIN. INJ ONE (14:30)
--- NOTE | 2019-10-27 14:55 | DS ---
DATE OF DISCHARGE: Date of anticipated dismissal 10/27/2019. CONSULTANTS: Dr. Carrington, Dr. Rodríguez and the vascular surgeon. FINAL DIAGNOSES: 1. 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 2. Sacral wound. 3. Peripheral arterial disease. 4. Diabetes mellitus type 2. 5. Chronic urinary retention with a Causey catheter in place. 6. Lumbar spondylosis. 7. Osteoarthritis, right knee. 8. Chronic leg weakness secondary to lumbar spondylosis. HOSPITAL COURSE: The patient is a 79-year-old -[place]ish male with a history of diabetes mellitus type 2, osteoarthritis of the knees, lumbar spondylosis with chronic right leg weakness, chronic urinary retention with chronic Causey catheter in place, who had a right heel wound and a sacral wound and was followed at the [facility] where he had an MRI of his right heel, which was consistent with calcaneus osteomyelitis, prompting admission to [facility] 10/24/2019 and he was started on IV vancomycin, IV meropenem, seen in consultation with Dr. Carrington for Infectious Disease and Vascular surgeon. He has an arterial Doppler showed occlusive disease from the right knee down on a Doppler and seen by Dr. Rodríguez for physical rehabilitation consultation. The vascular surgeon recommended a right above-knee amputation; however, the patient spoke with the patient's son who wanted to try IV antibiotics for osteomyelitis first before an amputation was considered. So, he will not be having a PICC line placed today, so we can continue with IV vancomycin and meropenem. The patient agrees to going to [facility] for long-term IV antibiotics and wound care. In addition, he will have a PICC line placed today. He has a wound VAC already placed in a sacral wound. He will be dismissed hopefully later today to the [facility]. He will be dismissed on vitamin C 500 mg every day; Tylenol 650 mg every 6 hours p.r.n.; Flexeril 5 mg every 8 hours p.r.n.; Voltaren gel apply t.i.d. to his right knee; gabapentin 300 mg t.i.d.; Crofton 5/325 one tablet every 4 hours p.r.n. for severe pain; Humalog insulin sliding scale as written before meals t.i.d., low dose; Lactobacillus 1 b.i.d., meropenem 1 g IV every 8 hours, metformin 500 mg every day, multiple vitamin once a day, Protonix 40 mg every day, MiraLax 17 grams daily, Senokot-S 2 tablets daily, tamsulosin 0.4 mg every day, vancomycin 1 gram IV every 12 hours and zinc 50 mg once a day. He will be transferred to the LTAC for wound care and IV antibiotics. The patient also is aware that there is a possibility with IV antibiotics may fail and he might end up with a right above-knee amputation anyways but he still wants to proceed with IV antibiotics and transferred to the LTAC. RAVINDER BUSTAMANTE MD DR: JOANIE/vicente JOB#: [id number] / [id number]
[2019-10-27 15:00] VITALS: BP_SYST 128; BP_SYST 96; BP_DIAS 108; BP_DIAS 57
--- NOTE | 2019-10-27 15:14 | RAD ---
Exam: Fluoroscopic and ultrasound guided right percutaneous inserted central venous catheter placement 10/27/2019 1:10 PM .Indication: usp antibiotics Technique: Informed oral and written consent were obtained. The right upper extremity was prepped and draped using sterile barrier technique. All elements of maximal sterile barrier technique including the use of a cap, mask, sterile gown, sterile gloves, large sterile sheet, appropriate hand hygiene, and 2% chlorhexidine for cutaneous antisepsis (or acceptable alternative antiseptic per current guidelines) were followed for this procedure.. Real-time ultrasound demonstrated a patent right basilic vein which was prepped and draped in usual sterile fashion. 1% lidocaine used for local anesthesia. Using real-time ultrasound guidance the access needle percutaneously punctured the selected right basilic vein. Reference ultrasound images were saved to the medical record. A guidewire was advanced through the needle to the cavoatrial junction, and a peel-away sheath placed. The catheter was cut to length and inserted through the peel-away sheath such that its tip is at the cavoatrial junction. The wire and sheath were removed, and the catheter secured in place, and a sterile dressing was applied. Catheter was found to flush and aspirate normally. No immediate complications are identified. FLUORO TIME: 0.9 minutes DOSE AREA PRODUCT: 1 Gycm2 Impression: Ultrasound and fluoroscopically guided placement of a right upper extremity PICC line.
[2019-10-27] MEDS: VANCOMYCIN PER PHARMACY MC PRN (16:14)
[2019-10-27 19:41] VITALS: BP 98/63
[2019-10-27] MEDS: SENNOSIDES/DOCUSATE 8.6/50MG TABLET. PO SCH (21:21)
[2019-10-27 23:39] VITALS: BP 125/67
[2019-10-28 03:24] VITALS: BP 160/67
[2019-10-28] MEDS: PANTOPRAZOLE 40 MG TABLET.DR. PO SCH (05:59)
[2019-10-28] MEDS: MEROPENEM 1 GM in IV NORMAL SALINE 100ML 100 ML IV SCH ×2 (06:00→13:57)
[2019-10-28 07:00] VITALS: BP 111/56
[2019-10-28 07:10] LABS: CREATININE 0.9 mg/dL (0.7-1.3); GFR 98.7
--- NOTE | 2019-10-28 09:05 | NUR ---
KYUNG following. Discussed with RN, pt accepted at [facility], pending COVID result. KYUNG notified Dr. Benz of need for LTAC discharge paperwork to be changed to SNU orders. KYUNG will continue to follow. Addendum: 10/28/19 at 1114 by DOMINIK TRACEY Pt apparently not wanting to go to [facility] anymore. KYUNG met with pt, pt stating he thinks he got his heel wound at [facility] and the nurses didn't listen to him over there when he was telling them it hurt. Pt agreeable to [facility]UNG contacting his son, Bennett Walker (ph: [phone]) - KYUNG left voicemail requesting call back. Pt agreeable to referral to [facility], pt needing IV abx q8 - which a lot of facilities can't do. Referral faxed to [facility], awaiting acceptance decision and COVID result. RN notified. Addendum: 10/28/19 at 1428 by DOMINIK TRACEY Pt's COVID result came back negative. Pt accepted at [facility], awaiting transportation time. KYUNG was not able to reach pt's son to advise of pt's wishes to not go to [facility]. RN notified. Addendum: 10/28/19 at 1457 by DOMINIK TRACEY [facility] will transport pt at 1700. RN and pt notified. KYUNG left voicemail for pt's sonBennett. Pt choice of vendor form completed.
[2019-10-28] MEDS: ASCORBIC ACID 500 MG TABLET PO SCH (09:12)
[2019-10-28] MEDS: ZINC SULFATE 220 MG CAPSULE. PO SCH (09:12)
[2019-10-28] MEDS: POLYETHYLENE GLYCOL 3350 17 GM PACKET. PO SCH (09:12)
[2019-10-28] MEDS: metFORMIN 500 MG TABLET PO SCH (09:12)
[2019-10-28] MEDS: MULTIVITAMIN with MINERAL TABLET. PO SCH (09:13)
[2019-10-28] MEDS: DICLOFENAC SODIUM 1% TOPICAL GEL 100GM TUBE. TP SCH ×2 (09:13→13:57)
[2019-10-28] MEDS: TAMSULOSIN 0.4 MG CAP.ER.24H. PO SCH (09:13)
[2019-10-28] MEDS: GABAPENTIN 300 MG CAPSULE. PO SCH ×2 (09:13→13:57)
[2019-10-28] MEDS: LACTOBACILLUS RHAMNOSUS GG 1 CAPSULE. PO SCH (09:13)
[2019-10-28] MEDS: VANCOMYCIN 1 GM in IV NORMAL SALINE 250ML 250 ML IV SCH (09:14)
[2019-10-28] MEDS: INSULIN LISPRO 300 UNITS/3 ML VIAL. SQ SCH ×2 (09:20→11:45)
--- NOTE | 2019-10-28 09:21 | PDOC ---
PROGRESS NOTES Subjective Subjective No new complaints. Objective Objective Vital Signs Date Time Temp Pulse Resp B/P (MAP) Pulse Ox O2 Delivery O2 Flow Rate FiO2 10/28/19 07:00 98.3 71 18 111/56 (74) 97 Room Air 98.3 Intake and Output 10/28/19 07:00 Intake Total 100 ml Output Total 2550 ml Balance -2450 ml Intake Oral 100 ml Output Urine Total 2550 ml Physical Exam Physical Exam He is supine in bed and no change noted with his neurological examination and he had dressing to his right heel. Plan Plan of Care Agree with plans. Comment Review of Relevant I have reviewed the following items dimitrios (where applicable) has been applied. Labs Laboratory Tests Test 10/26/19 10:54 10/26/19 16:32 10/26/19 20:20 10/27/19 04:38 Glucose (Fingerstick) 174 mg/dL (70-99) 109 mg/dL (70-99) 117 mg/dL (70-99) White Blood Count 7.6 x10^3/uL (4.0-11.0) Red Blood Count 3.68 x10^6/uL (4.30-5.70) Hemoglobin 10.5 g/dL (13.0-17.5) Hematocrit 30.8 % (39.0-53.0) Mean Corpuscular Volume 84 fL (79-100) Mean Corpuscular Hemoglobin 29 pg (25-35) Mean Corpuscular Hemoglobin Concent 34 g/dL (31-37) Red Cell Distribution Width 18.7 % (11.5-14.5) Platelet Count 229 x10^3/uL (140-400) Neutrophils (%) (Auto) 60 % (31-73) Lymphocytes (%) (Auto) 24 % (24-48) Monocytes (%) (Auto) 8 % (0-9) Eosinophils (%) (Auto) 8 % (0-3) Basophils (%) (Auto) 1 % (0-3) Neutrophils # (Auto) 4.6 x10^3/uL (1.8-7.7) Lymphocytes # (Auto) 1.8 x10^3/uL (1.0-4.8) Monocytes # (Auto) 0.6 x10^3/uL (0.0-1.1) Eosinophils # (Auto) 0.6 x10^3/uL (0.0-0.7) Basophils # (Auto) 0.0 x10^3/uL (0.0-0.2) Sodium Level 140 mmol/L (136-145) Potassium Level 3.8 mmol/L (3.5-5.1) Chloride Level 106 mmol/L (98-107) Carbon Dioxide Level 30 mmol/L (21-32) Anion Gap 4 (6-14) Blood Urea Nitrogen 17 mg/dL (8-26) Creatinine 0.8 mg/dL (0.7-1.3) Estimated GFR (Cockcroft-Gault) 113.1 Glucose Level 121 mg/dL (70-99) Calcium Level 8.3 mg/dL (8.5-10.1) Test 10/27/19 07:47 10/27/19 11:47 10/27/19 16:51 10/27/19 20:12 Glucose (Fingerstick) 118 mg/dL (70-99) 161 mg/dL (70-99) 118 mg/dL (70-99) 132 mg/dL (70-99) Test 10/28/19 05:50 10/28/19 07:53 Creatinine 0.9 mg/dL (0.7-1.3) Estimated GFR (Cockcroft-Gault) 98.7 Glucose (Fingerstick) 190 mg/dL (70-99) Laboratory Tests Test 10/27/19 11:47 10/27/19 16:51 10/27/19 20:12 10/28/19 05:50 Glucose (Fingerstick) 161 mg/dL (70-99) 118 mg/dL (70-99) 132 mg/dL (70-99) Creatinine 0.9 mg/dL (0.7-1.3) Estimated GFR (Cockcroft-Gault) 98.7 Test 10/28/19 07:53 Glucose (Fingerstick) 190 mg/dL (70-99) Medications Current Medications Cyclobenzaprine HCl (Flexeril) 5 mg PRN Q8HRS PRN PO MUSCLE SPASMS Last administered on 10/27/19at 00:24; Start 10/24/19 at 14:00 Diclofenac Sodium (Voltaren) 1 elizabeth TID TP ; Start 10/24/19 at 14:00; Status Cancel Gabapentin (Neurontin) 300 mg TID PO Last administered on 10/27/19at 21:22; Start 10/24/19 at 14:00 Acetaminophen/ Hydrocodone Bitart (Lortab 5/325) 1 tab PRN Q4HRS PRN PO MODERATE TO SEVERE PAIN Last administered on 10/27/19 00:22; Start 10/24/19 at 14:00 Lactobacillus Rhamnosus (Culturelle) 1 cap BID PO Last administered on 10/27/19at 21:21; Start 10/24/19 at 21:00 Metformin HCl (Glucophage) 500 mg DAILY PO Last administered on 10/27/19 09:03; Start 10/25/19 at 09:00 Pantoprazole Sodium (Protonix) 40 mg DAILYAC PO Last administered on 10/28/19at 05:59; Start 10/24/19 at 16:30 Tamsulosin HCl (Flomax) 0.4 mg DAILY PO Last administered on 10/27/19at 09:03; Start 10/25/19 at 09:00 Non-Formulary Medication (Insulin Lispro (Humalog)) TIDWMEALS SQ ; Start 10/24/19 at 17:00; Status UNV Multivitamins (Thera M Plus) 1 tab DAILY PO Last administered on 10/27/19at 09:03; Start 10/24/19 at 15:00 Acetaminophen (Tylenol) 650 mg PRN Q6HRS PRN PO MILD PAIN 1-3; Start 10/24/19 a t 14:00 Pharmacy Consult (C.diff Med Screen By Rx) 1 each 1X ONCE MC ; Start 10/24/19 at 15:00; Stop 10/24/19 at 15:01; Status Cancel Insulin Human Lispro (HumaLOG) 0-5 UNITS TIDWMEALS SQ Last administered on 10/27/19at 12:57; Start 10/24/19 at 17:00 Dextrose (Dextrose 50%-Water Syringe) 12.5 gm PRN Q15MIN PRN IV SEE COMMENTS; Start 10/24/19 at 15:15 Senna/Docusate Sodium (Senna Plus) 2 tab QHS PO Last administered on 10/27/19at 21:21; Start 10/24/19 at 21:00 Polyethylene Glycol (miraLAX PACKET) 17 gm DAILY PO Last administered on 10/25/19 09:29; Start 10/25/19 at 09:00 Lactulose (Lactulose) 20 gm Q2H PO Last administered on 10/24/19at 17:26; Start 10/24/19 at 17:00; Stop 10/24/19 at 19:01; Status DC Diclofenac Sodium (Voltaren) 1 elizabeth TID TP Last administered on 10/27/19 21:22; Start 10/24/19 at 16:00 Zinc Sulfate (Orazinc) 220 mg DAILY PO Last administered on 10/27/19 09:03; Start 10/24/19 at 17:00 Ascorbic Acid (Vitamin C) 500 mg DAILY PO Last administered on 10/27/19 09:03; Start 10/24/19 at 17:00 Meropenem 1 gm/ Sodium Chloride 100 ml @ 200 mls/hr Q8HRS IV Last administered on 10/28/19 06:00; Start 10/24/19 at 19:30 Vancomycin HCl (Vanco Per Pharmacy) 1 each PRN DAILY PRN MC SEE COMMENTS Last administered on 10/27/19at 16:14; Start 10/24/19 at 19:15 Vancomycin HCl 1.25 gm/Sodium Chloride 250 ml @ 166.667 mls/hr 1X ONCE IV Last administered on 10/24/19at 21:19; Start 10/24/19 at 20:00; Stop 10/24/19 at 21:29; Status DC Vancomycin HCl 750 mg/Sodium Chloride 250 ml @ 250 mls/hr Q12H IV Last administered on 10/25/19at 09:28; Start 10/25/19 at 09:00; Stop 10/25/19 at 21:16; Status DC Vancomycin HCl (Vancomycin Trough Level) 1 each 1X ONCE MC Last administered on 10/25/19at 20:30; Start 10/25/19 at 20:30; Stop 10/25/19 at 20:31; Status DC Vancomycin HCl 1 gm/Sodium Chloride 250 ml @ 250 mls/hr Q12H IV Last administered on 10/27/19 21:21; Start 10/25/19 at 21:30 Lidocaine HCl (Buffered Lidocaine 1%) 3 ml 1X ONCE INJ Last administered on 10/27/19at 14:30; Start 10/27/19 at 14:30; Stop 10/27/19 at 14:31; Status DC Lidocaine HCl (Buffered Lidocaine 1%) 3 ml STK-MED ONCE .ROUTE ; Start 10/27/19 at 14:25; Stop 10/27/19 at 14:25; Status DC Active Scripts Active Vitamin C (Ascorbic Acid) 500 Mg Tablet 500 Mg PO DAILY Vanco 1 Gram/250 ml-0.9% NaCl (Vancomycin/0.9 % Sod Chloride) 1 Gm/250 Ml Plast..bag 1 Gm IV Q12HR Meropenem 1 Gm Vial 1 Gm IV Q8HRS Humalog (Insulin Lispro) 100 Unit/1 Ml Insuln.pen 0 Units SQ TIDWMEALS Culturelle (Lactobacillus Rhamnosus Gg) 1 Each Cap.sprink 1 Cap PO BID Voltaren (Diclofenac Sodium) 100 Gm Gel..gram. 1 Elizabeth TP TID Cyclobenzaprine Hcl 10 Mg Tablet 5 Mg PO PRN Q8HRS PRN Pantoprazole Sodium (Pantoprazole Sodium) 40 Mg Tablet.dr 40 Mg PO DAILYAC Miralax (Polyethylene Glycol 3350) 17 Gm Powd.pack 1 Packet PO DAILY dissolve in water Senna-Time S Tablet (Sennosides/Docusate Sodium) 1 Each Tablet 2 Tab PO DAILY Tylenol (Acetaminophen) 325 Mg Tablet 650 Mg PO PRN Q6HRS PRN Hydrocodone-Apap 5-325 (Hydrocodone Bit/Acetaminophen) 1 Tab Tablet 1 Tab PO PRN Q4HRS PRN Reported Zinc 50 Mg Tablet 1 Tab PO DAILY 30 Days Centrum Silver Men Tablet (Multivit-Min/FA/Lycopen/Lutein) 1 Each Tablet 1 Each PO DAILY Metformin Hcl 500 Mg Tablet 500 Mg PO DAILY Gabapentin (Gabapentin) 300 Mg Capsule 300 Mg PO TID Tamsulosin Hcl 0.4 Mg Cap.er.24h 1 Cap PO DAILY Vitals/I & O Vital Sign - Last 24 Hours 10/27/19 10/27/19 10/27/19 10/27/19 11:00 15:00 15:00 19:41 Temp 98.8 98.4 98.3 98.3 98.8 98.4 98.3 98.3 Pulse 74 54 74 84 Resp 18 18 18 16 B/P (MAP) 130/67 (88) 128/108 (115) 96/57 (70) 98/63 (75) Pulse Ox 99 95 97 93 O2 Delivery Room Air Room Air Room Air Room Air 10/27/19 10/27/19 10/28/19 10/28/19 20:00 23:39 03:24 07:00 Temp 98.4 98.2 98.3 98.4 98.2 98.3 Pulse 77 76 71 Resp 20 20 18 B/P (MAP) 125/67 (86) 160/67 (98) 111/56 (74) Pulse Ox 98 98 97 O2 Delivery Room Air Room Air Room Air Room Air Intake and Output 10/27/19 10/27/19 10/28/19 15:00 23:00 07:00 Intake Total 100 ml Output Total 1600 ml 950 ml Balance -1500 ml -950 ml Justicifation of Admission Dx: Justifications for Admission: Justification of Admission Dx: N/A Nutrition Consultation Dietary Evaluation: Recommendations by RD: Dietary education by RD, Protein supplementation Comments: pt declines oral nutrition supplements. will add DBL meat portions for extra protein continue mvi and vit per wound protocal and ADA diet Expected Outcomes/Goals: to meet >75% est nutr needs Glycemic control Interpretation of weight loss: >5% in 1 month Malnutrition Findings: Food and Nutrition Intake (Sev: <50% est energy req 5days Body Fat Depletion (Non Severe: Mod to Severe Weight Status: Underweight GENA VAZQUEZ MD Oct 28, 2019 09:20
--- NOTE | 2019-10-28 10:05 | PDOC ---
PROGRESS NOTES Subjective Subjective feels okay. does not want to go to [facility] and discussed with his nurse who will speak with controller operations and hr manager. Objective Objective Vital Signs Date Time Temp Pulse Resp B/P (MAP) Pulse Ox O2 Delivery O2 Flow Rate FiO2 10/28/19 08:00 Room Air 10/28/19 07:00 98.3 71 18 111/56 (74) 97 98.3 Intake and Output 10/28/19 07:00 Intake Total 100 ml Output Total 2550 ml Balance -2450 ml Intake Oral 100 ml Output Urine Total 2550 ml Physical Exam Abdomen: Soft Heart: Regular rate, Normal S1, Normal S2 Extremities: No edema General: Alert HEENT: Atraumatic Lungs: Clear to auscultation Neuro: Normal speech Psych/Mental Status: Mood NL Skin: No rashes, Other (sacral wound with wound vac, right heel wound) Assessment Assessment 1. 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 2. Diabetes mellitus type 2. 3. Urine retention with Causey catheter in place. 4. Lumbar spondylosis. 5. Osteoarthritis of the right knee. 6. Sacral wound.with wound vac 7. Chronic right leg weakness, most likely secondary to lumbar spondylosis. peripheral artery disease with occlusive disease below right knee Plan Plan of Care continue iv vancomycin and meropenem dismiss today to snf he understands that if iv antibiotics does not work that he will likely need a right AKA Comment Review of Relevant I have reviewed the following items dimitrios (where applicable) has been applied. Labs Laboratory Tests Test 10/26/19 10:54 10/26/19 16:32 10/26/19 20:20 10/27/19 04:38 Glucose (Fingerstick) 174 mg/dL (70-99) 109 mg/dL (70-99) 117 mg/dL (70-99) White Blood Count 7.6 x10^3/uL (4.0-11.0) Red Blood Count 3.68 x10^6/uL (4.30-5.70) Hemoglobin 10.5 g/dL (13.0-17.5) Hematocrit 30.8 % (39.0-53.0) Mean Corpuscular Volume 84 fL (79-100) Mean Corpuscular Hemoglobin 29 pg (25-35) Mean Corpuscular Hemoglobin Concent 34 g/dL (31-37) Red Cell Distribution Width 18.7 % (11.5-14.5) Platelet Count 229 x10^3/uL (140-400) Neutrophils (%) (Auto) 60 % (31-73) Lymphocytes (%) (Auto) 24 % (24-48) Monocytes (%) (Auto) 8 % (0-9) Eosinophils (%) (Auto) 8 % (0-3) Basophils (%) (Auto) 1 % (0-3) Neutrophils # (Auto) 4.6 x10^3/uL (1.8-7.7) Lymphocytes # (Auto) 1.8 x10^3/uL (1.0-4.8) Monocytes # (Auto) 0.6 x10^3/uL (0.0-1.1) Eosinophils # (Auto) 0.6 x10^3/uL (0.0-0.7) Basophils # (Auto) 0.0 x10^3/uL (0.0-0.2) Sodium Level 140 mmol/L (136-145) Potassium Level 3.8 mmol/L (3.5-5.1) Chloride Level 106 mmol/L (98-107) Carbon Dioxide Level 30 mmol/L (21-32) Anion Gap 4 (6-14) Blood Urea Nitrogen 17 mg/dL (8-26) Creatinine 0.8 mg/dL (0.7-1.3) Estimated GFR (Cockcroft-Gault) 113.1 Glucose Level 121 mg/dL (70-99) Calcium Level 8.3 mg/dL (8.5-10.1) Test 10/27/19 07:47 10/27/19 11:47 10/27/19 16:51 10/27/19 20:12 Glucose (Fingerstick) 118 mg/dL (70-99) 161 mg/dL (70-99) 118 mg/dL (70-99) 132 mg/dL (70-99) Test 10/28/19 05:50 10/28/19 07:53 Creatinine 0.9 mg/dL (0.7-1.3) Estimated GFR (Cockcroft-Gault) 98.7 Glucose (Fingerstick) 190 mg/dL (70-99) Laboratory Tests Test 10/27/19 11:47 10/27/19 16:51 10/27/19 20:12 10/28/19 05:50 Glucose (Fingerstick) 161 mg/dL (70-99) 118 mg/dL (70-99) 132 mg/dL (70-99) Creatinine 0.9 mg/dL (0.7-1.3) Estimated GFR (Cockcroft-Gault) 98.7 Test 10/28/19 07:53 Glucose (Fingerstick) 190 mg/dL (70-99) Medications Current Medications Cyclobenzaprine HCl (Flexeril) 5 mg PRN Q8HRS PRN PO MUSCLE SPASMS Last administered on 10/27/19at 00:24; Start 10/24/19 at 14:00 Diclofenac Sodium (Voltaren) 1 elizabeth TID TP ; Start 10/24/19 at 14:00; Status Cancel Gabapentin (Neurontin) 300 mg TID PO Last administered on 10/28/19at 09:13; Start 10/24/19 at 14:00 Acetaminophen/ Hydrocodone Bitart (Lortab 5/325) 1 tab PRN Q4HRS PRN PO MODERATE TO SEVERE PAIN Last administered on 10/27/19at 00:22; Start 10/24/19 at 14:00 Lactobacillus Rhamnosus (Culturelle) 1 cap BID PO Last administered on 10/28/19at 09:13; Start 10/24/19 at 21:00 Metformin HCl (Glucophage) 500 mg DAILY PO Last administered on 10/28/19at 09:12; Start 10/25/19 at 09:00 Pantoprazole Sodium (Protonix) 40 mg DAILYAC PO Last administered on 10/28/19at 05:59; Start 10/24/19 at 16:30 Tamsulosin HCl (Flomax) 0.4 mg DAILY PO Last administered on 10/28/19at 09:13; Start 10/25/19 at 09:00 Non-Formulary Medication (Insulin Lispro (Humalog)) TIDWMEALS SQ ; Start 10/24/19 at 17:00; Status UNV Multivitamins (Thera M Plus) 1 tab DAILY PO Last administered on 10/28/19at 09:13; Start 10/24/19 at 15:00 Acetaminophen (Tylenol) 650 mg PRN Q6HRS PRN PO MILD PAIN 1-3; Start 10/24/19 at 14:00 Pharmacy Consult (C.diff Med Screen By Rx) 1 each 1X ONCE MC ; Start 10/24/19 at 15:00; Stop 10/24/19 at 15:01; Status Cancel Insulin Human Lispro (HumaLOG) 0-5 UNITS TIDWMEALS SQ Last administered on 10/28/19at 09:20; Start 10/24/19 at 17:00 Dextrose (Dextrose 50%-Water Syringe) 12.5 gm PRN Q15MIN PRN IV SEE COMMENTS; Start 10/24/19 at 15:15 Senna/Docusate Sodium (Senna Plus) 2 tab QHS PO Last administered on 10/27/19at 21:21; Start 10/24/19 at 21:00 Polyethylene Glycol (miraLAX PACKET) 17 gm DAILY PO Last administered on 10/28/19at 09:12; Start 10/25/19 at 09:00 Lactulose (Lactulose) 20 gm Q2H PO Last administered on 10/24/19at 17:26; Start 10/24/19 at 17:00; Stop 10/24/19 at 19:01; Status DC Diclofenac Sodium (Voltaren) 1 elizabeth TID TP Last administered on 10/28/19at 09:13; Start 10/24/19 at 16:00 Zinc Sulfate (Orazinc) 220 mg DAILY PO Last administered on 10/28/19at 09:12; Start 10/24/19 at 17:00 Ascorbic Acid (Vitamin C) 500 mg DAILY PO Last administered on 10/28/19at 09:12; Start 10/24/19 at 17:00 Meropenem 1 gm/ Sodium Chloride 100 ml @ 200 mls/hr Q8HRS IV Last administered on 10/28/19at 06:00; Start 10/24/19 at 19:30 Vancomycin HCl (Vanco Per Pharmacy) 1 each PRN DAILY PRN MC SEE COMMENTS Last administered on 10/27/19at 16:14; Start 10/24/19 at 19:15 Vancomycin HCl 1.25 gm/Sodium Chloride 250 ml @ 166.667 mls/hr 1X ONCE IV Last administered on 10/24/19at 21:19; Start 10/24/19 at 20:00; Stop 10/24/19 at 21:29; Status DC Vancomycin HCl 750 mg/Sodium Chloride 250 ml @ 250 mls/hr Q12H IV Last administered on 10/25/19at 09:28; Start 10/25/19 at 09:00; Stop 10/25/19 at 21:16; Status DC Vancomycin HCl (Vancomycin Trough Level) 1 each 1X ONCE MC Last administered on 10/25/19at 20:30; Start 10/25/19 at 20:30; Stop 10/25/19 at 20:31; Status DC Vancomycin HCl 1 gm/Sodium Chloride 250 ml @ 250 mls/hr Q12H IV Last administered on 10/28/19at 09:14; Start 10/25/19 at 21:30 Lidocaine HCl (Buffered Lidocaine 1%) 3 ml 1X ONCE INJ Last administered on 10/27/19at 14:30; Start 10/27/19 at 14:30; Stop 10/27/19 at 14:31; Status DC Lidocaine HCl (Buffered Lidocaine 1%) 3 ml STK-MED ONCE .ROUTE ; Start 10/27/19 at 14:25; Stop 10/27/19 at 14:25; Status DC Active Scripts Active Vitamin C (Ascorbic Acid) 500 Mg Tablet 500 Mg PO DAILY Vanco 1 Gram/250 ml-0.9% NaCl (Vancomycin/0.9 % Sod Chloride) 1 Gm/250 Ml Plast..bag 1 Gm IV Q12HR Meropenem 1 Gm Vial 1 Gm IV Q8HRS Humalog (Insulin Lispro) 100 Unit/1 Ml Insuln.pen 0 Units SQ TIDWMEALS Culturelle (Lactobacillus Rhamnosus Gg) 1 Each Cap.sprink 1 Cap PO BID Voltaren (Diclofenac Sodium) 100 Gm Gel..gram. 1 Elizabeth TP TID Cyclobenzaprine Hcl 10 Mg Tablet 5 Mg PO PRN Q8HRS PRN Pantoprazole Sodium (Pantoprazole Sodium) 40 Mg Tablet.dr 40 Mg PO DAILYAC Miralax (Polyethylene Glycol 3350) 17 Gm Powd.pack 1 Packet PO DAILY dissolve in water Senna-Time S Tablet (Sennosides/Docusate Sodium) 1 Each Tablet 2 Tab PO DAILY Tylenol (Acetaminophen) 325 Mg Tablet 650 Mg PO PRN Q6HRS PRN Hydrocodone-Apap 5-325 (Hydrocodone Bit/Acetaminophen) 1 Tab Tablet 1 Tab PO PRN Q4HRS PRN Reported Zinc 50 Mg Tablet 1 Tab PO DAILY 30 Days Centrum Silver Men Tablet (Multivit-Min/FA/Lycopen/Lutein) 1 Each Tablet 1 Each PO DAILY Metformin Hcl 500 Mg Tablet 500 Mg PO DAILY Gabapentin (Gabapentin) 300 Mg Capsule 300 Mg PO TID Tamsulosin Hcl 0.4 Mg Cap.er.24h 1 Cap PO DAILY Vitals/I & O Vital Sign - Last 24 Hours 10/27/19 10/27/19 10/27/19 10/27/19 11:00 15:00 15:00 19:41 Temp 98.8 98.4 98.3 98.3 98.8 98.4 98.3 98.3 Pulse 74 54 74 84 Resp 18 18 18 16 B/P (MAP) 130/67 (88) 128/108 (115) 96/57 (70) 98/63 (75) Pulse Ox 99 95 97 93 O2 Delivery Room Air Room Air Room Air Room Air 10/27/19 10/27/19 10/28/19 10/28/19 20:00 23:39 03:24 07:00 Temp 98.4 98.2 98.3 98.4 98.2 98.3 Pulse 77 76 71 Resp 20 20 18 B/P (MAP) 125/67 (86) 160/67 (98) 111/56 (74) Pulse Ox 98 98 97 O2 Delivery Room Air Room Air Room Air Room Air 10/28/19 08:00 O2 Delivery Room Air Intake and Output 10/27/19 10/27/19 10/28/19 15:00 23:00 07:00 Intake Total 100 ml Output Total 1600 ml 950 ml Balance -1500 ml -950 ml Justicifation of Admission Dx: Justifications for Admission: Justification of Admission Dx: N/A Nutrition Consultation Dietary Evaluation: Recommendations by RD: Dietary education by RD, Protein supplementation Comments: pt declines oral nutrition supplements. will add DBL meat portions for extra protein continue mvi and vit per wound protocal and ADA diet Expected Outcomes/Goals: to meet >75% est nutr needs Glycemic control Interpretation of weight loss: >5% in 1 month Malnutrition Findings: Food and Nutrition Intake (Sev: <50% est energy req 5days Body Fat Depletion (Non Severe: Mod to Severe Weight Status: Underweight RAVINDER BUSTAMANTE MD Oct 28, 2019 10:05
--- NOTE | 2019-10-28 10:13 | SNU/HH DC ---
DISCHARGE ORDERS DISCHARGE INFORMATION: DISCHARGE DATE: Oct 28, 2019 CONDITION ON DISCHARGE: Stable CODE STATUS: Code Status: Full INTERMEDIATE: SNF STAY <30 DAYS: Yes POST DISCHARGE ORDERS: ACTIVITY ORDERS: Activity as tolerated WEIGHT BEARING STATUS: As tolerated DIET AFTER DISCHARGE: ADA OTHER WOUND INSTRUCTIONS: wound vac to sacral wound . off load left heel CHECKS AFTER DISCHARGE: CHECKS AFTER DISCHARGE: Check blood sugar, ac/hs FOLLOW-UP: PHYSICIAN FOLLOW-UP: arrange appt with Suzie cavazos in 3 weeks LAB ORDERS FOR FOLLOW-UP: cbc and bmp and sed rate every thursday Additional Instructions: cbc and bmp and sed rate every thursday bmp every vancomycin trough level on 10/30 and every thursday and call results to the physician at [facility] and fax results to dr. Sexton iv vancomycin and meropenem to continue at least [address] Sexton to decide on duration of iv antibiotics TREATMENT/EQUIPMENT ORDERS: ADAPTIVE EQUIPMENT NEEDED: Walker Physical Therapy For: Evalulation/Treatment Occupational Therapy For: Evaluation/Treatment DISCHARGE MEDICATIONS: Home Meds Active Scripts Ascorbic Acid (VITAMIN C) 500 Mg Tablet, 500 MG PO DAILY for vitamin for wound healing, #30 TAB Prov:RAVINDER BUSTAMANTE MD 10/27/19 Vancomycin/0.9 % Sod Chloride (Vanco 1 Gram/250 ml-0.9% NaCl) 1 Gm/250 Ml Plast..bag, 1 GM IV Q12HR for osteomyelitis, #30 EACH Prov:RAVINDER BUSTAMANTE MD 04/07/19 Meropenem (MEROPENEM) 1 Gm Vial, 1 GM IV Q8HRS for osteomyelitis, #90 EACH Prov:RAVINDER BUSTAMANTE MD 04/07/19 Insulin Lispro (HUMALOG) 100 Unit/1 Ml Insuln.pen, 0 UNITS SQ TIDWMEALS for diabetes, #30 EACH Prov:RAVINDER BUSTAMANTE MD 04/07/19 Lactobacillus Rhamnosus Gg (CULTURELLE) 1 Each Cap.sprink, 1 CAP PO BID for probiotic, #60 CAP Prov:RAVINDER BUSTAMANTE MD 04/07/19 Diclofenac Sodium (VOLTAREN) 100 Gm Gel..gram., 1 TITA TP TID for knee osteoarthritis, #30 EACH Prov:RAVINDER BUSTAMANTE MD 04/07/19 Cyclobenzaprine Hcl (CYCLOBENZAPRINE HCL) 10 Mg Tablet, 5 MG PO PRN Q8HRS PRN for MUSCLE SPASMS, #30 TAB Prov:RAVINDER BUSTAMANTE MD 04/07/19 Pantoprazole Sodium (PANTOPRAZOLE SODIUM ) 40 Mg Tablet.dr, 40 MG PO DAILYAC for gerd, #30 TAB.SR Prov:RAVINDER BUSTAMANTE MD 04/07/19 Polyethylene Glycol 3350 (MIRALAX) 17 Gm Powd.pack, 1 PACKET PO DAILY for constipation, #30 PACKET 0 Refills dissolve in water Prov:RAVINDER BUSTAMANTE MD 02/08/19 Sennosides/Docusate Sodium (SENNA-TIME S TABLET) 1 Each Tablet, 2 TAB PO DAILY for constipation, #60 TAB Prov:RAVINDER BUSTAMANTE MD 02/08/19 Acetaminophen (TYLENOL) 325 Mg Tablet, 650 MG PO PRN Q6HRS PRN for MILD PAIN 1- 3, #30 TAB Prov:RAVINDER BUSTAMANTE MD 02/08/19 Hydrocodone Bit/Acetaminophen (HYDROCODONE-APAP 5-325 ) 1 Tab Tablet, 1 TAB PO PRN Q4HRS PRN for MODERATE PAIN, #30 TAB Prov:RAVINDER BUSTAMANTE MD 02/08/19 Reported Medications Zinc (ZINC) 50 Mg Tablet, 1 TAB PO DAILY for wound healing for 30 Days, #30 TAB 0 Refills 10/24/19 Multivit-Min/FA/Lycopen/Lutein (Centrum Silver Men Tablet) 1 Each Tablet, 1 EACH PO DAILY for supplement, TAB 02/04/19 Metformin Hcl (METFORMIN HCL) 500 Mg Tablet, 500 MG PO DAILY for ANTI-DIABETIC, TAB 0 Refills 11/09/17 Gabapentin (GABAPENTIN ) 300 Mg Capsule, 300 MG PO TID, CAP 11/09/17 Tamsulosin Hcl (TAMSULOSIN HCL) 0.4 Mg Cap.er.24h, 1 CAP PO DAILY, #30 CAP 5 Refills 11/09/17 Discontinued Reported Medications Diclofenac Sodium (VOLTAREN) 100 Gm Gel..gram., 1 GM TP TID PRN PRN for PAIN for 30 Days, #1 EACH 0 Refills apply to affected area(s) 10/24/19 Atorvastatin Calcium (ATORVASTATIN CALCIUM) 80 Mg Tablet, 80 MG PO HS for FOR CHOLESTEROL, #30 TAB 0 Refills 11/09/17 Discontinued Scripts Cefdinir (CEFDINIR) 300 Mg Capsule, 300 MG PO BID, #14 CAP 0 Refills Prov:NIDA TUCKER DO 08/25/19 RAVINDER BUSTAMANTE MD Oct 28, 2019 10:13
[2019-10-28 11:00] VITALS: BP 149/61
--- NOTE | 2019-10-28 12:29 | PDOC ---
Infectious Disease Note Subjective Subjective Doing ok. Pain is intermittent - controlled No F/C/S/N/V/D/SOA/rash Vital Sign Vital Signs Vital Signs Date Time Temp Pulse Resp B/P (MAP) Pulse Ox O2 Delivery O2 Flow Rate FiO2 10/28/19 11:00 98.3 79 18 149/61 (90) 99 Room Air 98.3 Physical Exam PHYSICAL EXAM CONSTITUTIONAL: He is lying in bed. He is cooperative. He is in no acute distress. looks better and is eating HEENT: He has normal conjunctivae. Oral cavity, pharynx was clear. NECK: Supple, no JVD. LUNGS: Clear to auscultation. HEART: S1, S2. ABDOMEN: Soft and nontender. No guarding. GENITOURINARY: Miller is in place. EXTREMITIES: Without clubbing or cyanosis. They are thin. SKIN: Without generalized signs of rash. . Heel wound vac NEUROLOGIC: Answers all questions appropriately. He is unable to straighten his right knee. There is no warmth or redness and is slightly contracted. PSYCHIATRIC: Affect is pleasant. RUE: PICC - clean Labs Lab Laboratory Tests Test 10/27/19 16:51 10/27/19 20:12 10/28/19 05:50 10/28/19 07:53 Glucose (Fingerstick) 118 mg/dL (70-99) 132 mg/dL (70-99) 190 mg/dL (70-99) Creatinine 0.9 mg/dL (0.7-1.3) Estimated GFR (Cockcroft-Gault) 98.7 Test 10/28/19 11:34 Glucose (Fingerstick) 120 mg/dL (70-99) Objective Assessment R Heel Osteo Sacral wound PCN allergy - ? reaction PAD - Vascular note reviewed - appreciate input Dm Lumbar stenosis Chronic miller Plan Plan of Care Started Vanc/meropenem 10/23 per pharmacy Consult Vascular reviewed - amputation recommended he and his son want to try abx Rx in chart Ok to transfer from ID standpoint Call with questions if needed D/w son on phone 10/25 who does not want amputation and wants to try abx ARASH RAY MD Oct 28, 2019 12:29
[2019-10-28] MEDS: VANCOMYCIN PER PHARMACY MC PRN (13:59)
[2019-10-28 15:05] VITALS: BP 96/43
--- NOTE | 2019-10-28 18:17 | NUR ---
called to notify dr benz at this time of SNF pt went to per Dr. Benz request
--- NOTE | 2019-10-28 18:24 | NUR ---
pt is discharged to [facility] at 1718 via wheelchair via transportation. pt is in stable condition. pt has all belongings with him. gave report to dennis at [facility] and she stated she had no further questions for me. discharge packet was given to transportation with prescriptions inside. miller catheter from home was left in place, and PICC line was left in place for further antibiotic treatment at [facility].
== END 2019-10-28 17:18 | DRG 638 ==
LOC: 4 NORTH 12:33
PROVIDERS: ADMIT Internal Medicine; ATTEND Internal Medicine
PROC: 02HV33Z Insertion of Infusion Device into Superior Vena Cava, Percutaneous Approach (ICD-10-PCS; principal; 2019-10-27)
PROC: B5181ZA Fluoroscopy of Superior Vena Cava using Low Osmolar Contrast, Guidance (ICD-10-PCS; 2019-10-27)
PROC: B548ZZA Ultrasonography of Superior Vena Cava, Guidance (ICD-10-PCS; 2019-10-27)
DX: E11.69 Type 2 diabetes mellitus with other specified complication (principal); E44.1 Mild protein-calorie malnutrition; M86.8X8 Other osteomyelitis, other site; D63.8 Anemia in other chronic diseases classified elsewhere; E11.42 Type 2 diabetes mellitus with diabetic polyneuropathy; E11.51 Type 2 diabetes mellitus with diabetic peripheral angiopathy without gangrene; E78.5 Hyperlipidemia, unspecified; G89.29 Other chronic pain; I05.0 Rheumatic mitral stenosis; I71.4 Abdominal aortic aneurysm, without rupture; J45.909 Unspecified asthma, uncomplicated; L89.619 Pressure ulcer of right heel, unspecified stage; K57.90 Diverticulosis of intestine, part unspecified, without perforation or abscess without bleeding; K21.9 Gastro-esophageal reflux disease without esophagitis; M17.0 Bilateral primary osteoarthritis of knee; M47.816 Spondylosis without myelopathy or radiculopathy, lumbar region; M48.061 Spinal stenosis, lumbar region without neurogenic claudication; M51.36 Other intervertebral disc degeneration, lumbar region; N40.1 Benign prostatic hyperplasia with lower urinary tract symptoms; R33.8 Other retention of urine; Z82.5 Family history of asthma and other chronic lower respiratory diseases; Z83.3 Family history of diabetes mellitus; Z87.11 Personal history of peptic ulcer disease; Z88.0 Allergy status to penicillin; Z91.81 History of falling; Z99.3 Dependence on wheelchair; Z79.899 Other long term (current) drug therapy; Z74.01 Bed confinement status; Z79.84 Long term (current) use of oral hypoglycemic drugs; Z79.4 Long term (current) use of insulin; Z20.828 Contact with and (suspected) exposure to other viral communicable diseases
CPT/HCPCS: 36415; 36573; 71045; 74018; 77001; 80048; 80053; 80202; 82565; 82962; 83036; 85025; 85610; 86140; 93005; C1751; C1892; J1815; J2185; J3370; J3490; J7050; 97110-GO; 97110-GP; 97530-GO; 97530-GP; 97535-GO; G0378; J7030; U0003-CS

== ENCOUNTER 2020-05-02 10:50 | Day surgery (SDC) | payer MEDICARE, BC ==
[~2020-05-02] VITALS: Ht 172.7 cm; Wt 64.4 kg
[~2020-05-02 10:50] MED LIST changes: +ASCO500T4 PO; +ATOR80TA72 PO; +COLL30OI TP; +HYDROmorphone 2 MG/ML VIAL IVP PRN; +IV RINGERS,LACTATED 1000ML 1,000 ML IV SCH; +MORPHINE SULFATE 2 MG/ML VIAL. IVP PRN; +PROCHLORPERAZINE 10 MG/2 ML VIAL. IVP PRN; +ZINC50TA39 PO; +fentaNYL PF VIAL 100 MCG/2 ML VIAL IVP PRN
[2020-05-02] MEDS ORDERED: LIDOCAINE 2% PF 5 ML VIAL. ONE (11:15)
[2020-05-02] MEDS ORDERED: PROTAMINE 50 MG/5 ML VIAL. IV ONE (11:15)
[2020-05-02] MEDS ORDERED: fentaNYL PF VIAL 100 MCG/2 ML VIAL ONE (11:16)
[2020-05-02] MEDS ORDERED: INSULIN LISPRO 100 UNIT/ML 3ML VIAL for OP,RR ONLY. SQ PRN (12:00)
--- NOTE | 2020-05-02 12:24 | PDOC1 ---
History and Physical Date of Admission Date of Admission DATE: 05/02/20 TIME: 12:21 Identification/Chief Complaint Chief Complaint Left buttock decub ulcer Source Source: Chart review, Patient History of Present Illness History of Present Illness 80 yo M with left buttock/hip decubitus ulcer. TO OR for excisional debridement. Pt currently without c/o. Past Medical History Cardiovascular: Hyperlipidemia, Mitral valve stenosis CENTRAL NERVOUS SYSTEM: Periperal neuropathy GI: Diverticulosis, GERD, Hemorrhoids, Peptic Ulcer disease, Other Musculoskeletal: low back pain, Osteoarthritis Renal/: Benign prostatic enlarg., Other Endocrine: Diabetes Past Surgical History Past Surgical History: Other Family History Family History: Diabetes Social History ALCOHOL: none Drugs: None Current Medications Current Medications Current Medications Fentanyl Citrate (Fentanyl 2ml Vial) 25 mcg PRN Q5MIN PRN IVP MILD PAIN 1-3; Start 05/02/20 at 06:00; Stop 05/03/20 at 05:59 Fentanyl Citrate (Fentanyl 2ml Vial) 50 mcg PRN Q5MIN PRN IVP MODERATE PAIN 4- 6; Start 05/02/20 at 06:00; Stop 05/03/20 at 05:59 Morphine Sulfate (Morphine Sulfate) 1 mg PRN Q10MIN PRN IVP SEVERE PAIN 7-10; Start 05/02/20 at 06:00; Stop 05/03/20 at 05:59 Ringer's Solution 1,000 ml @ 30 mls/hr Q24H IV Last administered on 05/02/20at 11:52; Start 05/02/20 at 06:00; Stop 05/02/20 at 17:59 Hydromorphone HCl (Dilaudid) 0.5 mg PRN Q10MIN PRN IVP SEVERE PAIN 7-10, 2nd CHOICE; Start 05/02/20 at 06:00; Stop 05/03/20 at 05:59 Prochlorperazine Edisylate (Compazine) 5 mg PACU PRN PRN IVP NAUSEA, MRX1; Start 05/02/20 at 06:00; Stop 05/03/20 at 05:59 Levofloxacin/ Dextrose 100 ml @ 100 mls/hr 1X PREOP PRN IV PRIOR TO PROCEDURE; Start 05/02/20 at 06:00; Stop 05/02/20 at 18:00 Lidocaine HCl (Lidocaine Pf 2% Vial) 5 ml STK-MED ONCE .ROUTE ; Start 05/02/20 at 11:15; Stop 05/02/20 at 11:16; Status DC Protamine Sulfate (Protamine) 50 mg STK-MED ONCE IV ; Start 05/02/20 at 11:15; Stop 05/02/20 at 11:16; Status DC Fentanyl Citrate (Fentanyl 2ml Vial) 100 mcg STK-MED ONCE .ROUTE ; Start 05/02/20 at 11:16; Stop 05/02/20 at 11:16; Status DC Insulin Human Lispro (HumaLOG VIAL for OP,RR ONLY) 0-10 units PRN Q1HR PRN SQ PER PROTOCOL; Start 05/02/20 at 12:00; Stop 05/03/20 at 11:59 Active Scripts Active Pantoprazole Sodium (Pantoprazole Sodium) 40 Mg Tablet.dr 40 Mg PO DAILYAC Reported Santyl Ointment (Collagenase) 30 Gm Oint...g. 1 Elizabeth TP DAILY 30 Days Atorvastatin Calcium 80 Mg Tablet 80 Mg PO QHS Centrum Silver Men Tablet (Multivit-Min/FA/Lycopen/Lutein) 1 Each Tablet 1 Each PO DAILY Metformin Hcl 500 Mg Tablet 500 Mg PO BID Gabapentin (Gabapentin) 300 Mg Capsule 300 Mg PO TID Tamsulosin Hcl 0.4 Mg Cap.er.24h 1 Cap PO DAILY Allergies Allergies: Coded Allergies: Penicillins (Verified Allergy, Intermediate, 05/02/20) morphine (Verified Allergy, Intermediate, Itching, 05/02/20) Physical Exam General: Alert, Cooperative, No acute distress HEENT: Atraumatic Lungs: Normal air movement Abdomen: Soft Extremities: Other (multiple ulcers, various states of healing, somewhat infected and deep left buttock/hip ulcer) Vitals Vitals Vital Signs Date Time Temp Pulse Resp B/P (MAP) Pulse Ox O2 Delivery O2 Flow Rate FiO2 05/02/20 11:44 97.8 92 20 149/78 100 Room Air 97.8 Labs Labs Laboratory Tests Test 05/02/20 11:55 Glucose (Fingerstick) 104 mg/dL (70-99) Laboratory Tests Test 05/02/20 11:55 Glucose (Fingerstick) 104 mg/dL (70-99) VTE Prophylaxis Ordered VTE Prophylaxis Devices: No VTE Pharmacological Prophylaxi: No Assessment/Plan Assessment/Plan Left buttock ulcer TO OR for excisional debridement. R/R/B/A d/w pt and pt's son previously. Justifications for Admission Other Justification VANESSA MARSH MD May 02, 2020 12:24
[2020-05-02] MEDS ORDERED: DEXAMETHASONE SOD PHOS 4 MG/ML VIAL ONE (12:40)
[2020-05-02] MEDS ORDERED: SEVOFLURANE 16 TO 30 MINUTES. IH ONE (12:40)
[2020-05-02] MEDS ORDERED: PHENYLEPHRINE in 0.9% NACL PF 1 MG/10 ML SYRINGE. IV ONE (12:40)
[2020-05-02] MEDS ORDERED: BUPIVACAINE-EPI 0.5% 30 ML VIAL KIT. ONE (12:54)
--- NOTE | 2020-05-02 13:07 | PDOC4 ---
OPERATIVE NOTE Date: Date: May 02, 2020 Pre-Op Diagnosis: left buttock/hip decubitus ulcer Post-Op Diagnosis: same Procedure Performed: Excisional debridement of left hip decubitus ulcer of skin, subcutaneous tissue and muscle Surgeon: Felipe Marsh Anesthesia Type: GETA plus local Blood Loss: 5 Specimans Obtained: ulcer Findings: decubitus ulcer with tunneling to level of muscle Complications: none Operative Note: After obtaining informed consent, patient was taken to OR, induced under GETA and prepped in the usual fashion over left hip in a right side down decubitus position. Cautery was used to excise skin outside of wound edge. This was taken down to include the entire ulcer, which extended to level of muscle, no bony involvement noted. Specimen sent to pathology. Hemostasis obtained with cautery. Wound packed with iodoform gauze. Dressing placed. Patient tolerated procedure well and sent to PACU in stable condition. All counts correct. Wound class is 4. VANESSA MARSH MD May 02, 2020 13:07
[2020-05-02 13:50] VITALS: BP 163/80
--- NOTE | 2020-05-07 08:06 | PATHOLOGY ---
[facility] Accession Number: [id number] . 01 Material submitted: . buttock - L BUTTOCK ULCER. Modifiers: left . 01 Clinical history: . DECUBITIS . 02 Diagnosis: Skin and subcutaneous tissue, left buttock excision and debridement: - Deep ulceration of skin and underlying fat necrosis with acute inflammation. (JPM:katie; 05/04/2020) [facility] 05/04/2020 1638 Local . 02 Comment: There is no evidence of malignancy. (JPM:katie; 05/04/2020) . 02 Electronically signed: . Bennett Wren MD, Pathologist NPI- [id number] . 01 Gross description: . Received in formalin labeled "Imtiaz Landry., Bennett, ulcer" is a portion of mandel-brown skin and underlying mandel-yellow soft tissue measuring 3.8 x 3.0 x 2.5 cm. The skin surface displays an ulcerated defect measuring 1.9 x 1.5 cm, which extends into the underlying soft tissue with a total depth of 1.6 cm. The specimen is sectioned to reveal that the surrounding tissue is mandel-white and fibrotic. Sales Analyst tissue is submitted in cassette A1. ([facility] [place] [place]; 05/03/2020) [facility] 05/03/2020 1631 Local . 02 Pathologist provided ICD-10: L98.499, L08.9 . 02 CPT . 144479 Specimen Comment: A courtesy copy of this report has been sent to [phone], [phone] Specimen Comment: [id number] Specimen Comment: Report sent to / DR BUSTAMANTE Performed at: 01 [facility] [address] [place] [address] [address], [place] [id number] MD Jamie Roy MD Phone: [phone] Performed at: [address] [id number] MD Bennett Wren MD Phone: [phone]
== END 2020-05-02 14:30 | disposition home or self-care (01) ==
LOC: SURG 10:50
PROVIDERS: ATTEND Surgery
DX: L89.321 Pressure ulcer of left buttock, stage 1 (principal); E78.00 Pure hypercholesterolemia, unspecified; K21.9 Gastro-esophageal reflux disease without esophagitis; M19.90 Unspecified osteoarthritis, unspecified site; N40.0 Benign prostatic hyperplasia without lower urinary tract symptoms; E11.622 Type 2 diabetes mellitus with other skin ulcer; Z87.891 Personal history of nicotine dependence; Z87.440 Personal history of urinary (tract) infections; Z98.890 Other specified postprocedural states; Z79.84 Long term (current) use of oral hypoglycemic drugs; Z88.8 Allergy status to other drugs, medicaments and biological substances; Z88.0 Allergy status to penicillin
CPT/HCPCS: 11042; 82962; 88304; A4461; J1100; J1956; J2370; J2720; J3010